=== PATIENT | female | born 1970 | race Caucasian/White ===

== ENCOUNTER 2016-06-16 09:04 | Emergency (ER) | payer MEDICARE, MEDICAID ==
[~2016-06-16] VITALS: Ht 154.9 cm; Wt 138.8 kg
[~2016-06-16 09:04] MED LIST: /SODI15SS PO; BACT800T5 PO; CIPR500T89 PO; DRIS1CAP PO; ERYTHROPOIETIN; FLAG500T PO; FOSR1000 PO; LEVA12INH INH; LOPE2CA PO; MIDO5TAB PO; MIDODRINE PO; MULTIVITAMIN/IRON PO; NEPHCAP PO; OMEP20CA3 PO; OMEP20TA7 OR; PAXI10TA2 PO; PHOSLO667 MG OR; PRED10TA2 PO; RENATAB5 PO; RENV2TAB PO; SENISPAR PO; SENS60TA PO; SEVE80TAB PO; SIMV20TA2 PO; TRAM50TA2 OR; TUMS500C PO; TYLE325T5 PO; ULTR50TA PO; VELP5CHW PO; VITAMIN D50000 UNT OR; VYTO10TA5 OR; ZOCO10TA PO; [UNRECOGNIZED DRUG - CODE] INJ; [UNRECOGNIZED DRUG - OTHER]; robitussin PO; zyvox PO
[2016-06-16] MEDS ORDERED: METOCLOPRAMIDE INJ 10MG/2ML VIAL (J2765) IV ONE (10:45)
--- NOTE | 2016-06-16 11:40 | REP ---
CT HEAD WITHOUT CONTRAST: HISTORY: Headache. COMPARISON: 08/04/2011 An area of decreased attenuation is present in the left basal ganglia. This represents an old lacunar infarction. Areas of decreased attenuation are present in the periventricular white matter. This represents small vessel ischemic disease. There is no intraparenchymal hemorrhage, mass or midline shift. The ventricular system is normal in appearance. There is no extracerebral collection. Mucosal thickening is present in the mastoid air cells and right middle ear cavity. The visualized sinuses are clear. IMPRESSION: 1. Old left basal ganglia lacunar infarction. 2. Small vessel ischemic disease. Signed by Rigo Lawrence MD 06/16/2016 11:47 A
[2016-06-16 12:05] LABS: BASO % 0.2 % (0.0-1.0); EOS # 0.1 K/mm3 (0.0-0.50); EOS % 1.2 % (0.0-3.0); LARGE UNSTAINED CELL # 0.1 K/mm3 (0.0-0.4); LYMPH # 0.7 K/mm3 (1.5-4.5); LYMPH % 14.8 % (24.0-44.0); MEAN CORPUSCULAR HEMOGLOBIN 31.7 pg (27.0-33.0); MEAN CORPUSCULAR HGB CONC 32.5 g/dl (32.0-36.5); MEAN CORPUSCULAR VOLUME 97.5 fl (80.0-96.0); MONO # 0.2 K/mm3 (0.0-0.8); MONO % 4.5 % (0.0-5.0); NEUTROPHILS # 3.7 K/mm3 (1.8-7.7); NEUTROPHILS % 78.3 % (36.0-66.0); PLATELET COUNT, AUTOMATED 138 k/mm3 (150-450); RED CELL DISTRIBUTION WIDTH 14.1 % (11.5-14.5); WHITE BLOOD COUNT 4.8 K/mm3 (4.0-10.0)
[2016-06-16 12:28] LABS: ALBUMIN 3.6 GM/DL (3.2-5.2); ALBUMIN/GLOBULIN RATIO 1.09 (1.00-1.93); ALKALINE PHOSPHATASE 107 U/L (45-117); ALT/SGPT 19 U/L (12-78); ANION GAP 8 MEQ/L (8-16); AST/SGOT 15 U/L (15-37); BILIRUBIN,DIRECT 0.1 MG/DL (0.0-0.2); BILIRUBIN,TOTAL 0.5 MG/DL (0.2-1.0); BLOOD UREA NITROGEN 48 MG/DL (7-18); CARBON DIOXIDE LEVEL 33 MEQ/L (21-32); CHLORIDE LEVEL 98 MEQ/L (98-107); CREATININE FOR GFR 9.44 MG/DL (0.55-1.02); GLOMERULAR FILTRATION RATE 4.7 (>58); GLUCOSE, FASTING 91 MG/DL (70-105); SODIUM LEVEL 139 MEQ/L (136-145); TOTAL PROTEIN 6.9 GM/DL (6.4-8.2)
[2016-06-16 12:32] LABS: POTASSIUM SERUM 5.3 MEQ/L (3.5-5.1)
[2016-06-16 13:19] VITALS: BP 126/62
--- NOTE | 2016-06-17 10:08 | ECGEPIP ---
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
== END 2016-06-16 13:41 | disposition home or self-care (01) ==
LOC: M ED 11:26
DX: G43.909 Migraine, unspecified, not intractable, without status migrainosus (principal); K21.9 Gastro-esophageal reflux disease without esophagitis; E66.9 Obesity, unspecified; Z79.899 Other long term (current) drug therapy; Z88.0 Allergy status to penicillin; Z88.6 Allergy status to analgesic agent; Z88.1 Allergy status to other antibiotic agents
CPT/HCPCS: 70450; 80048; 80076; 82550; 82553; 83690; 84484; 85025; 93005; 93041; 96374; 99284; J2765

== ENCOUNTER 2016-08-06 13:37 | Emergency (ER) | payer MEDICARE, MEDICAID ==
[~2016-08-06] VITALS: Ht 154.9 cm; Wt 138.8 kg
[2016-08-06 16:10] LABS: BASO % 1.2 % (0.0-1.0); EOS # 0.1 K/mm3 (0.0-0.50); EOS % 1.9 % (0.0-3.0); LARGE UNSTAINED CELL # 0.1 K/mm3 (0.0-0.4); LARGE UNSTAINED CELL % 2.1 % (0.0-4.0); LYMPH # 0.8 K/mm3 (1.5-4.5); LYMPH % 18.8 % (24.0-44.0); MEAN CORPUSCULAR HEMOGLOBIN 31.2 pg (27.0-33.0); MEAN CORPUSCULAR HGB CONC 31.6 g/dl (32.0-36.5); MEAN CORPUSCULAR VOLUME 98.7 fl (80.0-96.0); MONO # 0.3 K/mm3 (0.0-0.8); MONO % 6.8 % (0.0-5.0); NEUTROPHILS # 2.5 K/mm3 (1.8-7.7); NEUTROPHILS % 69.2 % (36.0-66.0); PLATELET COUNT, AUTOMATED 175 k/mm3 (150-450); RED CELL DISTRIBUTION WIDTH 15.1 % (11.5-14.5); WHITE BLOOD COUNT 3.7 K/mm3 (4.0-10.0)
[2016-08-06 16:16] LABS: CALCIUM LEVEL 9.4 MG/DL (8.5-10.1); CREATININE FOR GFR 5.63 MG/DL (0.55-1.02); GLOMERULAR FILTRATION RATE 8.6 (>58); POTASSIUM SERUM 4.2 MEQ/L (3.5-5.1)
--- NOTE | 2016-08-06 16:39 | REP ---
Clinical: Dyspnea and cough . Comparison: 01/02/2016 . Findings: The mediastinum and cardiac silhouette are stable and within normal limits for portable technique. The lung fong are clear without acute consolidation, effusion, or pneumothorax. Skeletal structures are intact. Impression: Normal portable chest x-ray Signed by Pedro Henderson MD 08/06/2016 04:30 P
[2016-08-06] MEDS ORDERED: IPRATROPIUM 0.5MG/ALBUTEROL 2.5MG INH SOL UD 3ML (DUONEB)(J7620) NEB ONE (16:45)
[2016-08-06] MEDS ORDERED: methylPREDNISolone INJ 125 MG/2 ML VIAL (J2930) IV ONE (16:45)
[2016-08-06 18:36] VITALS: BP 183/89
--- NOTE | 2016-08-07 08:01 | ECGEPIP ---
Stationary ECG Study [facility] - ED Test Date: 2016-08-06 Pat Name: NORTH SCHAEFFER Department: Room: - Gender: F [employer]er: MELINDA : 1970 Requested By: DALY Aly Order Number: [id number] Reading MD: Shanice Nathan Measurements Intervals [place] Rate: 72 P: 23 [place]: 140 QRS: -21 QRSD: 145 T: 1 QT: 414 QTc: 454 Interpretive Statements SINUS RHYTHM BORDERLINE LEFT AXIS DEVIATION RIGHT BUNDLE BRANCH BLOCK SIMILAR 06/16/16 Electronically Signed On 08-07-2016 8:01:23 EDT by Shanice Nathan
== END 2016-08-06 18:59 | disposition home or self-care (01) ==
LOC: M ED 15:29
DX: R06.02 Shortness of breath (principal); F41.9 Anxiety disorder, unspecified; N18.6 End stage renal disease; K57.92 Diverticulitis of intestine, part unspecified, without perforation or abscess without bleeding; Z99.2 Dependence on renal dialysis; Z90.49 Acquired absence of other specified parts of digestive tract; Z79.899 Other long term (current) drug therapy; Z88.0 Allergy status to penicillin; Z88.1 Allergy status to other antibiotic agents; Z88.6 Allergy status to analgesic agent; Z88.8 Allergy status to other drugs, medicaments and biological substances
CPT/HCPCS: 71010; 80048; 83605; 85025; 87880; 93005; 93041; 94640; 94760; 96374; 99285; J2930

== ENCOUNTER 2017-02-08 12:01 | Emergency (ER) | payer MEDICARE, MEDICAID ==
[~2017-02-08] VITALS: Ht 154.9 cm; Wt 139.1 kg
[~2017-02-08 12:01] MED LIST changes: +CIPR-249 PO; -CIPR500T89 PO
[2017-02-08] MEDS ORDERED: SIMV80TA PO (12:10)
[2017-02-08] MEDS ORDERED: LEVO500T3 PO (12:10)
[2017-02-08] MEDS ORDERED: IPRATROPIUM 0.5MG/ALBUTEROL 2.5MG INH SOL UD 3ML (DUONEB)(J7620) NEB ONE (13:00)
[2017-02-08 13:20] LABS: BASO % 0.2 % (0.0-1.0); EOS % 0.4 % (0.0-3.0); IMMATURE GRANULOCYTE % 0.7 % (0-0); LYMPH # 0.7 10^3/uL (1.5-4.5); MEAN CORPUSCULAR HEMOGLOBIN 32.4 pg (27.0-33.0); MEAN CORPUSCULAR HGB CONC 32.1 g/dl (32.0-36.5); MEAN CORPUSCULAR VOLUME 101.1 fl (80.0-96.0); MONO # 0.3 10^3/uL (0.0-0.8); MONO % 5.1 % (0.0-5.0); NEUTROPHILS # 4.6 10^3/uL (1.8-7.7); NEUTROPHILS % 80.6 % (36.0-66.0); PLATELET COUNT, AUTOMATED 211 10^3/uL (150-450); RED CELL DISTRIBUTION WIDTH 13.7 % (11.5-14.5); WHITE BLOOD COUNT 5.7 10^3/uL (4.0-10.0)
[2017-02-08 13:40] LABS: CALCIUM LEVEL 8.8 MG/DL (8.5-10.1); CREATININE FOR GFR 4.45 MG/DL (0.55-1.02); GLOMERULAR FILTRATION RATE 11.2 (>58); MAGNESIUM LEVEL 1.9 MG/DL (1.8-2.4); PHOSPHORUS LEVEL 2.6 MG/DL (2.5-4.9); POTASSIUM SERUM 4.9 MEQ/L (3.5-5.1)
[2017-02-08 13:56] VITALS: BP 132/67
[2017-02-08] MEDS ORDERED: ZITHTAB PO (13:57)
--- NOTE | 2017-02-08 13:58 | REP ---
CHEST, TWO VIEWS: Two views of the chest are performed and compared to a prior study of 01/02/2016 and single view chest on 08/06/2016. There is no evidence of acute infiltrate. The heart is not significantly enlarged and the mediastinal silhouette is unchanged. There is curvature of the thoracic spine convex to the right. There are mild degenerative changes of the spine. IMPRESSION: No evidence of acute infiltrate. Signed by Shashank Mack MD 02/08/2017 05:38 P
[2017-02-08] MEDS ORDERED: VENTAER IN (13:59)
[2017-02-08] MEDS ORDERED: AZITHROMYCIN 250 MG TAB PO ONE (14:00)
== END 2017-02-08 14:31 | disposition home or self-care (01) ==
LOC: M ED 12:01
DX: J20.9 Acute bronchitis, unspecified (principal)

== ENCOUNTER → 2017-05-18 | Outpatient (CLI) | payer MEDICARE, MEDICAID | LOC: M RAD 15:04 | DX: M14.671 Charcot's joint, right ankle and foot (principal) | CPT/HCPCS: 73718 ==

== ENCOUNTER 2017-09-11 12:01 | Emergency (ER) | payer MEDICARE, MEDICAID ==
[2017-09-11 12:27] LABS: ABG HCO3 28.3 MEQ/L (22.0-26.0); ABG O2 SATURATION 99.2 % (95.0-99.0); ABG PARTIAL PRESSURE CO2 37.4 mmHg (35.0-45.0); ABG PARTIAL PRESSURE O2 189.5 mmHg (75.0-100.0); ABG TOTAL CO2 29.5 MEQ/L (22.0-29.0); ABG pH (ARTERIAL) 7.497 UNITS (7.350-7.450)
[2017-09-11] MEDS ORDERED: ISOVUE-370 76% 100ML VIAL (Q9967) As Ordered (13:08)
[2017-09-11 14:46] LABS: BASO % 0.1 % (0.0-1.0); HEMATOCRIT 38.9 % (36.0-47.0); HEMOGLOBIN 12.8 g/dl (12.0-15.5); IMMATURE GRANULOCYTE % 0.3 % (0-3.0); LYMPH % 1.2 % (24.0-44.0); MEAN CORPUSCULAR HEMOGLOBIN 31.5 pg (27.0-33.0); MEAN CORPUSCULAR HGB CONC 32.9 g/dl (32.0-36.5); MEAN CORPUSCULAR VOLUME 95.8 fl (80.0-96.0); MONO # 0.3 10^3/uL (0.0-0.8); MONO % 3.6 % (0.0-5.0); NEUTROPHILS # 6.5 10^3/uL (1.8-7.7); NEUTROPHILS % 94.8 % (36.0-66.0); PLATELET COUNT, AUTOMATED 121 10^3/uL (150-450); RED BLOOD COUNT 4.06 10^6/uL (4.00-5.40); RED CELL DISTRIBUTION WIDTH 14.1 % (11.5-14.5); WHITE BLOOD COUNT 6.9 10^3/uL (4.0-10.0)
[2017-09-11 14:56] LABS: INR 1.03; PROTHROMBIN TIME 13.6 SECONDS (12.4-14.5)
[2017-09-11 15:09] LABS: ALBUMIN 3.5 GM/DL (3.2-5.2); ALKALINE PHOSPHATASE 162 U/L (45-117); ALT/SGPT 40 U/L (12-78); ANION GAP 9 MEQ/L (8-16); AST/SGOT 35 U/L (7-37); BILIRUBIN,DIRECT 0.6 MG/DL (0.0-0.2); BILIRUBIN,TOTAL 1.2 MG/DL (0.2-1.0); BLOOD UREA NITROGEN 18 MG/DL (7-18); CALCIUM LEVEL 9.1 MG/DL (8.5-10.1); CARBON DIOXIDE LEVEL 32 MEQ/L (21-32); CHLORIDE LEVEL 96 MEQ/L (98-107); CPK CREATINE PHOSPHOKINASE 380 U/L (26-192); CREATININE FOR GFR 5.51 MG/DL (0.55-1.30); GLOMERULAR FILTRATION RATE 8.8 (>58); GLUCOSE, FASTING 123 MG/DL (70-100); POTASSIUM SERUM 3.8 MEQ/L (3.5-5.1); SODIUM LEVEL 137 MEQ/L (136-145); TROPONIN I < 0.02 NG/ML (< 0.10)
[2017-09-11 15:13] LABS: LACTIC ACID SEPSIS PROTOCOL 2.9 MMOL/L (0.4-2.0)
[2017-09-11 15:14] LABS: CK-MB VALUE MASS 2.7 NG/ML (<3.6); MB/CK RELATIVE INDEX 0.71 (< OR =4); NT-PRO BNP 5624 PG/ML (<125)
[2017-09-11 15:31] LABS: LYMPH # 0.1 10^3/uL (1.5-4.5); POS COUNT POS FLAG; POSITIVE DIFF POS FLAG
[2017-09-11 19:31] LABS: CK-MB VALUE MASS 4.7 NG/ML (<3.6); CPK CREATINE PHOSPHOKINASE 989 U/L (26-192); MB/CK RELATIVE INDEX 0.47 (< OR =4); TROPONIN I 0.03 NG/ML (< 0.10)
== END 2017-09-11 21:30 | disposition home or self-care (01) ==
LOC: M ED 12:01
DX: N18.6 End stage renal disease (principal); Z99.2 Dependence on renal dialysis; R06.09 Other forms of dyspnea; I95.9 Hypotension, unspecified; I45.10 Unspecified right bundle-branch block; R00.0 Tachycardia, unspecified; I44.4 Left anterior fascicular block; D64.9 Anemia, unspecified; E21.3 Hyperparathyroidism, unspecified; F12.10 Cannabis abuse, uncomplicated; Z79.899 Other long term (current) drug therapy; Z88.8 Allergy status to other drugs, medicaments and biological substances; Z88.6 Allergy status to analgesic agent; Z88.0 Allergy status to penicillin
CPT/HCPCS: Q9967

== ENCOUNTER → 2018-04-14 | Outpatient (CLI) | payer MEDICARE, MEDICAID ==
[~2018-04-14] MED LIST changes: +CALC1CAP PO; +LANT1000 PO; +LEVO500T3 PO; +SIMV80TA13 PO; +VENTAER IN; +VENTAER INH; +ZITHTAB PO
[2018-04-16 11:29] LABS: HEPATITIS B SURFACE ANTIBODY POSITIVE (POSITIVE); HEPATITIS B SURFACE ANTIGEN NEGATIVE (NEGATIVE); HEPATITIS C VIRUS ABY INDEX 0.1 INDEX (<0.8); HIV 1&2 SCREEN CENTAUR NEGATIVE (NEGATIVE)
== END ==
LOC: M LAB 15:16
PROVIDERS: ATTEND Family Medicine Addiction Medicine
DX: Z20.2 Contact with and (suspected) exposure to infections with a predominantly sexual mode of transmission (principal)

== ENCOUNTER 2018-05-26 11:49 | Emergency (ER) | payer MEDICARE, MEDICAID ==
[~2018-05-26] VITALS: Ht 154.9 cm; Wt 132.3 kg
[2018-05-26] MEDS ORDERED: TESS100C PO ×2 (12:06→15:11)
[2018-05-26] MEDS ORDERED: VITA50005 (12:06)
[2018-05-26] MEDS ORDERED: PROAAER10 INH ×2 (12:06→15:11)
[2018-05-26] MEDS ORDERED: MIDO10TA PO (12:06)
[2018-05-26] MEDS ORDERED: AURY1TAB (12:06)
[2018-05-26] MEDS ORDERED: IPRATROPIUM 0.5MG/ALBUTEROL 2.5MG INH SOL UD 3ML (DUONEB)(J7620) NEB ONE (13:00)
--- NOTE | 2018-05-26 13:00 | REP ---
Chest x-ray: Three views. History: Shortness of breath. Comparison chest x-ray: February 08, 2017. Findings: There is a moderate dextroconvex scoliotic curve. There is benign pleural thickening bilaterally. The lungs are otherwise clear. Pleural angles are sharp. Heart size is normal. There are degenerative changes in the thoracic spine as well. Pulmonary vasculature is not increased. Impression: No active disease. Electronically Signed by Bean No MD 05/26/2018 12:52 P
[2018-05-26 13:20] LABS: BASO % 0.3 % (0.0-1.0); EOS % 0.9 % (0.0-3.0); HEMATOCRIT 37.9 % (36.0-47.0); HEMOGLOBIN 11.8 g/dl (12.0-15.5); LYMPH # 1.4 10^3/uL (1.5-4.5); LYMPH % 38.9 % (24.0-44.0); MEAN CORPUSCULAR HEMOGLOBIN 31.3 pg (27.0-33.0); MEAN CORPUSCULAR HGB CONC 31.1 g/dl (32.0-36.5); MEAN CORPUSCULAR VOLUME 100.5 fl (80.0-96.0); MONO # 0.3 10^3/uL (0.0-0.8); MONO % 7.4 % (0.0-5.0); NEUTROPHILS # 1.8 10^3/uL (1.8-7.7); NEUTROPHILS % 52.2 % (36.0-66.0); PLATELET COUNT, AUTOMATED 122 10^3/uL (150-450); RED BLOOD COUNT 3.77 10^6/uL (4.00-5.40); WHITE BLOOD COUNT 3.5 10^3/uL (4.0-10.0)
[2018-05-26 13:59] LABS: ALBUMIN 3.6 GM/DL (3.2-5.2); ALT/SGPT 24 U/L (12-78); BILIRUBIN,DIRECT 0.2 MG/DL (0.0-0.2); BILIRUBIN,TOTAL 0.5 MG/DL (0.2-1.0); BLOOD UREA NITROGEN 18 MG/DL (7-18); CALCIUM LEVEL 8.1 MG/DL (8.5-10.1); CARBON DIOXIDE LEVEL 32 MEQ/L (21-32); CHLORIDE LEVEL 98 MEQ/L (98-107); CPK CREATINE PHOSPHOKINASE 74 U/L (26-192); CREATININE FOR GFR 4.38 MG/DL (0.55-1.30); GLOMERULAR FILTRATION RATE 11.4 (>58); GLUCOSE, FASTING 79 MG/DL (70-100); MB/CK RELATIVE INDEX 2.43 (< OR =4); NT-PRO BNP 6602 PG/ML (<125); POTASSIUM SERUM 3.6 MEQ/L (3.5-5.1); SODIUM LEVEL 140 MEQ/L (136-145); TOTAL PROTEIN 7.4 GM/DL (6.4-8.2); TROPONIN I < 0.02 NG/ML (< 0.10)
[2018-05-26 15:25] VITALS: BP 112/65
--- NOTE | 2018-05-26 20:36 | ECGEPIP ---
Stationary ECG Study [facility] - ED Test Date: 2018-05-26 Pat Name: NORTH SCHAEFFER Department: Room: - Gender: F Hedis Review Nurse: TC : 1970 Requested By: Shanice Nathan Order Number: [id number] Reading MD: Grant Garcia Measurements Intervals [place] Rate: 61 P: 33 [place]: 158 QRS: -20 QRSD: 149 T: -1 QT: 456 QTc: 462 Interpretive Statements SINUS RHYTHM Right bundle branch block as previously noted on tracing done 09-11-17 Electronically Signed On 05-26-2018 20:36:14 EST by Grant Garcia
== END 2018-05-26 15:43 | disposition home or self-care (01) ==
LOC: EDBD 11:49 → M ED 11:49
DX: J20.9 Acute bronchitis, unspecified (principal)

== ENCOUNTER → 2018-06-21 | Outpatient (CLI) | payer MEDICARE, MEDICAID ==
[~2018-06-21] MED LIST changes: -/SODI15SS PO; +AURY1TAB; +MIDO10TA PO; +PROAAER10 INH; -SEVE80TAB PO; +SPS15SUS2 PO; +TESS100C PO; +VITA50005
--- NOTE | 2018-06-28 17:42 | SLEEPCENT ---
DATE OF PROCEDURE: 06/21/2018 ORDERED BY: Tea Argueta Nocturnal polysomnography was performed for evaluation of sleep physiology in this patient with a history of excessive somnolence and nonrestorative sleep. 7 hours and 44 minutes of data were reviewed. There were 327 minutes of sleep identified. Sleep latency was prolonged at 49 minutes. Rapid eye movement (REM) latency was prolonged at 241 minutes. Sleep architecture was fair with some fragmentation. Two short REM cycles were noted. Overall sleep efficiency 71.6%. The electrocardiogram showed a sinus rhythm with an average heart rate of 62 beats per minute. EEG showed normal waveforms for awake and sleep. There were 158 respiratory events identified of 10 seconds in duration or greater for an apnea-hypopnea index of 29. The events were obstructive, not exclusive to sleep stage nor body posture. Arousals from respiratory events occurred 3.7 times per hour and oxygen desaturations were seen into the low 80s. Remaining measures of sleep physiology were normal. IMPRESSION: Obstructive sleep apnea syndrome (G47.33). Apnea-hypopnea index 29. RECOMMENDATIONS: The patient should be encouraged to return to the sleep disorder center for pressure therapy. In the interim, alcohol and sedative avoidance should be practiced and caution exercised during the operation of motor vehicles.
== END ==
LOC: M SLEEP 19:10
PROVIDERS: ATTEND Nurse Practitioner Family
DX: G47.33 Obstructive sleep apnea (adult) (pediatric) (principal)

== ENCOUNTER → 2018-07-19 | Outpatient (CLI) | payer MEDICARE, MEDICAID ==
--- NOTE | 2018-07-21 14:40 | SLEEPCENT ---
DATE OF PROCEDURE: 07/19/2018 ORDERING PROVIDER: Tea Argueta NP Nocturnal polysomnography was performed for the titration of pressure therapy in this patient with obstructive sleep apnea syndrome. Apnea-hypopnea index of 29. For testing a ResMed Quattro full face mask of extra small size was used, 4 cm of water pressure were applied circuit, and the lights were extinguished. 7 hours and 1 minute of data were reviewed. There were 299 minutes of sleep identified. Sleep latency was prolonged at 32 minutes. Rapid eye movement (REM) latency was prolonged at 110 minutes. Sleep architecture improved with optimal pressure therapy. Overall sleep efficiency was 72%. The electrocardiogram showed a sinus rhythm with an average heart rate of 60 beats per minute. Electroencephalogram (EEG) showed some background coarsening, no focal events were identified. There were normal waveforms for awake and sleep. Respiratory events were reasonably palliated with C-PAP to a pressure +6. There was significant limb activity. Limb movement arousal index of 6.6. IMPRESSION: Obstructive sleep apnea syndrome (G47.33). RECOMMENDATIONS: Nightly use of pressure therapy 6 cm of water.
== END ==
LOC: M SLEEP 19:25
PROVIDERS: ATTEND Nurse Practitioner Family
DX: G47.33 Obstructive sleep apnea (adult) (pediatric) (principal)

== ENCOUNTER → 2018-08-17 | Outpatient (REF) | payer MEDICARE, MEDICAID | LOC: M LAB REF 16:37 | PROVIDERS: ATTEND Family Medicine Addiction Medicine | DX: Z20.2 Contact with and (suspected) exposure to infections with a predominantly sexual mode of transmission (principal) ==

== ENCOUNTER → 2018-10-28 | Outpatient (CLI) | payer MEDICARE, MEDICAID ==
[~2018-10-28] MED LIST changes: +ATOR1TAB21 PO; +ATOR40TA75 PO; -AURY1TAB; +AURY1TAB PO; +AZIT-12 PO; +CEFD300CAP PO; +CHOL100029 PO; +LIDO5TD TD; +MEGE40TA; +MEGE40TA PO; +OMEP1CAP73 PO; +OSEL75CA PO; +ROBICAP2 PO; +SIMV20TA22 PO; +ZOCO80TA PO
[2018-10-28 19:34] LABS: HCG, SERUM QUALITATIVE NEGATIVE (NEGATIVE)
[2018-10-28 19:48] LABS: FREE T4 1.32 NG/DL (0.76-1.46)
[2018-10-28 19:51] LABS: FOLLICLE STIMULATING HORMONE 5.3 mIU/mL; LUTEINIZING HORMONE 9.1 mIU/mL
[2018-10-28 22:27] LABS: CHLAMYDIA DNA AMPLIFICATION NEGATIVE (NEGATIVE); GC DNA AMPLIFICATION NEGATIVE (NEGATIVE)
[2018-11-02 15:07] LABS: HPV LOW VOL RFLX Negative (Negative)
== END ==
LOC: M SMT 14:42
PROVIDERS: ATTEND Advanced Practice Midwife
DX: Z12.4 Encounter for screening for malignant neoplasm of cervix (principal); N95.0 Postmenopausal bleeding; N87.0 Mild cervical dysplasia; Z11.3 Encounter for screening for infections with a predominantly sexual mode of transmission
CPT/HCPCS: 36415; 83001; 83002; 84439; 84443; 84703; 87491; 87591; 87624; G0123

== ENCOUNTER → 2018-11-04 | Outpatient (CLI) | payer MEDICARE, MEDICAID ==
[~2018-11-04] MED LIST changes: -ATOR1TAB21 PO; -ATOR40TA75 PO; +AURY1TAB; -AURY1TAB PO; -AZIT-12 PO; -CEFD300CAP PO; -CHOL100029 PO; -LIDO5TD TD; -MEGE40TA; -MEGE40TA PO; -OMEP1CAP73 PO; +OMEP20CA4 PO; -OSEL75CA PO; -ROBICAP2 PO; -SIMV20TA22 PO; -ZOCO80TA PO
--- NOTE | 2018-11-04 16:01 | REP ---
Pelvic sonography: History: Postmenopausal bleeding. Findings: Transabdominal and transvaginal scanning are performed. Exam quality is quite limited due to patient body habitus and uterine enlargement. Uterine dimensions are 12.5 x 7.5 x 5.8 cm. Endometrial echo is 2.7 cm thick. There is hypoechoic area in the lower uterine segment measuring 1.7 x 1.7 x 1.2 cm. This is compatible with a small fibroid. The left ovary could not be visualized either transabdominally or transvaginally. Limited views of the right ovary show no abnormality. Its dimensions are 2.3 x 2.0 x 1.6 cm. Impression: Enlarged uterus. Scan quality inhibited by patient body habitus and large uterus. Left ovary could not be directly visualized. 1.7 cm lower uterine segment fibroid suspected. Otherwise negative. Electronically Signed by Bean No MD 11/04/2018 05:40 P
--- NOTE | 2018-11-04 16:26 | REPMRS ---
Patient History The patient states she had a clinical breast exam in October 2018. No known family history of cancer. Took hormonal contraceptives for 2 years. Patient has been on dialysis since 1997. Patient has lost 20 pounds in the last year due to diet. Digital Mammo Screening Bilat: November 04, 2018 - Exam #: [id number] Bilateral CC and MLO view(s) were taken. Technologist: Marquita Wen, Technologist Prior study comparison: November 29, 2013, bilateral bilat screen digital mammo, performed at [facility] ([facility]). October 05, 2012, bilateral bilat screen digital mammo, performed at [facility] ([facility]). July 03, 2011, bilateral bilat screen digital mammo, performed at [facility] ([facility]). FINDINGS: There are scattered fibroglandular densities. Dominant veins are again noted in the right breast unchanged. There has been no change in the appearance of the mammogram from the prior studies. There is a mild amount of scattered fibroglandular density which is fairly symmetric. There is no interval development of dominant mass, architectural distortion, or grouped microcalcification suggestive of malignancy. 3-D tomosynthesis shows no additional findings. Assessment: BI-RADS/ACR category 2 mammogram. Benign Findings. Recommendation Routine screening mammogram of both breasts in 1 year (for women over age 40). This patient's Lifetime Breast Cancer Risk is estimated at 8.9 %. This mammogram was interpreted with the aid of an FDA-approved computer-aided dectection system. Electronically Signed By: Elmer No MD 11/04/18 [id number]
== END ==
LOC: M RAD 12:20
PROVIDERS: ATTEND Advanced Practice Midwife
DX: Z12.31 Encounter for screening mammogram for malignant neoplasm of breast (principal); N95.0 Postmenopausal bleeding; N85.2 Hypertrophy of uterus

== ENCOUNTER 2018-11-22 11:11 | Inpatient (IN) | payer MEDICARE, MEDICAID ==
[2018-11-22] VITALS (10 sets, daily range): BP systolic 73–119; BP diastolic 35–60
[~2018-11-22] VITALS: Ht 154.9 cm; Wt 127.7 kg
[~2018-11-22 11:11] MED LIST changes: -AURY1TAB; +AURY1TAB PO
[2018-11-22] MEDS ORDERED: ALBUTEROL SULFATE 2.5 MG/0.5 ML INH NEB SOLN INH ONE (11:45)
[2018-11-22] MEDS ORDERED: IPRATROPIUM 0.5MG/ALBUTEROL 2.5MG INH SOL UD 3ML (DUONEB)(J7620) NEB ONE (11:45)
[2018-11-22 12:09] LABS: BASO % 0.1 % (0.0-1.0); HEMATOCRIT 35.7 % (36.0-47.0); HEMOGLOBIN 11.6 g/dl (12.0-15.5); LYMPH # 0.7 10^3/uL (1.5-5.0); LYMPH % 8.8 % (24.0-44.0); MEAN CORPUSCULAR HEMOGLOBIN 30.8 pg (27.0-33.0); MEAN CORPUSCULAR HGB CONC 32.5 g/dl (32.0-36.5); MEAN CORPUSCULAR VOLUME 94.7 fl (80.0-96.0); MONO # 0.8 10^3/uL (0.0-0.8); MONO % 9.7 % (0.0-5.0); NEUTROPHILS # 6.6 10^3/uL (1.5-8.5); PLATELET COUNT, AUTOMATED 140 10^3/uL (150-450); RED BLOOD COUNT 3.77 10^6/uL (4.00-5.40); WHITE BLOOD COUNT 8.1 10^3/uL (4.0-10.0)
[2018-11-22 12:18] LABS: INR 1.04; PROTHROMBIN TIME 13.3 SECONDS (11.8-14.0)
[2018-11-22 12:19] LABS: PARTIAL THROMBOPLASTIN TIME 35.4 SECONDS (25.0-38.4)
--- NOTE | 2018-11-22 12:37 | REP ---
Clinical: Chest pain . Comparison: 05/26/2018 . Findings: The mediastinum and cardiac silhouette are stable and within normal limits for portable technique. The lung fong are clear without acute consolidation, effusion, or pneumothorax. Skeletal structures are intact. Impression: No acute cardiopulmonary process appreciated. Electronically Signed by Pedro Henderson MD 11/22/2018 12:29 P
[2018-11-22 12:45] LABS: ALBUMIN 3.5 GM/DL (3.2-5.2); BILIRUBIN,DIRECT 0.4 MG/DL (0.0-0.2); BILIRUBIN,TOTAL 1.1 MG/DL (0.2-1.0); CK-MB VALUE MASS 1.2 NG/ML (<3.6); FREE T4 1.52 NG/DL (0.76-1.46); MB/CK RELATIVE INDEX 1.94 (< OR =4); THYROID STIMULATING HORMONE 1.29 uIU/ML (0.358-3.740); TOTAL PROTEIN 7.2 GM/DL (6.4-8.2); TROPONIN I 0.2 NG/ML (< 0.10)
[2018-11-22] MEDS ORDERED: MORPHINE 2 MG/ML 1ML SYRINGE (J2270) IV ONE ×2 (12:45)
[2018-11-22] MEDS ORDERED: ONDANSETRON 4MG/2ML VIAL (J2405) IV ONE ×2 (12:45)
[2018-11-22] MEDS ORDERED: ISOVUE-370 76% 100ML VIAL (Q9967) As Ordered ONE (13:02)
[2018-11-22] MEDS ORDERED: MEROPENEM INJ 1 GM in IV 1 EA IV ONE (13:15)
[2018-11-22] MEDS ORDERED: ACETAMINOPHEN 325 MG TAB PO ONE (13:15)
[2018-11-22] MEDS ORDERED: CHOL100029 PO (13:35)
[2018-11-22] MEDS ORDERED: ZOCO80TA PO (13:35)
--- NOTE | 2018-11-22 14:13 | REP ---
Clinical: Acute chest pain. Comparison: 09/11/2017 Technique: Axial contrast enhanced images from the thoracic inlet to the upper abdomen using 100 ml Isovue 370 intravenous contrast material with coronal and sagittal re-formations. Findings: Evaluation is limited by technical factors/body habitus and pulmonary embolus cannot definitively be excluded. No obvious filling defect in the main pulmonary arteries identified. Thoracic aorta is normal caliber without aneurysm or dissection. Heart is normal in size. No pericardial effusion. Lung fong demonstrate small scattered noncalcified nodules with subtle surrounding ground-glass opacity which measure up to approximately 7 mm. Differential diagnosis would include metastatic disease as well as septic emboli and clinical correlation is recommended. No consolidation. No effusion. No pneumothorax. Impression: 1. Limited for evaluation of pulmonary embolus. No obvious pulmonary embolus. 2. Multiple scattered small ill-defined nodules up to 7 mm. Differential diagnosis includes septic emboli and metastatic disease. Correlation and follow up is recommended. Electronically Signed by Pedro Henderson MD 11/22/2018 02:05 P
[2018-11-22] MEDS ORDERED: NS 500 ML IV ONE (14:15)
[2018-11-22] MEDS ORDERED: LINEZOLID 600 MG in IV 1 EA IV ONE (14:15)
[2018-11-22 14:16] LABS: CK-MB VALUE MASS 1.1 NG/ML (<3.6); MB/CK RELATIVE INDEX 1.9 (< OR =4); TROPONIN I 0.25 NG/ML (< 0.10)
--- NOTE | 2018-11-22 14:18 | REP ---
Clinical: Abdominal pain and fever. Technique: Axial contrast enhanced images from the lung bases to the pubic symphysis with coronal and sagittal re-formations using 100 ml Isovue 370 intravenous contrast material. Comparison: 09/11/2017. Findings: Liver, spleen, pancreas, and bilateral adrenal glands are normal. Atrophic appearance of the bilateral kidneys noted with calcifications and cysts, but no hydronephrosis or perinephric stranding. Evidence of prior cholecystectomy. The enteric system is without obstruction or acute inflammatory process. Pelvis demonstrates collapsed bladder. Uterus and adnexa are grossly unremarkable. 3 cm fat containing periumbilical hernia noted. No ascites. No free air. No adenopathy. Supraumbilical ventral hernia repair with mesh identified. Osseous structures demonstrate diffuse heterogeneous sclerosis and mottled changes which may be secondary to renal osteodystrophy however metastatic disease cannot be excluded. Impression: 1. No obvious acute abdominopelvic pathology appreciated. 2. No ascites, focal inflammatory stranding, or adenopathy. 3. Chronic-appearing changes as noted above. Electronically Signed by Pedro Henderson MD 11/22/2018 02:10 P
[2018-11-22 14:50] LABS: CHLAMYDIA DNA AMPLIFICATION NEGATIVE (NEGATIVE); GC DNA AMPLIFICATION NEGATIVE (NEGATIVE)
[2018-11-22] MEDS ORDERED: MEROPENEM INJ 1 GM in IV 1 EA IV SCH (15:15)
[2018-11-22] MEDS ORDERED: SODIUM CHLORIDE 0.9% 1000ML IV ONE (15:45)
--- NOTE | 2018-11-22 16:01 | ROOPDOC ---
[facility] Report Of Operation Report of Operation DATE OF PROCEDURE: 11/22/18 PREPROCEDURE DIAGNOSES: Sepsis, need for critical venous access. POSTPROCEDURE DIAGNOSES: Same. PROCEDURE: Insertion of left internal jugular triple-lumen central venous catheter under ultrasound guidance. SURGEON: Memo Alberto MD ANESTHESIA: Local anesthesia with 1% lidocaine. ESTIMATED BLOOD LOSS: Approximately 5 mL. COMPLICATIONS: None, portable chest x-ray pending. REMARKS: 48-year-old female morbidly obese, short neck brought in to the emergency room for fever noted to be hypotensive suspected to be septic and she is in need of a central venous catheter as she does not have any accessible peripheral veins. DESCRIPTION OF PROCEDURE: I first surveyed her right neck with an ultrasound to look at the right internal jugular vein. She reports she had a previous dialysis catheter on that area and he developed clot with the catheter. The vein looks very tiny on her right neck. I then switched to the left neck and this seems to be more accessible with markedly change in size with the patient taking a deep breath consistent with dry state. This seems to be more accessible Lauren chose the left side. Her left neck, chest was prepped and draped in the usual sterile fashion. We used a prepackaged Central Line Bundle. Under ultrasound guidance, the location of the internal jugular vein was visualized given her body habitus still is barely any landmarks perceptible on her neck and chest.. Once this was localized the skin was infiltrated with 1% lidocaine. An anterior approach was used. The finder needle was visualized coming into the lumen of the internal jugular vein. The guidewire was threaded through the needle. Using modified Seldinger technique, a fascial dilator was used to enlarge the subcutaneous tract and a triple-lumen catheter was threaded through the guidewire to about 18 cm from the skin line. The guidewire was removed. All the ports were checked and noted to be aspirating and flushing well. The triple-lumen catheter was then secured to the skin with 3-0 nylon sutures. An antibiotic containing sterile clear dressing was placed at the wound exit site. MEMO ALBERTO MD Nov 22, 2018 16:01
--- NOTE | 2018-11-22 16:41 | REP ---
Clinical: Line placement . Comparison: 11/22/2018 . Findings: Left IJ line with tip in the SVC. The mediastinum and cardiac silhouette are stable and within normal limits for portable technique. No focal consolidation. No effusion. No pneumothorax. Skeletal structures are intact. Impression: Cannot exclude mild interstitial edema or subtle atelectasis. Electronically Signed by Pedro Henderson MD 11/22/2018 04:32 P
[2018-11-22] MEDS ORDERED: traMADol 50 MG TAB PO PRN (18:45)
[2018-11-22 19:06] LABS: BASO % 0.4 % (0.0-1.0); EOS # 0.1 10^3/uL (0.0-0.5); EOS % 0.5 % (0.0-3.0); HEMATOCRIT 33.3 % (36.0-47.0); HEMOGLOBIN 10.7 g/dl (12.0-15.5); LYMPH # 0.4 10^3/uL (1.5-5.0); LYMPH % 4.4 % (24.0-44.0); MEAN CORPUSCULAR HEMOGLOBIN 29.9 pg (27.0-33.0); MEAN CORPUSCULAR HGB CONC 32.1 g/dl (32.0-36.5); MONO # 0.8 10^3/uL (0.0-0.8); NEUTROPHILS # 8.2 10^3/uL (1.5-8.5); NEUTROPHILS % 83.7 % (36.0-66.0); PLATELET COUNT, AUTOMATED 123 10^3/uL (150-450); RED BLOOD COUNT 3.58 10^6/uL (4.00-5.40); WHITE BLOOD COUNT 9.8 10^3/uL (4.0-10.0)
[2018-11-22] MEDS: NYSTATIN 500,000 U/5 ML SUSP UDC SS SCH (20:02)
[2018-11-22] MEDS: OMEPRAZOLE 20 MG CAP PO SCH (20:02)
[2018-11-22] MEDS: SIMVASTATIN 40 MG TAB PO SCH (20:03)
[2018-11-22] MEDS: PERCOCET 5MG/325MG TAB PO PRN (20:03)
[2018-11-22] MEDS: ACETAMINOPHEN TAB 650MG DOSE (2X325MG) PO PRN (20:03)
--- NOTE | 2018-11-22 20:50 | HPEPDOC ---
General Date of Admission Nov 22, 2018 at 14:56 Date of Service: Nov 22, 2018 Chief Complaint The patient is a 48-year-old female admitted with a reason for visit of End Stage Renal Disease On Hemodialysis Fever. Source: Patient, Old records Exam Limitations: No limitations Timing/Duration: Week(s) Severity: Moderate Associated Symptoms: Fever, Chills, Nausea, Vomiting History of Present Illness This is a 48-year-old male who presents with multiple complaints. Primary complaint is development of fever and chills over the past week progressing to nausea and vomiting this weekend. She's also been complaining of low back pain, but this is chronic for her. Upon evaluation in the emergency room she was noted to be febrile and hypotensive with systolic pressures down to 74. She was fe brile up to 100.8. Lactic acid was normal at 1.7, and she was not noted to be tachycardic. However, she was poorly responsive to IV fluid resuscitation. Central line was placed for more aggressive fluid resuscitation. Upon additional radiologic evaluation in the emergency room, there were findings concerning for septic emboli and consequently overall concern for possible endocarditis. This is not the first time this concern has been raised. Patient had prior concern for endocarditis back in 2000. Echocardiogram at that time was not diagnostic. Additional complaint from the patient is that she's been having intermittent vaginal bleeding. She believes herself to be menopausal. She's been seen by her supervisor money room and there are pending plans for her to undergo endometrial biopsy. Of additional concern is that the patient's sex partner is HIV positive. They apparently do use condoms and she is tested regularly. Otherwise, we do not identify other risk behavior that would be contributory to endocarditis. Home Medications Scheduled Calcium Acetate (Calcium Acetate) 667 Mg Cap, 1,334 MG PO WM, (Reported) Ferric Citrate (Auryxia) 210 Mg Tab, 420 MG PO WM, (Reported) Folic Acid/Vit B Complex and C (Ynes-Betty Tablet) 1 Tab Tab, 1 TAB PO 3XW, (Reported) RECEIVES AT DIALYSIS MON, WED, FRI Omeprazole (Omeprazole) 20 Mg Cap, 20 MG PO QHS, (Reported) Simvastatin (Zocor) 80 Mg Tablet, 80 MG PO QHS, (Reported) Sucroferric Oxyhydroxide (Velphoro) 500 Mg Chw, 1,000 MG PO WM, (Reported) Vitamin D (Vitamin D3) 1,000 Unit Tablet, 6,000 UNITS PO 3XW, (Reported) RECEIVES AT DIALYSIS MON, WED, FRI Scheduled PRN Albuterol Sulfate (Ventolin Hfa) 108 Mcg/Act Aer, 2 PUFF INH Q6H PRN for SOB/WHEEZING, (Reported) Allergies Coded Allergies: Cephalosporins (Verified Allergy, Mild, rash, 11/22/18) ibuprofen (Verified Allergy, Mild, rash, 11/22/18) iron dextran complex (Verified Allergy, Mild, rash, 11/22/18) nafcillin (Verified Allergy, Mild, rash, 11/22/18) vancomycin (Verified Allergy, Mild, rash, 11/22/18) azelastine (Verified Allergy, Unknown, 11/22/18) povidone (Verified Allergy, Unknown, 11/22/18) Past Medical History Medical History Past medical history includes chronic back pain, end-stage renal disease for which she is hemodialysis requiring, diverticular disease with diverticulitis in the past, morbid obesity, obstructive sleep apnea for which she is supposed to sleep with a CPAP mask, chronic anemia, menopause, hyperparathyroidism, dyslipidemia, unspecified vaginal bleeding Surgical History Surgical history includes: in the past, tonsillectomy, arthroscopic surgeries to her right ankle and left knee, 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 The patient states she is waiting for gastric bypass surgery. Family History Significant Family History: Diabetes Additional family history includes paternal history of pulmonary embolus resulting in . 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 She is currently unemployed. A-FIB/CHADSVASC A-FIB History Current/History of A-Fib/PAF?: No Current PO Anticoag Therapy: No Review of Systems Other systems 10 system review is otherwise negative except as stated in the brief presentation. Physical Examination General Exam: Positive: Cooperative, Mild Distress Eye Exam: Positive: PERRLA ENT Exam: Positive: Atraumatic, Mucous membr. moist/pink, Tongue Midline, Nares Patent, Other ENT (the patient is edentulous) Neck Exam: Positive: Supple, Other (no palpable adenopathy or thyromegaly) Chest Exam: Positive: Clear to auscultation, Normal air movement Heart Exam: Positive: Rate Normal, Murmurs (at least grade 2 to 3/6 systolic murmur) Abdomen Exam: Positive: Normal bowel sounds, Soft, Other (morbidly obese) Extremity Exam: Positive: Normal pulses; Negative: Clubbing, Cyanosis, Tenderness, Swelling, Other Skin Exam: Positive: Nl turgor and temperature Neuro Exam: Positive: Normal Speech, Cranial Nerves 3-12 NL Psych Exam: Positive: Anxiety Other physical findings Patient is having active menses. Vital Signs Vital Signs Date Time Temp Pulse Resp B/P (MAP) Pulse Ox O2 Delivery O2 Flow Rate FiO2 11/22/18 20:03 85 16 119/57 95 1.0 11/22/18 20:00 101.2 11/22/18 11:12 Room Air Laboratory Data Labs 24H Laboratory Tests 2 11/22/18 11:51: Immature Granulocyte % (Auto) 0.4, White Blood Count 8.1, Red Blood Count 3.77L, Hemoglobin 11.6L, Hematocrit 35.7L, Mean Corpuscular Volume 94.7, Mean Corpuscular Hemoglobin 30.8, Mean Corpuscular Hemoglobin Concent 32.5, Red Cell Distribution Width 14.1, Platelet Count 140L, Neutrophils (%) (Auto) 81.0H, Lymphocytes (%) (Auto) 8.8L, Monocytes (%) (Auto) 9.7H, Eosinophils (%) (Auto) 0.0, Basophils (%) (Auto) 0.1, Neutrophils # (Auto) 6.6, Lymphocytes # (Auto) 0.7L, Monocytes # (Auto) 0.8, Eosinophils # (Auto) 0.0, Basophils # (Auto) 0.0, Nucleated Red Blood Cells % (auto) 0.0, Prothrombin Time 13.3, Prothromb Time International Ratio 1.04, Activated Partial Thromboplast Time 35.4, Lactic Acid Level 1.7, Aspartate Amino Transf (AST/SGOT) 14, Alanine Aminotransferase (ALT/SGPT) 15, Alkaline Phosphatase 104, Total Bilirubin 1.1H, Direct Bilirubin 0.4H, Total Creatine Kinase 62, Creatine Kinase MB 1.2, Creatine Kinase MB Relative Index 1.94, Troponin I 0.20H, Total Protein 7.2, Albumin 3.5, Albumin/Globulin Ratio 0.95L, Lipase 57L, Thyroid Stimulating Hormone (TSH) 1.290, Free Thyroxine 1.52H 11/22/18 12:04: POC Glucose (Misc Panel) 106H, POC Sodium (Misc Panel) 137, POC Potassium (Misc Panel) 3.6, POC Chloride (Misc Panel) 96L, POC Total CO2 (Misc Panel) 35.0H, POC Blood Urea Nitrogen (Misc Panel 17, POC Ionized Calcium (Misc Panel) 4.1L, POC Creatinine (Misc Panel) 5.1H, POC Hematocrit (Misc Panel) 36.0L 11/22/18 13:05: Chlamydia trachomatis DNA (TYLER) NEGATIVE, Neisseria gonorrhoeae DNA (TYLER) NEGATIVE 11/22/18 13:30: Total Creatine Kinase 58, Creatine Kinase MB 1.1, Creatine Kinase MB Relative Index 1.90, Troponin I 0.25#H 11/22/18 17:42: Bedside Glucose (Misc Panel) 92 11/22/18 18:55: Immature Granulocyte % (Auto) 3.0, White Blood Count 9.8, Red Blood Count 3.58L, Hemoglobin 10.7L, Hematocrit 33.3L, Mean Corpuscular Volume 93.0, Mean Corpuscular Hemoglobin 29.9, Mean Corpuscular Hemoglobin Concent 32.1, Red Cell Distribution Width 14.2, Platelet Count 123L, Neutrophils (%) (Auto) 83.7H, Lymphocytes (%) (Auto) 4.4L, Monocytes (%) (Auto) 8.0H, Eosinophils (%) (Auto) 0.5, Basophils (%) (Auto) 0.4, Neutrophils # (Auto) 8.2, Lymphocytes # (Auto) 0.4L, Monocytes # (Auto) 0.8, Eosinophils # (Auto) 0.1, Basophils # (Auto) 0.0, Nucleated Red Blood Cells % (auto) 1.2H 11/22/18 20:09: Bedside Glucose (Misc Panel) 131H CBC/BMP Laboratory Tests 11/22/18 11:51 Red Blood Count 3.77 L, Mean Corpuscular Volume 94.7, Mean Corpuscular Hemoglobin 30.8, Mean Corpuscular Hemoglobin Concent 32.5, Red Cell Distribution Width 14.1, Neutrophils (%) (Auto) 81.0 H, Lymphocytes (%) (Auto) 8.8 L, Monocytes (%) (Auto) 9.7 H, Eosinophils (%) (Auto) 0.0, Basophils (%) (Auto) 0.1, Neutrophils # (Auto) 6.6, Lymphocytes # (Auto) 0.7 L, Monocytes # (Auto) 0.8, Eosinophils # (Auto) 0.0, Basophils # (Auto) 0.0 11/22/18 18:55 Red Blood Count 3.58 L, Mean Corpuscular Volume 93.0, Mean Corpuscular Hemoglobin 29.9, Mean Corpuscular Hemoglobin Concent 32.1, Red Cell Distribution Width 14.2, Neutrophils (%) (Auto) 83.7 H, Lymphocytes (%) (Auto) 4.4 L, Monocytes (%) (Auto) 8.0 H, Eosinophils (%) (Auto) 0.5, Basophils (%) (Auto) 0.4, Neutrophils # (Auto) 8.2, Lymphocytes # (Auto) 0.4 L, Monocytes # (Auto) 0.8, Eosinophils # (Auto) 0.1, Basophils # (Auto) 0.0 Microbiology Microbiology 11/22/18 Blood Culture, Received Pending 11/22/18 Blood Culture, Received Pending 11/22/18 Blood Culture, Received Pending 11/22/18 Wet Prep - Final, Complete 11/22/18 Group A Streptococcus Screen (LOUIE), Received Pending Assessment/Plan 1. Sepsis. We will continue to follow Lactic acid levels. She continues with aggressive IV fluid resuscitation. She is on empiric antibiotics in the form of Zyvox and meropenem due to her allergies to Zosyn and vancomycin. Multiple blood cultures have been obtained. 2. Possible endocarditis. Again, this is a second time this concern has been raised in this patient. She has had other complications from infections in the past resulting in her reported amputations. We will proceed with evaluating her by echocardiogram, transthoracic. We will obtain a transesophageal echo if needed. We will continue with current antibiotics. 3. End-stage renal disease. We have consulted with her nephrology team in order to maintain her hemodialysis schedule while she is in the hospital. She usually dialyzes on Thursday, Thursday and Thursday. 4. Obstructive sleep apnea. We'll try to have the patient be compliant with her CPAP while she is in the hospital. 5. Uterine bleeding. Patient states she's been "menopausal" for the past year. Her bleeding may not be unusual. Again, she is being followed by [facility] services and arrangements are in progress for her to undergo outpatient endometrial biopsy. The patient is inpatient status as we do anticipate her length of stay to be greater than 2 midnights while we completed a thorough evaluation and rule out of endocarditis. Plan / VTE VTE Prophylaxis Ordered?: Yes (heparin) Plan IVF: Initiate, Continue Diet: Continue Current Activity: Advance Medications: Start Antibiotics Diagnostics: Check Labs, Repeat Labs in AM, Obtain Cultures, TTE Anticipated Discharge: Home VENITA CABRAL MD Nov 22, 2018 20:50
[2018-11-22] MEDS ORDERED: NS 1,000 ML IV ONE (23:00)
[2018-11-22] MEDS: HEPARIN SOD (PORCINE) 5000 UNITS/ML VIAL SC SCH (23:00)
[2018-11-23] VITALS (19 sets, daily range): BP systolic 74–122; BP diastolic 36–65
--- NOTE | 2018-11-23 00:39 | ECGEPIP ---
[facility] - ED Test Date: 2018-11-22 Pat Name: NORTH SCHAEFFER Department: Room: - Gender: Female Scientific Informatics Analyst: mj : 1970 Requested By: Magaly Padgett Order Number: [id number] Reading MD: Grant Garcia Measurements Intervals [place] Rate: 88 P: 61 ME: 116 QRS: -40 QRSD: 145 T: 18 QT: 379 QTc: 459 Interpretive Statements SINUS RHYTHM WITH SHORT ME INTERVAL Left anterior fascicular block RIGHT BUNDLE BRANCH BLOCK Electronically Signed on 11-23-2018 0:39:51 EDT by Grant Garcia
--- NOTE | 2018-11-23 00:44 | ECGEPIP ---
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
[2018-11-23] MEDS: PERCOCET 5MG/325MG TAB PO PRN (01:29)
[2018-11-23] MEDS: LINEZOLID 600 MG in IV 1 EA IV SCH ×2 (04:37→16:47)
[2018-11-23] MEDS: ACETAMINOPHEN TAB 650MG DOSE (2X325MG) PO PRN (04:37)
[2018-11-23 04:57] LABS: HEMATOCRIT 29.6 % (36.0-47.0); HEMOGLOBIN 9.3 g/dl (12.0-15.5); MEAN CORPUSCULAR HEMOGLOBIN 30.3 pg (27.0-33.0); MEAN CORPUSCULAR HGB CONC 31.4 g/dl (32.0-36.5); MEAN CORPUSCULAR VOLUME 96.4 fl (80.0-96.0); PLATELET COUNT, AUTOMATED 121 10^3/uL (150-450); RED BLOOD COUNT 3.07 10^6/uL (4.00-5.40); WHITE BLOOD COUNT 8.6 10^3/uL (4.0-10.0)
[2018-11-23 05:16] LABS: ALBUMIN 2.7 GM/DL (3.2-5.2); CALCIUM LEVEL 7.2 MG/DL (8.5-10.1); CREATININE FOR GFR 6.75 MG/DL (0.55-1.30); GLOMERULAR FILTRATION RATE 6.9 (>51); MAGNESIUM LEVEL 1.6 MG/DL (1.8-2.4); POTASSIUM SERUM 4.2 MEQ/L (3.5-5.1); TOTAL PROTEIN 5.6 GM/DL (6.4-8.2)
[2018-11-23 05:17] LABS: TROPONIN I 0.3 NG/ML (< 0.10)
[2018-11-23] MEDS: HEPARIN SOD (PORCINE) 5000 UNITS/ML VIAL SC SCH ×3 (06:34→21:35)
[2018-11-23] MEDS: CALCIUM ACETATE 667 MG GELCAP PO SCH ×4 (08:00→17:57)
[2018-11-23] MEDS ORDERED: MAG SULF 1GM/100ML (MAG RUN) 1 GM in IV 1 EA IV ONE (08:45)
[2018-11-23] MEDS: NYSTATIN 500,000 U/5 ML SUSP UDC SS SCH ×3 (09:00→21:34)
[2018-11-23] MEDS ORDERED: PERCOCET 5MG/325MG TAB PO PRN (10:30)
[2018-11-23] MEDS ORDERED: NIX CREME RINSE 1% 60 ML KIT TOP ONE (14:00)
[2018-11-23] MEDS ORDERED: NALOXONE INJ 0.4 MG/1 ML VIAL (J2310) As Ordered ONE (16:13)
[2018-11-23] MEDS ORDERED: NALOXONE INJ 0.4 MG/1 ML VIAL (J2310) IV STA ×2 (16:17→16:22)
[2018-11-23 16:39] LABS: VENOUS BASE EXCESS 3.2 (-2.0-2.0); VENOUS HCO3 28.5 MEQ/L (23.0-27.0); VENOUS O2 SATURATION 90.8 % (60.0-80.0); VENOUS PARTIAL PRESSURE CO2 46.7 mmHg (38.0-50.0); VENOUS PARTIAL PRESSURE O2 61.8 mmHg (30.0-50.0); VENOUS PH 7.403 UNITS (7.330-7.430); VENOUS STANDARD HCO3 27.2 MEQ/L; VENOUS TOTAL CO2 29.9 MEQ/L (24.0-28.0)
[2018-11-23] MEDS: MEROPENEM INJ 500 MG in IV 1 EA IV SCH (17:57)
--- NOTE | 2018-11-23 19:31 | IPNPDOC ---
Text Note Date of Service The patient was seen on 11/23/18. NOTE This is a 48-year-old female admitted with fever and hypotension. Concern was raised for sepsis. Potential source may be endocarditis as the patient has imaging concerning for pulmonary septic emboli. She has continued with intermittent fever, relative hypotension and waxing and waning level of consciousness. Objective: Please see vital signs below HENT: In general, the patient's neck is supple with no adenopathy or thyromegaly. Oral mucosa is tacky. There is finding of nits to the right posterior region of her scalp and hair. Cardiovascular: Regular rate and rhythm with a fairly normal S1 and S2 and about grade 2 systolic murmur. Respiratory: Clear to auscultation, no rhonchi, rales or wheezes. Abdomen: Soft, nontender, nondistended, morbid obesity with a body mass index of 53.7. Extremities: No peripheral edema, pedal pulses are palpable, has amputation deformity to her right hand/fingers. Neuro: Currently no focal neuromotor or sensory deficit, patient does have def icit to overall cognitive function that appears to be chronic. Assessment/Plan: 1. Sepsis. The patient has continued with intermittent fever, relative hypotension and encephalopathy. She has been placed on empiric antibiotics. She is continues to receive IV fluids. Blood cultures are positive for gram-positive cocci in clusters. 2. Possible endocarditis. Inquiry is prompted by finding of appearance of septic emboli on CT scan. Patient has undergone evaluation by an initial transthoracic echocardiogram. Results are pending. 3. Encephalopathy. This was essentially felt to be metabolic encephalopathy due to sepsis. However, patient had some acute worsening this morning. It appeared to start after she received Percocet. It continued to worsen throughout the day. Patient was given Narcan with remarkable response. Consequently, the patient is felt to have both metabolic encephalopathy due to sepsis and toxic encephalopathy due to Percocet. The Percocet has been discontinued. 4. Vaginal bleeding. The patient is reported to be postmenopausal. She has been having episodes of vaginal bleeding. She has been seen in the ER and by her physician. Plans are for her to undergo evaluation by endometrial biopsy with SUBCONTRACT ADMINISTRATOR. This will be done on an outpatient basis. 5. End-stage renal disease. The patient will dialyze under the supervision of the nephrology service. VS,Fishbone, I+O VS, Fishbone, I+O Laboratory Tests 11/23/18 04:21 Red Blood Count 3.07 L, Mean Corpuscular Volume 96.4 H, Mean Corpuscular Hemoglobin 30.3, Mean Corpuscular Hemoglobin Concent 31.4 L, Red Cell Distribution Width 14.6 H, Calcium Level 7.2 L, Aspartate Amino Transf (AST/SGOT) 12, Alanine Aminotransferase (ALT/SGPT) 13, Alkaline Phosphatase 89, Total Bilirubin 1.0, Total Protein 5.6 #L, Albumin 2.7 #L Vital Signs Date Time Temp Pulse Resp B/P (MAP) Pulse Ox O2 Delivery O2 Flow Rate FiO2 11/23/18 18:00 89 22 80/51 (61) 92 11/23/18 16:00 98.8 11/23/18 10:00 2.0 11/22/18 11:12 Room Air I&O- Last 24 Hours up to 6 AM 11/23/18 06:00 Intake Total 3000 ml Balance 3000 ml VENITA CABRAL MD Nov 23, 2018 19:31
--- NOTE | 2018-11-23 20:37 | ECHO ---
DATE OF PROCEDURE: 11/23/2018 REFERRING PHYSICIAN: Dr. Carline Mejia INDICATION: Septic emboli. Height 155 cm, weight 127 kg. DIMENSIONS: IVS: 1.2 LV: 4.8 LVPW: 1.2 LA: 4.3 IVC: 2.0 Mitral E wave velocity: 126 A wave: 153 E prime septal: 9.3 E prime lateral: 11.2 FINDINGS: The study is of very limited technical quality; it was performed in sitting position. The patient is in sinus rhythm with wide QRS complex and ventricular rate around 110 beats per minute. Left ventricle was poorly seen. It appears normal size and normal contractility, I estimate ejection fraction (EF) around 65-70%. Right ventricle appears severely dilated and globally hypokinetic. Both atria are enlarged, right a lot more than left. Aortic valve is sclerotic, but it seems to have preserved mobility based on limited views. Mitral valve was poorly seen. Based on available views, there appears to be very prominent degenerative abnormalities of both mitral leaflets. At the base of posterior mitral leaflet, there is an irregularly shaped echodensity which has some mobility to it. This in appropriate clinical setting is certainly suggestive of vegetations but by no means conclusive. Tricuspid valve was poorly seen but grossly appears normal. Pulmonic valve was not visualized. No pericardial effusion is noted. Doppler interrogation reveals competent aortic and mitral valves. There is approximately [id number] tricuspid insufficiency. Calculated pulmonary artery pressure at a minimum was in high 50s to 60s corresponding to moderately severe pulmonary hypertension. Evaluation of diastolic function is suggestive of grade 2 diastolic dysfunction. CONCLUSIONS: 1. Study is of markedly limited technical quality. 2. Grossly preserved left ventricular (LV) size and systolic function, grade 1 diastolic dysfunction. 3. Severely dilated hypokinetic right ventricle. 4. Aortic sclerosis but no stenosis or insufficiency. 5. Poorly visualized mitral valve but based on available views, prominent degenerative abnormalities of both leaflets and poorly visualized echodensity attached to posterior mitral leaflets that could represent vegetation. No stenosis or insufficiency, though. 6. Likely high central venous pressure and moderately severe pulmonary hypertension. COMMENT: Transesophageal echocardiogram will certainly provide much better resolution and potentially additional useful information, but in this setting may be complicated. [facility]
[2018-11-23] MEDS: OMEPRAZOLE 20 MG CAP PO SCH (21:35)
[2018-11-23] MEDS: SIMVASTATIN 40 MG TAB PO SCH (21:35)
--- NOTE | 2018-11-23 22:03 | CR ---
DATE OF CONSULTATION: 11/23/2018 REQUESTING PHYSICIAN: Dr. Mejia CONSULTING PHYSICIAN: Dr. Malave REASON FOR CONSULTATION: Management of end-stage renal disease, hemodialysis and volume status in this patient with end-stage renal disease. CHIEF COMPLAINT: The patient was sent to emergency room yesterday after dialysis because of fevers during dialysis along with cough. HISTORY OF PRESENT ILLNESS: Anusha Gil is a 48-year-old female with a past medical history of end-stage renal disease on hemodialysis every Thursday, Thursday, Thursday, morbidly obese with obstructive sleep apnea, multiple other comorbidities as mentioned below, well known to nephrology service from outpatient hemodialysis and from previous hospitalizations. She came for her regular dialysis yesterday at outpatient dialysis center. She was having chills, and she had a fever spike of more than 101 degrees Fahrenheit. The patient was dialyzed as per her regular schedule. Blood cultures were drawn, about 4 liters of fluid was removed but after dialysis, the patient was sent to the emergency room for further evaluation. When patient arrived in the emergency room, she was poorly responsive. Her systolic blood pressures were in the 60s. Of note, the patient generally has peripheral vascular disease and chronically low blood pressure and she is asymptomatic with those pressures and she usually gets dialysis done with systolic blood pressures in 70s to 80s. The patient got the IV fluid hydration, about 500 mL of fluid was given in the emergency room. The patient got further workup for sepsis. CT angio of the chest and abdomen was done with IV contrast. She was found to have septic emboli in the lungs. She was admitted in the intensive care unit (ICU) last night. She was started on empiric IV antibiotic coverage. I was called by the patient's RN in the ICU last night as well. Case was discussed with the care team. Decision was made to give the patient another dose of normal saline bolus 1 liter. Repeat lactic acid was sent, which was within the acceptable range. Central venous pressure (CVP) was checked, which was around 14 last night. We decided to treat the patient with a systolic blood pressure cuff, blood pressure of less than 70. I saw and evaluated with evaluated the patient today morning at the bedside. She was actually sitting on the sofa. She reports that she feels slightly better today as compared with yesterday. So far since overnight 2/2 blood cultures are coming back positive for gram-positive cocci in clusters. PAST MEDICAL HISTORY: History of end-stage renal disease - on hemodialysis every Thursday, Thursday, Thursday. History of morbid obesity. Obstructive sleep apnea. Chronic back pain. History of diverticulosis. Secondary hyperparathyroidism. Postmenopausal vaginal bleeding. PAST SURGICAL HISTORY: History of section () in the past. Status post tonsillectomy. History of arthroscopic surgeries. Right hand ring finger amputation. Status post amputation of left foot fifth toe. Tubal ligation. Hernia repair. Status post arteriovenous (AV) fistula placement. Status post cholecystectomy. ALLERGIES: The patient is allergic to CEPHALOSPORINS, AZELASTINE, IBUPROFEN, IRON DEXTRAN, NAFCILLIN, POVIDONE and VANCOMYCIN. FAMILY HISTORY: No significant family history of end-stage renal disease requiring hemodialysis. SOCIAL HISTORY: The patient denies any smoking. She is an occasional alcohol drinker. She uses marijuana every day. She is sexually active. Her partner is HIV positive, and they use condoms for protection REVIEW OF SYSTEMS: Constitutional: Patient reports feeling weak and tired. Eyes: She denies any blurry vision or double vision. ENT: She denies any dysphagia, odynophagia, ear discharge. Cardiovascular: She denies any chest pain or palpitations. Respiratory: She does report shortness of breath and cough. Gastrointestinal (GI): She denies any nausea or vomiting. Genitourinary: She denies any dysuria, hematuria. She does report postmenopausal bleeding. Musculoskeletal: She denies any muscle aches and pains. She does report lower back pain. Skin: She denies any rashes or ulcers. Hematology/Oncology: She denies any easy bleeding or bruising. Endocrine: She denies any hyperthyroidism or hypothyroidism. All other review of systems is negative. PHYSICAL EXAMINATION: General: The patient is awake, alert, oriented times two, laying on sofa, no apparent distress. Vital signs: Temperature is 100.6 degrees Fahrenheit, blood pressure 85/47, pulse is 101, respiratory rate of 20, saturating 96% on room air. Head and neck exam: Patient is morbidly obese. Mucous membranes are moist. Neck is supple. There is no jugular venous distention (JVD). Cardiovascular: S1, S2, regular rate. Trace edema of the bilateral lower extremities. Respiratory: Chest is clear to auscultation bilaterally. Bilateral equal air entry. No rales or rhonchi. Abdomen: Soft, obese, positive bowel sounds. Nontender. No organomegaly. Musculoskeletal: No clubbing or cyanosis. Pulses are 2+. Central nervous system (GSE MECHANIC): No focal deficit. The patient follows commands and moves all extremities. Skin: No rashes or ulcers. Lymph nodes: No significant cervical, axillary or inguinal lymphadenopathy. LAB REVIEW: CBC showed a WBC of 8.6, hemoglobin 9.3, platelets are 121. VBG done today morning showed a pH of 7.40. BMP showed sodium 136, potassium 4.2, chloride 97, bicarbonate 32, BUN 28, creatinine 6.7, calcium 7.2, magnesium 1.6, troponin 0.30, albumin 2.7. Microbiology: Two out of two blood cultures sent yesterday are positive for gram-positive cocci in clusters. IMAGING: CT angiogram of the chest was done yesterday, which showed it was limited evaluation for pulmonary embolism. However, no pulmonary embolism was seen. Multiple scattered small ill-defined nodules up to 7 mm were found in the lungs. Differential diagnosis included septic emboli or metastatic disease. CURRENT INPATIENT MEDICATIONS: The patient's medications include Zyvox 600 mg IV every 12 hours, meropenem 500 mg IV every 24 hours, normal saline 1 liter bolus was given last night, PhosLo 1.3 grams by mouth with meals, omeprazole 20 mg nightly, Zofran as needed, simvastatin 80 mg nightly. ASSESSMENT: A 48-year-old female with end-stage renal disease, on hemodialysis every Thursday, Thursday, Thursday. Admitted at this time with gram-positive cocci bacteremia and sepsis. PLAN: 1. End-stage renal disease, on hemodialysis. The patient regular dialysis days are Thursday, Thursday, Thursday. She was dialyzed yesterday. Next hemodialysis will be tomorrow morning. 2. Sepsis secondary to gram-positive cocci bacteremia. The patient has two out of two blood cultures positive for gram-positive cocci in clusters. She is currently on Zyvox and meropenem. Continue the current antibiotics. 2D echocardiogram is pending to rule out vegetation and rule out infective endocarditis. Patient's baseline systolic blood pressures are in 70s to 80s. No need of aggressive IV fluid hydration. Lactic acid is within the acceptable range. CVP was checked yesterday, it was 14 and today it was more than 17. 3. Abnormal uterine bleeding. The patient is postmenopausal. She was supposed to have endometrial biopsy as outpatient. Consider getting gynecology on board to make sure the patient does not have a malignancy in the uterine endometrium. 4. Anemia in end-stage renal disease. Hemoglobin is 9.3. The patient will be started on Aranesp with dialysis tomorrow morning. 5. Chronic kidney disease mineral bone disease. Continue current dose of PhosLo 1334 mg by mouth with meals. 6. Hypomagnesemia. The patient was already given a dose of magnesium sulfate 1 gram IV today morning. Thank you for involving me in the care of this patient. I shall be happy to follow the patient along with you tomorrow morning. Total critical care time spent in the management of this patient today morning in the ICU is 45 minutes.
[2018-11-24 04:00] VITALS: BP 76/42
[2018-11-24] MEDS: LINEZOLID 600 MG in IV 1 EA IV SCH ×2 (05:36→16:38)
[2018-11-24] MEDS: HEPARIN SOD (PORCINE) 5000 UNITS/ML VIAL SC SCH ×3 (05:40→21:27)
[2018-11-24 06:09] LABS: EOS % 0.2 % (0.0-3.0); HEMATOCRIT 26.9 % (36.0-47.0); HEMOGLOBIN 8.6 g/dl (12.0-15.5); LYMPH # 0.4 10^3/uL (1.5-5.0); LYMPH % 7.4 % (24.0-44.0); MEAN CORPUSCULAR HEMOGLOBIN 30.7 pg (27.0-33.0); MEAN CORPUSCULAR VOLUME 96.1 fl (80.0-96.0); MONO # 0.6 10^3/uL (0.0-0.8); MONO % 10.4 % (0.0-5.0); NEUTROPHILS # 4.8 10^3/uL (1.5-8.5); NEUTROPHILS % 81.5 % (36.0-66.0); PLATELET COUNT, AUTOMATED 108 10^3/uL (150-450); WHITE BLOOD COUNT 5.9 10^3/uL (4.0-10.0)
[2018-11-24 06:38] LABS: ALBUMIN 2.5 GM/DL (3.2-5.2); BILIRUBIN,TOTAL 0.7 MG/DL (0.2-1.0); CALCIUM LEVEL 7.9 MG/DL (8.5-10.1); CREATININE FOR GFR 9.26 MG/DL (0.55-1.30); GLOMERULAR FILTRATION RATE 4.8 (>51); POTASSIUM SERUM 4.3 MEQ/L (3.5-5.1); TOTAL PROTEIN 5.9 GM/DL (6.4-8.2)
[2018-11-24] MEDS: ACETAMINOPHEN TAB 650MG DOSE (2X325MG) PO PRN ×3 (07:19→21:26)
[2018-11-24] MEDS: CALCIUM ACETATE 667 MG GELCAP PO SCH ×3 (07:19→18:37)
[2018-11-24 08:00] VITALS: BP 90/51
[2018-11-24] MEDS ORDERED: SLF 3 ML SYR IV PRN (09:00)
[2018-11-24] MEDS ORDERED: SODIUM CHLORIDE 0.9% INJ 10 ML SYR IV PRN (09:00)
[2018-11-24] MEDS ORDERED: DARBEPOETIN 100 MCG/0.5 ML *DIALYSIS* SYRINGE (J0882) IV SCH (09:45)
[2018-11-24] MEDS ORDERED: HEPARIN 1,000 UNITS/ML 10ML VIAL (FOR RADIOLOGY& DIALYSIS ONLY) IV ONE (10:15)
[2018-11-24 10:54] LABS: PERCENT SATURATION 31.1 % (13.2-45.0)
[2018-11-24 12:48] VITALS: BP 114/56
[2018-11-24] MEDS: NYSTATIN 500,000 U/5 ML SUSP UDC SS SCH ×2 (13:23→21:26)
--- NOTE | 2018-11-24 13:45 | IPN ---
DATE OF SERVICE: 11/24/2018 SUBJECTIVE: The patient was seen and examined at the bedside today morning during hemodialysis procedure. She is currently being treated for infective endocarditis and Staphylococcus aureus bacteremia. The patient is tolerating the hemodialysis procedure well. She was found to have a vegetation on the mitral valve. OBJECTIVE: Vital signs: Temperature is 98.2 degrees Fahrenheit, blood pressure 90/51, pulse is 70, respiratory rate of 80, saturating 99% on room air. Intake and output: There is no urine output recorded. Weight in the bed scale is 129.6 kg. PHYSICAL EXAMINATION: General: The patient is awake, alert, oriented times three, morbidly obese, laying in the bed getting hemodialysis done. Head and neck exam: Extraocular muscles intact. Pupils equally round and reactive to light. Mucous membranes are moist. Neck is supple. There is no jugular venous distention (JVD). Cardiovascular: S1, S2, regular rate. 1+ edema of the bilateral lower extremities. Respiratory: Chest is clear to auscultation bilaterally. Bilateral equal air entry. No rales or rhonchi. Abdomen: Soft, obese, positive bowel sounds. Nontender. Musculoskeletal: No clubbing or cyanosis. Pulses are 2+. Central nervous system (INGOT SUPERVISOR): No focal deficit. Power is 5/5 in all extremities. LAB REVIEW: CBC showed WBC 5.9, hemoglobin 8.6, platelets of 108. BMP showed sodium 134, potassium 4.3, chloride 96, bicarbonate 30, BUN 43, creatinine is 9.2, glucose is 101, calcium is 7.9. Iron is 32, TIBC 103, transferrin saturation is 31%, ferritin is 2655. MICROBIOLOGY: Three blood cultures so far are growing staphylococcus aureus. Final sensitivity report is pending. 2-D ECHOCARDIOGRAM: Echocardiogram showed severe pulmonary hypertension and vegetation on the mitral valve. CURRENT INPATIENT MEDICATIONS: The patient's medications were all reviewed by me. She continues to be on IV Zyvox and meropenem. ASSESSMENT AND PLAN: 1. End-stage renal disease on hemodialysis. Today is the patient's regular day of dialysis according to Thursday, Thursday, Thursday schedule. Ultrafiltration goal will be around 2 liters as tolerated by blood pressure. 2. Sepsis secondary to staphylococcus aureus bacteremia. The patient is currently on Zyvox and meropenem. After the final culture sensitivity, IV meropenem will be stopped. 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 The patient has a vegetation on the mitral valve. It needs to be discussed with cardiothoracic surgery in [place]. 4. Anemia in end-stage renal disease. Iron levels are adequate. Hemoglobin is 8.6, which is suboptimal. The patient has been started on Aranesp with dialysis.
[2018-11-24] MEDS ORDERED: SLF 3 ML SYR IV SCH (14:00)
[2018-11-24] MEDS: LIDOCAINE 5% (LIDODERM) PATCH TD SCH (14:25)
--- NOTE | 2018-11-24 15:45 | IPNPDOC ---
Text Note Date of Service The patient was seen on 11/24/18. NOTE SUBJECTIVE: Ms. Gil is seen today before and after hemodialysis. She has not had recurrence of encephalopathy. Continues to complain of low back pain. The patient is admitted with concerns for endocarditis after findings resembling septic emboli to her chest CT. She has not had distinct complaints of chest pain, shortness of breath or cough. OBJECTIVE: General: The patient does respond to questions. She is cooperative with exam. Mobility is difficult for her due to pain and her weight. HENT: She is edentulous. Oral mucosa is otherwise moist, no scleral injection or icterus. I do not appreciate adenopathy or thyromegaly. Cardiovascular: Regular rate and rhythm with perhaps a grade 2/6 systolic murmur. Pulmonary: She is clear to auscultation and has not had any wheezing or coughing. Abdomen: Soft, nontender, with morbid central obesity Extremities: No peripheral edema, pedal pulses are palpable, patient has had 1-2 finger amputations Neuro: Patient does not demonstrate focal neuromotor or sensory deficit, patient appears to have cognition deficits ASSESSMENT/PLAN: 1. Sepsis. The patient appears to be defervescing. She is at her baseline systolic blood pressure in the high 70s, low 80s per her power originator. She does not have leukocytosis. Lactic acid is within normal limits. Her tachycardia is resolved. Her metabolic and toxic encephalopathy appeared to have resolved. Patient had been placed on empiric antibiotics inclusive of meropenem and Zyvox. Blood cultures are positive for gram-positive cocci in clusters identified as staph aureus. Sensitivities are still pending. Acute sepsis is resolved. 2. Possible endocarditis. There was question of appearance of pulmonary septic emboli on her CT scan. Initial transthoracic echocardiogram shows a mitral echodensity concerning for vegetation. Patient also has significant right ventricular dilatation and right atrial enlargement. Ventricular function appears to be preserved with a ejection fraction of 65-70% with grade 2 diastolic dysfunction. Note is also made of pulmonary hypertension with pulmonary arterial pressure of 50-60 mm Hg. cases been discussed with the cardiology service. It is going to come and see the patient as she likely needs transesophageal echocardiogram for further evaluation. Patient remains on empiric antibiotics in the interim. She does have a central line; when her cultures clear we can place a PICC line for long-term antibiotics. 3. Encephalopathy. This is generally felt to have been metabolic encephalopathy due to sepsis. It appears to be resolved. Additionally, the patient had some toxic encephalopathy associated with receiving Percocet. This resolved with the patient being given Narcan. The patient has no recollection of yesterday's events. 4. Chronic back pain. The patient is reporting persistent low back pain. There are requests for narcotics. Patient has required Narcan for single dose of Percocet. The patient is not supposed to take narcotics. She also cannot have tramadol due to adverse drug interaction with her medication. She states she has been getting narcotics from "friends" at home. She admits that when she does this she is not aware of the day. She states she has been instructed to use Tylenol for pain. We will try other modalities such as a lidocaine patch for pain control. 5. Vaginal bleeding. The patient persistently reports that she is postmenopausal. However, she has been having episodes of vaginal bleeding prompting visits to the ER. The patient did have evaluation by pelvic and transvaginal ultrasound; note is made of endometrial echo of 2.5 cm thick. Note is also made of a small fibroid. Case has been discussed with [facility] service. Plans are for her to undergo D&C tomorrow. We appreciate the assistance of the [facility] service. 6. End-stage renal disease. The patient does have chronic kidney disease stage V. That is hemodialysis requiring. She did undergo dialysis today. She will continue with her schedule per the supervision of the nephrology service. Disposition: The patient is to undergo D&C tomorrow by the [facility] service. The patient is medically cleared for this procedure; although endocarditis is stro ngly suspected she does not otherwise have any acute cardiopulmonary contraindications. She will be nothing by mouth after midnight. Anticipate patient will be undergoing evaluation by transesophageal echo as well sometime tomorrow. 1. VS,Fishbone, I+O VS, Fishbone, I+O Laboratory Tests 11/24/18 05:34 Red Blood Count 2.80 L, Mean Corpuscular Volume 96.1 H, Mean Corpuscular Hemoglobin 30.7, Mean Corpuscular Hemoglobin Concent 32.0, Red Cell Distribution Width 14.8 H, Neutrophils (%) (Auto) 81.5 H, Lymphocytes (%) (Auto) 7.4 L, Monocytes (%) (Auto) 10.4 H, Eosinophils (%) (Auto) 0.2, Basophils (%) (Auto) 0.0, Neutrophils # (Auto) 4.8, Lymphocytes # (Auto) 0.4 L, Monocytes # (Auto) 0.6, Eosinophils # (Auto) 0.0, Basophils # (Auto) 0.0, Calcium Level 7.9 L, Aspartate Amino Transf (AST/SGOT) 32, Alanine Aminotransferase (ALT/SGPT) 16, A lkaline Phosphatase 87, Total Bilirubin 0.7, Total Protein 5.9 L, Albumin 2.5 L Vital Signs Date Time Temp Pulse Resp B/P (MAP) Pulse Ox O2 Delivery O2 Flow Rate FiO2 11/24/18 08:00 98.2 70 18 90/51 (64) 99 11/23/18 10:00 2.0 11/22/18 11:12 Room Air I&O- Last 24 Hours up to 6 AM 11/24/18 05:59 Intake Total 700 ml Output Total 0 ml Balance 700 ml VENITA CABRAL MD Nov 24, 2018 15:45
[2018-11-24 16:00] VITALS: BP 114/62
[2018-11-24 17:37] LABS: HCG, SERUM QUALITATIVE NEGATIVE (NEGATIVE)
[2018-11-24] MEDS: MEROPENEM INJ 500 MG in IV 1 EA IV SCH (19:09)
[2018-11-24] MEDS: ONDANSETRON 4MG/2ML VIAL (J2405) IV PRN (19:49)
[2018-11-24 20:00] VITALS: BP 100/53
[2018-11-24] MEDS: OMEPRAZOLE 20 MG CAP PO SCH (21:26)
[2018-11-24] MEDS: **NOTE PATIENT COMMENT** MISC XX SCH (21:27)
--- NOTE | 2018-11-24 22:20 | CR ---
DATE OF CONSULTATION: 11/24/2018 REFERRING PHYSICIAN: Carline Mejia MD REASON FOR CONSULTATION: Possible endocarditis, may need transesophageal echocardiogram. HISTORY OF PRESENT ILLNESS: This 48-year-old woman was admitted on 11/22/2018 with fever, chills as well as nausea and vomiting and was hypotensive with a systolic blood pressure in the low 70s. Her lactic acid also was elevated and she was tachycardiac. She was started on IV fluids for resuscitation and also on IV antibiotics and blood culture grew staphylococcus aureus, multiple bottles. Sensitivities are pending. She had an echocardiogram done yesterday, a transesophageal echocardiogram and it reported a grossly normal left ventricular systolic function with a markedly dilated and hypokinetic right ventricle and echogenic structure was noted on the mitral valve annulus that could represent vegetations. In view of her presentation and her history, cardiology consult was called. She also had a chest CT on admission that revealed probably septic emboli. There was no pulmonary embolism. The patient had altered mental status on admission and when I saw her earlier today in the evening, she was sitting in a chair, transferred to the bed, her nurse was at bedside. Her mental status has improved significantly. She denies any chest pain. She continued to complain of back pain and muscle pain. There is no report of nausea or vomiting. She does have some vaginal bleeding and the plan is to proceed with a D and C and hysteroscopy possible on 11/25/2018. There is no focal manifestation. PAST MEDICAL HISTORY: It seems that she has a past medical history positive for hyperlipidemia and she has end-stage renal disease for which she has been on hemodialysis with Dr. Larose. According to the chart the patient could not elaborate on that, they are concerned that she had features of endocarditis in 2000 but not seen in her echocardiogram. There is no history of hypertension, coronary artery disease, diabetes mellitus, thyroid disorders. She is markedly obese. There is no history of sudden cardiac . PAST SURGICAL HISTORY Positive for , tonsillectomy, arthroscopic surgery in the right ankle and left knee, hernia repair, fistula placement for hemodialysis, cholecystectomy and she stated that she was waiting for gastric bypass. She also has had amputation of the right finger of the ring finger on the right side and amputation of the fifth toe on the left side that was thought to be related to an infectious process. FAMILY HISTORY Her father had pulmonary embolism and is strongly positive for diabetes mellitus. SOCIAL HISTORY The patient lives with her significant other and there is no report of smoking or EtOH abuse. According to her chart, she uses marijuana almost nightly. ALLERGIES: CEPHALOSPORINS, IBUPROFEN, IRON DEXTRAN, NAFCILLIN, POVIDONE, VANCOMYCIN and AZELASTINE. ADVANCED DIRECTIVES: The patient is a FULL CODE. CURRENT MEDICATIONS Heparin for flush, Aranesp 200 mcg on hemodialysis day IV, lidocaine patch as directed, meropenem 500 mg IV daily, ondansetron 4 mg IV every 6 hours as needed for nausea and vomiting, PhosLo 1334 mg with meals by mouth, Linezolid 600 mg IV every 12 hours, heparin subcu 5000 units every 6 hours, omeprazole 20 mg by mouth at bedtime, simvastatin 80 mg by mouth at bedtime, Nystatin apply as directed, and Tylenol 660 mg every 4 hours as needed for pain or fever. PHYSICAL EXAMINATION The patient is alert and oriented, in no acute distress. Vitals: Her most recent vital signs reveal a blood pressure of 100/53 with a pulse of 84, respiration 18 and a maximum temperature was 98.7 degrees Fahrenheit with an oxygen saturation of 96% on room air. Head: Atraumatic. Neck: Neck is supple and no jugular venous distention (JVD) appreciated. Lungs: Did not reveal any wheezing or crackles. Heart: Revealed irregular heart sounds without gallops. The point of maximal impulse (PMI) is displaced inferiorly and laterally. There is no rub. Abdomen is obese and nontender. Extremities: Reveal +1 bilateral lower leg edema. Neurological examination: Grossly is negative for focal deficit. LABORATORY DATA CBC done today revealed a WBC of 5.9, hemoglobin 8.6, hematocrit 26.9 and platelet 108,000. BMP revealed a sodium of 134, potassium 4.3, chloride 96, CO2 30, BUN 43, creatinine 9.26, GFR 4.8, fasting glucose 101, calcium 7.9. Serum iron is 32 with a TIBC of 103. Liver enzymes revealed a total bilirubin of 0.7, AST 32, ALT 16, alkaline phosphatase 87 and total protein 5.9, albumin 2.5. PT on admission was 13.3 with an INR of 1.04 and a PTT of 35.4. The patient was tested for C. Trachomatis and gonorrhea, negative. MRSA not detected. Blood culture reveals staph aureus. Chest x-ray on admission revealed no acute disease process. Chest CT revealed multiple scattered small ill-defined nodules up to 7 mm and could represent septic emboli versus metastatic disease. No pulmonary embolism. Abdominal and pelvic CT revealed no obvious abnormalities. No ascites. EKG on admission 11/22/2018 at 11:58:21 revealed sinus rhythm at 88 beats per minute, left axis deviation and left anterior hemiblock, right bundle branch block. Repeat EKG on the same day did not reveal any significant changes. IMPRESSION A 48-year-old woman with possible prior history of endocarditis was admitted with sepsis and was found to have abnormal blood pressure, staph aureus. Echocardiogram revealed findings suspicious for endocarditis on the posterior mitral valve leaflet. I think is reasonable to proceed with a transesophageal echocardiogram for further evaluation. So again delineate how long we will treat her. This would be arranged for her, but I do not see any need to do it tomorrow. This will be done Thursday or sometime next week. In the meantime, will continue current meds. Her simvastatin was discontinued and she was started on generic Lipitor. I will continue to monitor her along with you while in the hospital. Please do not hesitate to call if any questions. Case will be discussed with hospitalist. ADRIÁN
[2018-11-24 23:59] VITALS: BP 92/56
[2018-11-25] VITALS (10 sets, daily range): BP systolic 88–117; BP diastolic 40–61
[2018-11-25] MEDS: LINEZOLID 600 MG in IV 1 EA IV SCH ×2 (05:53→17:42)
[2018-11-25] MEDS: HEPARIN SOD (PORCINE) 5000 UNITS/ML VIAL SC SCH ×3 (05:54→21:58)
[2018-11-25 06:10] LABS: EOS # 0.1 10^3/uL (0.0-0.5); EOS % 1.3 % (0.0-3.0); HEMOGLOBIN 9.7 g/dl (12.0-15.5); LYMPH # 0.5 10^3/uL (1.5-5.0); LYMPH % 11.4 % (24.0-44.0); MEAN CORPUSCULAR HEMOGLOBIN 30.3 pg (27.0-33.0); MEAN CORPUSCULAR HGB CONC 31.3 g/dl (32.0-36.5); MEAN CORPUSCULAR VOLUME 96.9 fl (80.0-96.0); MONO # 0.5 10^3/uL (0.0-0.8); MONO % 10.7 % (0.0-5.0); NEUTROPHILS # 3.5 10^3/uL (1.5-8.5); NEUTROPHILS % 76.4 % (36.0-66.0); PLATELET COUNT, AUTOMATED 138 10^3/uL (150-450); WHITE BLOOD COUNT 4.6 10^3/uL (4.0-10.0)
[2018-11-25 06:26] LABS: BLOOD UREA NITROGEN 24 MG/DL (7-18); CALCIUM LEVEL 8.8 MG/DL (8.5-10.1); CARBON DIOXIDE LEVEL 30 MEQ/L (21-32); CHLORIDE LEVEL 99 MEQ/L (98-107); CREATININE FOR GFR 5.89 MG/DL (0.55-1.30); GLOMERULAR FILTRATION RATE 8.1 (>51); GLUCOSE, FASTING 88 MG/DL (70-100); MAGNESIUM LEVEL 1.9 MG/DL (1.8-2.4); POTASSIUM SERUM 4.4 MEQ/L (3.5-5.1); SODIUM LEVEL 135 MEQ/L (136-145)
[2018-11-25 06:46] LABS: ERYTHROCYTE SEDIMENTATION RATE 79 mm/hr (0-30)
[2018-11-25] MEDS: CALCIUM ACETATE 667 MG GELCAP PO SCH ×3 (08:00→20:00)
[2018-11-25 08:23] LABS: HEMOGLOBIN A1c 4.6 %
[2018-11-25] MEDS: NYSTATIN 500,000 U/5 ML SUSP UDC SS SCH ×2 (08:58→20:00)
[2018-11-25] MEDS: LIDOCAINE 5% (LIDODERM) PATCH TD SCH (08:58)
[2018-11-25] MEDS: ATORVASTATIN 20 MG TAB PO SCH (08:58)
[2018-11-25] MEDS ORDERED: DEXTROSE 50% 50 ML SYRINGE IV STA (13:08)
[2018-11-25] MEDS ORDERED: MIDAZOLAM INJ 2 MG/2 ML VIAL (J2250) As Ordered ONE (15:33)
[2018-11-25] MEDS ORDERED: PROPOFOL 200 MG/20 ML VIAL As Ordered ONE (15:33)
[2018-11-25] MEDS ORDERED: fentaNYL 100 MCG/2 ML INJECTION (J3010) As Ordered ONE (15:33)
[2018-11-25] MEDS ORDERED: ONDANSETRON 4MG/2ML VIAL (J2405) As Ordered ONE (15:33)
[2018-11-25] MEDS ORDERED: LIDOCAINE 2% INJ 100 MG/5 ML SDV (FOR ANES.) As Ordered ONE (15:33)
--- NOTE | 2018-11-25 17:36 | IPNPDOC ---
Text Note Date of Service The patient was seen on 11/25/18. NOTE SUBJECTIVE: Ms. Gil is feeling okay today. She was seen prior to undergoing D&C for evaluation of vaginal bleeding. The patient has presented with multiple problems inclusive of concerns for endocarditis. Additionally, the patient does have end- stage renal disease that is hemodialysis requiring. Lastly, the patient did have head lice and has been treated for such. OBJECTIVE: Please see vital signs below Physical exam: General: The patient does respond to questions. She is cooperative with exam. Mobility is difficult for her due to back pain and her weight. Her hair is clean and there are no nits. HENT: She is edentulous. Oral mucosa is otherwise moist, no scleral injection or icterus. I do not appreciate adenopathy or thyromegaly. Cardiovascular: Regular rate and rhythm with perhaps a grade 2/6 systolic murmur. Pulmonary: She is clear to auscultation and has not had any wheezing or coughing. Abdomen: Soft, nontender, with morbid central obesity Extremities: No peripheral edema, pedal pulses are palpable, patient has had 1-2 finger amputations Neuro: Patient does not demonstrate focal neuromotor or sensory deficit, patient appears to have cognition deficits. ASSESSMENT/PLAN: 1. Sepsis. The patient appears to be defervescing. She is at her baseline systolic blood pressure in the high 70s, low 80s per her packaging clerk. She does not have leukocytosis. Lactic acid is within normal limits. Her tachycardia is resolved. Her metabolic and toxic encephalopathy appeared to have resolved. Patient had been placed on empiric antibiotics inclusive of meropenem and Zyvox. Blood cultures are positive for gram-positive cocci in clusters identified as staph aureus. Sensitivities are still pending. Acute sepsis is resolved. 2. Possible endocarditis. There was question of appearance of pulmonary septic emboli on her CT scan. Initial transthoracic echocardiogram shows a mitral echodensity concerning for vegetation. Patient also has significant right ventricular dilatation and right atrial enlargement. Ventricular function appears to be preserved with a ejection fraction of 65-70% with grade 2 diastolic dysfunction. Note is also made of pulmonary hypertension with pulmonary arterial pressure of 50-60 mm Hg. Case has been discussed with the cardiology service. Anticipate evaluation by transesophageal echocardiogram tomorrow or next week. Patient remains on empiric antibiotics in the interim. She does have a central line; when her cultures drew ar we can place a PICC line for long-term antibiotics. We have also consulted with infectious disease services. Other data of interest includes a sedimentation rate of 79 and C-reactive protein of 16.1. 3. Encephalopathy. This is generally felt to have been metabolic encephalopathy due to sepsis. It appears to be resolved. Additionally, the patient had some toxic encephalopathy associated with receiving Percocet. This resolved with the patient being given Narcan. 4. Chronic back pain. The patient is reporting persistent low back pain. There are requests for narcotics. Patient has required Narcan for single dose of Percocet. The patient is not supposed to take narcotics. She also cannot have tramadol due to adverse drug interaction with her medication. She states she has been getting narcotics from "friends" at home. She admits that when she does this she is not aware of the day. She states she has been instructed to use Tylenol for pain. We have given her a lidocaine patch and this has been helpful. 5. Vaginal bleeding. The patient persistently reports that she is postmenopausal. However, she has been having episodes of vaginal bleeding prompting visits to the ER. The patient did have evaluation by pelvic and transvaginal ultrasound; note is made of endometrial echo of 2.5 cm thick. Note is also made of a small fibroid. The patient has undergone D & C by CONCRETE BUSTER OPERATOR today. 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 We are awaiting pathology results. 6. End-stage renal disease. The patient does have chronic kidney disease stage V that is hemodialysis requiring. She will continue with her schedule per the supervision of the neph rology service. VS,Shell, I+O VS, Shell, I+O Laboratory Tests 11/25/18 05:57 Red Blood Count 3.20 L, Mean Corpuscular Volume 96.9 H, Mean Corpuscular Hemoglobin 30.3, Mean Corpuscular Hemoglobin Concent 31.3 L, Red Cell Distribution Width 14.6 H, Neutrophils (%) (Auto) 76.4 H, Lymphocytes (%) (Auto) 11.4 L, Monocytes (%) (Auto) 10.7 H, Eosinophils (%) (Auto) 1.3, Basophils (%) (Auto) 0.0, Neutrophils # (Auto) 3.5, Lymphocytes # (Auto) 0.5 L, Monocytes # (Auto) 0.5, Eosinophils # (Auto) 0.1, Basophils # (Auto) 0.0, Calcium Level 8.8 Vital Signs Date Time Temp Pulse Resp B/P (MAP) Pulse Ox O2 Delivery O2 Flow Rate FiO2 11/25/18 17:00 96.7 67 18 117/58 (77) 100 11/25/18 16:37 2 11/22/18 11:12 Room Air I&O- Last 24 Hours up to 6 AM 11/25/18 06:00 Intake Total 420 ml Output Total 2000 ml Balance -1580 ml VENITA CABRAL MD Nov 25, 2018 17:36
--- NOTE | 2018-11-25 17:43 | RO ---
DATE OF PROCEDURE: 11/25/2018 PREOPERATIVE DIAGNOSES: Postmenopausal bleeding with a 2.7 cm endometrial stripe and some other medical problems as already documented clearly in her chart. POSTOPERATIVE DIAGNOSES: Postmenopausal bleeding with a 2.7 cm endometrial stripe and some other medical problems as already documented clearly in her chart, with abnormal cervix, possible previous surgery as well as suspected endometrial carcinoma visualized on the hysteroscopy. OPERATIVE PROCEDURE: Dilation and curettage (D and C) hysteroscopy, MyoSure resection. SURGEON: Myesha Mckoy MD [employer] FORMER: None. ANESTHESIA: Laryngeal mask airway (LMA). BRIEF DESCRIPTION OF PROCEDURE AND FINDINGS: Anusha was brought to the operating room where sufficient LMA anesthesia was induced. She was prepped, draped and positioned in the usual sterile fashion. Anusha has a pendulous panniculus which makes pelvic exam somewhat difficult. She is also anuric with her renal failure so we did not catheterize the bladder. I could not initially visualize the cervix with a normal length retractor due to the patient's size. I was able to palpate the cervix and bring it down, but it has an abnormal appearance. I strongly suspect that she has had a loop electrosurgical excision procedure (LEEP) or some other type of conization at some point in the past because the anterior vaginal tissues are sort of adherent to what appears to be posterior sort of linear horizontal area of palpable cervix and there is just by palpation and evaluation we were able to just dilate sort of in the mid anterior to that horizontal band and carefully enter the cervix, but it does not have a normal appearance by any matter of means. After dilating we placed the hysteroscope and we were able to visualize the endometrial cavity. There was multiple areas of overgrowth, hypervascularity, frondlike lesions and some what may be cholesterol deposits or other. This appearance is very concerning for the possibility of endometrial carcinoma. We resected a great deal of tissue with the MyoSure resector under direct visualization. We were able to gather a great deal of this tissue, but I was not able to dissect down to a normal endometrial cavity, so there is still similar appearing tissue remaining behind. We did try some final passes with the curette, but I really again started having trouble finding the channel. We did have an spring former hand with a second customer service technician so they could try to lift on the pannus and simply press the retractor in and of course the patient does not tolerate Trendelenburg with her medical problems so we did not really try that, but the biggest difficulty is a reasonably high cervix with abnormal appearance in the first place, where there is just not really any visible anterior cervical tissue for show, just is covered and there is no anterior fornix visible at all because of what looks like vaginal tissues having sort of healed on which certainly does sometimes happen after conization. That said, we had a very good sample with the curettings and with the MyoSure resection and that was all sent for pathologic evaluation. The procedure was ended. There was no significant bleeding from the cervix itself. I would say hysteroscopically I think some of that tissue is coming into at least the caudad area of the cervical canal, so it is not clear to me at all that it is entirely within the endometrial cavity itself, but of course that is for future evaluation. The procedure was ended. ESTIMATED BLOOD LOSS: About 5 mL FLUID REPLACEMENT: Crystalloid. COMPLICATIONS: None. CONDITION AND DISPOSITION: Anusha tolerated the procedure reasonably well considering her list of medical problems and was recovering in the recovery room in good condition.
[2018-11-25] MEDS: ONDANSETRON 4MG/2ML VIAL (J2405) IV PRN (19:30)
[2018-11-25] MEDS: OMEPRAZOLE 20 MG CAP PO SCH (20:00)
[2018-11-25] MEDS: **NOTE PATIENT COMMENT** MISC XX SCH (20:01)
--- NOTE | 2018-11-25 21:09 | IPN ---
DATE: 11/25/2018 SUBJECTIVE: The patient was seen and examined at the bedside today morning. She is nothing by mouth for dilation and curettage (D and C) today. She was dialyzed yesterday. She tolerated the hemodialysis procedure well. She denies any more fevers and chills. She continues to be on IV antibiotics for Staphylococcus (staph) aureus bacteremia. OBJECTIVE: Vital signs: Temperature is 98.1 degrees Fahrenheit, blood pressure 117/53, pulse is 75, respiratory rate of 19, saturating 96% on room air. Intake and output: There is no urine output recorded. Ultrafiltration with hemodialysis was 1.5 liters. Weight on the bed scale is 129.7 kg. PHYSICAL EXAMINATION: General: The patient is awake, alert, oriented times three, morbidly obese, sitting up on the sofa, no apparent distress. Head and neck exam: Extraocular muscles intact. Pupils equally round and reactive to light. Mucous membranes are moist. Neck is supple. There is no jugular venous distention (JVD). Cardiovascular: S1, S2, regular rate. Trace edema of the bilateral lower extremities. Respiratory: Chest is clear to auscultation bilaterally. Bilateral equal air entry. No rales or rhonchi. Abdomen: Soft, obese, positive bowel sounds. Nontender. Musculoskeletal: No clubbing or cyanosis. Pulses are 2+. Central nervous system (CASH[employer] T[employer]BE ROOM): No focal deficit. Power is 5/5 in all extremities. LAB REVIEW: CBC showed a WBC of 4.6, hemoglobin 9.7, platelets are 138. BMP showed sodium 135, potassium 4.4, chloride 99, bicarbonate 30, BUN 24, creatinine is 5.8, calcium 8.8, magnesium 1.9. Microbiology: Three blood cultures are positive for Staphylococcus aureus, which is sensitive to oxacillin, Zyvox and vancomycin. CURRENT INPATIENT MEDICATIONS: The patient's medications were all reviewed by me. She continues to be on IV Zyvox. Meropenem has been stopped now. No other change in the medications today as compared with yesterday. ASSESSMENT/PLAN: 1. End-stage renal disease, on hemodialysis. The patient's regular dialysis days are Thursday, Thursday, Thursday. She was dialyzed yesterday. Next hemodialysis will be tomorrow morning. 2. Staphylococcus aureus bacteremia. Staphylococcus aureus is methicillin-sensitive. She is allergic to nafcillin and vancomycin and cephalosporins. She is currently on Zyvox and tolerating the medication well. 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 The patient has a vegetation on the transthoracic echocardiogram. She is pending transesophageal echocardiogram. She was already seen by cardiology. 4. Anemia in end-stage renal disease. Continue Aranesp with dialysis, hemoglobin level is improving. 5. Dysfunctional uterine bleeding. The patient is nothing by mouth today for dilation and curettage by gynecology.
[2018-11-26] MEDS: ACETAMINOPHEN TAB 650MG DOSE (2X325MG) PO PRN ×3 (00:14→17:14)
[2018-11-26 04:00] VITALS: BP 87/52
[2018-11-26] MEDS: LINEZOLID 600 MG in IV 1 EA IV SCH (05:32)
[2018-11-26] MEDS: HEPARIN SOD (PORCINE) 5000 UNITS/ML VIAL SC SCH ×3 (05:32→21:51)
[2018-11-26 06:12] LABS: CALCIUM LEVEL 8.2 MG/DL (8.5-10.1); CREATININE FOR GFR 7.5 MG/DL (0.55-1.30); GLOMERULAR FILTRATION RATE 6.1 (>51)
[2018-11-26 07:57] LABS: BASO % 0.3 % (0.0-1.0); EOS # 0.1 10^3/uL (0.0-0.5); EOS % 2.8 % (0.0-3.0); HEMATOCRIT 27.7 % (36.0-47.0); HEMOGLOBIN 8.6 g/dl (12.0-15.5); LYMPH # 0.8 10^3/uL (1.5-5.0); LYMPH % 25.3 % (24.0-44.0); MEAN CORPUSCULAR HEMOGLOBIN 30.4 pg (27.0-33.0); MEAN CORPUSCULAR VOLUME 97.9 fl (80.0-96.0); MONO # 0.4 10^3/uL (0.0-0.8); MONO % 11.7 % (0.0-5.0); NEUTROPHILS # 1.9 10^3/uL (1.5-8.5); NEUTROPHILS % 59.6 % (36.0-66.0); PLATELET COUNT, AUTOMATED 124 10^3/uL (150-450); RED BLOOD COUNT 2.83 10^6/uL (4.00-5.40); WHITE BLOOD COUNT 3.2 10^3/uL (4.0-10.0)
[2018-11-26 08:00] VITALS: BP 93/56
[2018-11-26] MEDS: NYSTATIN 500,000 U/5 ML SUSP UDC SS SCH ×2 (09:18→21:50)
[2018-11-26] MEDS: CALCIUM ACETATE 667 MG GELCAP PO SCH ×3 (09:18→17:51)
[2018-11-26] MEDS: ATORVASTATIN 20 MG TAB PO SCH (09:18)
[2018-11-26] MEDS: LIDOCAINE 5% (LIDODERM) PATCH TD SCH (09:19)
[2018-11-26 11:46] VITALS: BP 111/74
[2018-11-26] MEDS ORDERED: HEPARIN 1,000 UNITS/ML 10ML VIAL (FOR RADIOLOGY& DIALYSIS ONLY) IV ONE (12:45)
[2018-11-26 12:53] LABS: HIV 1&2 SCREEN CENTAUR NEGATIVE (NEGATIVE)
--- NOTE | 2018-11-26 15:14 | IPNPDOC ---
Text Note Date of Service The patient was seen on 11/26/18. NOTE SUBJECTIVE: The patient is awake, alert and conversant. She is not in remarkable distress with regard to pain. However, she has no recollection of events of yesterday; patient went to the OR for a D&C to address concerns of post menopausal vaginal bleeding. This has happened intermittently throughout this hospital stay. Patient was admitted with sepsis related to endocarditis. She also has underlying chronic kidney disease that is hemodialysis requiring. OBJECTIVE: Please see vital signs below Physical exam: General: The patient does respond to questions. She is cooperative with exam. Mobility is difficult for her due to her weight. Family member is at bedside. HENT: She is edentulous. Oral mucosa is otherwise moist, no scleral injection or icterus. I do not appreciate adenopathy or thyromegaly. Cardiovascular: Regular rate and rhythm with perhaps a grade 2/6 systolic murmur. Pulmonary: She is clear to auscultation and has not had any wheezing or coughing. 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 Sepsis. The patient is afebrile and she does not have leukocytosis. She had had tachycardia which is resolved. Metabolic encephalopathy is resolved. Cultures are positive for gram-positive cocci in clusters identified as MSSA. Patient had been treated with meropenem and Zyvox; meropenem has been stopped. Source is endocarditis. Acute sepsis is resolved. 2. Possible endocarditis. There was question of appearance of pulmonary septic emboli on her CT scan. Initial transthoracic echocardiogram shows a mitral echodensity concerning for vegetation. Patient also has significant right ventricular dilatation and right atrial enlargement. Ventricular function appears to be preserved with a ejection fraction of 65-70% with grade 2 diastolic dysfunction. Note is also made of pulmonary hypertension with pulmonary arterial pressure of 50-60 mm Hg. Case has been discussed with the cardiology service. Anticipate evaluation by transesophageal echocardiogram next week. Patient remains on empiric antibiotics in the interim. She does have a central line; when her cultures clear we can place a PICC line for long-term antibiotics-anticipated 6 weeks. We have also consulted with infectious disease services. Other data of interest includes a sedimentation rate of 79 and C-reactive protein of 16.1. 3. Encephalopathy. This is generally felt to have been metabolic encephalopathy due to sepsis. It appears to be resolved. Additionally, the patient had some toxic encephalopathy associated with receiving Percocet. This resolved with the patient being given Narcan. 4. Chronic back pain. The patient is reporting persistent low back pain. There are requests for narcotics. Patient has required Narcan for single dose of Percocet. The patient is not supposed to take narcotics. She also cannot have tramadol due to adverse drug interaction with her medication. She states she has been getting narcotics from "friends" at home. She admits that when she does this she is not aware of the day. She states she has been instructed to use Tylenol for pain. We have given her a lidocaine patch and this has been helpful. 5. Vaginal bleeding. The patient persistently reported that she is postmenopausal. However, she had been having episodes of vaginal bleeding prompting visits to the ER. The patient did have evaluation by pelvic and transvaginal ultrasound; note was made of endometrial echo of 2.5 cm thick. Note was also made of a small fibroid. The patient has undergone D & C by SUPER[employer]OR [employer]. 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 We are awaiting pathology results. 6. End-stage renal disease. The patient does have chronic kidney disease stage V that is hemodialysis requiring. She will continue with her schedule per the supervision of the nephrology service. 7. Head lice The patient had had pediculosis primarily to the right side of her head/scalp. She has undergone treatment with permethrin. 8. Memory deficits. There are times the patient does not recall events of the day prior. For example, she does not recall having or being treated for head lice. She does not recall going to the OR yesterday. Radiologic read of her chest CT gave a differential diagnosis of septic emboli versus metastatic lesions. Patient could have septic emboli versus metastatic lesions to the brain given her recent findings. We can get a CT scan of the head as part of disease survey; again please note, she does not have any focal neuromotor deficits. VS,Fishbone, I+O VS, Fishbone, I+O Laboratory Tests 11/26/18 05:12 Red Blood Count 2.83 L, Mean Corpuscular Volume 97.9 H, Mean Corpuscular Hemoglobin 30.4, Mean Corpuscular Hemoglobin Concent 31.0 L, Red Cell Distribution Width 14.7 H, Neutrophils (%) (Auto) 59.6, Lymphocytes (%) (Auto) 25.3, Monocytes (%) (Auto) 11.7 H, Eosinophils (%) (Auto) 2.8, Basophils (%) (Auto) 0.3, Neutrophils # (Auto) 1.9, Lymphocytes # (Auto) 0.8 L, Monocytes # (Auto) 0.4, Eosinophils # (Auto) 0.1, Basophils # (Auto) 0.0, Calcium Level 8.2 L Vital Signs Date Time Temp Pulse Resp B/P (MAP) Pulse Ox O2 Delivery O2 Flow Rate FiO2 11/26/18 11:46 97.2 69 18 111/74 (86) 96 11/25/18 16:37 2 11/22/18 11:12 Room Air I&O- Last 24 Hours up to 6 AM 11/26/18 06:00 Intake Total 650 ml Output Total 5 ml Balance 645 ml VENITA CABRAL MD Nov 26, 2018 15:14
--- NOTE | 2018-11-26 16:41 | IPN ---
DATE: 11/26/2018 SUBJECTIVE: The patient was seen and examined at the bedside today morning. She got dilation and curettage (D and C) done yesterday. She tolerated the procedure well. She denies any fevers or chills and today is her regular day of dialysis. OBJECTIVE: Vital signs: Temperature is 97.2 degrees Fahrenheit, blood pressure 111/74, pulse is 69, respiratory rate of 18, saturating 96% on room air. Intake and output: There is no urine output recorded. Weight on the bed scale is 130 kg. PHYSICAL EXAMINATION: General: The patient is awake, alert, oriented times three, morbidly obese, sitting up on the sofa. Head and neck exam: Extraocular muscles intact. Pupils equally round and reactive to light. Mucous membranes are moist. Neck is supple. There is no jugular venous distention (JVD). Cardiovascular: S1, S2, regular rate. Trace edema of the bilateral lower extremities. Respiratory: Chest is clear to auscultation bilaterally. Bilateral equal air entry. No rales or rhonchi. Abdomen: Soft, obese, positive bowel sounds. Nontender. Musculoskeletal: No clubbing or cyanosis. Pulses are 2+. Central nervous system (GEAR CUTTING MACHINE SET UP OPERATOR): No focal deficit. Power is 5/5 in all extremities. LAB REVIEW: CBC showed a WBC of 3.2, hemoglobin 8.6, platelets are 124. BMP showed sodium 135, potassium 4, chloride 98, bicarbonate 30, BUN 35, creatinine 7.5, calcium is 8.2. CURRENT INPATIENT MEDICATIONS: The patient's medications were all reviewed by me; IV meropenem has been stopped. She continues to be on Zyvox ASSESSMENT/PLAN: 1. End-stage renal disease, on hemodialysis. The patient will be dialyzed today in the afternoon according to her Thursday, Thursday, Thursday schedule. Ultrafiltration goal will be around 2.5 liters as tolerated by blood pressure. 2. Staphylococcus aureus bacteremia. The patient continues to be on IV Zyvox. infectious disease is on board as well. She is afebrile. 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 She had a vegetation on the transthoracic echocardiogram. The patient is pending transesophageal echocardiogram. 4. Anemia in end-stage renal disease. Continue current dose of Aranesp. 5. Dysfunctional uterine bleeding. The patient had dilation and curettage done yesterday. Pathology result is pending.
[2018-11-26 17:09] VITALS: BP 100/56
[2018-11-26] MEDS: ceFAZolin SOD 2 GM in IV 1 EA IV SCH (17:50)
[2018-11-26] MEDS: diphenhydrAMINE 50 MG CAP PO SCH (17:51)
[2018-11-26] MEDS: ONDANSETRON 4MG/2ML VIAL (J2405) IV PRN (18:30)
[2018-11-26 20:00] VITALS: BP 96/54
[2018-11-26] MEDS: OMEPRAZOLE 20 MG CAP PO SCH (21:50)
[2018-11-26] MEDS: **NOTE PATIENT COMMENT** MISC XX SCH (21:51)
[2018-11-26 23:59] VITALS: BP 102/52
[2018-11-27] VITALS (7 sets, daily range): BP systolic 79–120; BP diastolic 51–87
[2018-11-27] MEDS: HEPARIN SOD (PORCINE) 5000 UNITS/ML VIAL SC SCH ×3 (05:39→21:26)
[2018-11-27 06:18] LABS: MEAN CORPUSCULAR HEMOGLOBIN 29.4 pg (27.0-33.0); MEAN CORPUSCULAR VOLUME 94.8 fl (80.0-96.0); PLATELET COUNT, AUTOMATED 145 10^3/uL (150-450); RED BLOOD COUNT 3.06 10^6/uL (4.00-5.40); WHITE BLOOD COUNT 3.7 10^3/uL (4.0-10.0)
[2018-11-27] MEDS: ONDANSETRON 4MG/2ML VIAL (J2405) IV PRN ×2 (08:09→17:45)
--- NOTE | 2018-11-27 08:25 | REPVR ---
EXAM: CT Head Without Contrast EXAM DATE/TIME: 11/27/2018 7:50 AM CLINICAL HISTORY: 48 years old, female; Other: Possible emboli vs mets TECHNIQUE: Imaging protocol: Computed tomography of the head without contrast. Radiation optimization: All CT scans at this facility use at least one of these dose optimization techniques: automated exposure control; mA and/or kV adjustment per patient size (includes targeted exams where dose is matched to clinical indication); or iterative reconstruction. COMPARISON: CT Head without contrast 06/16/2016 11:06 AM FINDINGS: Brain: There is mild age-related cerebral atrophy. There is faint hypoattenuation in the posterior limb of the right internal capsule, not clearly seen on the prior exam-axial image 10. Ventricles: Normal. No ventriculomegaly. Bones/joints: There is slight mottled appearance of the bony skull with small lucencies, unchanged in appearance since 06/16/2016. Sinuses: Visualized sinuses are unremarkable. No fluid levels. Mastoid air cells: Visualized mastoid air cells are well aerated. Soft tissues: Unremarkable. IMPRESSION: 1. No CT evidence of intracranial hemorrhage, mass effect or midline shift. 2. Nonspecific faint hypoattenuation in the posterior limb of the right internal capsule possibly of no clinical sequence however if there is clinical suspicion of brain metastases further evaluation with MRI of the brain with contrast is suggested. Electronically signed by: Bolivar Duncan On 11/27/2018 08:25:30 AM
[2018-11-27] MEDS: ATORVASTATIN 20 MG TAB PO SCH (09:55)
[2018-11-27] MEDS: LIDOCAINE 5% (LIDODERM) PATCH TD SCH (09:55)
[2018-11-27] MEDS: ACETAMINOPHEN TAB 650MG DOSE (2X325MG) PO PRN ×2 (09:55→21:27)
[2018-11-27] MEDS: CALCIUM ACETATE 667 MG GELCAP PO SCH ×3 (09:56→17:44)
[2018-11-27] MEDS: NYSTATIN 500,000 U/5 ML SUSP UDC SS SCH ×2 (09:56→21:25)
--- NOTE | 2018-11-27 13:51 | IPNPDOC ---
Text Note Date of Service The patient was seen on 11/27/18. NOTE SUBJECTIVE: The patient's lack of recollection yesterday appears somewhat better today. 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 Memory lapse of yesterday may have been due to the fact that she did receive sedatives for her D&C the day prior. She has demonstrated poor tolerance of any psychotropic medications. The patient was admitted with sepsis associated with endocarditis. Sepsis component is essentially resolved. OBJECTIVE: Please see vital signs below Physical exam: General: The patient does respond to questions. She is cooperative with exam. Mobility is difficult for her due to her weight. Family member is at bedside. HENT: She is edentulous. Oral mucosa is otherwise moist, no scleral injection or icterus. I do not appreciate adenopathy or thyromegaly. Cardiovascular: Regular rate and rhythm with perhaps a grade 2/6 systolic murmur. Pulmonary: She is clear to auscultation and has not had any wheezing or coughing. 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 ASSESSMENT/PLAN: 1. Sepsis. The patient is afebrile and she does not have leukocytosis. She had had tachycardia which is resolved. Metabolic encephalopathy is resolved. Cultures are positive for gram-positive cocci in clusters identified as MSSA. Patient had been treated with meropenem and Zyvox; meropenem has been stopped. Source is endocarditis. Acute sepsis is resolved. 2. Possible endocarditis. There was question of appearance of pulmonary septic emboli on her CT scan. Initial transthoracic echocardiogram shows a mitral echodensity concerning for vegetation. Patient also has significant right ventricular dilatation and right atrial enlargement. Ventricular function appears to be preserved with a ejection fraction of 65-70% with grade 2 diastolic dysfunction. Note is also made of pul monary hypertension with pulmonary arterial pressure of 50-60 mm Hg. Case has been discussed with the cardiology service. Anticipate evaluation by transesophageal echocardiogram next week. Patient remains on empiric antibiotics in the interim. Blood cultures have been positive for MSSA. Repeat cultures are negative to date. She does have a central line; when her cultures clear we can place a PICC line for long-term antibiotics-anticipated 6 weeks. We have also consulted with infectious disease services. Other data of interest includes a sedimentation rate of 79 and C-reactive protein of 16.1. 3. Encephalopathy. This is generally felt to have been metabolic encephalopathy due to sepsis. It a ppears to be resolved. Additionally, the patient had some toxic encephalopathy associated with receiving Percocet. This resolved with the patient being given Narcan. 4. Chronic back pain. The patient is reporting persistent low back pain. There are requests for narcotics. Patient has required Narcan for single dose of Percocet. The patient is not supposed to take narcotics. She also cannot have tramadol due to adverse drug interaction with her medication. She states she has been getting narcotics from "friends" at home. She admits that when she does this she is not aware of the day. She states she has been instructed to use Tylenol for pain. We have given her a lidocaine patch and this has been helpful. Patient has had MRI study of her lumbar spine; report is pending. 5. Vaginal bleeding. The patient persistently reported that she is postmenopausal. However, she had been having episodes of vaginal bleeding prompting visits to the ER. The patient did have evaluation by pelvic and transvaginal ultrasound; note was made of endometrial echo of 2.5 cm thick. Note was also made of a small fibroid. The patient has undergone D & C by PUPPET ENGINEER. 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 We are awaiting pathology results. 6. End-stage renal disease. The patient does have chronic kidney disease stage V that is hemodialysis requiring. She will continue with her schedule per the supervision of the nephrology service. 7. Head lice The patient had had pediculosis primarily to the right side of her head/scalp. She has undergone treatment with permethrin. 8. Memory deficits. There are times the patient does not recall events of the day prior. For example, she does not recall having or being treated for head lice. She does not recall going to the OR. Radiologic read of her chest CT gave a differential diagnosis of septic emboli versus metastatic lesions. Patient could have septic emboli versus metastatic lesions to the brain given her recent findings. We can get a CT scan of the head as part of disease survey; again please note, she does not have any focal neuromotor deficits. VS,Fishbone, I+O VS, Fishbone, I+O Laboratory Tests 11/27/18 06:01 Red Blood Count 3.06 L, Mean Corpuscular Volume 94.8, Mean Corpuscular Hemoglobin 29.4, Mean Corpuscular Hemoglobin Concent 31.0 L, Red Cell D istribution Width 14.6 H Vital Signs Date Time Temp Pulse Resp B/P (MAP) Pulse Ox O2 Delivery O2 Flow Rate FiO2 11/27/18 08:33 99/51 (67) 11/27/18 08:00 96.5 76 20 98 11/25/18 16:37 2 11/22/18 11:12 Room Air I&O- Last 24 Hours up to 6 AM 11/27/18 06:00 Intake Total 1020 ml Output Total 2500 ml Balance -1480 ml VENITA CABRAL MD Nov 27, 2018 13:51
--- NOTE | 2018-11-27 15:40 | IPN ---
DATE: 11/27/2018 Ms. Gil is seen this morning on her bedside. She is sitting in the chair at the time of my visit. She is feeling about the same. She denies any fever or chills at present. She underwent hemodialysis yesterday which she tolerated reasonably well. She has chronic hypotension and blood pressure is about the baseline. PHYSICAL EXAMINATION: Temperature 97.5 degrees Fahrenheit, heart rate 76 per minute and respiratory rate 20 per minute. Blood pressure 99/51 mmHg and oxygen saturation 98% on room air. Head is atraumatic. Neck is supple and without jugular venous distention (JVD) or thyroid enlargement. Heart sounds are regular with systolic murmur grade 2/6. Lungs are clear to auscultation. Abdomen is obese, soft and nontender. Bowel sounds are normal. Extremities without any cyanosis or clubbing. Arteriovenous (AV) fistula in her arm is patent. LABORATORY DATA: Today's laboratories show WBC count 3.7, hemoglobin 9.0, hematocrit 29.0. Platelets 145. Sodium 135 yesterday and potassium was 4.0. BUN 35 and creatinine 7.50. She did not have any new chemistry done today. Most recent blood cultures from 11/25/2018 and 11/26/2018 are still negative. 11/22/2018 blood culture was positive for Staphylococcus aureus. PROBLEMS: 1. Staphylococcus aureus bacteremia with endocarditis. The patient is currently afebrile and remains on intravenous cephazolin. She seems to be tolerating it well and there is no allergic reaction noticed. 2. Hypotension. This is chronic and about the baseline. She is not on any antihypertensive medications. 3. End-stage renal disease. The patient is dialyzed on Thursday, Thursday and Thursday schedule and she was dialyzed yesterday. Next dialysis will be scheduled for Thursday. 4. Anemia. At present, her anemia is stable and we will continue to manage with Aranesp once a week during dialysis. 5. Iron deficiency. She did have iron deficiency. However, her ferritin level was quite elevated at 2655. She also has bacteremia so we will hold off on intravenous iron use.
[2018-11-27] MEDS: ceFAZolin SOD 2 GM in IV 1 EA IV SCH (17:44)
[2018-11-27] MEDS: diphenhydrAMINE 50 MG CAP PO SCH (17:44)
[2018-11-27] MEDS: OMEPRAZOLE 20 MG CAP PO SCH (21:25)
[2018-11-27] MEDS: **NOTE PATIENT COMMENT** MISC XX SCH (21:26)
[2018-11-28 04:00] VITALS: BP 111/55
[2018-11-28 06:05] LABS: CALCIUM LEVEL 8.4 MG/DL (8.5-10.1); CREATININE FOR GFR 7.23 MG/DL (0.55-1.30); GLOMERULAR FILTRATION RATE 6.4 (>51); POTASSIUM SERUM 4.3 MEQ/L (3.5-5.1)
[2018-11-28] MEDS: ACETAMINOPHEN TAB 650MG DOSE (2X325MG) PO PRN ×2 (06:17→21:43)
[2018-11-28] MEDS: HEPARIN SOD (PORCINE) 5000 UNITS/ML VIAL SC SCH ×3 (06:18→21:43)
[2018-11-28 08:00] VITALS: BP 96/52
[2018-11-28] MEDS: LIDOCAINE 5% (LIDODERM) PATCH TD SCH (08:43)
[2018-11-28] MEDS: CALCIUM ACETATE 667 MG GELCAP PO SCH ×3 (08:44→17:36)
[2018-11-28] MEDS: ATORVASTATIN 20 MG TAB PO SCH (08:44)
[2018-11-28 12:00] VITALS: BP 138/69
[2018-11-28] MEDS: NYSTATIN 500,000 U/5 ML SUSP UDC SS SCH ×2 (13:00→21:42)
[2018-11-28] MEDS: ONDANSETRON 4MG/2ML VIAL (J2405) IV PRN (13:11)
--- NOTE | 2018-11-28 14:54 | IPN ---
DATA VISIT: 11/28/2018 Ms. Gil is seen this morning on her bedside. She is sitting in the chair at the time of my visit. She is feeling about the same and denies any fever, chills, nausea, vomiting, dyspnea or chest pain. She is being treated with intravenous antibiotics for Staphylococcus aureus bacteremia and endocarditis. PHYSICAL EXAMINATION: She is awake and alert and without any acute distress. Temperature is 99 degrees Fahrenheit, heart rate is 66 per minute and respiratory rate 18 per minute. Blood pressure 138/69 mmHg and oxygen saturation 100%. Head is atraumatic. Neck is supple and jugular venous distention (JVD) is not abnormally elevated. Heart sounds are regular with systolic murmur grade 2/6. Lungs sound clear to auscultation. Abdomen: Obese, soft and nontender and bowel sounds are normal. Extremities have no cyanosis or clubbing. Neurologically she is awake, alert and oriented times three. Today's chemistry showed sodium 139, potassium 4.3, CO2 28, BUN 29 and creatinine 7.23. Glucose 93 and calcium 8.4. PROBLEMS: 1. End-stage renal disease. The patient is regularly dialyzed on Thursday, Thursday and Thursday schedule. She was last dialyzed on Thursday and will be scheduled for next dialysis tomorrow. There is no emergent indication for dialysis today. 2. Hypotension. This is chronic and stable at about baseline. She has significant peripheral vascular disease which probably contributes to her low blood pressure. She is asymptomatic and we will continue to monitor without any intervention. She is not on any antihypertensive meds. 3. Anemia. Her anemia has been stable with last hemoglobin 9.0 yesterday. She will receive Aranesp once a week during dialysis. 4. Staphylococcus aureus bacteremia and endocarditis. The patient remains on cephazolin 2 grams every 12 hours. She is not on Zyvox anymore.
--- NOTE | 2018-11-28 15:03 | IPNPDOC ---
Text Note Date of Service The patient was seen on 11/28/18. NOTE Patient can be ambulatory with minimal assistance. She is socially appropriate and conversant. She continues with labile memory. The patient is admitted with new diagnosis of endocarditis. Patient has underlying chronic kidney disease that is hemodialysis requiring. Please see vital signs below Physical exam: General: The patient does respond to questions. She is cooperative with exam. Mobility is difficult for her due to her weight. Family member is at bedside. HENT: She is edentulous. Oral mucosa is otherwise moist, no scleral injection or icterus. I do not appreciate adenopathy or thyromegaly. Cardiovascular: Regular rate and rhythm with perhaps a grade 2/6 systolic murmur. Pulmonary: She is clear to auscultation and has not had any wheezing or coughing. 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 ASSESSMENT/PLAN: 1. Sepsis. The patient is afebrile and she does not have leukocytosis. She had had tachycardia which is resolved. Metabolic encephalopathy is resolved. Cultures are positive for gram-positive cocci in clusters identified as MSSA. Patient had been treated with meropenem and Zyvox; meropenem has been stopped. Source is endocarditis. Acute sepsis is resolved. 2. Possible endocarditis. There was question of appearance of pulmonary septic emboli on her CT scan. Initial transthoracic echocardiogram shows a mitral echodensity concerning for v egetation. Patient also has significant right ventricular dilatation and right atrial enlargement. Ventricular function appears to be preserved with a ejection fraction of 65-70% with grade 2 diastolic dysfunction. Note is also made of pulmonary hypertension with pulmonary arterial pressure of 50-60 mm Hg. Case has been discussed with the cardiology service. Anticipate evaluation by transesophageal echocardiogram next week. Patient remains on empiric antibiotics in the interim. Blood cultures have been positive for MSSA. Repeat cultures are negative to date. She does have a central line; when her cultures clear we can place a PICC line for long-term antibiotics-anticipated 6 weeks. We have also consulted with infectious disease services. Other data of interest includes a sedimentation rate of 79 and C-reactive protein of 16.1. 3. Encephalopathy. This is generally felt to have been metabolic encephalopathy due to sepsis. It appears to be resolved. Additionally, the patient had some toxic encephalopathy associated with receiving Percocet. This resolved with the patient being given Narcan. 4. Chronic back pain. The patient is reporting persistent low back pain. There are requests for narcotics. Patient has required Narcan for single dose of Percocet. The patient is not supposed to take narcotics. She also cannot have tramadol due to adverse drug interaction with her medication. She states she has been getting narcotics from "friends" at home. She admits that when she does this she is not aware of the day. She states she has been instructed to use Tylenol for pain. We have g iven her a lidocaine patch and this has been helpful. Patient was apparently unable to fully tolerate complete MRI scan of her lumbar spine and so there is not a complete report. Concern is raised for an additional infection focus related to her endocarditis. 5. Vaginal bleeding. The patient persistently reported that she is postmenopausal. However, she had been having episodes of vaginal bleeding prompting visits to the ER. The patient did have evaluation by pelvic and transvaginal ultrasound; note was made of endometrial echo of 2.5 cm thick. Note was also made of a small fibroid. The patient has undergone D & C by NUT SORTER OPERATOR. 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 We are awaiting pathology results. 6. End-stage renal disease. The patient does have chronic kidney disease stage V that is hemodialysis requiring. She will continue with her schedule per the supervision of the nephrology service. 7. Head lice The patient had had pediculosis primarily to the right side of her head/scalp. She has undergone treatment with permethrin. 8. Memory deficits. There are times the patient does not recall events of the day prior. For example, she does not recall having or being treated for head lice. She does not recall going to the OR. Radiologic read of her chest CT gave a differential diagnosis of septic emboli versus metastatic lesions. Patient could have septic emboli versus metastatic lesions to the brain given her recent findings. The patient has had CT scan of the head as part of disease survey; there is a faint finding of a possible abnormality at the posterior limb of the right internal capsule. We can view this by MRI if the patient will tolerate it. The patient does not exhibit neuro deficits that would be associated with this area. VS,Fishbone, I+O VS, Fishbone, I+O Laboratory Tests 11/28/18 05:17 Calcium Level 8.4 L Vital Signs Date Time Temp Pulse Resp B/P (MAP) Pulse Ox O2 Delivery O2 Flow Rate FiO2 11/28/18 12:00 99.0 65 18 138/69 (92) 100 11/25/18 16:37 2 11/22/18 11:12 Room Air I&O- Last 24 Hours up to 6 AM 11/28/18 05:59 Intake Total 1020 ml Output Total 0 ml Balance 1020 ml VENITA CABRAL MD Nov 28, 2018 15:03
[2018-11-28 16:00] VITALS: BP 138/82
[2018-11-28] MEDS: ceFAZolin SOD 2 GM in IV 1 EA IV SCH (17:37)
[2018-11-28] MEDS: diphenhydrAMINE 50 MG CAP PO SCH (17:37)
[2018-11-28 20:00] VITALS: BP 119/64
[2018-11-28] MEDS: OMEPRAZOLE 20 MG CAP PO SCH (21:42)
[2018-11-28] MEDS: **NOTE PATIENT COMMENT** MISC XX SCH (21:43)
[2018-11-28 23:59] VITALS: BP 112/55
[2018-11-29 04:00] VITALS: BP 109/61
[2018-11-29] MEDS: HEPARIN SOD (PORCINE) 5000 UNITS/ML VIAL SC SCH ×3 (06:46→21:00)
[2018-11-29 08:00] VITALS: BP 131/61
[2018-11-29] MEDS: ATORVASTATIN 20 MG TAB PO SCH (08:31)
[2018-11-29] MEDS: NYSTATIN 500,000 U/5 ML SUSP UDC SS SCH ×2 (08:31→20:52)
[2018-11-29] MEDS: CALCIUM ACETATE 667 MG GELCAP PO SCH ×3 (08:32→17:10)
[2018-11-29] MEDS: LIDOCAINE 5% (LIDODERM) PATCH TD SCH (08:32)
[2018-11-29] MEDS ORDERED: HEPARIN 1,000 UNITS/ML 10ML VIAL (FOR RADIOLOGY& DIALYSIS ONLY) IV ONE (11:00)
--- NOTE | 2018-11-29 11:34 | IPN ---
DATE OF VISIT: 11/29/2018 Ms. Gil is seen this morning during dialysis. She is resting comfortably in the bed. She is being treated for Staphylococcus aureus bacteremia and endocarditis. On physical exam, temperature 96.4 degrees Fahrenheit, heart rate 64 per minute and respiratory rate 18 per minute. Blood pressure 131/60 mmHg and oxygen saturation 100% on room air. Head atraumatic. Neck supple and without jugular venous distention (JVD) or thyroid enlargement. Heart sounds regular with systolic murmur grade 2/6. Lungs clear to auscultation. Abdomen obese, soft and nontender. Extremities without any cyanosis or clubbing. Patient did not have any new labs done today. PROBLEMS: 1. End-stage renal disease. Patient is being dialyzed this morning and she is tolerating her dialysis treatment very well. We are removing 3 liters of fluid as tolerated. 2. Anemia. Her anemia has been stable and she receives Aranesp once a week during dialysis, which will be continued. 3. Staphylococcus aureus bacteremia and endocarditis. Patient is currently on cephazolin 2 grams daily and she is tolerating it well. There is no allergy to it. She is being followed by infectious disease. Most recent blood cultures have been negative so far. 4. Hypotension. Her blood pressure has been chronically low and she has been asymptomatic. Her blood pressure is currently at about baseline and no other intervention is indicated. She tolerates fluid removal well during dialysis.
--- NOTE | 2018-11-29 12:28 | REP ---
MRI of the lumbar spine without contrast Indication: Staph aureus bacteremia, worsening back pain. Comparison: CT abdomen pelvis of 11/22/2018 and MRI lumbar spine 08/18/2014. Technique: Limited MRI of the lumbar spine was performed utilizing sagittal STIR, T1 and T2 weighted imaging. No axial imaging was performed as the patient declined further imaging secondary to pain. No intravenous contrast was administered. Findings: Evaluation of the lumbar spine is suboptimal secondary to lack of axial imaging. Within this limitation, there is no gross paraspinal fluid collection. There is bilateral spondylolysis at L4 and focal ligamentous edema between the spinous processes and right-sided facet at the L4-L5 level. No significant spondylolisthesis. There is redemonstration of S shaped scoliosis of the thoracolumbar spine with levo curvature of the lumbar spine. There are bridging anterior osteophytes within the lower thoracic spine. Vertebral body heights and intervertebral disc heights are maintained. There is similar diffuse, marked T1 and T2 hypointense marrow signal consistent with sclerosis on CT, likely reflective of renal osteodystrophy. There are unchanged rounded T1 and T2 hyperintensities within the lower lumbar vertebral bodies, likely focal fatty or hemangiomas. There are similar fatty marrow endplate degenerative changes. Impression: 1. Evaluation of the lumbar spine is limited secondary to lack of axial imaging. Within this limitation, there is no gross paraspinal fluid collection. If clinically indicated, completion imaging of the lumbar spine can be performed. 2. Bilateral spondylolysis without significant spondylolisthesis at L4-L5. Focal ligamentous edema between the spinous processes and right-sided facet at the L4-L5 level, presumably degenerative in etiology. 3. Redemonstration of S-shaped scoliosis of the thoracolumbar spine with levo curvature of the lumbar spine and diffuse marrow changes consistent with previously described sclerosis, presumably secondary to renal osteodystrophy. Electronically Signed by Izzy Aviles MD 11/29/2018 12:02 P
[2018-11-29 13:15] VITALS: BP 128/69
[2018-11-29] MEDS: ACETAMINOPHEN TAB 650MG DOSE (2X325MG) PO PRN (13:21)
[2018-11-29] MEDS: ONDANSETRON 4MG/2ML VIAL (J2405) IV PRN (13:22)
[2018-11-29 16:20] VITALS: BP 135/77
--- NOTE | 2018-11-29 16:47 | REP ---
MRI of the brain without contrast Indication: Query right internal capsule lesion. History of end-stage renal disease on dialysis. Additional history of endocarditis and endometrial carcinoma per the ordering physician. Comparison: CT head of 11/27/2018. Technique: MRI of the brain was performed without contrast utilizing sagittal T1 FLAIR, and axial DWI, T1, T2, GRE, and FLAIR imaging. 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 There is a linear focus of restricted effusion within the left cerebellar hemisphere consistent with acute lacunar infarct, again likely secondary to embolic phenomenon. There is susceptibility artifact within the right side of the toan consistent with a micro hemorrhage. The ventricles and sulci are symmetric. There is no extra-axial fluid collection. There is no mass effect. There is no midline shift or basal cistern effacement. The visualized flow voids are preserved. The visualized paranasal sinuses are clear. There is fluid within mastoid air cells bilaterally. Impression: Innumerable foci restricted effusion scattered throughout both cerebral hemispheres most likely represents embolic acute infarction as there is an acute lacunar infarct within the left cerebellar hemisphere. Evidence of microhemorrhage within the right side toan which is nonspecific but could be secondary to microvascular ischemic disease. Fluid within the mastoid air cells bilaterally. Findings reported to Dr. Mejia by Dr. Aviles at 04:25 p.m. on 11/29/2018. Electronically Signed by Izzy Aviles MD 11/29/2018 04:39 P
--- NOTE | 2018-11-29 16:48 | CR ---
DATE OF CONSULTATION: 11/25/2018 Asked to consult by hospitalist for evaluation of Staphylococcus aureus bacteremia with possible endocarditis. HISTORY OF PRESENT ILLNESS: Mrs. 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 The patient presented to dialysis, was noted to be hypotensive, febrile, and, therefore, was admitted to the hospital. She had a week of progressive nausea and vomiting associated with low back pain, which is chronic for her but was slightly worse. On admission, she was poorly responsive, confused, which responded to IV fluids. She had blood cultures that were positive for Staphylococcus aureus, methicillin-sensitive Staphylococcus aureus (MSSA). A chest CT had multiple pulmonary ill-defined nodules concerning for septic emboli or metastatic disease. Patient was started on broad-spectrum antibiotics with IV meropenem and linezolid because of an allergy to nafcillin and cephalosporin. She has improved, has defervesced after 48 hours. Patient also has had postmenopausal bleeding for months and was taken to the operating room by Dr. Mckoy for a dilation and curettage to rule out possibility of endometrial cancer. She was seen after she came back from the operating room (OR) and was giggly and confused but in no acute distress other than her back pain. Her healthcare proxy is her sister, Brunilda, who is also at the bedside. 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 PAST SURGICAL HISTORY: section, tonsillectomy, arthroscopy of right ankle and left knee, amputation of right hand ring finger, amputation of left 5th toe, tubal ligation, hernia repair, multiple fistula placements in her arms (currently the one that is being used is the left arm), cholecystectomy. Patient is being evaluated for gastric bypass surgery. FAMILY HISTORY: Diabetes and pulmonary embolism. SOCIAL HISTORY: She denies smoking, alcohol use. She uses marijuana every night. She never was . She has two children. Her sister is her healthcare proxy. 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 REVIEW OF SYSTEMS: Patient complains of low back pain. Fever and chills have resolved. She has a chronic cough even though she states she is not a smoker. Mild shortness of breath. Back pain but no upper or lower extremity weakness. Vaginal bleeding. PHYSICAL EXAMINATION: Vital signs: Temperature is 98.2, pulse 70, respirations 18, blood pressure 92/40, oxygen saturation 95% on room air. General appearance: Morbidly obese female in no acute distress when asked questions. Heart: Normal S1, S2 with a systolic ejection murmur 2/6 at the left upper sternal border. Lungs: Are clear anteriorly. No wheezes, rales, or rhonchi. Abdomen: Morbidly obese. Soft, nontender. Extremities: Trace edema at the ankles. Left 5th toe amputation. No open ulcerations. 3rd toe on the right side had purplish discoloration with a small ulcer at the tip. No active infection. +2 dorsalis pedis pulses. Right ring finger amputation, well healed at the stump. Upper arms, fistula on the left side, nontender; fistula on the right side does not have a thrill. No evidence of infection in either fistula. Neurologic exam: Moves all extremities. Alert and oriented but slightly confused postoperatively. LABS: White count 4.6, hemoglobin 9.7, hematocrit 31, platelets 138, 76% neutrophils, 11% lymphocytes, 10% monocytes, ESR 79. Sodium 135, potassium 4.4, chloride 99, bicarbonate 30, BUN 24, creatinine 5.9, glucose 88, calcium 8.8, magnesium 1.90, CRP 16.1 test negative. Blood cultures 11/22/2018: Three sets are positive for MSSA. Group B streptococcus still was negative. IMAGING: CT angiogram showed multiple pulmonary nodule less than [address] abdomen and pelvis: No obvious abdominal pathology. No ascites. Uterus and adnexa grossly normal. 3 cm fat periumbilical local hernia noted. No ascites. No free air. Chest x-ray: Mild interstitial edema. Transthoracic echocardiogram showed grossly preserved left ventricle size and systolic function, diastolic dysfunction grade 1 severely dilated hypokinetic right ventricle, aortic sclerosis but no stenosis, poorly visualized mitral valve. There is an echodensity on the posterior mitral leaflet that could present a vegetation. No stenosis or insufficiency. Severe pulmonary hypertension. Transesophageal echocardiogram was recommended. 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 She has an abnormal echocardiogram concerning for a vegetation on the mitral leaflet. She has clinically improved on IV Zyvox and meropenem. The patient has blood cultures positive for MSSA in three different sets concerning for endocarditis. Her penicillin and cephalosporin allergy is vague. Her sister does not know what her allergy was other than a nonspecific rash. No anaphylaxis or angioedema. Ideally, the drug of choice would be a beta-lactam and, therefore, I would like to try a beta-lactam since she has tolerated meropenem. PLAN: Transesophageal echocardiogram is scheduled for early next week to rule out endocarditis. Patient has no prosthetic valve, prosthetic joints, or a pacemaker. Length of therapy for IV antibiotic will depend on findings of transesophageal echocardiogram (WU) 2 weeks versus 6 weeks. Try to de-escalate therapy to cefazolin, which would be ideal for her. She could receive cefazolin 2 grams, 2 grams, and 3 grams on weekend days during hemodialysis. Will challenge her with a cephalosporin in the morning after we try to get a better history of her regarding her penicillin allergy. Call Dr. Larose to see if he has any documented anaphylaxis or type of reaction to penicillins and cephalosporins. Repeat two sets of blood cultures until document clearance of bacteremia in 2 sets MTDD
--- NOTE | 2018-11-29 16:49 | IPN ---
DATE: 11/26/2018 Anusha was seen after hemodialysis today and was very uncomfortable. The nurse at dialysis stated she had a rough time with back pain. She had no fever or chills. No nausea, vomiting or diarrhea. No abdominal pain. The patient does not recall any of the events of yesterday after she had the dilation and curettage and does not recall meeting me. PHYSICAL EXAMINATION: Temperature is 97.2, pulse 69, respiratory rate 18, blood pressure 111/84, oxygen saturation 96% on room air. She has been afebrile for the past 48 hours. HEART: Normal S1, S2. No murmurs, rubs or gallops. LUNGS: Clear. No wheezes, rales or rhonchi. ABDOMEN: Morbidly obese, soft, nontender. EXTREMITIES: Fifth toe amputation. BACK: Lumbosacral tenderness especially at L2, L3, L4. LABORATORY DATA: White count is 3.2, hemoglobin 8.6, hematocrit 27.7, platelets 124. ESR 79. Sodium 135, potassium 4, chloride 98, bicarbonate 30, BUN 35, creatinine 7.5, glucose 101, calcium 8.2, CRP 16.1. Blood cultures were positive for MSSA on 11/22/2018, three sets and blood cultures from 11/25/2018 and 11/26/2018 are still pending. IMAGING STUDIES: CT abdomen and pelvis showed no acute pathology with IV contrast. Chest CT showed small nonspecific, ill-defined pulmonary nodules. IMPRESSION: 1. 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 The patient is scheduled to have transesophageal echocardiogram next week. 2. Allergy to penicillin and cephalosporin which is very vague. The patient does not recall what her real allergy is and rash. We reviewed her records since before 1999. In the past 18 years, the patient did not receive a cephalosporin or penicillin but she has tolerated meropenem. The patient will be challenged with cefazolin today with preoperative medication Benadryl as it would be the drug of choice for MSSA. 3. Leukopenia, most likely related to linezolid. White count has dropped from 8 to 3.2. 4. End-stage renal disease, on hemodialysis through arteriovenous (AV) fistula, left arm, with no evidence of infection. 5. Worsening low back pain. CT of the abdomen and pelvis does not describe any mentioning of discitis of the lumbar spine. I did discuss the case with Dr. No who recommended MRI. PLAN: Schedule MRI of the lumbar spine tomorrow to rule out discitis. Discontinue IV linezolid. It is a bacteriostatic drug and can cause leukopenia and would not be a drug of choice in a patient with endocarditis and end-stage renal disease for six weeks. A trial of cephalosporin, cefazolin 2 grams IV every 24 hours and ideally this could be used with hemodialysis at a regimen of 2 grams/ 2 gms and 3 grams over the weekend. Case has been discussed with Dr. Malave who was going to review the record for any history of penicillin allergy that is more specific. Case has been discussed with Dr. No who recommended MRI of the lumbar spine without contrast. [facility]
[2018-11-29] MEDS: diphenhydrAMINE 50 MG CAP PO SCH (17:10)
[2018-11-29] MEDS: ceFAZolin SOD 2 GM in IV 1 EA IV SCH (17:11)
--- NOTE | 2018-11-29 18:19 | IPN ---
DATE: 11/29/2018 SUBJECTIVE: Ms. Gil is a 48-year-old female who was seen and examined this afternoon sitting in her chair comfortably, no acute distress. She just came back full range of motion MRI where she noticed that she is having some fogginess and some memory loss for the last 4 weeks. She denies having any fevers, chills, night sweats, abdominal pain, nausea, vomiting, diarrhea. The patient has not gotten her transesophageal echocardiogram (WU) for it has been ordered. She has no other complaints at this time and would like to know when she can go home. She does inform us that she does have a boyfriend for the last 1 year who is HIV positive, but she does practice safe sex and always uses condoms. She is currently not on any prep. PHYSICAL EXAM: Vital signs: Temperature 97.1, pulse 66, respirations 18, blood pressure 135/75 (96), pulse oximetry 96% on room air. She has been afebrile since 11/23/2018. Heart: Normal S1, S2 sounds with a 2/6 systolic murmur, loudest at the second intercostal space on the left side with no radiation to the carotids. No decreased upstroke. No audible rubs or gallops, though. Lungs: Clear to auscultate bilaterally. No audible wheezing, rhonchi, or rales. Abdomen: Morbidly obese, soft, nontender. Lower extremities: Left 5th toe amputation and right 4th finger amputation. LABORATORY: No new hematology labs were obtained since 11/27/2018. Chemistries: Electrolytes are within normal limits. BUN slightly elevated at 29, creatinine at 7.23, fasting glucose 93, calcium 8.4. Blood cultures positive for Staphylococcus aureus times three. Repeat blood cultures on 11/25/2018 and 11/26/2018 negative for no growth for greater than 72 hours. IMAGING: Lumbar spine MRI negative for any paraspinal fluid collection, but bilateral spondylolysis without significant spondylolisthesis of L4-L5, focal ligamentous edema between the spinous process and the right side facet joints at the L4-L5 level, presumably degenerative in etiology. Possible renal osteodystrophy. CT of the head shows nonspecific faint hypoattenuation in the posterior limb of the right internal capsule, possible no clinical sequence; however, there is clinical suspicion of brain metastases. Brain MRI: Innumerable foci restricted effusions scattered throughout both cerebral hemispheres, most likely represent embolic acute infarctions as there is an acute lacunar infarct within the left cerebral hemisphere. Evidence of the microhemorrhage within the right-sided toan, which is nonspecific, but could be secondary to microvascular ischemic disease. Fluid within the mastoid air cells bilaterally. IMPRESSION: 1. Methicillin-sensitive Staphylococcus aureus (MSSA) bacteremia, currently on cefazolin 2 grams every 24 hours. Will continue with the cefazolin 2 grams every 24 hours while she is admitted and clinically stable. 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 She will continue with cefazolin for 6 weeks of IV antibiotics. Upon discharge, because the patient does get dialysis, can discuss with nephrology if patient can get post-dialysis 2/2/3 grams of cefazolin on Thursday, Thursday and Thursday. But while she is admitted, we will continue with the 2 grams every 24 hours. 2. Currently sexually active with an HIV partner. Patient states that she uses condoms with all sexual interactions She denies being on HIV prophylaxis Jeannie Advised that if she chooses to be started on these, she can followup with infectious disease outpatient.HIV negative this admission PLAN: Continue IV antibiotics cefazolin 2 gm daily, which she is tolerating with no allergic reaction. Recommend removing the cephalosporin allergy on her chart. WU is not needed and will need to discuss with nephrology about setting up outpatient antibiotics once clinically stable. ADRIÁN
--- NOTE | 2018-11-29 18:31 | IPNPDOC ---
Text Note Date of Service The patient was seen on 11/29/18. NOTE The patient has had a busy day with hemodialysis and brain MRI. She is seen at the beginning and at the end of the day. The patient is admitted with new diagnosis of endocarditis. Patient has underlying chronic kidney disease that is hemodialysis requiring. Please see vital signs below Physical exam: General: The patient does respond to questions. She is cooperative with exam. Mobility is difficult for her due to her weight. Family member is at bedside. HENT: She is edentulous. Oral mucosa is otherwise moist, no scleral injection or icterus. I do not appreciate adenopathy or thyromegaly. Cardiovascular: Regular rate and rhythm with perhaps a grade 2/6 systolic murmur. Pulmonary: She is clear to auscultation and has not had any wheezing or coughing. 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 ASSESSMENT/PLAN: 1. Sepsis. The patient is afebrile and she does not have leukocytosis. She had had tachycardia which is resolved. Metabolic encephalopathy is resolved. Cultures are positive for gram-positive cocci in clusters identified as MSSA. Patient had been treated with meropenem and Zyvox; meropenem has been stopped. Source is endocarditis. Acute sepsis is resolved. 2. Endocarditis There was question of appearance of pulmonary septic emboli on her CT scan. Initial transthoracic echocardiogram shows a mitral echodensity concerning for vegetation. Patient also has significant right ventricular dilatation and right atrial enlargement. Ventricular function appears to be preserved with a ejection fraction of 65-70% with grade 2 diastolic dysfunction. Note is also made of pulmonary hypertension with pulmonary arterial pressure of 50-60 mm Hg. Case has been discussed with the cardiology service. Anticipate evaluation by transesophageal echocardiogram next week. Patient remains on empiric antibiotics in the interim. Blood cultures have been positive for MSSA. Repeat cultures are negative to date. She does have a central line; when her cultures clear we can place a PICC line for long-term antibiotics-anticipated 6 weeks. We have also consulted with infectious disease services. Other data of interest includes a sedimentation rate of 79 and C-reactive protein of 16.1. 3. Encephalopathy. This is generally felt to have been metabolic encephalopathy due to sepsis. It appears to be resolved. Additionally, the patient had some toxic encephalopathy associated with receiving Percocet. This resolved with the patient being given Narcan. 4. Chronic back pain. The patient is reporting persistent low back pain. Patient has required Narcan for single dose of Percocet. The patient is not supposed to take narcotics. She also cannot have tramadol due to adverse drug interaction with her medication. She states she has been getting narcotics from "friends" at home. She admits that when she does this she is not aware of the day. She states she has been instructed to use Tylenol for pain. We have given her a lidocaine patch and this has been helpful. Patient was apparently unable to fully tolerate complete MRI scan of her lumbar spine and so there is not a complete report. Concern is raised for an additional infection focus related to her endocarditis. 5. Vaginal bleeding. The patient persistently reported that she is postmenopausal. However, she had been having episodes of vaginal bleeding prompting visits to the ER. The patient did have evaluation by pelvic and transvaginal ultrasound; note was made of endometrial echo of 2.5 cm thick. Note was also made of a small fibroid. The patient has undergone D & C by [facility]. 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 This is confirmed as grade 1 by pathology report. The patient will need follow up in [place] with [facility] oncology. 6. End-stage renal disease. The patient does have chronic kidney disease stage V that is hemodialysis requiring. She will continue with her schedule per the supervision of the nephrology service. 7. Head lice The patient had had pediculosis primarily to the right side of her head/scalp. She has undergone treatment with permethrin. 8. Memory deficits. There are times the patient does not recall events of the day prior. For example, she does not recall having or being treated for head lice. She does not recall going to the OR. Radiologic read of her chest CT gave a differential diagnosis of septic emboli versus metastatic lesions. Patient could have septic emboli versus metastatic lesions to the brain given her recent findings. The patient has had CT scan of the head as part of disease survey; there is a faint finding of a possible abnormality at the posterior limb of the right internal capsule. The patient does not exhibit neuro deficits that would be associated with this area. However, patient was able to tolerate evaluation by MRI which unfortunately shows septic emboli to the brain. Also, in discussion with radiology metastatic lesion cannot be fully ruled out, although it would be unusual with her primary lesion. VS,Fishbone, I+O VS, Fishbone, I+O Vital Signs Date Time Temp Pulse Resp B/P (MAP) Pulse Ox O2 Delivery O2 Flow Rate FiO2 11/29/18 16:20 97.1 66 18 135/77 (96) 96 11/25/18 16:37 2 I&O- Last 24 Hours up to 6 AM 11/29/18 06:00 Intake Total 950 ml Output Total 0 ml Balance 950 ml VENITA CABRAL MD Nov 29, 2018 18:31
[2018-11-29 20:00] VITALS: BP 114/57
[2018-11-29] MEDS: OMEPRAZOLE 20 MG CAP PO SCH (20:51)
[2018-11-29] MEDS: **NOTE PATIENT COMMENT** MISC XX SCH (20:51)
[2018-11-30] VITALS: BP 105/53
[2018-11-30 04:00] VITALS: BP 103/57
[2018-11-30] MEDS: HEPARIN SOD (PORCINE) 5000 UNITS/ML VIAL SC SCH ×3 (05:41→21:43)
[2018-11-30] MEDS: ONDANSETRON 4MG/2ML VIAL (J2405) IV PRN (05:41)
[2018-11-30 06:10] LABS: CALCIUM LEVEL 9.2 MG/DL (8.5-10.1); CREATININE FOR GFR 6.03 MG/DL (0.55-1.30); GLOMERULAR FILTRATION RATE 7.9 (>51); POTASSIUM SERUM 4.2 MEQ/L (3.5-5.1)
[2018-11-30 08:00] VITALS: BP 140/74
[2018-11-30] MEDS: LIDOCAINE 5% (LIDODERM) PATCH TD SCH (08:57)
[2018-11-30] MEDS: CALCIUM ACETATE 667 MG GELCAP PO SCH ×3 (08:57→18:05)
[2018-11-30] MEDS: NYSTATIN 500,000 U/5 ML SUSP UDC SS SCH ×2 (08:57→21:43)
[2018-11-30] MEDS: ATORVASTATIN 20 MG TAB PO SCH (08:57)
[2018-11-30] MEDS: ACETAMINOPHEN TAB 650MG DOSE (2X325MG) PO PRN ×2 (08:58→21:58)
[2018-11-30 11:58] VITALS: BP 103/58
[2018-11-30 14:00] VITALS: BP 122/58
[2018-11-30 14:06] LABS: C REACTIVE PROTEIN QUANTITATIV 4.12 MG/DL (0.00-0.30)
--- NOTE | 2018-11-30 14:59 | IPNPDOC ---
Text Note Date of Service The patient was seen on 11/30/18. NOTE SUBJECTIVE: Ms. Vázquez remains medically stable. 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 Most recent finding also shows septic emboli to the brain. She had had waxing and waning memory and cognition deficits but appears improved today. OBJECTIVE: Please see vital signs below Physical exam: General: The patient does respond to questions. She is cooperative with exam. Mobility is difficult for her due to her weight. HENT: She is edentulous. Oral mucosa is otherwise moist, no scleral injection or icterus. I do not appreciate adenopathy or thyromegaly. Cardiovascular: Regular rate and rhythm with perhaps a grade 2/6 systolic murmur. Pulmonary: She is clear to auscultation and has not had any wheezing or coughing. Abdomen: Soft, nontender, with morbid central obesity Back: I do not elicit focal point tenderness to palpation of the vertebral spine Extremities: No peripheral edema, pedal pulses are palpable, patient has had 1-2 finger amputations Neuro: Patient does not demonstrate focal neuromotor or sensory deficit, patient appears to have cognition deficits that are possibly congenital, has exhibited intermittent memory deficits that may be improving. She is asking some appropriate questions about her conditions. ASSESSMENT/PLAN: 1. Sepsis. The patient is afebrile and she does not have leukocytosis. She had had tachycardia which is resolved. Metabolic encephalopathy is resolved. Cultures are positive for gram-positive cocci in clusters identified as MSSA. Patient had been treated with meropenem and Zyvox. She is currently receiving cefazolin. Source is endocarditis. Acute sepsis is resolved. 2. Endocarditis There was question of appearance of pulmonary septic emboli on her CT scan. Initial transthoracic echocardiogram shows a mitral echodensity concerning for vegetation. Patient also has significant right ventricular dilatation and right atrial enlargement. Ventricular function appears to be preserved with a ejection fraction of 65-70% with grade 2 diastolic dysfunction. Note is also made of pulmonary hypertension with pulmonary arterial pressure of 50-60 mm Hg. Case has been discussed with the cardiology service. Patient remains on empiric antibiotics in the interim. Blood cultures have been positive for MSSA. Repeat cultures are negative to date. Long-term antibiotics anticipated 6 weeks coordinated with her hemodialysis schedule. We have also consulted with infectious disease services. Other data of interest is a brain MRI which shows septic emboli showering. 3. Encephalopathy. This is generally felt to have been metabolic encephalopathy due to sepsis. It appears to be resolved. Additionally, the patient had some toxic encephalopathy associated with receiving Percocet. This resolved with the patient being given Narcan. 4. Chronic back pain. The patient is reporting persistent low back pain. Patient has required Narcan for single dose of Percocet. The patient is not supposed to take narcotics. She also cannot have tramadol due to adverse drug interaction with her medication. She states she has been getting narcotics from "friends" at home. She admits that when she does this she is not aware of the day. She states she has been instructed to use Tylenol for pain. We have given her a lidocaine patch and this has been helpful. Patient was apparently unable to fully tolerate complete MRI scan of her lumbar spine and so there is not a complete report. Concern is raised for an additional infection focus related to her endocarditis. Review of available report does not reveal any abscess or inflammatory process. 5. Vaginal bleeding. The patient persistently reported that she is postmenopausal. However, she had been having episodes of vaginal bleeding prompting visits to the ER. The patient did have evaluation by pelvic and transvaginal ultrasound; note was made of endometrial echo of 2.5 cm thick. Note was also made of a small fibroid. The patient has undergone D & C by [facility]. 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 This is confirmed as grade 1 by pathology report. The patient will need follow up in [place] with [facility] oncology. 6. End-stage renal disease. The patient does have chronic kidney disease stage V that is hemodialysis requiring. She will continue with her schedule per the supervision of the nephrology service. 7. Head lice The patient had had pediculosis primarily to the right side of her head/scalp. She has undergone treatment with permethrin. 8. Memory deficits. There are times the patient does not recall events of the day prior. For example, she does not recall having or being treated for head lice. She does not recall going to the OR. Radiologic read of her chest CT gave a differential diagnosis of septic emboli versus metastatic lesions. Patient could have septic emboli versus metastatic lesions to the brain given her recent findings. The patient has had CT scan of the head as part of disease survey; there is a faint finding of a possible abnormality at the posterior limb of the right internal capsule. The patient does not exhibit neuro deficits that would be associated with this area. However, patient was able to tolerate evaluation by MRI which unfortunately shows septic emboli to the brain. Also, in discussion with radiology metastatic lesion cannot be fully ruled out, although it would be unusual with her primary lesion. Disposition: We are attempting to determine the best plan for this patient; home versus retirement. She is also going to need referral to [facility] in [place]. The patient is appropriately asking whether she is going to need a hysterectomy. She mentions that hysterectomy for her has been discussed in the past and that she was not considered a good surgical candidate because of her renal disease. We will need to discuss this further. VS,Jersonbone, I+O VS, Jersonbone, I+O Laboratory Tests 11/30/18 05:25 Calcium Level 9.2 Vital Signs Date Time Temp Pulse Resp B/P (MAP) Pulse Ox O2 Delivery O2 Flow Rate FiO2 11/30/18 11:58 98.2 66 18 103/58 (73) 96 11/25/18 16:37 2 I&O- Last 24 Hours up to 6 AM 11/30/18 06:00 Intake Total 1110 ml Output Total 3000 ml Balance -1890 ml VENITA CABRAL MD Nov 30, 2018 14:59
--- NOTE | 2018-11-30 17:41 | IPN ---
DATE: 11/30/2018 Ms. Gil was seen and examined sitting in her chair but does not appear in acute distress. She states that she does not remember me from the day before, and she noticed that she still continues to have really bad memory. Her short-term memory has recently been a little bit more worse. She denies any fevers, chills, night sweats, abdominal pain, nausea, vomiting, diarrhea. She, at the current time, needs to establish a discharge plan of who will take care of her when she is stable. She has multiple family members and close family friends who live close by and are able to take care of her, she states. PHYSICAL EXAM: Temperature 98.3, pulse 71, respiration rate 16, blood pressure 122/58 (79), pulse oximetry 99% on room air. HEART: Normal S1, S2 sounds with a 2/6 systolic murmur loudest at the second intercostal space on the left side with no radiation to the carotids or the apex. No audible rubs or gallops. LUNGS: Clear to auscultation bilaterally. No audible wheezing, rhonchi or rales. ABDOMEN: Morbidly obese, soft, nontender. 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 Lower extremity edema, 1+ bilaterally. LABORATORY: ESR 68, sodium 138, potassium 4.2, chloride 103, carbon dioxide 28, anion gap 7, BUN 21, creatinine 6.03, fasting glucose 119, calcium 9.2, CRP 4.12, reduced from 16.10. Blood cultures: Positive Staphylococcus aureus times three. Repeat blood cultures 11/25/2018 negative for growth. ANTIBIOTICS: Cefazolin 2 grams daily. IMPRESSION: 1. Methicillin-sensitive Staphylococcus aureus (MSSA) bacteremia, currently on cefazolin 2 grams every 24 hours. Will continue as such while she is admitted. 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 A WU will not be needed and will treat her for endocarditis. We will continue with cefazolin for 6 weeks. Will need to discuss with nephrology if we can set up postdialysis 2/2/3 gram cefazolin on Thursday, Thursday, Thursday. 2. Currently sexually active with an HIV partner. Admits to using condoms with all sexual interactions and last intercourse was prior to admission. She denies being on HIV prophylaxis. Advised if she wants to start on these, she can followup with infectious disease outpatient. PLAN: Continue IV antibiotics, and will need to discuss with nephrology about setting up outpatient antibiotics postdialysis once stable for discharge.
[2018-11-30] MEDS: diphenhydrAMINE 50 MG CAP PO SCH (17:44)
[2018-11-30] MEDS: ceFAZolin SOD 2 GM in IV 1 EA IV SCH (18:05)
[2018-11-30 20:00] VITALS: BP 135/62
--- NOTE | 2018-11-30 20:34 | IPN ---
DATE: 11/30/2018 Ms. Gil is seen this morning on her bedside. She is sitting in the chair talking on her cell phone. She has been feeling well and denies any nausea, vomiting, dyspnea or chest pain. She was dialyzed yesterday. PHYSICAL EXAMINATION: Temperature 98.2 degrees Fahrenheit, heart rate 66 per minute and respiratory rate 18 per minute. Blood pressure 103/58 mmHg and oxygen saturation 96%. Head is atraumatic. Neck is supple and without jugular venous distention (JVD) or thyroid enlargement. Heart: Sounds are regular with systolic murmur which is unchanged. Lungs: Clear to auscultation. Abdomen: Soft and nontender. Bowel sounds present. Extremities: Without any cyanosis or clubbing. PROBLEMS: 1. End-stage renal disease. The patient was dialyzed yesterday and next dialysis will be scheduled for Thursday morning. Volume status is well compensated, and her electrolytes have been stable. 2. Staphylococcus (staph) aureus bacteremia and endocarditis. The patient remains on antibiotics and currently afebrile. C-reactive protein has come down to 4.12 today. 3. Anemia. Anemia has been stable and CBC will need to be repeated. She receives Aranesp once a week during dialysis, which will be continued. 4. Hypotension. Her blood pressure seems to be doing well and is currently asymptomatic. Dictation
[2018-11-30] MEDS: OMEPRAZOLE 20 MG CAP PO SCH (21:43)
[2018-11-30] MEDS: **NOTE PATIENT COMMENT** MISC XX SCH (22:10)
[2018-12-01] VITALS: BP 106/55
[2018-12-01] MEDS: ONDANSETRON 4MG/2ML VIAL (J2405) IV PRN (01:26)
[2018-12-01 04:00] VITALS: BP 115/55
[2018-12-01] MEDS: HEPARIN SOD (PORCINE) 5000 UNITS/ML VIAL SC SCH ×3 (06:26→22:56)
[2018-12-01] MEDS: ATORVASTATIN 20 MG TAB PO SCH (06:27)
[2018-12-01] MEDS: ACETAMINOPHEN TAB 650MG DOSE (2X325MG) PO PRN ×2 (06:27→13:26)
[2018-12-01 08:00] VITALS: BP 124/59
[2018-12-01 08:03] LABS: HEMATOCRIT 31.7 % (36.0-47.0); HEMOGLOBIN 9.7 g/dl (12.0-15.5); MEAN CORPUSCULAR HEMOGLOBIN 28.9 pg (27.0-33.0); MEAN CORPUSCULAR HGB CONC 30.6 g/dl (32.0-36.5); MEAN CORPUSCULAR VOLUME 94.3 fl (80.0-96.0); PLATELET COUNT, AUTOMATED 224 10^3/uL (150-450); RED BLOOD COUNT 3.36 10^6/uL (4.00-5.40); WHITE BLOOD COUNT 4.5 10^3/uL (4.0-10.0)
[2018-12-01] MEDS: LIDOCAINE 5% (LIDODERM) PATCH TD SCH (08:10)
[2018-12-01] MEDS: CALCIUM ACETATE 667 MG GELCAP PO SCH ×3 (08:11→18:16)
[2018-12-01] MEDS: traMADol 50 MG TAB PO PRN ×2 (08:11→22:56)
[2018-12-01] MEDS: NYSTATIN 500,000 U/5 ML SUSP UDC SS SCH ×2 (08:12→19:56)
[2018-12-01 08:32] LABS: CALCIUM LEVEL 9.7 MG/DL (8.5-10.1); CREATININE FOR GFR 7.98 MG/DL (0.55-1.30); GLOMERULAR FILTRATION RATE 5.7 (>51); POTASSIUM SERUM 4.6 MEQ/L (3.5-5.1)
[2018-12-01] MEDS ORDERED: PERCOCET 5MG/325MG TAB PO ONE (10:00)
[2018-12-01 12:48] LABS: PHOSPHORUS LEVEL 2.2 MG/DL (2.5-4.9)
[2018-12-01 13:25] VITALS: BP 114/60
--- NOTE | 2018-12-01 16:52 | IPNPDOC ---
Text Note Date of Service The patient was seen on 12/01/18. NOTE SUBJECTIVE: Ms. Gil is becoming more and more alert daily. Discussion and update has been given to trusted family members at bedside today. Patient has endocarditis and new diagnosis of endometrial cancer. She has additional complication of septic emboli to the brain resulting in infarction; this has been contributory to memory loss. Her memory and cognition improve daily, however. OBJECTIVE: Please see vital signs below Physical exam: General: The patient does respond to questions. She is cooperative with exam. Mobility is difficult for her due to her weight. HENT: She is edentulous. Oral mucosa is otherwise moist, no scleral injection or icterus. I do not appreciate adenopathy or thyromegaly. Cardiovascular: Regular rate and rhythm with perhaps a grade 2/6 systolic murmur. Pulmonary: She is clear to auscultation and has not had any wheezing or coughing. Abdomen: Soft, nontender, with morbid central obesity Back: I do not elicit focal point tenderness to palpation of the vertebral spine Extremities: No peripheral edema, pedal pulses are palpable, patient has had 1-2 finger amputations Neuro: Patient does not demonstrate focal neuromotor or sensory deficit, patient appears to have cognition deficits that are possibly congenital, has exhibited intermittent memory deficits that are improving. She is asking some appropriate questions about her conditions. She interacts appropriately and well with trusted family members at bedside. ASSESSMENT/PLAN: 1. Sepsis. The patient is afebrile and she does not have leukocytosis. She had had tachycardia which is resolved. Metabolic encephalopathy is resolved. Cultures are positive for gram-positive cocci in clusters identified as MSSA. Patient had been treated with meropenem and Zyvox. She is currently receiving cefazolin; she will continue to receive this with hemodialysis for several weeks. Source is endocarditis. Acute sepsis is resolved. 2. Endocarditis There was question of appearance of pulmonary septic emboli on her CT scan. Initial transthoracic echocardiogram shows a mitral echodensity concerning for vegetation. Patient also has significant right ventricular dilatation and right atrial enlargement. Ventricular function appears to be preserved with a ejection fraction of 65-70% with grade 2 diastolic dysfunction. Note is also made of pulmonary hypertension with pulmonary arterial pressure of 50-60 mm Hg. Case has been discussed with the cardiology service. Patient remains on empiric antibiotics in the interim. Blood cultures have been positive for MSSA. Repeat cultures are negative to date. Long-term antibiotics anticipated 6 weeks coordinated with her hemodialysis schedule. We have also consulted with infectious disease services. Other data of interest is a brain MRI which shows septic emboli showering. 3. Encephalopathy. This is generally felt to have been metabolic encephalopathy due to sepsis. It appears to be resolved. Additionally, the patient had some toxic encephalopathy associated with receiving Percocet. This resolved with the patient being given Narcan. 4. Chronic back pain. The patient is reporting persistent low back pain. Patient has required Narcan for single dose of Percocet. The patient is not supposed to take narcotics. She also cannot have tramadol due to adverse drug interaction with her medication. She states she has been getting narcotics from "friends" at home. She admits that when she does this she is not aware of the day. She states she has been instructed to use Tylenol for pain. We have given her a lidocaine patch and this has been helpful. Patient was apparently unable to fully tolerate complete MRI scan of her lumbar spine and so there is not a complete report. Concern is raised for an additional infection focus related to her endocarditis. Review of available report does not reveal any abscess or inflammatory process. 5. Vaginal bleeding. The patient persistently reported that she is postmenopausal. However, she had been having episodes of vaginal bleeding prompting visits to the ER. The patient did have evaluation by pelvic and transvaginal ultrasound; note was made of endometrial echo of 2.5 cm thick. Note was also made of a small fibroid. The patient has undergone D & C by [facility]. 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 This is confirmed as grade 1 by pathology report. The patient will need follow up in [place] with [facility]ology. 6. End-stage renal disease. The patient does have chronic kidney disease stage V that is hemodialysis requiring. She will continue with her schedule per the supervision of the nephrology service. 7. Head lice The patient had had pediculosis primarily to the right side of her head/scalp. She has undergone treatment with permethrin. 8. Memory deficits. There are times the patient does not recall events of the day prior. For example, she does not recall having or being treated for head lice. She does not recall going to the OR. Radiologic read of her chest CT gave a differential diagnosis of septic emboli versus metastatic lesions. The patient has had CT scan of the head as part of disease survey; there is a faint finding of a possible abnormality at the posterior limb of the right internal capsule. The patient does not exhibit neuro deficits that would be associated with this area. However, patient was able to tolerate evaluation by MRI which unfortunately shows septic emboli to the brain, resulting in infarct lesions. Also, in discussion with radiology metastatic lesion cannot be fully ruled out, although it would be unusual with her primary lesion. Of interest, family members report that patient started to have deficits prior to admission. Disposition: We are attempting to determine the best plan for this patient; tentatively plans are for discharge to home with support. We will arrange for home health services and home. Case management. She will also have some family support. She is also going to need referral and transport to [facility] in [place]. The patient is appropriately asking whether she is going to need a hysterectomy. She mentions that hysterectomy for her has been discussed in the past and that she was not considered a good surgical candidate because of her renal disease. We will need to discuss this further. VS,Fishbone, I+O VS, Fishbone, I+O Laboratory Tests 12/01/18 07:51 Red Blood Count 3.36 L, Mean Corpuscular Volume 94.3, Mean Corpuscular Hemoglobin 28.9, Mean Corpuscular Hemoglobin Concent 30.6 L, Red Cell Distribution Width 15.0 H, Calcium Level 9.7 Vital Signs Date Time Temp Pulse Resp B/P (MAP) Pulse Ox O2 Delivery O2 Flow Rate FiO2 12/01/18 13:25 97.3 72 20 114/60 (78) 98 11/25/18 16:37 2 I&O- Last 24 Hours up to 6 AM 12/01/18 06:00 Intake Total 620 ml Output Total 0 ml Balance 620 ml VENITA CABRAL MD Dec 01, 2018 16:52
[2018-12-01] MEDS: diphenhydrAMINE 50 MG CAP PO SCH (17:22)
[2018-12-01] MEDS: ceFAZolin SOD 2 GM in IV 1 EA IV SCH (18:14)
--- NOTE | 2018-12-01 19:09 | IPN ---
DATE: 12/01/2018 Mrs. Gil is seen this morning on her bedside during dialysis. She is quite restless and uncomfortable in the bed. She reports back pain but generalized body aches and pains. Nursing staff reports that she was just given a dose of tramadol 50 mg. However, the patient feels that it is not helping. She has no fever or chills at present. PHYSICAL EXAMINATION: Temperature 97 degrees Fahrenheit, heart rate 68 per minute and respiratory rate 18 per minute. Blood pressure 124/59 mmHg and oxygen saturation 100%. Head is atraumatic. Neck veins difficult to be assessed. Heart sounds distant and regular. Lungs with diminished breath sounds. Abdomen is obese, soft and nontender and bowel sounds normal. Extremities without any cyanosis or clubbing. Left arm arteriovenous (AV) fistula is functioning and being used for dialysis. LABORATORY DATA: Today's laboratories show WBC count 4.5, hemoglobin 9.7 and hematocrit 31.7. Sodium 136, potassium 4.6, BUN 33 and creatinine 7.98. Calcium level is 9.7. PROBLEMS: 1. End-stage renal disease. The patient is being dialyzed today and I have encouraged her to stay and complete her treatment. She wants to come off the machine due to back pain. I ordered a dose of Percocet. However, he floor nurse reported that the patient had problems with Percocet before so the primary physician has advised not to give Percocet anymore. I cancelled the order. 2. Anemia. Her anemia is stable at present and she will continue to receive weekly dose of Aranesp during dialysis. 3. Staphylococcus aureus bacteremia and endocarditis. The patient remains on long-term antibiotic therapy per infectious disease recommendation. She is currently afebrile.
[2018-12-01] MEDS: OMEPRAZOLE 20 MG CAP PO SCH (19:56)
[2018-12-01] MEDS: **NOTE PATIENT COMMENT** MISC XX SCH (19:57)
[2018-12-01 20:00] VITALS: BP 130/67
[2018-12-01] MEDS ORDERED: ONDANSETRON 4 MG TAB (S0181) PO PRN (23:15)
[2018-12-02] VITALS: BP 111/59
[2018-12-02 04:00] VITALS: BP 107/71
[2018-12-02] MEDS: HEPARIN SOD (PORCINE) 5000 UNITS/ML VIAL SC SCH ×2 (06:29→14:42)
[2018-12-02 08:00] VITALS: BP 117/60
[2018-12-02] MEDS: NYSTATIN 500,000 U/5 ML SUSP UDC SS SCH (08:05)
[2018-12-02] MEDS: LIDOCAINE 5% (LIDODERM) PATCH TD SCH (08:05)
[2018-12-02] MEDS: CALCIUM ACETATE 667 MG GELCAP PO SCH ×3 (08:05→17:24)
[2018-12-02] MEDS: ATORVASTATIN 20 MG TAB PO SCH (08:05)
[2018-12-02 12:00] VITALS: BP 133/73
[2018-12-02] MEDS ORDERED: ATOR1TAB21 PO (14:44)
[2018-12-02] MEDS ORDERED: LIDO5TD TD (14:44)
[2018-12-02 16:00] VITALS: BP 134/74
[2018-12-02] MEDS: ceFAZolin SOD 2 GM in IV 1 EA IV SCH (17:00)
[2018-12-02] MEDS: diphenhydrAMINE 50 MG CAP PO SCH (17:00)
--- NOTE | 2018-12-02 18:07 | IPN ---
DATE: 12/02/2018 Ms. Gil is seen this morning on her bedside. She is sitting in the chair at the time of my visit. She reports chronic back pain which gets worse when she lays on her back. She denies any dyspnea, chest pain, fever or chills. She is tolerating her diet very well and has no nausea, vomiting or diarrhea. She is currently being treated for endocarditis with an Ancef. Most recent blood cultures have been negative. PHYSICAL EXAMINATION: Temperature 97 degrees Fahrenheit, heart rate 70 per minute and respiratory rate 18 per minute. Blood pressure 117/60 mmHg and oxygen saturation 100%. Head is atraumatic. Neck is supple and jugular venous distention (JVD) not abnormally elevated. Central line from left upper chest has been already removed. She is edentulous and without any oral thrush or ulcers. Heart: Sounds regular with systolic murmur grade 2/6. Lungs: Clear to auscultation. Abdomen: Obese, soft and nontender and bowel sounds normal. Extremities: Without any cyanosis or clubbing. Neurologically she is awake, alert and at her baseline mentation. The patient did not have any new labs done today. PROBLEMS: 1. End-stage renal disease. The patient was dialyzed yesterday, and her next dialysis will be scheduled for tomorrow as an outpatient. 2. Staphylococcus (staph) aureus bacteremia and endocarditis. The patient is currently on cefazolin 2 grams after each dialysis. She will continue to receive this as an outpatient in the dialysis clinic. 3. Anemia. Her anemia is stable, and she will continue to be treated with long-acting erythropoietin-stimulating agent (LISA) in the outpatient dialysis clinic. No urgent intervention is indicated at present. 4. Disposition: From a renal standpoint, the patient can be discharged to home and followup in our office in a couple of weeks. She will also be followed in dialysis clinic where she will return for next dialysis tomorrow.
--- NOTE | 2018-12-02 19:47 | IPN ---
DATE: 12/02/2018 Ms. Gil was seen and examined this afternoon sitting in her chair. She did not appear in any acute distress. She is happy that she is going home. She states that she has family members and a man friend who will take care of her and she would like to go. She denies any fevers, chills, night sweats, any trouble breathing, abdominal pain, nausea, vomiting, or diarrhea. She has no complaints today. PHYSICAL EXAMINATION: VITAL SIGNS: Temperature 97.3, pulse 79, respiratory rate 18, blood pressure 134/74 (94), pulse oximetry 97% on room air. GENERAL: This is a pleasant 48-year-old female who does not appear in acute distress, appropriately answering questions. HEART: Normal S1, S2 sounds with a 2/6 systolic murmur loudest at the second intercostal space at the left side with no radiation to the carotids or apex with no audible rubs and gallops. LUNGS: Clear to auscultation bilaterally. No audible wheezing, rhonchi, or rales. ABDOMEN: Morbidly obese but soft, nontender. EXTREMITIES: Left fifth toe amputation and right fourth finger amputation. Lower extremity edema 1+ bilaterally as well. LABORATORY DATA: No new hematology laboratories were obtained. No new chemistry laboratories were obtained. No new imaging was obtained as well. IMPRESSION: 1. Methicillin-sensitive Staphylococcus aureus (MSSA) bacteremia, currently on cefazolin 2 grams every 24 hours. The patient will be discharged later this afternoon. Discussed with nephrology who will continue antibiotics for five more weeks for a total of six weeks of antibiotics. End date is 01/06/2019. She will be placed on post dialysis antibiotics 2-3 grams of cefazolin. 2. Currently sexually active with an HIV partner. Denies using HIV prophylaxis. Advised if she wants to start on these, she can followup with infectious disease outpatient.
[2018-12-17 07:38] LABS: CHROMKB1 SEE SEPARATE REPORT
--- NOTE | 2018-12-21 14:03 | DS.PDOC ---
Discharge Summary General Date of Admission Nov 22, 2018 at 14:56 Date of Discharge December 02, 2018 Specialist/Consultants Involve: Marlene Buitrago MD Specialist/Consultants Involve Dr. Myesha Mckoy BANQUET STEWARD; Dr. Pickard Chicho cardiology; Drs. Malave and Lachelel nephrology Discharge Summary PROCEDURES PERFORMED DURING STAY: [Central line placement, hemodialysis, echocardiogram, endometrial biopsy]. ADMITTING DIAGNOSES: 1. [Sepsis, endocarditis]. DISCHARGE DIAGNOSES: 1. [Sepsis resolved, endocarditis, MSSA bacteremia, septic pulmonary emboli, septic brain emboli, CKD IV, morbid obesity, chronic back pain]. COMPLICATIONS/CHIEF COMPLAINT: End Stage Renal Disease On Hemodialysis Fever. HISTORY OF PRESENT ILLNESS/HOSPITAL COURSE: [This is a 48-year-old male who presented with multiple complaints. Primary complaint was development of fever and chills over the past week progressing to nausea and vomiting this weekend. She had been complaining of low back pain, but this is chronic for her. Upon evaluation in the emergency room she was noted to be febrile and hypotensive with systolic pressures down to 74. She was febrile up to 100.8. Lactic acid was normal at 1.7, and she was not noted to be tachycardic. However, she was poorly responsive to IV fluid resuscitation. Central line was placed for more aggressive fluid resuscitation. Upon additional radiologic evaluation in the emergency room, there were findings concerning for septic emboli and consequently overall concern for possible endocarditis. Patient was initially placed in the ICU. Cultures were obtained and she was placed on empiric antibiotics. She was continued on her hemodialysis schedule. 3 sets of blood cultures were positive for MSSA. Echocardiogram was positive for vegetation to mitral valve. Per infectious disease patient was placed on extended course of IV cefazolin to be coordinated with her dialysis schedule. The patient had episodes of memory loss; she was found to also have septic emboli to the brain. The patient had had multiple visits to the ER for vaginal bleeding prior to admission. She had been evaluated by vaginal ultrasound and found to have a thickened endometrial stripe. 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 Patient was evaluated by PT and OT and was deemed stable for discharge to home. DISCHARGE MEDICATIONS: Please see below. ALLERGIES: Please see below. PHYSICAL EXAMINATION ON DISCHARGE: HENT: She is edentulous. Oral mucosa is otherwise moist, no scleral injection or icterus. I do not appreciate adenopathy or thyromegaly. Cardiovascular: Regular rate and rhythm with perhaps a grade 2/6 systolic murmur. Pulmonary: She is clear to auscultation and has not had any wheezing or coughing. Abdomen: Soft, nontender, with morbid central obesity Back: I do not elicit focal point tenderness to palpation of the vertebral spine Extremities: No peripheral edema, pedal pulses are palpable, patient has had 1-2 finger amputations Neuro: Patient does not demonstrate focal neuromotor or sensory deficit, patient appears to have cognition deficits that are possibly congenital, has exhibited intermittent memory deficits that are improving. She is asking some appropriate questions about her conditions. She interacts appropriately and well with trusted family members at bedside. LABORATORY DATA: Please see below. IMAGING: Echocardiogram [Evaluation of diastolic function is suggestive of grade 2 diastolic dysfunction. CONCLUSIONS: 1. Study is of markedly limited technical quality. 2. Grossly preserved left ventricular (LV) size and systolic function, grade 1 diastolic dysfunction. 3. Severely dilated hypokinetic right ventricle. 4. Aortic sclerosis but no stenosis or insufficiency. 5. Poorly visualized mitral valve but based on available views, prominent degenerative abnormalities of both leaflets and poorly visualized echodensity] attached to posterior mitral leaflets that could represent vegetation. No stenosis or insufficiency, though. 6. Likely high central venous pressure and moderately severe pulmonary hypertension. COMMENT: Transesophageal echocardiogram will certainly provide much better resolution and potentially additional useful information, but in this setting may be complicated. DD: Kaye Blancas MD 11/23/182004 Brain MRI Impression: Innumerable foci restricted effusion scattered throughout both cerebral hemispheres most likely represents embolic acute infarction as there is an acute lacunar infarct within the left cerebellar hemisphere. Evidence of microhemorrhage within the right side toan which is nonspecific but could be secondary to microvascular ischemic disease. Fluid within the mastoid air cells bilaterally. Findings reported to Dr. Mejia by Dr. Aviles at 04:25 p.m. on 11/29/2018. Electronically Signed by Izzy Aviles MD 11/29/2018 04:39 P PROGNOSIS: [Fair] ACTIVITY: [As tolerated]. DIET: [Renal] DISCHARGE PLAN: [Patient was stable for discharge to home. She has good family/social support and arrangements have been made of home health and meal service. She will continue with IV antibiotics per her hemodialysis schedule and will follow up with Dr. Buitrago. She has been referred to [facility] at [facility] in [place] for followup/management of her endometrial cancer.] DISPOSITION: 06 Home Health Service. DISCHARGE CONDITION: [Stable]. TIME SPENT ON DISCHARGE: Greater than [45] minutes. Discharge Medications Scheduled Atorvastatin Calcium (Atorvastatin Calcium) 20 Mg Tablet, 40 MG PO DAILY Calcium Acetate (Calcium Acetate) 667 Mg Cap, 1,334 MG PO WM, (Reported) Ferric Citrate (Auryxia) 210 Mg Tab, 420 MG PO WM, (Reported) Folic Acid/Vit B Complex and C (Ynes-Betty Tablet) 1 Tab Tab, 1 TAB PO 3XW, (Reported) RECEIVES AT DIALYSIS THU, THU, FRI Lidocaine (Lidocaine) 5% Adh..patch, 1 PATCH TD DAILY Omeprazole (Omeprazole) 20 Mg Cap, 20 MG PO QHS, (Reported) Simvastatin (Zocor) 80 Mg Tablet, 80 MG PO QHS, (Reported) Sucroferric Oxyhydroxide (Velphoro) 500 Mg Chw, 1,000 MG PO WM, (Reported) Vitamin D (Vitamin D3) 1,000 Unit Tablet, 6,000 UNITS PO 3XW, (Reported) RECEIVES AT DIALYSIS THU, THU, THU Scheduled PRN Albuterol Sulfate (Ventolin Hfa) 108 Mcg/Act Aer, 2 PUFF INH Q6H PRN for SOB/WHEEZING, (Reported) Allergies Coded Allergies: Cephalosporins (Verified Allergy, Mild, rash, 12/08/18) pt able to take cefazolin-pt getting 3g fridays and 2g m/w at dialysis ibuprofen (Verified Allergy, Mild, rash, 12/04/18) iron dextran complex (Verified Allergy, Mild, rash, 12/04/18) nafcillin (Verified Allergy, Mild, rash, 12/04/18) vancomycin (Verified Allergy, Mild, rash, 12/04/18) azelastine (Verified Allergy, Unknown, 12/04/18) povidone (Verified Allergy, Unknown, 12/04/18) VENITA MEJIA MD Dec 21, 2018 14:03
== END 2018-12-02 18:23 | disposition home health service (06) | DRG 853 ==
LOC: M ED 11:11 → EEVIPCON 14:56 → M ED INP 14:56 → M ICU 17:10 → M PCU 11-23 19:45
PROVIDERS: ADMIT Internal Medicine; ATTEND Internal Medicine
PROC: 02HV33Z Insertion of Infusion Device into Superior Vena Cava, Percutaneous Approach (ICD-10-PCS; 2018-11-22)
PROC: 5A1D70Z Performance of Urinary Filtration, Intermittent, Less than 6 Hours Per Day (ICD-10-PCS; 2018-11-24)
PROC: 0UDB8ZX Extraction of Endometrium, Via Natural or Artificial Opening Endoscopic, Diagnostic (ICD-10-PCS; principal; 2018-11-25 14:56)
DX: A41.01 Sepsis due to Methicillin susceptible Staphylococcus aureus (principal); N18.6 End stage renal disease; I33.0 Acute and subacute infective endocarditis; G93.41 Metabolic encephalopathy; I63.9 Cerebral infarction, unspecified; I26.90 Septic pulmonary embolism without acute cor pulmonale; N18.4 Chronic kidney disease, stage 4 (severe); N25.81 Secondary hyperparathyroidism of renal origin; C54.1 Malignant neoplasm of endometrium; E66.01 Morbid (severe) obesity due to excess calories; Z79.899 Other long term (current) drug therapy; Z88.8 Allergy status to other drugs, medicaments and biological substances; Z88.6 Allergy status to analgesic agent; G47.33 Obstructive sleep apnea (adult) (pediatric); K57.30 Diverticulosis of large intestine without perforation or abscess without bleeding; E78.5 Hyperlipidemia, unspecified; F12.90 Cannabis use, unspecified, uncomplicated; D63.1 Anemia in chronic kidney disease; E83.42 Hypomagnesemia; M54.5 Low back pain; B85.0 Pediculosis due to Pediculus humanus capitis

== ENCOUNTER 2018-12-04 14:34 | Emergency (ER) | payer MEDICARE, MEDICAID ==
[~2018-12-04] VITALS: Ht 154.9 cm; Wt 127.7 kg
[~2018-12-04 14:34] MED LIST changes: +ATOR1TAB21 PO; +CHOL100029 PO; +LIDO5TD TD; +ZOCO80TA PO
[2018-12-04] MEDS ORDERED: LIDOCAINE 5% (LIDODERM) PATCH TD ONE (15:00)
[2018-12-04 17:45] VITALS: BP 103/57
[2018-12-04] MEDS ORDERED: **NOTE PATIENT COMMENT** MISC XX SCH (21:00)
== END 2018-12-04 18:15 | disposition home or self-care (01) ==
LOC: M ED 14:34
DX: M54.89 Other dorsalgia (principal); I12.9 Hypertensive chronic kidney disease with stage 1 through stage 4 chronic kidney disease, or unspecified chronic kidney disease; N18.9 Chronic kidney disease, unspecified; K57.30 Diverticulosis of large intestine without perforation or abscess without bleeding; G47.30 Sleep apnea, unspecified; Z91.048 Other nonmedicinal substance allergy status; Z88.8 Allergy status to other drugs, medicaments and biological substances; Z88.3 Allergy status to other anti-infective agents; Z88.0 Allergy status to penicillin; Z88.1 Allergy status to other antibiotic agents; Z79.899 Other long term (current) drug therapy

== ENCOUNTER 2018-12-08 12:37 | Emergency (ER) | payer MEDICARE, MEDICAID ==
[~2018-12-08] VITALS: Ht 154.9 cm; Wt 127.3 kg
[2018-12-08 15:43] LABS: BASO % 0.3 % (0.0-1.0); EOS % 0.3 % (0.0-3.0); HEMATOCRIT 33.6 % (36.0-47.0); HEMOGLOBIN 10.2 g/dl (12.0-15.5); LYMPH # 0.6 10^3/uL (1.5-5.0); LYMPH % 16.5 % (24.0-44.0); MEAN CORPUSCULAR HEMOGLOBIN 29.4 pg (27.0-33.0); MEAN CORPUSCULAR HGB CONC 30.4 g/dl (32.0-36.5); MEAN CORPUSCULAR VOLUME 96.8 fl (80.0-96.0); MONO # 0.2 10^3/uL (0.0-0.8); MONO % 5.8 % (0.0-5.0); NEUTROPHILS # 2.9 10^3/uL (1.5-8.5); NEUTROPHILS % 76.6 % (36.0-66.0); PLATELET COUNT, AUTOMATED 179 10^3/uL (150-450); RED BLOOD COUNT 3.47 10^6/uL (4.00-5.40); WHITE BLOOD COUNT 3.8 10^3/uL (4.0-10.0)
[2018-12-08 16:10] LABS: ALBUMIN 3.2 GM/DL (3.2-5.2); ALT/SGPT < 6 U/L (12-78); BILIRUBIN,DIRECT 0.2 MG/DL (0.0-0.2); BILIRUBIN,TOTAL 0.4 MG/DL (0.2-1.0); BLOOD UREA NITROGEN 7 MG/DL (7-18); CALCIUM LEVEL 8.5 MG/DL (8.5-10.1); CARBON DIOXIDE LEVEL 34 MEQ/L (21-32); CHLORIDE LEVEL 99 MEQ/L (98-107); CREATININE FOR GFR 3.54 MG/DL (0.55-1.30); GLOMERULAR FILTRATION RATE 14.5 (>51); GLUCOSE, FASTING 87 MG/DL (70-100); LIPASE 86 U/L (73-393); POTASSIUM SERUM 3.5 MEQ/L (3.5-5.1); SODIUM LEVEL 141 MEQ/L (136-145)
[2018-12-08 17:45] VITALS: BP 128/80
--- NOTE | 2018-12-09 21:26 | ECGEPIP ---
[facility] - ED Test Date: 2018-12-08 Pat Name: NORTH SCHAEFFER Department: Room: - Gender: Female [employer] Supervisor: jboaz : [id number] Requested By: Mick Duran Order Number: [id number] Reading MD: Shanice Nathan Measurements Intervals [place] Rate: 58 P: 21 [place]: 152 QRS: -25 QRSD: 162 T: -6 QT: 499 QTc: 494 Interpretive Statements SINUS BRADYCARDIA BORDERLINE LEFT AXIS DEVIATION RIGHT BUNDLE BRANCH BLOCK LAFB DECREASED RATE 11/22/18 Electronically Signed on 12-09-2018 21:25:59 EDT by Shanice Nathan
== END 2018-12-08 18:00 | disposition home or self-care (01) ==
LOC: M ED 12:37 → EDBD 12:37 → M ED 18:00
DX: G89.4 Chronic pain syndrome (principal); M54.89 Other dorsalgia; F41.9 Anxiety disorder, unspecified; I12.9 Hypertensive chronic kidney disease with stage 1 through stage 4 chronic kidney disease, or unspecified chronic kidney disease; N18.9 Chronic kidney disease, unspecified; M51.36 Other intervertebral disc degeneration, lumbar region; Z99.2 Dependence on renal dialysis; Z88.1 Allergy status to other antibiotic agents; Z88.8 Allergy status to other drugs, medicaments and biological substances; Z88.3 Allergy status to other anti-infective agents; Z79.899 Other long term (current) drug therapy

== ENCOUNTER 2019-02-21 20:31 | Inpatient (IN) | payer MEDICARE, MEDICAID ==
[~2019-02-21] VITALS: Ht 154.9 cm; Wt 129.3 kg
[~2019-02-21 20:31] MED LIST changes: +SIMV20TA22 PO
[2019-02-21] MEDS ORDERED: MEGE40TA (20:50)
[2019-02-21 22:46] LABS: BASO % 0.2 % (0.0-1.0); EOS # 0.1 10^3/uL (0.0-0.5); EOS % 1.3 % (0.0-3.0); HEMATOCRIT 27.9 % (36.0-47.0); HEMOGLOBIN 8.6 g/dl (12.0-15.5); LYMPH # 0.9 10^3/uL (1.5-5.0); MEAN CORPUSCULAR HEMOGLOBIN 29.1 pg (27.0-33.0); MEAN CORPUSCULAR HGB CONC 30.8 g/dl (32.0-36.5); MEAN CORPUSCULAR VOLUME 94.3 fl (80.0-96.0); MONO # 0.4 10^3/uL (0.0-0.8); MONO % 9.4 % (0.0-5.0); NEUTROPHILS # 3.2 10^3/uL (1.5-8.5); NEUTROPHILS % 68.9 % (36.0-66.0); PLATELET COUNT, AUTOMATED 144 10^3/uL (150-450); RED BLOOD COUNT 2.96 10^6/uL (4.00-5.40); WHITE BLOOD COUNT 4.7 10^3/uL (4.0-10.0)
[2019-02-21 23:08] LABS: BLOOD UREA NITROGEN 24 MG/DL (7-18); CALCIUM LEVEL 9.8 MG/DL (8.5-10.1); CARBON DIOXIDE LEVEL 33 MEQ/L (21-32); CHLORIDE LEVEL 99 MEQ/L (98-107); CK-MB VALUE MASS < 1.0 NG/ML (<3.6); CPK CREATINE PHOSPHOKINASE 60 U/L (26-192); CREATININE FOR GFR 5.71 MG/DL (0.55-1.30); GLOMERULAR FILTRATION RATE 8.4 (>51); GLUCOSE, FASTING 90 MG/DL (70-100); MB/CK RELATIVE INDEX 1.67 (< OR =4); POTASSIUM SERUM 3.6 MEQ/L (3.5-5.1); SODIUM LEVEL 141 MEQ/L (136-145); TROPONIN I < 0.02 NG/ML (< 0.10)
--- NOTE | 2019-02-22 00:36 | REPVR ---
PROCEDURE INFORMATION: Exam: CT Chest Without Contrast Exam date and time: 02/21/2019 11:54 PM Age: 48 years old Clinical history: Chest pain; Additional info: Dyspnea, chf vs pn TECHNIQUE: Imaging protocol: Computed tomography of the chest without contrast. 3D rendering: MIP reconstructed images were created and reviewed. Radiation optimization: All CT scans at this facility use at least one of these dose optimization techniques: automated exposure control; mA and/or kV adjustment per patient size (includes targeted exams where dose is matched to clinical indication); or iterative reconstruction. COMPARISON: CT ANGIO CHEST 2018-11-22 13:20 FINDINGS: Limitations: Limited by patient's body habitus. Lungs: Lobular patchy opacities in the right greater than left lung, evidence of infection. Pleural space: Unremarkable. No pneumothorax. No pleural effusion. Heart: Mitral annulus calcification. Aorta: Unremarkable. No aortic aneurysm. Lymph nodes: Unremarkable. No enlarged lymph nodes. Gallbladder and bile ducts: Cholecystectomy. Spleen: Splenomegaly. Kidneys and ureters: Severe renal atrophy. Bones/joints: Moderate dextroconvex thoracic scoliosis. Renal osteodystrophy with sclerotic bones. Soft tissues: Unremarkable. IMPRESSION: Lobular patchy opacities in the right greater than left lung, evidence of infection. Electronically signed by: Grant Pham On 02/22/2019 00:36:10 AM
[2019-02-22] MEDS ORDERED: AZITHROMYCIN INJ 500 MG, VIAL MATE ADAPTER 1 EACH in D5W 250 ML IV ONE (01:00)
[2019-02-22] MEDS ORDERED: cefTRIAXone SOD 2 GM in D5W MINI-BAG PLUS 50 ML IV ONE (01:00)
[2019-02-22] MEDS ORDERED: ATOR40TA75 PO (01:17)
[2019-02-22] MEDS ORDERED: MEGE40TA PO (01:17)
[2019-02-22] MEDS ORDERED: IPRATROPIUM 0.5MG/ALBUTEROL 2.5MG INH SOL UD 3ML (DUONEB)(J7620) INH PRN (01:45)
[2019-02-22 02:10] LABS: ALBUMIN 3.4 GM/DL (3.2-5.2); ALT/SGPT 11 U/L (12-78); BILIRUBIN,DIRECT 0.2 MG/DL (0.0-0.2); BILIRUBIN,TOTAL 0.8 MG/DL (0.2-1.0); TOTAL PROTEIN 6.9 GM/DL (6.4-8.2)
[2019-02-22] MEDS ORDERED: ACETAMINOPHEN 650MG ER TAB (TYLENOL ARTHRITIS) PO PRN (02:15)
[2019-02-22] MEDS ORDERED: ENTER DRUG NAME HERE (PATIENT'S OWN MED) PO SCH (02:15)
[2019-02-22] MEDS ORDERED: ONDANSETRON 4 MG TAB (S0181) PO PRN (02:15)
[2019-02-22] MEDS: guaiFENesin ER 600 MG TAB PO SCH ×2 (02:24→08:12)
--- NOTE | 2019-02-22 03:01 | HPEPDOC ---
[facility] Medical History & Physical Date of Admission Feb 22, 2019 Date of Service: Feb 22, 2019 Other Provider Demarco Vidal MD Attending Physician: CARI SIMS MD History and Physical CHIEF COMPLAINT: Not feeling well HISTORY OF PRESENT ILLNESS: This is a 48-year-old female with a pertinent past medical history of end-stage renal disease on hemodialysis, anemia of chronic disease, history of MSSA bacteremia and endocarditis (November 2018) presenting today for respiratory like symptoms and shortness of breath for the last 3 days. She states that her symptoms initially started around Thursday when she started to experience cold, runny nose, cough productive of yellow sputum & increased weakness. The symptoms continue to persist over the weekend, even while she was at dialysis on Thursday. She admits to having subjective fevers but she was informed at dialysis but she was afebrile. She denies having any direct sick contact, but admits that some people in her apartment are sick so she might have gotten sick from them. Lastly she admits to one episode of vomiting prior to presentation to the ER, which consisted of her dinner only and no blood. She denies having any chest pain but does admit to some shortness of breath and some wheezing. She denies any diarrhea, abdominal pain, weight loss or any skin changes. In the ER chest CT was positive for a lobular patchy infiltrates in the right which was worse than the left. She was given 1 dose of ceftriaxone and azithromycin. REVIEW OF SYSTEMS: 10 systems reviewed and negative other than HPI PAST MEDICAL HISTORY: 1. History of sepsis, endocarditis, septic pulmonary emboli & brain emboli w/o residual deficits (11/2018) 2. 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 MSSA bacteremia (11/2018) 4. Morbid obesity 5. Chronic back pain 6. Anemia of chronic disease 7. Recently diagnosed endometrial carcinoma (November 2018) 8. CHERYL 9. Grade 1 Diastolic Dysfunction 2/2 Chronic HTN 10. History of Depression PAST SURGICAL HISTORY: 1. section 2. Tonsillectomy 3. Arthroscopy of right ankle and left knee 4. Amputation of right ring finger 5. Amputation of left fifth toe 6. Tubal ligation 7. Hernia repair 8. Multiple failed AV grafts in both upper extremities and left thigh with reccurent clotting 9. Cholecystectomy 10. Dilation and curettage hysteroscopy with MyoSure resection HOME MEDICATIONS: Please see below. ALLERGIES: Please see below SOCIAL HISTORY: Denies smoking, alcohol use admits to daily marijuana use at night. She has 2 children and her sisters healthcare proxy. Status post code FAMILY HISTORY: Reviewed. Positive for diabetes and pulmonary embolism PHYSICAL EXAMINATION: VITAL SIGNS: Temperature 98.7, pulse 89, respiratory rate 20 , blood pressure 162/79, pulse oximetry 98% on room air. GENERAL: Pleasant 48-year-old female sitting up in the chair alert and oriented, does not appear in acute distress or using any accessory muscles. Speaking in complete sentences HEENT: Moist mucous membranes no elevation in CVP CARDIOVASCULAR: S1 S2 regular 2/6 ejection murmur appreciated left upper sternal border. No radiation to the carotids a pleural-based. RESPIRATORY: Audible bilateral wheezing appreciated right worse than left. Diminished breath sounds appreciated in the right lower bases. ABDOMINAL: Bowel sounds present obese abdomen soft and nontender EXTREMITIES: No clubbing cyanosis. Trace edema in the lower extremities bilaterally. Right ring finger amputation well healed at the stump. Upper arm fistula on the left side nontender with a palpable thrill. Fistulas on the right side did not have a palpable thrill. NEUROLOGICAL: Spontaneously moves all 4 extremities cranial 2 through 12 grossly intact no gross focal deficits appreciated PSYCHOLOGICAL: Alert and oriented to person place and time, able to understand and follow all commands LABORATORY DATA: See below. MICROBIOLOGY: Please see below. IMAGIN02/21/2019 Chest x-ray - report still pending Chest CT - Lobular patchy opacities in the right greater than left lung, evidence of infection. ASSESSMENT & PLAN: This is a 48-year-old female with end-stage renal disease who will be admitted for management of community acquired pneumonia. PROBLEMS: 1. Community acquired pneumonia. PSI Score is pending collection of VBG. Based on her Shorr score she is low risk for MRSA PNA. Recommendation is observation admission. She is status post ceftriaxone x1 and azithromycin 500 mg x1 from the ER. Well place her on cefdinir 300 mg every 48 hours (hemodialysis dose) and azithromycin 250 daily for community-acquired pneumonia. Treated for 3-5 days. Respiratory panel was negative. Sputum cultures pending. Will also place her on DuoNebs PRN for wheezing, Mucinex PRN for cough, and incentive spirometry to help with mucus clearance. She can follow up with her PCP for influeza and Pr evnar Vaccines. She reports having the "Pneumonia vaccine" more than 3 yrs ago. 2. End-stage renal disease -Thursday schedule. Last dialysis was Thursday where 4 L were removed. If patient is not discharged prior to her next dialysis session. Recommend Day team consider consulting nephrology to continue dialysis will admitted. Will continue home Velphoro 3. History of hyperlipidemia. Continue with home Lipitor 4. Secondary hyperparathyroidism secondary to ESRD. Continue with home PhosLo and vitamin D. 5. Acid reflux: continue with home Prilosec 6. Hypertension/Grade 1 Diastolic CHF: In the ER blood pressure down trended with no intervention. Well continue to monitor. I believe is secondary to her problem 1 and 2. She is not on any blood pressure medications at home. Since her BP was 194/91 on arrival we will add 2 antihypertensives and titrate up. Most current recommendations include atentolol and amlodpine for hypertensive management in dialysis patients . She will also have a low salt diet with restriction of fluid to 2L. 7. Endometrial cancer -Continue with home Megace 8. CHERYL- Home CPAP DVT PROPHYLAXIS: Lovenox 30mg (Renal Dose) DISPOSITION: Admitted to [facility] will require more than 2 midnight's stay Vital Signs Vital Signs Date Time Temp Pulse Resp B/P (MAP) Pulse Ox O2 Delivery O2 Flow Rate FiO2 02/22/19 00:41 89 20 162/79 (106) 98 Room Air 02/21/19 21:34 98.7 Laboratory Data Labs 24H Laboratory Tests 2 02/21/19 22:23: Immature Granulocyte % (Auto) 0.2, Neutrophils (%) (Auto) 68.9H, Lymphocytes (%) (Auto) 20.0L, Monocytes (%) (Auto) 9.4H, Eosinophils (%) (Auto) 1.3, Basophils (%) (Auto) 0.2, Neutrophils # (Auto) 3.2, Lymphocytes # (Auto) 0.9L, Monocytes # (Auto) 0.4, Eosinophils # (Auto) 0.1, Basophils # (Auto) 0.0, Nucleated Red Blood Cells % (auto) 0.0, Anion Gap 9, Glomerular Filtration Rate 8.4L, Calcium Level 9.8, Total Bilirubin 0.8, Direct Bilirubin 0.2, Aspartate Amino Transf (AST/SGOT) 8, Alanine Aminotransferase (ALT/SGPT) 11L, Alkaline Phosphatase 66, Total Creatine Kinase 60, Creatine Kinase MB < 1.0, Creatine Kinase MB Relative Index 1.67, Troponin I < 0.02, Total Protein 6.9, Albumin 3.4, Albumin/Globulin Ratio 0.97L 02/21/19 22:24: Lactic Acid Level 1.4 CBC/BMP Laboratory Tests 02/21/19 22:23 Microbiology Microbiology 02/21/19 Blood Culture, Received Pending 02/21/19 Respiratory Virus Panel (PCR) (LOUIE) - Final, Complete 02/21/19 Blood Culture, Received Pending Home Medications Scheduled Atorvastatin Calcium (Atorvastatin Calcium) 40 Mg Tablet, 40 MG PO QHS Azithromycin (Azithromycin) 250 Mg Tablet, 250 MG PO DAILY Calcium Acetate (Calcium Acetate) 667 Mg Cap, 1,334 MG PO WM Cefdinir (Cefdinir) 300 Mg Capsule, 300 MG PO Q48H Ferric Citrate (Auryxia) 210 Mg Tab, 420 MG PO WM Folic Acid/Vit B Complex and C (Ynes-Betty Tablet) 1 Tab Tab, 1 TAB PO 3XW RECEIVES AT DIALYSIS THU, THU, FRI Megestrol Acetate (Megestrol Acetate) 40 Mg Tablet, 80 MG PO BID Omeprazole (Omeprazole) 20 Mg Cap, 20 MG PO QHS Sucroferric Oxyhydroxide (Velphoro) 500 Mg Chw, 1,000 MG PO WM Vitamin D (Vitamin D3) 1,000 Unit Tablet, 6,000 UNITS PO 3XW RECEIVES AT DIALYSIS THU, THU, FRI Scheduled PRN Albuterol Sulfate (Proair Hfa) 8.5 Gm Hfa.aer.ad, 2 PUFF INH Q4-6HP PRN for whe ezing Allergies Coded Allergies: Cephalosporins (Verified Allergy, Mild, rash, 12/08/18) pt able to take cefazolin-pt getting 3g fridays and 2g m/w at dialysis ibuprofen (Verified Allergy, Mild, rash, 12/04/18) iron dextran complex (Verified Allergy, Mild, rash, 12/04/18) nafcillin (Verified Allergy, Mild, rash, 12/04/18) vancomycin (Verified Allergy, Mild, rash, 12/04/18) azelastine (Verified Allergy, Unknown, 12/04/18) povidone (Verified Allergy, Unknown, 12/04/18) GME ATTESTATION GME ATTESTATION My faculty preceptor for this patient encounter was physically present during the encounter and was fully available. All aspects of the patient interview, examination, medical decision making process, and medical care plan development were reviewed and approved by the faculty preceptor. The faculty preceptor is aware and concurs with the plan as stated in the body of this note and will attest to such by his/her cosignature. ATTENDING NOTE I examined edited the note and agree with the findings as documented. ALCIDES LARA DO Feb 22, 2019 03:01 CARI SIMS MD Feb 22, 2019 03:40
[2019-02-22 04:00] VITALS: BP 132/75
[2019-02-22] MEDS ORDERED: PILL CUTTER 1 EACH XX PRN (04:00)
[2019-02-22 05:03] LABS: VENOUS BASE EXCESS 8.4 (-2.0-2.0); VENOUS HCO3 33.3 MEQ/L (23.0-27.0); VENOUS O2 SATURATION 95.8 % (60.0-80.0); VENOUS PARTIAL PRESSURE CO2 48.5 mmHg (38.0-50.0); VENOUS PARTIAL PRESSURE O2 84.9 mmHg (30.0-50.0); VENOUS PH 7.455 UNITS (7.330-7.430); VENOUS STANDARD HCO3 32.1 MEQ/L; VENOUS TOTAL CO2 34.8 MEQ/L (24.0-28.0)
[2019-02-22 05:30] VITALS: BP 132/74
[2019-02-22 05:50] VITALS: BP 132/75
[2019-02-22] MEDS: IPRATROPIUM 0.5MG/ALBUTEROL 2.5MG INH SOL UD 3ML (DUONEB)(J7620) INH SCH ×3 (05:51→11:20)
--- NOTE | 2019-02-22 07:41 | REP ---
Clinical: Shortness of breath. Technique: PA and lateral. Findings: Mediastinum and cardiac silhouette are normal. Subtle right-sided Interstitial and alveolar infiltrates are appreciated along with right lower lobe forming consolidation. No effusion. No pneumothorax. Skeletal structures intact. Impression: Alveolar/interstitial infiltrates (right greater than left) with forming right lower lobe consolidation. Differential diagnosis includes pneumonia and less likely early edema. Electronically Signed by Pedro Henderson MD 02/22/2019 07:34 A
[2019-02-22] MEDS: SUCROFERRIC OXYHYDROXIDE 500MG CHEW TAB (VELPHORO) PO SCH ×2 (08:12→11:50)
[2019-02-22] MEDS: CALCIUM ACETATE 667 MG GELCAP PO SCH ×2 (08:12→11:50)
[2019-02-22] MEDS ORDERED: MEGESTROL 40 MG TAB PO SCH (09:00)
[2019-02-22] MEDS ORDERED: ENOXAPARIN 30 MG/0.3 ML SYR (J1650) SC SCH (09:00)
[2019-02-22] MEDS ORDERED: FUROSEMIDE 10MG PER 1/2 TABLET PO SCH (09:00)
[2019-02-22] MEDS ORDERED: HYDROCHLOROthiazide 6.25MG PER 1/4TAB PO SCH (09:00)
--- NOTE | 2019-02-22 12:52 | DS.PDOC ---
Discharge Summary General Date of Admission Feb 22, 2019 at 01:00 Date of Discharge 02/22/2019 Attending Physician: NERI HANCOCK MD Discharge Summary PROCEDURES PERFORMED DURING STAY: None ADMITTING DIAGNOSES: 1. Community acquired pneumonia DISCHARGE DIAGNOSES: 1. Community acquired pneumonia 2. End-stage renal disease 2/2 reflux nephropathy (MWF) complicated 3. Hyperparathyroidism 2/2 ESRD 4. Morbid obesity 5. Chronic back pain 6. Anemia of chronic inflammation 7. Endometrial carcinoma 8. CHERYL 9. Grade 1 Diastolic heart failure 2/2 hypertension 10. History of Depression COMPLICATIONS/CHIEF COMPLAINT: Dyspnea And Respiratory Abnormalities. 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 She reported that her symptoms initially started as cold symptoms including a runny nose, cough productive of yellow sputum & increased weakness. The symptoms continue to persist over the next 2 days with subjective fevers but she was informed at dialysis but she was afebrile without any known direct sick contacts. She otherwise denied having any chest pain but had shortness of breath and some wheezing. She denied diarrhea, abdominal pain, weight loss or any skin changes. HOSPITAL COURSE: In the ER chest CT was positive for a lobular patchy infiltrates in the right which was worse than the left. She was given 1 dose of ceftriaxone and azithromycin and admitted for community acquired pneumonia. She was hemodynamically stable and afebrile and remained, while her shortness of breath and wheezing improved with breathing treatments, antibiotics (was switched from ceftriaxone/azithro IV to PO ceftin/azithro). She is now being discharged home where she will complete a 7d course of ceftin after she walked with nursing around the unit without labored breathing and keeping saturations >88% throughout the activity. DISCHARGE MEDICATIONS: Please see below. ALLERGIES: Please see below. PHYSICAL EXAMINATION ON DISCHARGE: VITAL SIGNS: Please see below. Hemodynamically stable and afebrile. GENERAL: Middle aged morbidly obese woman sitting up in the chair alert and oriented, in no acute distress HEENT: Moist mucous membranes Neck: supple, no JVD CARDIOVASCULAR: RRR, 2/6 systolic ejection murmur appreciated left upper sternal border RESPIRATORY: Diminished at the bases but otherwise clear, without wheezing this morning. Speaking in full sentences with no use of accessory muscles. ABDOMINAL: Normoactive bowel sounds, obese, NTND EXTREMITIES: Trace LE edema. Right ring finger amputation with healed stump. LUE fistula with palpable thrill. NEUROLOGICAL: Normal gait, grossly nonfocal examination PSYCHOLOGICAL: Alert and oriented to person place and time, able to understand and follow all commands LABORATORY DATA: Please see below. IMAGIN/2: CT chest: Lobular patchy opacities in the right greater than left lung, evidence of infection. 02/21: CXR: Alveolar/interstitial infiltrates (right greater than left) with forming right lower lobe consolidation. Differential diagnosis includes pneumonia and less likely early edema. PROGNOSIS: Good ACTIVITY: As tolerated DIET: Regular DISCHARGE PLAN: Home to complete a ceftin/azithromycin course. DISPOSITION: Home DISCHARGE INSTRUCTIONS: 1. Please complete the antibiotic course and follow up with PCP within 1 week of discharge ITEMS TO FOLLOWUP ON OUTPATIENT: 1. Community acquired pneumonia DISCHARGE CONDITION: Stable TIME SPENT ON DISCHARGE: 40 minutes. Vital Signs/I&Os Vital Signs Date Time Temp Pulse Resp B/P (MAP) Pulse Ox O2 Delivery O2 Flow Rate FiO2 02/22/19 07:54 2.0 02/22/19 05:50 85 132/75 02/22/19 05:30 98.3 18 98 Room Air I&O- Last 24 Hours up to 6 AM 02/22/19 06:00 Intake Total 300 ml Balance 300 ml Laboratory Data Labs 24H Laboratory Tests 2 02/21/19 22:23: Immature Granulocyte % (Auto) 0.2, Neutrophils (%) (Auto) 68.9H, Lymphocytes (%) (Auto) 20.0L, Monocytes (%) (Auto) 9.4H, Eosinophils (%) (Auto) 1.3, Basophils (%) (Auto) 0.2, Neutrophils # (Auto) 3.2, Lymphocytes # (Auto) 0.9L, Monocytes # (Auto) 0.4, Eosinophils # (Auto) 0.1, Basophils # (Auto) 0.0, Nucleated Red Blood Cells % (auto) 0.0, Anion Gap 9, Glomerular Filtration Rate 8.4L, Calcium Level 9.8, Total Bilirubin 0.8, Direct Bilirubin 0.2, Aspartate Amino Transf (AST/SGOT) 8, Alanine Aminotransferase (ALT/SGPT) 11L, Alkaline Phosphatase 66, Total Creatine Kinase 60, Creatine Kinase MB < 1.0, Creatine Kinase MB Relative Index 1.67, Troponin I < 0.02, Total Protein 6.9, Albumin 3.4, Albumin/Globulin Ratio 0.97L 02/21/19 22:24: Lactic Acid Level 1.4 02/22/19 04:43: Blood Gas Bicarbonate Standard 32.1, Venous Blood pH 7.455H, Venous Blood Partial Pressure CO2 48.5, Venous Blood Partial Pressure O2 84.9H, Venous Blood Total Carbon Dioxide 34.8H, Venous Blood HCO3 33.3H, Venous Blood Oxygen Saturation 95.8H, Venous Blood Base Excess 8.4H 02/22/19 12:01: Bedside Glucose (Misc Panel) 85 CBC/BMP Laboratory Tests 02/21/19 22:23 FSBS Laboratory Tests Test 02/22/19 12:01 Range/Units Bedside Glucose (Misc Panel) 85 70-105 MG/DL Microbiology Microbiology 02/21/19 Blood Culture, Received Pending 02/21/19 Respiratory Virus Panel (PCR) (LOUIE) - Final, Complete 02/21/19 Blood Culture, Received Pending Discharge Medications Scheduled Atorvastatin Calcium (Atorvastatin Calcium) 40 Mg Tablet, 40 MG PO QHS, (Reported) Calcium Acetate (Calcium Acetate) 667 Mg Cap, 1,334 MG PO WM, (Reported) Ferric Citrate (Auryxia) 210 Mg Tab, 420 MG PO WM, (Reported) Folic Acid/Vit B Complex and C (Ynes-Betty Tablet) 1 Tab Tab, 1 TAB PO 3XW, (Reported) RECEIVES AT DIALYSIS THU, THU, THU Megestrol Acetate (Megestrol Acetate) 40 Mg Tablet, 80 MG PO BID, (Reported) Omeprazole (Omeprazole) 20 Mg Cap, 20 MG PO QHS, (Reported) Sucroferric Oxyhydroxide (Velphoro) 500 Mg Chw, 1,000 MG PO WM, (Reported) Vitamin D (Vitamin D3) 1,000 Unit Tablet, 6,000 UNITS PO 3XW, (Reported) RECEIVES AT DIALYSIS THU, THU, THU Allergies Coded Allergies: Cephalosporins (Verified Allergy, Mild, rash, 12/08/18) pt able to take cefazolin-pt getting 3g fridays and 2g m/w at dialysis ibuprofen (Verified Allergy, Mild, rash, 12/04/18) iron dextran complex (Verified Allergy, Mild, rash, 12/04/18) nafcillin (Verified Allergy, Mild, rash, 12/04/18) vancomycin (Verified Allergy, Mild, rash, 12/04/18) azelastine (Verified Allergy, Unknown, 12/04/18) povidone (Verified Allergy, Unknown, 12/04/18) NERI HANCOCK MD Feb 22, 2019 12:52
[2019-02-22] MEDS ORDERED: PROAAER10 INH (12:56)
[2019-02-22] MEDS ORDERED: AZIT-12 PO (12:56)
[2019-02-22] MEDS ORDERED: CEFD300CAP PO (12:56)
--- NOTE | 2019-02-22 16:46 | ECGEPIP ---
[facility] - ED Test Date: 2019-02-21 Pat Name: NORTH SCHAEFFER Department: Room: [place] [address] Gender: Female Orientation & Mobility Specialist: kelsey : 1970 Requested By: Mick Duran Order Number: [id number] Reading MD: Shanice Nathan Measurements Intervals [place] Rate: 79 P: 51 DC: 138 QRS: -29 QRSD: 146 T: 14 QT: 403 QTc: 464 Interpretive Statements SINUS RHYTHM BORDERLINE LEFT AXIS DEVIATION RIGHT BUNDLE BRANCH BLOCK INCREASED RATE 12/08/18 Electronically Signed on 02-22-2019 16:46:01 EST by Shanice Nathan
[2019-02-22] MEDS ORDERED: ATENOLOL 12.5MG PER 1/2 TABLET PO SCH (21:00)
[2019-02-22] MEDS ORDERED: ATORVASTATIN 20 MG TAB PO SCH (21:00)
[2019-02-22] MEDS ORDERED: OMEPRAZOLE 20 MG CAP PO SCH (21:00)
[2019-02-23] MEDS ORDERED: CEFDINIR 300 MG CAP (OMNICEF) PO SCH (06:00)
[2019-02-23] MEDS ORDERED: NEPHRO-VIT TAB (NEPHROCAPS) PO SCH (09:00)
[2019-02-23] MEDS ORDERED: AZITHROMYCIN 250 MG TAB PO SCH (09:00)
[2019-02-23] MEDS ORDERED: VITAMIN D 1,000 INTERNATIONAL UNITS TABLET PO SCH (09:00)
[2019-02-23] MEDS ORDERED: FLUBLOK(EGG FREE)(QUAD)INFLUENZA VACC 0.5ML SYRINGE (90682)18YRS&OLDER IM ONE (09:00)
== END 2019-02-22 14:45 | disposition home or self-care (01) | DRG 193 ==
LOC: M ED 20:31 → M ED INP 02-22 01:00 → M MS5PR 02-22 04:00
PROVIDERS: ADMIT Internal Medicine; ATTEND Internal Medicine
DX: J18.9 Pneumonia, unspecified organism (principal); N18.6 End stage renal disease; Z68.43 Body mass index [BMI] 50.0-59.9, adult; I50.32 Chronic diastolic (congestive) heart failure; N25.81 Secondary hyperparathyroidism of renal origin; I13.2 Hypertensive heart and chronic kidney disease with heart failure and with stage 5 chronic kidney disease, or end stage renal disease; E66.01 Morbid (severe) obesity due to excess calories; D63.1 Anemia in chronic kidney disease; Z79.899 Other long term (current) drug therapy; Z88.8 Allergy status to other drugs, medicaments and biological substances; E78.5 Hyperlipidemia, unspecified; C54.1 Malignant neoplasm of endometrium

== ENCOUNTER → 2019-03-20 | Outpatient (CLI) | payer MEDICARE, MEDICAID ==
[~2019-03-20] MED LIST changes: +ATOR40TA75 PO; +AZIT-12 PO; +CEFD300CAP PO; +MEGE40TA; +MEGE40TA PO; +OMEP-172 PO; -OMEP20CA4 PO
== END ==
LOC: M LAB 12:01
PROVIDERS: ATTEND Internal Medicine Nephrology
DX: D64.9 Anemia, unspecified (principal)

== ENCOUNTER 2019-03-21 10:45 | Outpatient (CLI) | payer MEDICARE, MEDICAID ==
[~2019-03-21] VITALS: Ht 154.9 cm; Wt 129.3 kg
[2019-03-21] MEDS ORDERED: ACETAMINOPHEN 500 MG TAB PO ONE (12:00)
[2019-03-21 12:10] VITALS: BP 176/75
[2019-03-21 12:25] VITALS: BP 106/53
[2019-03-21 14:15] VITALS: BP 140/64
[2019-03-21 14:30] VITALS: BP 134/62
[2019-03-21 15:28] VITALS: BP 127/62
[2019-03-21 16:30] VITALS: BP 156/79
== END 2019-03-21 16:30 | disposition home or self-care (01) ==
LOC: M INFU 10:45
PROVIDERS: ATTEND Internal Medicine Nephrology
DX: N18.6 End stage renal disease (principal); D64.9 Anemia, unspecified; Z88.1 Allergy status to other antibiotic agents; Z88.8 Allergy status to other drugs, medicaments and biological substances
CPT/HCPCS: 36430; P9016

== ENCOUNTER 2019-04-01 20:11 | Emergency (ER) | payer MEDICARE, MEDICAID ==
[~2019-04-01 20:11] MED LIST changes: -OMEP-172 PO; +OMEP1CAP73 PO
[2019-04-01] MEDS ORDERED: IPRATROPIUM 0.5MG/ALBUTEROL 2.5MG INH SOL UD 3ML (DUONEB)(J7620) NEB ONE (20:45)
[2019-04-01] MEDS ORDERED: methylPREDNISolone INJ 125 MG/2 ML VIAL (J2930) IV ONE (21:15)
[2019-04-01 22:00] LABS: BASO % 0.2 % (0.0-1.0); EOS # 0.1 10^3/uL (0.0-0.5); EOS % 1.9 % (0.0-3.0); HEMATOCRIT 32.4 % (36.0-47.0); HEMOGLOBIN 10.1 g/dl (12.0-15.5); LYMPH # 1.5 10^3/uL (1.5-5.0); LYMPH % 35.8 % (24.0-44.0); MEAN CORPUSCULAR HEMOGLOBIN 28.6 pg (27.0-33.0); MEAN CORPUSCULAR HGB CONC 31.2 g/dl (32.0-36.5); MEAN CORPUSCULAR VOLUME 91.8 fl (80.0-96.0); MONO # 0.3 10^3/uL (0.0-0.8); NEUTROPHILS # 2.3 10^3/uL (1.5-8.5); NEUTROPHILS % 54.9 % (36.0-66.0); PLATELET COUNT, AUTOMATED 139 10^3/uL (150-450); RED BLOOD COUNT 3.53 10^6/uL (4.00-5.40); WHITE BLOOD COUNT 4.3 10^3/uL (4.0-10.0)
[2019-04-01 22:27] LABS: CALCIUM LEVEL 9.2 MG/DL (8.5-10.1); CREATININE FOR GFR 5.46 MG/DL (0.55-1.30); GLOMERULAR FILTRATION RATE 8.8 (>51); POTASSIUM SERUM 4.2 MEQ/L (3.5-5.1)
--- NOTE | 2019-04-01 23:33 | REPVR ---
PROCEDURE INFORMATION: Exam: CT Chest Without Contrast Exam date and time: 04/01/2019 10:48 PM Age: 48 years old Clinical indication: Shortness of breath; Additional info: SOB TECHNIQUE: Imaging protocol: Computed tomography of the chest without contrast. 3D rendering: MIP and/or 3D reconstructed images were created by the technologist. Radiation optimization: All CT scans at this facility use at least one of these dose optimization techniques: automated exposure control; mA and/or kV adjustment per patient size (includes targeted exams where dose is matched to clinical indication); or iterative reconstruction. COMPARISON: CT Chest without contrast 02/21/2019 11:52 PM FINDINGS: Limited study without IV contrast. Also limited by artifact related to patient body habitus. Thoracic aorta shows atherosclerotic change. No focal dilatation. No pericardial effusion, pleural effusion, pneumothorax or evidence of active pulmonary edema despite cardiac enlargement and mitral valve calcifications. Since the prior CT, multifocal bilateral right lung infiltrates have resolved. No underlying mass or significant residual abnormality. No central endobronchial lesion. There may be minimal scarring at the lateral right lung base.Limited visualization of upper abdomen shows no concerning finding. Scoliosis and degenerative changes are present within the skeletal structures and there are multifocal sclerotic foci which may rib reflect renal osteodystrophy or less likely sclerotic metastatic disease. Stable appearance IMPRESSION: Resolution of multifocal lung infiltrates since the prior CT suggesting resolution of pneumonia. No underlying mass. Stable skeletal changes, most suggestive of renal osteodystrophy. Electronically signed by: Dioni Young On 04/01/2019 23:33:14 PM
[2019-04-02] MEDS ORDERED: BENZONATATE 100 MG CAP PO ONE (00:15)
[2019-04-02] MEDS ORDERED: TESS100C PO (00:53)
[2019-04-02] MEDS ORDERED: ROBICAP2 PO (00:53)
[2019-04-02] MEDS ORDERED: VENTAER INH (00:53)
[2019-04-02] MEDS ORDERED: OSEL75CA PO (00:53)
[2019-04-02 01:48] VITALS: BP 154/68
--- NOTE | 2019-04-02 01:51 | CR.PDOC ---
General Date of Consultation: Apr 02, 2019 Consultation Patient is a 48-year-old female with past medical history of end-stage renal disease, complicated by secondary hyperparathyroidism on hemodialysis Thursday, Thursday, Thursday, last dialysis was this morning, anemia of chronic disease, history of MSSA bacteremia and endocarditis in November 2018, was recently hospitalized on 02/22/2019 for CAP, morbid obesity, CHERYL,HFpEF, HTN, presenting with shortness of breath. Patient reports coughing for the last few days, she lives in a community where multiple people were coughing with poor cough hygiene. As by herself. She reports subjective fevers and chills, which she attributes to the heat rising in her apartments, which has been ongoing for months. She denies any nausea, vomiting, abdominal pain, issues with voiding or stooling. In the emergency department, she is afebrile, satting well on room air, labs include hemoglobin of 10.1 (baseline), chemistry of carbon dioxide of 33, creatinine 5.46, [place] [address]. No diuretics were administered. Chest x-ray and CT chest reveals no acute processes. Patient is positive for human Rhino /enterovirus. In the ED, she was given steroids, and DuoNeb 1. Review of echo performed on 11/23/2018 reveals reserve systolic function, grade 1 vs grade 2 diastolic dysfunction, severely dilated hypokinetic right ventricle. REVIEW OF SYSTEMS: 10 systems reviewed and negative other than HPI PMH: See above, recently diagnosed endometrial carcinoma (November 2018), History of Depression PSH: section, Tonsillectomy, Arthroscopy of right ankle and left knee, Amputation of right ring finger, Amputation of left fifth toe, Tubal ligation, Hernia repair, Multiple failed AV grafts in both upper extremities and left thigh with reccurent clotting, Cholecystectomy, Dilation and curettage hysteroscopy FAMILY HISTORY: Reviewed. Positive for diabetes and pulmonary embolism SOCIAL HISTORY: Denies smoking, alcohol use admits to daily marijuana use at night. She has 2 children and her sisters healthcare proxy. HOME MEDICATIONS: Please see below. ALLERGIES: Cephalosporins, nafcillin, vancomycin, azelastine PHYSICAL EXAMINATION: VITAL SIGNS: Please see below. GENERAL: Morbidly obese female who was not tripoding, able to speak in full sentences without difficulty, laying down and coughing, not on oxygen HEENT: Normocephalic, atraumatic, dry mucous membranes NECK: Supple CARDIOVASCULAR EXAMINATION: S1, S2 RESPIRATORY EXAMINATION: Positive cough with similar sounds and chest ABDOMINAL EXAMINATION: Soft, nontender, nondistended, positive bowel sounds EXTREMITIES: Trace edema SKIN: No rash NEUROLOGICAL EXAMINATION: Alert PSYCHIATRIC EXAMINATION: cooperative Patient is a 48-year-old female with past medical history of end-stage renal dis ease, complicated by secondary hyperparathyroidism on hemodialysis Thursday, Thursday, Thursday, last dialysis was this morning, anemia of chronic disease, history of MSSA bacteremia and endocarditis in November 2018, was recently hospitalized on 02/22/2019 for CAP, morbid obesity, CHERYL,HFpEF, HTN, presenting with URI. # human Rhino/enterovirus: Discussed with ED team and patient to symptomatically treat as an outpatient. Well discharge patient on Tamiflu course that potentially can help shorten patients viral course due to her comorbidities, hold off on steroid treatments at this time, continue home breathing treatments as needed, cough medication: Jae Bradford. Educated patient for marijuana cessation. Follow-up with PCP next week. Educated patient on signs and symptoms of worsening presentation, to return to the ED. All questions were answered. #Elevated proBNP: Hold off on diuretics at this time, continue home medications #ESRD with HD: Follow-up outpatient hemodialysis, status post HD 01/31/20 32 minutes were spent on care management, greater than 50% were spent on patient education. Vital Signs/I&O Vital Signs Date Time Temp Pulse Resp B/P (MAP) Pulse Ox O2 Delivery O2 Flow Rate FiO2 04/01/19 23:16 98.4 78 24 133/60 (84) 97 Room Air Laboratory Data Labs 24H Laboratory Tests 2 04/01/19 21:20: Immature Granulocyte % (Auto) 0.2, Neutrophils (%) (Auto) 54.9, Lymphocytes (%) (Auto) 35.8, Monocytes (%) (Auto) 7.0H, Eosinophils (%) (Auto) 1.9, Basophils (%) (Auto) 0.2, Neutrophils # (Auto) 2.3, Lymphocytes # (Auto) 1.5, Monocytes # (Auto) 0.3, Eosinophils # (Auto) 0.1, Basophils # (Auto) 0.0, Nucleated Red Blood Cells % (auto) 0.0, Anion Gap 9, Glomerular Filtration Rate 8.8L, Calcium Level 9.2, LA-Roy-C-Type Natriuretic Peptide 57884A CBC/BMP Laboratory Tests 04/01/19 21:20 Microbiology Microbiology 04/01/19 Respiratory Virus Panel (PCR) (LOUIE) - Final, Complete Human Rhinovirus/Enterovirus Allergies Coded Allergies: Cephalosporins (Verified Allergy, Mild, rash, 12/08/18) pt able to take cefazolin-pt getting 3g fridays and 2g m/w at dialysis ibuprofen (Verified Allergy, Mild, rash, 12/04/18) iron dextran complex (Verified Allergy, Mild, rash, 12/04/18) nafcillin (Verified Allergy, Mild, rash, 12/04/18) vancomycin (Verified Allergy, Mild, rash, 12/04/18) azelastine (Verified Allergy, Unknown, 12/04/18) povidone (Verified Allergy, Unknown, 12/04/18) Home Medications Scheduled Atorvastatin Calcium (Atorvastatin Calcium) 40 Mg Tablet, 40 MG PO QHS, (Reported) Benzonatate (Tessalon Perle) 100 Mg Capsule, 100 MG PO TID for cough for 10 Days, #30 Calcium Acetate (Calcium Acetate) 667 Mg Cap, 1,334 MG PO WM, (Reported) Dextromethorphan HBr (Robitussin) 15 Mg Capsule, 1 CAP PO BID for 30 Days, #60 Ferric Citrate (Auryxia) 210 Mg Tab, 420 MG PO WM, (Reported) Folic Acid/Vit B Complex and C (Ynes-Betty Tablet) 1 Tab Tab, 1 TAB PO 3XW, (Reported) RECEIVES AT DIALYSIS MON, WED, FRI Megestrol Acetate (Megestrol Acetate) 40 Mg Tablet, 80 MG PO BID, (Reported) Omeprazole (Omeprazole) 20 Mg Cap, 20 MG PO QHS, (Reported) Oseltamivir Phosphate (Tamiflu) 75 Mg Capsule, 1 CAP PO BID for 5 Days, #10 Sucroferric Oxyhydroxide (Velphoro) 500 Mg Chw, 1,000 MG PO WM, (Reported) Vitamin D (Vitamin D3) 1,000 Unit Tablet, 6,000 UNITS PO 3XW, (Reported) RECEIVES AT DIALYSIS MON, WED, FRI Scheduled PRN Albuterol Sulfate (Proair Hfa) 8.5 Gm Hfa.aer.ad, 2 PUFF INH Q4-6HP PRN for wheezing for 21 Days, #1 Albuterol Sulfate (Ventolin Hfa) 18 Gm Hfa.aer.ad, 2 PUFF INH Q4-6HP PRN for wheezing for 30 Days, #1 SUSAN LOCKWOOD MD Apr 02, 2019 01:50
--- NOTE | 2019-04-02 10:52 | REP ---
CHEST, TWO VIEWS: Two views of the chest are performed and compared to prior study of 02/21/2019. There is mild cardiomegaly. There is no acute infiltrate. Mediastinal silhouette is unchanged. There is curvature of the thoracic spine convex to the right. There are mild degenerative changes. IMPRESSION: Mild cardiomegaly. No acute infiltrate. Electronically Signed by Shashank Mack MD 04/02/2019 03:54 P
--- NOTE | 2019-04-02 22:23 | ECGEPIP ---
[facility] - ED Test Date: 2019-04-01 Pat Name: NORTH SCHAEFFER Department: Room: - Gender: Female Production Cell Leader: larissa : 1970 Requested By: JAMIL MCCULLOUGH PA-C. Order Number: [id number] Reading MD: Shanice Nathan Measurements Intervals [place] Rate: 80 P: 49 MA: 138 QRS: -33 QRSD: 146 T: 18 QT: 412 QTc: 477 Interpretive Statements SINUS RHYTHM WITH SINUS ARRHYTHMIA MARKED LEFT AXIS DEVIATION RIGHT BUNDLE BRANCH BLOCK SIMILAR 02/21/19 Electronically Signed on 04-02-2019 22:23:14 EST by Shanice Nathan
== END 2019-04-02 01:49 | disposition home or self-care (01) ==
LOC: M ED 20:11
DX: J98.01 Acute bronchospasm (principal); B34.8 Other viral infections of unspecified site; R79.89 Other specified abnormal findings of blood chemistry; R06.00 Dyspnea, unspecified; I51.7 Cardiomegaly; R94.31 Abnormal electrocardiogram [ECG] [EKG]; N18.6 End stage renal disease; K21.9 Gastro-esophageal reflux disease without esophagitis; G47.30 Sleep apnea, unspecified; Z88.1 Allergy status to other antibiotic agents; Z88.6 Allergy status to analgesic agent; Z88.8 Allergy status to other drugs, medicaments and biological substances; Z79.51 Long term (current) use of inhaled steroids; Z79.899 Other long term (current) drug therapy
CPT/HCPCS: 71046; 71250; 80048; 83880; 85025; 87486; 87581; 87633; 87798; 93005; 94760; 99284; J2930

== ENCOUNTER 2019-05-23 16:19 | Observation (INO) | payer MEDICARE, MEDICAID ==
[~2019-05-23] VITALS: Ht 154.9 cm; Wt 130.2 kg
[~2019-05-23 16:19] MED LIST changes: +OSEL75CA PO; +ROBICAP2 PO
[2019-05-23 17:51] LABS: BASO % 0.3 % (0.0-1.0); EOS % 0.8 % (0.0-3.0); HEMATOCRIT 34.7 % (36.0-47.0); HEMOGLOBIN 10.8 g/dl (12.0-15.5); LYMPH # 0.6 10^3/uL (1.5-5.0); LYMPH % 17.8 % (24.0-44.0); MEAN CORPUSCULAR HEMOGLOBIN 28.4 pg (27.0-33.0); MEAN CORPUSCULAR HGB CONC 31.1 g/dl (32.0-36.5); MEAN CORPUSCULAR VOLUME 91.3 fl (80.0-96.0); MONO # 0.3 10^3/uL (0.0-0.8); MONO % 9.1 % (0.0-5.0); NEUTROPHILS # 2.5 10^3/uL (1.5-8.5); NEUTROPHILS % 71.7 % (36.0-66.0); PLATELET COUNT, AUTOMATED 161 10^3/uL (150-450); WHITE BLOOD COUNT 3.5 10^3/uL (4.0-10.0)
--- NOTE | 2019-05-23 18:18 | REPVR ---
PROCEDURE INFORMATION: Exam: CT Head Without Contrast Exam date and time: 05/23/2019 5:39 PM Age: 48 years old Clinical indication: Pain; Headache; Additional info: Headache/elevated blood pressure TECHNIQUE: Imaging protocol: Computed tomography of the head without contrast. Radiation optimization: All CT scans at this facility use at least one of these dose optimization techniques: automated exposure control; mA and/or kV adjustment per patient size (includes targeted exams where dose is matched to clinical indication); or iterative reconstruction. COMPARISON: CT Head without contrast 11/27/2018 7:49 AM FINDINGS: Brain: Mild parenchymal volume loss. Ventricles: Normal. No ventriculomegaly. Bones/joints: Unremarkable. No acute fracture. Sinuses: Visualized sinuses are unremarkable. No fluid levels. Mastoid air cells: Visualized mastoid air cells are well aerated. Soft tissues: Unremarkable. IMPRESSION: No acute findings. Electronically signed by: Carrillo Brito On 05/23/2019 18:18:25 PM
--- NOTE | 2019-05-23 18:30 | REPVR ---
PROCEDURE INFORMATION: Exam: CT Chest Without Contrast Exam date and time: 05/23/2019 5:53 PM Age: 48 years old Clinical indication: Cough TECHNIQUE: Imaging protocol: Computed tomography of the chest without contrast. 3D rendering: MIP and/or 3D reconstructed images were created by the technologist. Radiation optimization: All CT scans at this facility use at least one of these dose optimization techniques: automated exposure control; mA and/or kV adjustment per patient size (includes targeted exams where dose is matched to clinical indication); or iterative reconstruction. COMPARISON: CT Chest without contrast 04/01/2019 10:46 PM FINDINGS: Lungs: Calcified granulomas right lower lobe. Multiple noncalcified peripheral pulmonary parenchymal nodules in both lower lobes ranging in size between 3 and 5 mm (series 201 see images 49 through 71). These have not changed in comparison to the prior study and are likely postinflammatory. Ground-glass opacities both lung bases likely represent atelectasis. Lungs otherwise unremarkable. Pleural space: Unremarkable. No pneumothorax. No pleural effusion. Heart: Dense calcification in the mitral valve annulus. Cardiomegaly. There is moderate atherosclerotic calcification of the coronary arteries. Pulmonary arteries: There is enlargement of the central pulmonary arteries, findings which can be associated with pulmonary arterial hypertension which should be correlated clinically. Aorta: Unremarkable. No aortic aneurysm. Lymph nodes: Unremarkable. No enlarged lymph nodes. Bones/joints: Marked dextroscoliosis. Increased density in sclerosis of the osseous structures consistent with renal osteodystrophy. Soft tissues: Cholecystectomy. Unremarkable. IMPRESSION: 1. Multiple noncalcified peripheral pulmonary parenchymal nodules in both lower lobes ranging in size between 3 and 5 mm. These have not changed in comparison to the prior study and are likely postinflammatory. For patients at low risk (minimal or absent history of smoking and of other known risk factors), no routine follow-up is indicated. For patients at high risk (history of smoking or of other known risk factors), consider optional CT at 12 months. (Lily et al., Fleischner Society, 2017) 2. Cardiomegaly. 3. There is enlargement of the central pulmonary arteries, findings which can be associated with pulmonary arterial hypertension which should be correlated clinically. Electronically signed by: Carrillo Brito On 05/23/2019 18:30:18 PM
[2019-05-23] MEDS ORDERED: MORPHINE 2 MG/ML 1ML VIAL (J2270) IV PRN (19:00)
[2019-05-23 19:17] LABS: INFLUENZA A AMPLIFICATION NEGATIVE (NEGATIVE); INFLUENZA B AMPLIFICATION NEGATIVE (NEGATIVE)
[2019-05-23 20:03] LABS: ALBUMIN 3.5 GM/DL (3.2-5.2); BILIRUBIN,DIRECT 0.2 MG/DL (0.0-0.2); BILIRUBIN,TOTAL 0.6 MG/DL (0.2-1.0); TOTAL PROTEIN 6.4 GM/DL (6.4-8.2)
--- NOTE | 2019-05-23 21:17 | ECGEPIP ---
[facility] - ED Test Date: 2019-05-23 Pat Name: NORTH SCHAEFFER Department: Room: - Gender: Female Professional Application Designer: : 1970 Requested By: GRANT Dailey Order Number: [id number] Reading MD: Grant Garcia Measurements Intervals [place] Rate: 78 P: 54 AR: 149 QRS: -34 QRSD: 149 T: 15 QT: 420 QTc: 479 Interpretive Statements SINUS RHYTHM Left anterior fascicular block RIGHT BUNDLE BRANCH BLOCK Similar to tracing done 04-01-19 Electronically Signed on 05-23-2019 21:17:43 EST by Grant Garcia
[2019-05-23] MEDS ORDERED: MORPHINE 4 MG/ML 1ML VIAL/SYRINGE (J2270) IM ONE (23:30)
[2019-05-24] MEDS ORDERED: ACETAMINOPHEN *IV* 1,000 MG in IV 1 EA IV ONE (00:15)
[2019-05-24] MEDS ORDERED: ACETAMINOPHEN TAB 650MG DOSE (2X325MG) PO PRN (00:45)
[2019-05-24] MEDS ORDERED: LIDO2.5C15 TOP (00:45)
[2019-05-24] MEDS ORDERED: VITAD1000T PO (00:45)
[2019-05-24] MEDS ORDERED: PROAAER10 INH (00:45)
--- NOTE | 2019-05-24 01:44 | HPEPDOC ---
[facility] Medical History & Physical Date of Admission May 24, 2019 Date of Service: May 24, 2019 Primary Care Physician: EMEKA NEWMAN MD @ Attending Physician: CARI SIMS MD History and Physical CHIEF COMPLAINT: Headache HISTORY OF PRESENT ILLNESS: Patient is a 48-year-old female who presents to the hospital with a complaint of a 3 day long headache. Patient says she gets chronic headaches and had been taking extra strength Tylenol with no relief. Patient says that her headaches are quite bothersome. She says is worse in her right sikhism at this time. Patient denies any dizziness, lightheadedness, changes in vision, or other neurological symptoms at this time. Patient is dialysis dependent and received dialysis earlier today. Patient says she was having elevated blood pressures at the time of dialysis. Patient that she does not take blood pressure medication on a daily basis. Patient does not have any other complaints at this time REVIEW OF SYSTEMS: General: Patient denies fevers, chills, night sweats, unintentional weight loss HEENT: Patient endorses headache but denies, changes in vision, sore throat. Cardiovascular: Patient denies chest pain, chest pressure, or palpitations Respiratory: Patient denies shortness of breath, cough GI: Patient denies abdominal pain, nausea, vomiting, diarrhea : Patient denies urination secondary to end-stage renal disease Neurological: Patient denies numbness or tingling in extremities Extremities: Patient denies swelling or pain in extremities Skin: Patient denies any rashes or lesions. Hematologic: Patient denies any easy bruising. Lymphatic: Patient denies any lumps in his neck, axilla, or groin. PAST MEDICAL HISTORY: 1. History of sepsis, endocarditis, septic pulmonary emboli and brain MRI without residual deficits (11/2018.) 2. 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 3. MSSA bacteremia 4. Morbid obesity 5. Chronic back pain 6. Anemia of chronic disease 7. Recently diagnosed endometrial carcinoma 8. Obstructive sleep apnea 9. Crit once diastolic dysfunction secondary to chronic hypertension 10. History of depression. PAST SURGICAL HISTORY: 1. . 2. Tonsillectomy. 3. Arthroscopy of right ankle and left knee 4. Amputation of right ring finger 5. Amputation of left fifth toe 6. Tubal ligation 7. Hernia repair 8. Multiple failed AV grafts in both upper extremities and left thigh with recur rent clotting. 9. Cholecystectomy 10. Dilatation and curettage with hysteroscopy with mild sure resection. SOCIAL HISTORY: Denies smoking and alcohol use. She admits to occasional marijuana use. Patient lives at the [facility] by herself with her cat. FAMILY HISTORY: History of diabetes and pulmonary emboli ALLERGIES: Please see below. HOME MEDICATIONS: Please see below. PHYSICAL EXAMINATION: VITAL SIGNS: Temperature 98.2, pulse 75, respiratory rate 18, blood pressure 170/82, pulse oximetry 95% on room air. General: Alert and oriented obese female who was sitting on the edge of the stretcher leaning over the right side table when I walked in. Patient did not appear to be in any acute distress. HEENT: Normocephalic, atraumatic, moist mucous membranes, posterior pharynx was nonerythematous, tympanic membranes are pearly-camp without erythema. Cardiac: Regular rate and rhythm, no murmurs, normal S1, normal S2 Pulm: Clear to auscultation bilaterally. No wheezes, rhonchi, rales Abd: Nondistended, nontender to palpation, normal bowel sounds Ext: No edema bilateral lower extremities Neuro:Patellar and posterior calcaneal reflexes 2/4. Patient had equal strength in upper and lower extremities bilaterally. Patient reported sensation to light touch in upper and lower extremities bilaterally. Skin: Skin of the arms, lower legs, abdomen, back, head and neck were examined did not show any evidence of rash or lesions. Musculoskeletal: Patient had hypertonicity of the paraspinal muscles of the cervical spine right greater than left. Patient was quite tender to the touch of her posterior neck. LABORATORY DATA: See below. IMAGING: A CT of the head performed without contrast was reported to show no acute findings. A CT of the chest performed without contrast was reported to show multiple noncalcified peripheral pulmonary parenchymal nodules in both lower lobes ranging in size between 3 and 5 mm. These have not changed in comparison to the prior study in early likely postinflammatory. Per patient's at low risk (minimal or absent history of smoking and/or other known risk factors), no routine follow-up as indicated. Cardiomegaly, there is enlargement of the central pul monary arteries, finding which can be associated with pulmonary arterial hypertension should be correlated clinically MICROBIOLOGY: Please see below. ASSESSMENT: Patient is a 48-year-old female who presents to the emergency department with a multiple day long headache. Workup with CT has been negative. Patient most likely has a tension headache. . PLAN: 1. Headache. Patient seems to most likely have a tension headache. Patient's neurological exam was negative. CT was negative. Lab studies did not show any signs of infection and patient does not have any altered mental status. Based on physical exam, the patient's neck muscles seem very tight and this may be the reason why she is having her headache. We will continue to monitor the patient. Tylenol has been written. Patient did not have NSAID medication secondary to end-stage renal disease. 2. Hypertensive urgency. Patient will be started on low-dose amlodipine and atenolol in order to titrate her blood pressure down. Patient should follow up with nephrology outpatient for possible ambulatory blood pressure monitoring. It does not appear the patient has had elevated blood pressure. Patient actually usually runs low so we will have to keep a close eye on her blood pressure. 3. End-stage renal disease. Patient was dialyzed today prior to coming to the hospital. Recommend day team consider consulting nephrology if the patient will be here through Thursday SOB the next time she is due for dialysis. We will continue home medications. 4. Secondary hyperparathyroidism secondary to ESRD. Continue with home PhosLo and vitamin D. 5. Acid reflux. Continue with home Prilosec 6. Endometrial cancer continue with home Megace. 7. Obstructive sleep apnea. Continue with home CPAP. 8. Obesity with BMI 54.2, complicates care. Since the BMI >40 she is a candidate for bariatric surgery. The pt can f/u w his or her PCP for STOP BANG questionnaire, steel rule die maker consult & referral to Bariatric Surgeon. 9. DVT prophylaxis: Heparin 10. CODE STATUS: Full code. Disposition. Patient will be admitted to the medical surgical floor for observat ion. Patient may be able to be discharged tomorrow. Laboratory Data CBC/BMP Laboratory Tests 05/23/19 17:22 Microbiology Microbiology 05/23/19 Blood Culture, Received Pending 05/23/19 Blood Culture, Received Pending Home Medications Scheduled Amlodipine Besylate (Amlodipine Besylate) 2.5 Mg Tablet, 2.5 MG PO QHS Atenolol (Atenolol) 25 Mg Tablet, 12.5 MG PO DAILY Calcium Acetate (Calcium Acetate) 667 Mg Cap, 1,334 MG PO WM Cholecalciferol (Vitamin D3) (Vitamin D3) 1,000 Unit Tablet, 6,000 UNITS PO 3XW RECEIVES AT DIALYSIS ON THURSDAY, THURSDAY AND THURSDAY Folic Acid/Vit B Complex and C (Ynes-Betty Tablet) 1 Tab Tab, 1 TAB PO DAILY Lidocaine/Prilocaine (Lidocaine-Prilocaine Cream) 2.5%/2.5% Cream..g., 1 DOSE TOP 3XW APPLIES TO PORT SITE PRIOR TO DIALYSIS ON THURSDAY, THURSDAY AND THURSDAY Megestrol Acetate (Megestrol Acetate) 40 Mg Tablet, 80 MG PO BID Omeprazole (Omeprazole) 20 Mg Cap, 20 MG PO QHS Sucroferric Oxyhydroxide (Velphoro) 500 Mg Chw, 1,000 MG PO WM Scheduled PRN Albuterol Sulfate (Proair Hfa) 8.5 Gm Hfa.aer.ad, 2 PUFF INH Q4H PRN for S HORTNESS OF BREATH Allergies Coded Allergies: Cephalosporins (Verified Allergy, Mild, rash, 12/08/18) pt able to take cefazolin-pt getting 3g fridays and 2g m/w at dialysis ibuprofen (Verified Allergy, Mild, rash, 12/04/18) iron dextran complex (Verified Allergy, Mild, rash, 12/04/18) nafcillin (Verified Allergy, Mild, rash, 12/04/18) vancomycin (Verified Allergy, Mild, rash, 12/04/18) azelastine (Verified Allergy, Unknown, 12/04/18) povidone (Verified Allergy, Unknown, 12/04/18) A-FIB/CHADSVASC A-FIB History Current/History of A-Fib/PAF?: No GME ATTESTATION GME ATTESTATION My faculty preceptor for this patient encounter was physically present during the encounter and was fully available. All aspects of the patient interview, examination, medical decision making process, and medical care plan development were reviewed and approved by the faculty preceptor. The faculty preceptor is aware and concurs with the plan as stated in the body of this note and will attest to such by his/her cosignature. ATTENDING NOTE Time of service 1:10 AM I reviewed and edited the note and agree with the findings as documented by Dr. Sellers is a 48 yr old F w a PMH of ESRD, HTN, G1DD, GERD,& Endometrial CA who presented w c/o of headache and was found to have BP elevated above her baseline; she is admitted for HTN Urgency. We will start oral BP meds, ensure she has a low salt diet, check her Trop and EKG. She can f/u with her PCP or Adhesive Bonding Machine Operator for an ambulatory BP monitor. ELLIOT SELLERS DO May 24, 2019 01:44 CARI SIMS MD May 24, 2019 02:24
[2019-05-24 03:15] VITALS: BP 170/85
[2019-05-24] MEDS: HEPARIN SOD (PORCINE) 5000 UNITS/ML VIAL (J1644 PER 1000UNITS) SC SCH ×2 (05:39→17:15)
[2019-05-24 06:00] VITALS: BP 121/75
--- NOTE | 2019-05-24 08:57 | IPN ---
DATE OF SERVICE: 05/24/2019 PRIMARY CARE PROVIDER: [facility]. department chairperson: Dr. De Jesus. HISTORY: Anusha Gil is admitted with a headache, probably tension headache. Her blood pressure was elevated, so she was admitted to the hospitalist service. Her blood pressure is back to baseline. She still has some right temporal headache today, but I anticipate she probably will be able to go home later today. PHYSICAL EXAMINATION: 121/75, pulse 76, respiratory rate 19, 96% oxygen (O2) saturation. She is alert and conversant, in no distress. No facial droop or weakness. No palpable or tender temporal arteries. Lungs clear. Heart: Regular rate and rhythm without murmur. Abdomen: Soft, nontender, no masses. No peripheral edema. SHE HAS A SKIN LESION APPROXIMATELY 4 CM SUPERIOR TO THE GLUTEAL CLEFT ON HER LOW BACK, A PITTED PIGMENTED LESION, APPROXIMATELY 2 CM IN SIZE WITH VARIATION IN PIGMENT AND IRREGULAR BORDER SUSPICIOUS FOR EITHER MELANOMA OR AT BEST AN IRRITATED SEBORRHEIC KERATOSIS. LABORATORIES: No laboratories are ordered for today. IMPRESSION: 1. Headache, probably tension headache. It is improved with analgesic. I have encouraged her to get up, walk around today, and I am hoping she will be able to be discharged. 2. Elevated blood pressure. Her blood pressure is improved on amlodipine 2.5 mg nightly and atenolol 12.5 mg daily. She has not had hypertension before, and I suspect this was related to pain. 3. Suspicious skin lesion. I am concerned this might be a melanoma. I made the patient aware of this and the need for followup at her primary care provider's office to arrange dermatology referral. I called [facility] and eventually spoke to Dr. De Jesus, who is aware of the patient's skin lesion and will make a note in the chart to facilitate referral to a employee adviser as an outpatient.
[2019-05-24] MEDS: SUCROFERRIC OXYHYDROXIDE 500MG CHEW TAB (VELPHORO) PO SCH ×3 (09:44→17:15)
[2019-05-24] MEDS: CALCIUM ACETATE 667 MG GELCAP PO SCH ×3 (09:44→17:15)
[2019-05-24] MEDS: ATENOLOL 12.5MG PER 1/2 TABLET PO SCH (09:44)
[2019-05-24] MEDS: MEGESTROL 40 MG TAB PO SCH ×2 (09:44→20:27)
[2019-05-24 10:30] VITALS: BP 169/90
[2019-05-24 14:31] VITALS: BP 158/68
[2019-05-24] MEDS ORDERED: ONDANSETRON 4 MG ORAL DISINTEGRATING TAB (Q0162 PER 1MG) SL PRN (16:00)
--- NOTE | 2019-05-24 18:19 | CR ---
DATE OF CONSULTATION: 05/24/2019 CONSULTATION REPORT FOR: Dr. Ale George CONSULTING PHYSICIAN: Dr. Malave REASON FOR CONSULTATION: Management of end-stage renal disease and hemodialysis. CHIEF COMPLAINT: The patient presented to the emergency room yesterday because of headache and high blood pressures. HISTORY OF PRESENT ILLNESS: Anusha Gil is a 48-year-old female with past medical history of end-stage renal disease on hemodialysis every Thursday, Thursday, Thursday, morbid obesity, and multiple comorbidities as mentioned below. She was dialyzed as outpatient yesterday and even during dialysis, her blood pressure was high. Generally, she has low blood pressures. She does not take any antihypertensive medications at home. She got dialysis done yesterday and after that she presented to the emergency room with a three-day history of headaches. She was found to have elevated blood pressures. She was admitted under the hospitalist service yesterday with hypertensive urgency. She was started on oral antihypertensives. Nephrology service was called for further help in the management of this patient because of history of end-stage renal disease. I saw and evaluated the patient today morning at the bedside. She was actually sitting in the sofa. She reports that she is feeling much better today as compared with yesterday. Her blood pressures are better controlled now. PAST MEDICAL HISTORY: Past medical history of end-stage renal disease on hemodialysis every Thursday, Thursday, Thursday, cause of renal failure is secondary to reflux nephropathy, history of infective endocarditis and methicillin-sensitive Staphylococcus aureus (MSSA) bacteremia, morbid obesity, chronic back pain, anemia in end-stage renal disease, history of endometrial carcinoma, obstructive sleep apnea, hypertensive heart disease with diastolic dysfunction, and history of depression. PAST SURGICAL HISTORY: Status post (C) section in the past, history of tonsillectomy, arthroscopy of the right and left knee in the past, amputation of the right ring finger and the left fifth toe, tubal ligation, hernia repair in the past, multiple failed arteriovenous (AV) grafts in the upper extremities, status post cholecystectomy, dilation and curettage with hysteroscopy. ALLERGIES: The patient is allergic to CEPHALOSPORINS, AZELASTINE, IBUPROFEN, IRON DEXTRAN, NAFCILLIN, POVIDONE, and VANCOMYCIN. FAMILY HISTORY: No significant family history of end-stage renal disease. She does report diabetes and pulmonary emboli in the family. SOCIAL HISTORY: The patient lives at home. She smokes marijuana regularly. She denies any alcohol abuse or any other illicit drug abuse. REVIEW OF SYSTEMS: CONSTITUTIONAL: The patient denies any fevers or chills. EYES: She denies any blurry vision or double vision. EARS, NOSE AND THROAT (ENT): She does report headache on arrival. CARDIOVASCULAR: She denies any chest pain or palpitations. RESPIRATORY: She denies any shortness of breath or cough. GASTROINTESTINAL (GI): She denies any nausea or vomiting. GENITOURINARY: She denies any dysuria or hematuria. She does report a history of endometrial cancer. MUSCULOSKELETAL: She denies any muscle aches and pains. SKIN: She denies any rashes or ulcers. PSYCHIATRIC: She denies any depression or anxiety at this time. CENTRAL NERVOUS SYSTEM (SENIOR ELECTRICAL PROJECT MANAGER): She denies any numbness or weakness. HEMATOLOGICAL/ONCOLOGIC: She denies any easy bleeding or bruising. All other review of systems is negative. PHYSICAL EXAMINATION: GENERAL: The patient is awake, alert, oriented times three, sitting up in the bed, morbidly obese. VITAL SIGNS: Temperature is 99.1 degrees Fahrenheit, blood pressure 121/75, pulse is 76, respiratory rate of 19, saturating 96% on room air. HEAD AND NECK: Extraocular muscles intact. Pupils equally round and reactive to light. Mucous membranes are moist. Neck is supple. There is no jugular venous distention (JVD). CARDIOVASCULAR: S1, S2, regular rate, 1+ edema of the bilateral lower extremities. RESPIRATORY: Chest is clear to auscultation bilaterally. Bilateral equal air entry. No rales or rhonchi. ABDOMEN: Soft, obese, positive bowel sounds. No organomegaly was noted. MUSCULOSKELETAL: No clubbing or cyanosis. She has left upper arm arteriovenous (AV) fistula with thrill and bruit. CENTRAL NERVOUS SYSTEM (SENIOR ELECTRICAL PROJECT MANAGER): No focal deficit. Power is 5/5 in all extremities. LABORATORY REVIEW: CBC showed a WBC of 3.5, hemoglobin 10.8, platelets of 161. BMP showed total bilirubin 0.6, AST 11, ALT 13, albumin 3.5, BUN 34, creatinine was 6.8. Influenza is negative. MICROBIOLOGY: Blood cultures are negative. IMAGING: A CT of the chest was done yesterday which showed multiple noncalcified peripheral pulmonary nodules, cardiomegaly and enlargement of the central pulmonary arteries. A CT of the head was done yesterday which showed no acute intracranial pathology. CURRENT INPATIENT MEDICATIONS: The patient's medications were all reviewed by myself and that includes Tylenol as needed. She has been started on: - amlodipine 2.5 mg at bedtime - atenolol 12.5 mg by mouth daily - PhosLo 1.3 grams by mouth with meals - heparin subcutaneously - Megace 80 mg by mouth twice a day - morphine as needed - omeprazole 20 mg at bedtime - Velphoro 1 gram with meals - vitamin D ASSESSMENT AND PLAN: A 48-year-old female with history of end-stage renal disease on hemodialysis every Thursday, Thursday, Thursday, history of endometrial cancer, admitted this time with hypertensive urgency and headache. PLAN: 1. End-stage renal disease. The patient's dialysis days are Thursday, Thursday, Thursday. She was dialyzed according to the regular schedule yesterday. No urgent need of dialysis today. If the patient is not discharged today, she will be dialyzed tomorrow morning as per her regular schedule. 2. Hypertensive urgency. Her blood pressures are significantly better. Normally, she is hypotensive. She has responded well to the current dose of amlodipine and atenolol. Continue current antihypertensive regimen. Volume status will be optimized with dialysis. 3. Chronic kidney disease, mineral bone disease. Continue current dose of Velphoro and low-phosphorus diet. 4. History of cancer of the endometrium. The patient is currently on Megace. She follows up with gynecology in [place]. 5. Anemia in end-stage renal disease. Hemoglobin is 10.8 which is optimal. Anemia management is as per outpatient [facility] protocol. Thank you for involving me in the care of this patient. I shall be happy to follow the patient along with you tomorrow morning if the patient stays overnight.
[2019-05-24] MEDS ORDERED: OMEPRAZOLE 20 MG CAP PO SCH (21:00)
[2019-05-24 22:00] VITALS: BP 145/75
[2019-05-25 02:00] VITALS: BP 135/82
[2019-05-25] MEDS: MEGESTROL 40 MG TAB PO SCH (05:47)
[2019-05-25] MEDS: HEPARIN SOD (PORCINE) 5000 UNITS/ML VIAL (J1644 PER 1000UNITS) SC SCH (05:47)
[2019-05-25 05:53] VITALS: BP 145/74
[2019-05-25] MEDS: ATENOLOL 12.5MG PER 1/2 TABLET PO SCH (05:53)
[2019-05-25 06:00] VITALS: BP 130/71
[2019-05-25] MEDS ORDERED: EMLA CREAM 5GM (LIDOCAINE/PRILOCAINE) TOP SCH (06:00)
[2019-05-25] MEDS ORDERED: VITAMIN D 1,000 INTERNATIONAL UNITS TABLET PO SCH (06:00)
[2019-05-25] MEDS: SUCROFERRIC OXYHYDROXIDE 500MG CHEW TAB (VELPHORO) PO SCH (08:00)
[2019-05-25] MEDS: CALCIUM ACETATE 667 MG GELCAP PO SCH (08:00)
[2019-05-25] MEDS ORDERED: ATEN25TA PO (08:03)
[2019-05-25] MEDS ORDERED: AMLO25TA PO (08:03)
--- NOTE | 2019-05-25 08:28 | DSES ---
DATE OF ADMISSION: 05/24/2019 DATE OF DISCHARGE: PRINCIPAL DIAGNOSIS: Hypertensive urgency. SECONDARY DIAGNOSES: End stage renal disease. Tension headache. 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 Anemia from end stage renal disease. History of cancer of endometrium. HISTORY: The patient is a 48-year-old with end stage renal disease on dialysis admitted with hypertensive urgency and headache. Details per history and physical from and. HOSPITAL COURSE: Blood pressure came under good control with adjustment of medicines. Headache resolved. This was a dull tension type headache soon after admission. Neurologic exam remained nonfocal. Laboratory work was unremarkable on the day of discharge. Her blood pressure is 130/71, pulse 62. She is alert, oriented and conversant. Lungs are clear. Heart regular rhythm. Abdomen soft, nontender. Trace peripheral edema. Neurologic exam nonfocal. Nontender temporal arteries. DISPOSITION: Plan is to discharge home after dialysis. Activity as tolerated. Continue no added salt diet. She will followup with her primary care provider in a week. MEDICATIONS: Medicines will continue to be: - albuterol inhaler two puffs every 4 hours as needed - calcium with vitamin D - folic acid - Megace 80 mg twice a day - omeprazole 20 mg daily - Velphoro 1000 mg with meals NEW MEDICATIONS: - atenolol 25 mg one half of a tablet daily - amlodipine 2.5 mg daily These were sent to [facility] on [facility]. At the time of discharge, there were no pending labs.
--- NOTE | 2019-05-25 19:21 | IPN ---
DATE: 05/25/2019 SUBJECTIVE: The patient was seen and examined at the bedside today morning. She is afebrile, hemodynamically stable. Her headache is better. Blood pressure is better controlled. Today is the patient's regular day of dialysis and the patient is going to be discharged home today. OBJECTIVE: VITAL SIGNS: Temperature is 98.7 degrees Fahrenheit, blood pressure 130/71, pulse is 62, respiratory rate of 18, saturating 92% on room air. INTAKE AND OUTPUT: There is no urine output recorded. Weight in the bed scale was 130.2 kg yesterday. PHYSICAL EXAMINATION: GENERAL: The patient is awake, alert, oriented times three, morbid obesity, sitting up in the bed, in no apparent distress. HEAD AND NECK: Extraocular muscles intact. Pupils equally round and reactive to light. Mucous membranes are moist. Neck is supple. There is no jugular venous distention (JVD). CARDIOVASCULAR: S1, S2, regular rate. Trace edema of the bilateral lower extremities. RESPIRATORY: Chest is clear to auscultation bilaterally. Bilateral equal air entry. No rales or rhonchi. ABDOMEN: Soft, positive bowel sounds, obese. No organomegaly. MUSCULOSKELETAL: No clubbing or cyanosis. Pulses are 2+. Left upper arm arteriovenous (AV) fistula is noted. CENTRAL NERVOUS SYSTEM (ASSEMBLER CHASSIS): No focal deficit. Power is 5/5 in all extremities. LABORATORY REVIEW: There are no new laboratories done today as compared with yesterday. CURRENT INPATIENT MEDICATIONS: The patient's medications were all reviewed by me. She continues to be on amlodipine 2.5 mg at bedtime and atenolol 12.5 mg by mouth daily. No other change in the medications today as compared with yesterday. ASSESSMENT AND PLAN: 1. End-stage renal disease. Today is the patient's regular day of dialysis. However, the patient's outpatient dialysis has been scheduled at 03:00 o'clock today after discharge. 2. Hypertension. Blood pressure is better controlled. Continue current dose of amlodipine and atenolol. However, I suspect the patient is not going to take her medications at home because she is chronically noncompliant with her home medications. 3. Chronic kidney disease, mineral bone disease. Continue current dose Velphoro after discharge from the hospital. DISPOSITION: It is okay to discharge the patient from nephrology standpoint. She will be followed up as outpatient in dialysis center.
== END 2019-05-25 14:30 | disposition home or self-care (01) ==
LOC: M ED 16:19 → M ED INP 16:20 → UNDOADMOB 05-24 00:04 → INTOOBSV 05-24 00:04 → M ED INP 05-24 00:04 → ENRESERV 05-24 02:20 → M ED INP 05-24 03:03 → M MS5PR 05-24 03:03 → UNDODISOB 05-25 14:30
PROVIDERS: ADMIT Internal Medicine; ATTEND Internal Medicine
DX: I16.0 Hypertensive urgency (principal); N18.6 End stage renal disease; G44.209 Tension-type headache, unspecified, not intractable; N25.0 Renal osteodystrophy; D63.1 Anemia in chronic kidney disease; N25.81 Secondary hyperparathyroidism of renal origin; C54.1 Malignant neoplasm of endometrium; F32.9 Major depressive disorder, single episode, unspecified; K21.9 Gastro-esophageal reflux disease without esophagitis; Z79.899 Other long term (current) drug therapy; Z79.51 Long term (current) use of inhaled steroids; G47.33 Obstructive sleep apnea (adult) (pediatric); Z86.73 Personal history of transient ischemic attack (TIA), and cerebral infarction without residual deficits; Z88.1 Allergy status to other antibiotic agents; Z88.8 Allergy status to other drugs, medicaments and biological substances
CPT/HCPCS: 36415; 70450; 71250; 80047; 80076; 84484; 85025; 87040; 87502; 93005; 96372; 96374; 96375; 97161; 99285; G0378; J0131; J1644; J2270; Q0162

== ENCOUNTER 2019-09-05 17:10 | Emergency (ER) | payer MEDICARE, MEDICAID ==
[~2019-09-05] VITALS: Ht 154.9 cm; Wt 127.2 kg
[~2019-09-05 17:10] MED LIST changes: +AMLO25TA PO; +ATEN25TA PO; +D31000TA2 PO; +LIDO2.5C15 TOP
[2019-09-05] MEDS ORDERED: AURY1TAB (17:21)
[2019-09-05] MEDS ORDERED: atenoloL 25 MG TAB PO ONE (17:45)
[2019-09-05] MEDS ORDERED: amLODIPine 5 MG TAB PO ONE (17:45)
[2019-09-05] MEDS ORDERED: METOCLOPRAMIDE INJ 10MG/2ML VIAL (J2765 PER 1) IV ONE (17:45)
--- NOTE | 2019-09-05 18:15 | REPVR ---
PROCEDURE INFORMATION: Exam: CT Head Without Contrast Exam date and time: 09/05/2019 5:49 PM Age: 48 years old Clinical indication: Pain; Headache; Additional info: Headache/hx of mini stroke and lucunar TECHNIQUE: Imaging protocol: Computed tomography of the head without contrast. Radiation optimization: All CT scans at this facility use at least one of these dose optimization techniques: automated exposure control; mA and/or kV adjustment per patient size (includes targeted exams where dose is matched to clinical indication); or iterative reconstruction. COMPARISON: CT Head without contrast 05/23/2019 5:53 PM FINDINGS: Brain: Focal, chronic appearing lacunar infarct in the left caudate nucleus, as before. Focal hypodensities again demonstrated in the lentiform nuclei which may represent perivascular spaces or additional chronic lacunar infarcts. The degree of mild cerebral and cerebellar volume loss appears advanced for age. No visible evolving territorial infarct. No hemorrhage. Ventricles: The ventricles appear somewhat dysmorphic, mildly enlarged, stable since prior. Bones/joints: Unremarkable. No acute fracture. Sinuses: Visualized sinuses are unremarkable. No fluid levels. Mastoid air cells: The mastoids are chronically underpneumatized. Soft tissues: Unremarkable. IMPRESSION: No acute intracranial abnormality seen. Electronically signed by: Rita Stanton On 09/05/2019 18:15:29 PM
[2019-09-05 19:01] LABS: BASO % 0.4 % (0.0-1.0); EOS % 0.6 % (0.0-3.0); HEMATOCRIT 34.1 % (36.0-47.0); HEMOGLOBIN 10.6 g/dl (12.0-15.5); LYMPH # 0.9 10^3/uL (1.5-5.0); LYMPH % 19.1 % (24.0-44.0); MEAN CORPUSCULAR HEMOGLOBIN 27.7 pg (27.0-33.0); MEAN CORPUSCULAR HGB CONC 31.1 g/dl (32.0-36.5); MONO # 0.4 10^3/uL (0.0-0.8); MONO % 7.1 % (0.0-5.0); NEUTROPHILS # 3.6 10^3/uL (1.5-8.5); NEUTROPHILS % 72.6 % (36.0-66.0); PLATELET COUNT, AUTOMATED 150 10^3/uL (150-450); RED BLOOD COUNT 3.83 10^6/uL (4.00-5.40); WHITE BLOOD COUNT 4.9 10^3/uL (4.0-10.0)
[2019-09-05 19:03] LABS: CALCIUM LEVEL 9.1 MG/DL (8.5-10.1); CREATININE FOR GFR 5.59 MG/DL (0.55-1.30); GLOMERULAR FILTRATION RATE 8.6 (>51); POTASSIUM SERUM 5.3 MEQ/L (3.5-5.1)
[2019-09-05] MEDS ORDERED: LABETALOL 100MG/20ML VIAL IV STA (19:07)
[2019-09-05] MEDS ORDERED: MORPHINE 4 MG/ML 1ML VIAL/SYRINGE (J2270) IV ONE (19:15)
[2019-09-05 19:32] VITALS: BP 172/86
[2019-09-05 20:10] VITALS: BP 139/75
[2019-09-05] MEDS ORDERED: AMLO25TA PO (20:30)
[2019-09-05] MEDS ORDERED: ATEN25TA PO (20:30)
== END 2019-09-05 21:00 | disposition home or self-care (01) ==
LOC: M ED 17:10
DX: I16.0 Hypertensive urgency (principal); N18.6 End stage renal disease; D64.9 Anemia, unspecified; E66.9 Obesity, unspecified; M54.9 Dorsalgia, unspecified; G47.33 Obstructive sleep apnea (adult) (pediatric); Z79.51 Long term (current) use of inhaled steroids; Z79.899 Other long term (current) drug therapy; Z88.1 Allergy status to other antibiotic agents; Z88.8 Allergy status to other drugs, medicaments and biological substances; Z99.2 Dependence on renal dialysis
CPT/HCPCS: 70450; 80048; 85025; 93041; 94760; 96374; 96375; 99284; J2270; J2765

== ENCOUNTER → 2019-10-27 | Emergency (ER) | payer MEDICARE, MEDICAID ==
[~2019-10-27] MED LIST changes: +AURY1TAB
== END | disposition home or self-care (01) ==
LOC: M ED 17:40
DX: S70.01XA Contusion of right hip, initial encounter (principal); S30.0XXA Contusion of lower back and pelvis, initial encounter; W18.2XXA Fall in (into) shower or empty bathtub, initial encounter; Y92.002 Bathroom of unspecified non-institutional (private) residence as the place of occurrence of the external cause; I10 Essential (primary) hypertension; C57.9 Malignant neoplasm of female genital organ, unspecified; E78.5 Hyperlipidemia, unspecified; N18.6 End stage renal disease; Z86.718 Personal history of other venous thrombosis and embolism; Z88.8 Allergy status to other drugs, medicaments and biological substances; Z79.899 Other long term (current) drug therapy

== ENCOUNTER → 2019-10-27 | Emergency (ER) | payer MEDICARE, MEDICAID ==
[~2019-10-27] MED LIST changes: +MORPHINE 4 MG/ML 1ML VIAL/SYRINGE (J2270) As Ordered ONE; +MORPHINE 4 MG/ML 1ML VIAL/SYRINGE (J2270) ONE; +OXYCODONE/APAP 5MG/325MG(BULK FOR ED) 1 TABLET As Ordered ONE; +OXYCODONE/APAP 5MG/325MG(BULK FOR ED) 1 TABLET ONE; +PERCOCET 5MG/325MG TAB As Ordered ONE; +PERCOCET 5MG/325MG TAB ONE
== END | disposition home or self-care (01) ==
LOC: M ED 12:10
DX: S70.01XA Contusion of right hip, initial encounter (principal); S30.0XXA Contusion of lower back and pelvis, initial encounter; W18.2XXA Fall in (into) shower or empty bathtub, initial encounter; Y92.002 Bathroom of unspecified non-institutional (private) residence as the place of occurrence of the external cause; C57.9 Malignant neoplasm of female genital organ, unspecified; R93.5 Abnormal findings on diagnostic imaging of other abdominal regions, including retroperitoneum; R93.6 Abnormal findings on diagnostic imaging of limbs; I10 Essential (primary) hypertension; E78.5 Hyperlipidemia, unspecified; N18.6 End stage renal disease; Z86.718 Personal history of other venous thrombosis and embolism; Z88.8 Allergy status to other drugs, medicaments and biological substances; Z79.899 Other long term (current) drug therapy
CPT/HCPCS: 72170; 73552; 73700; 96372; 99282; 99283; J2270

== ENCOUNTER 2020-03-14 16:52 | Emergency (ER) | payer MEDICARE, MEDICAID ==
[~2020-03-14] VITALS: Ht 154.9 cm; Wt 131.8 kg
[~2020-03-14 16:52] MED LIST changes: -MORPHINE 4 MG/ML 1ML VIAL/SYRINGE (J2270) As Ordered ONE; -MORPHINE 4 MG/ML 1ML VIAL/SYRINGE (J2270) ONE; -OXYCODONE/APAP 5MG/325MG(BULK FOR ED) 1 TABLET As Ordered ONE; -OXYCODONE/APAP 5MG/325MG(BULK FOR ED) 1 TABLET ONE; -PERCOCET 5MG/325MG TAB As Ordered ONE; -PERCOCET 5MG/325MG TAB ONE
[2020-03-14] MEDS ORDERED: amLODIPine 10 MG TAB PO ONE (17:15)
[2020-03-14 17:32] VITALS: BP 203/93
[2020-03-14 18:15] VITALS: BP 175/77
== END 2020-03-14 18:47 | disposition home or self-care (01) ==
LOC: M ED 16:52
DX: I10 Essential (primary) hypertension (principal); T82.838A Hemorrhage due to vascular prosthetic devices, implants and grafts, initial encounter; E11.9 Type 2 diabetes mellitus without complications; Z79.899 Other long term (current) drug therapy; Z88.1 Allergy status to other antibiotic agents; Z88.8 Allergy status to other drugs, medicaments and biological substances; Z88.0 Allergy status to penicillin; Z86.73 Personal history of transient ischemic attack (TIA), and cerebral infarction without residual deficits

== ENCOUNTER 2020-03-26 22:21 | Emergency (ER) | payer MEDICARE, MEDICAID ==
[~2020-03-26] VITALS: Ht 154.9 cm; Wt 123.2 kg
[2020-03-27 00:17] LABS: RSV AMPLIFICATION NEGATIVE (NEGATIVE)
[2020-03-27 00:22] LABS: BASO % 0.5 % (0.0-1.0); EOS # 0.1 10^3/uL (0.0-0.5); EOS % 2.1 % (0.0-3.0); HEMATOCRIT 31.3 % (36.0-47.0); HEMOGLOBIN 9.4 g/dl (12.0-15.5); LYMPH % 24.9 % (24.0-44.0); MEAN CORPUSCULAR VOLUME 93.2 fl (80.0-96.0); MONO # 0.3 10^3/uL (0.0-0.8); MONO % 8.5 % (0.0-5.0); NEUTROPHILS # 2.5 10^3/uL (1.5-8.5); NEUTROPHILS % 63.7 % (36.0-66.0); PLATELET COUNT, AUTOMATED 172 10^3/uL (150-450); RED BLOOD COUNT 3.36 10^6/uL (4.00-5.40); WHITE BLOOD COUNT 3.9 10^3/uL (4.0-10.0)
[2020-03-27 00:52] LABS: ALBUMIN 3.7 GM/DL (3.2-5.2); ALT/SGPT 9 U/L (12-78); BILIRUBIN,DIRECT < 0.1 MG/DL (0.0-0.2); BILIRUBIN,TOTAL 0.6 MG/DL (0.2-1.0); BLOOD UREA NITROGEN 35 MG/DL (7-18); CALCIUM LEVEL 9.2 MG/DL (8.5-10.1); CARBON DIOXIDE LEVEL 37 MEQ/L (21-32); CHLORIDE LEVEL 98 MEQ/L (98-107); CK-MB VALUE MASS < 1.0 NG/ML (<3.6); CPK CREATINE PHOSPHOKINASE 84 U/L (26-192); CREATININE FOR GFR 6.63 MG/DL (0.55-1.30); GLUCOSE, FASTING 100 MG/DL (70-100); MB/CK RELATIVE INDEX 1.19 (< OR =4); POTASSIUM SERUM 4.8 MEQ/L (3.5-5.1); SODIUM LEVEL 139 MEQ/L (136-145); TOTAL PROTEIN 7.4 GM/DL (6.4-8.2); TROPONIN I < 0.02 NG/ML (< 0.10)
--- NOTE | 2020-03-27 01:25 | REPVR ---
PROCEDURE INFORMATION: Exam: XR Chest, 1 View Exam date and time: 03/27/2020 1:00 AM Age: 49 years old Clinical indication: Cough and dyspnea; Additional info: Dyspnea/cough TECHNIQUE: Imaging protocol: XR of the chest Views: 1 view. COMPARISON: CT Chest without contrast 05/23/2019 5:56 PM FINDINGS: Lungs: No focal infiltrates. Pleural space: Unremarkable. No pleural effusion. No pneumothorax. Heart/Mediastinum: The heart is within normal limits considering AP and lordotic projection. Bones/joints: Unremarkable. Soft tissues: There are generous overlying soft tissues. IMPRESSION: Essentially negative lordotic chest. Electronically signed by: Farhan Aviles On 03/27/2020 01:25:40 AM
[2020-03-27 02:34] VITALS: BP 180/84
--- NOTE | 2020-03-27 06:38 | ECGEPIP ---
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
== END 2020-03-27 02:36 | disposition home or self-care (01) ==
LOC: M ED 22:21
DX: M79.10 Myalgia, unspecified site (principal); J02.9 Acute pharyngitis, unspecified; I11.0 Hypertensive heart disease with heart failure; E11.9 Type 2 diabetes mellitus without complications; Z86.73 Personal history of transient ischemic attack (TIA), and cerebral infarction without residual deficits; N18.6 End stage renal disease; Z88.1 Allergy status to other antibiotic agents; Z88.8 Allergy status to other drugs, medicaments and biological substances; Z79.899 Other long term (current) drug therapy; Z79.51 Long term (current) use of inhaled steroids

== ENCOUNTER 2020-04-16 23:30 | Emergency (ER) | payer MEDICARE, MEDICAID ==
[~2020-04-16] VITALS: Ht 154.9 cm; Wt 122.4 kg
--- NOTE | 2020-04-17 00:56 | REPVR ---
PROCEDURE INFORMATION: Exam: XR Right Hip with Pelvis when Performed Exam date and time: 04/17/2020 12:25 AM Age: 49 years old Clinical indication: Hip pain; Right hip; Additional info: Trauma TECHNIQUE: Imaging protocol: XR Right hip with pelvis when performed. Views: 2 or 3 views. COMPARISON: 1. CT-Hip WITHOUT CONTRAST RIGHT 10/27/2019 2:[address] ABD/PEL W/IV CONTRAST ONLY 11/22/2018 1:20:12 PM FINDINGS: Bones/joints: There is no fracture or dislocation. The right hip joint space is preserved. There is nonspecific increased sclerosis in the right intertrochanteric region, which is unchanged compared to the prior CT right hip on 10/27/[address] abdomen and pelvis on 11/22/2018. There are degenerative changes in the lower lumbar spine. Soft tissues: Unremarkable. Vasculature: There are atherosclerotic calcifications. Incidental note is made of small round calcifications in the pelvis, which are compatible with phleboliths. IMPRESSION: No fracture or dislocation of the right hip or bony pelvis. Electronically signed by: Durga Huff On 04/17/2020 00:56:42 AM
--- NOTE | 2020-04-17 00:58 | REPVR ---
PROCEDURE INFORMATION: Exam: XR Right Shoulder Exam date and time: 04/17/2020 12:25 AM Age: 49 years old Clinical indication: Pain; Shoulder; Right; Additional info: Trauma TECHNIQUE: Imaging protocol: XR Right shoulder. Views: 2 or more views. COMPARISON: No relevant prior studies available. FINDINGS: Bones/joints: There is no acute fracture or dislocation of the right shoulder. There is an old healed fracture deformity of the right proximal humeral diaphysis, which has healed in satisfactory alignment. There are mild degenerative changes involving the right acromioclavicular joint. Soft tissues: Unremarkable. No calcific densities are seen in the rotator cuff or subacromial subdeltoid bursa to suggest calcific tendinitis or calcific subacromial subdeltoid bursitis. IMPRESSION: No acute fracture or dislocation of the right shoulder. Electronically signed by: Durga Huff On 04/17/2020 00:58:46 AM
[2020-04-17] MEDS ORDERED: ACETAMINOPHEN TAB 650MG DOSE (2X325MG) PO ONE (01:15)
[2020-04-17 02:04] VITALS: BP 173/77
== END 2020-04-17 01:57 | disposition home or self-care (01) ==
LOC: M ED 23:30
DX: S70.01XA Contusion of right hip, initial encounter (principal); S40.011A Contusion of right shoulder, initial encounter; W01.0XXA Fall on same level from slipping, tripping and stumbling without subsequent striking against object, initial encounter; Y92.019 Unspecified place in single-family (private) house as the place of occurrence of the external cause; Y93.9 Activity, unspecified; Y99.9 Unspecified external cause status; I11.0 Hypertensive heart disease with heart failure; N18.6 End stage renal disease; E11.9 Type 2 diabetes mellitus without complications; G47.33 Obstructive sleep apnea (adult) (pediatric); Z86.73 Personal history of transient ischemic attack (TIA), and cerebral infarction without residual deficits; E66.9 Obesity, unspecified; Z88.1 Allergy status to other antibiotic agents; Z88.8 Allergy status to other drugs, medicaments and biological substances; Z79.899 Other long term (current) drug therapy

== ENCOUNTER 2020-10-31 12:31 | Emergency (ER) | payer MEDICARE, MEDICAID ==
[~2020-10-31] VITALS: Ht 154.9 cm; Wt 127.0 kg
[~2020-10-31 12:31] MED LIST changes: +LIDO1CRE42 TOP; -LIDO2.5C15 TOP
[2020-10-31] MEDS ORDERED: ACETAMINOPHEN 325 MG TAB PO ONE (17:20)
[2020-10-31 17:25] LABS: BASO % 0.6 % (0.0-1.0); EOS # 0.1 10^3/uL (0.0-0.5); EOS % 1.9 % (0.0-3.0); HEMATOCRIT 38.2 % (36.0-47.0); HEMOGLOBIN 11.8 g/dl (12.0-15.5); LYMPH # 0.7 10^3/uL (1.5-5.0); LYMPH % 22.9 % (24.0-44.0); MEAN CORPUSCULAR HEMOGLOBIN 29.2 pg (27.0-33.0); MEAN CORPUSCULAR HGB CONC 30.9 g/dl (32.0-36.5); MEAN CORPUSCULAR VOLUME 94.6 fl (80.0-96.0); MONO # 0.4 10^3/uL (0.0-0.8); MONO % 11.1 % (2.0-8.0); NEUTROPHILS % 63.5 % (36.0-66.0); PLATELET COUNT, AUTOMATED 112 10^3/uL (150-450); RED BLOOD COUNT 4.04 10^6/uL (4.00-5.40); WHITE BLOOD COUNT 3.1 10^3/uL (4.0-10.0)
[2020-10-31] MEDS ORDERED: METOCLOPRAMIDE INJ 10MG/2ML VIAL (J2765 PER 1) IV ONE (17:25)
--- NOTE | 2020-10-31 17:29 | REP ---
INDICATION: wound 5th toe. COMPARISON: None. TECHNIQUE: Four views of the right foot are provided. FINDINGS: Four views of the right foot demonstrate advanced neuropathic arthropathy at the LEs cristy articulation in the midfoot with fragmentation, spur formation, and sclerosis. There is flattening of the tarsal arch. There is diffuse soft tissue swelling the forefoot and midfoot. No soft tissue gas is seen. No acute bony erosive changes appreciated. There is old posttraumatic deformity of the distal fibula. A plantar heel spur is noted. There is extensive vascular calcification in the soft tissues.. . No opaque foreign body noted. IMPRESSION: Advanced neuropathic arthropathy in the right midfoot. Diffuse soft tissue swelling and vascular calcification. No acute bony erosive change.. <Electronically signed by Elmer No > 10/31/20 [id number]
--- NOTE | 2020-10-31 17:31 | REP ---
INDICATION: previous fall continued pain. COMPARISON: Comparison radiographs of the right hip 27 October 2019.. TECHNIQUE: AP and frogleg views of the right hip are provided. FINDINGS: Exam quality is inhibited by patient body habitus to some degree as before. There is mild superior joint space narrowing. No fracture or subluxation is seen. The visualized right hemipelvis is intact. Periarticular soft tissues are otherwise unremarkable. There are phleboliths in the right pelvis. IMPRESSION: No fracture seen. Exam quality inhibited some degree by patient body habitus. <Electronically signed by Elmer No > 10/31/20 [id number]
[2020-10-31] MEDS ORDERED: BACTRIM 80MG/400MG TAB PO ONE (18:10)
[2020-10-31 18:19] LABS: ALBUMIN 3.7 GM/DL (3.2-5.2); BILIRUBIN,DIRECT 0.2 MG/DL (0.0-0.2); BILIRUBIN,TOTAL 0.8 MG/DL (0.2-1.0); C REACTIVE PROTEIN QUANTITATIV 1.91 MG/DL (0.00-0.30); CALCIUM LEVEL 8.3 MG/DL (8.5-10.1); CREATININE FOR GFR 4.66 MG/DL (0.55-1.30); GLOMERULAR FILTRATION RATE 10.5 (>51); POTASSIUM SERUM 4.3 MEQ/L (3.5-5.1); TOTAL PROTEIN 7.3 GM/DL (6.4-8.2)
[2020-10-31 19:09] LABS: RSV AMPLIFICATION NEGATIVE (NEGATIVE)
[2020-10-31] MEDS ORDERED: BACT400T PO (19:37)
--- NOTE | 2020-10-31 19:48 | REP ---
INDICATION: R/O DVT. COMPARISON: None. TECHNIQUE: Bilateral lower extremity duplex venous scanning is performed from the groin to the ankle level. FINDINGS: The deep veins are anechoic and fully compressible from the groin to the popliteal fossa in the left and right lower extremity. Color flow imaging is homogeneous. Spectral Doppler interrogation demonstrates intact respiratory variation in flow and normal manual augmentation of flow. There is no evidence of deep vein thrombosis in the femoropopliteal veins. There is no evidence of deep vein thrombosis in the visualized calf veins. There are bilateral Jay's cysts noted. A Jay's cyst measuring 6.5 cm in greatest diameter is seen on the left and a Jay's cyst measuring 5.0 cm in greatest diameter is seen on the right. IMPRESSION: No evidence of DVT in the femoropopliteal veins. No DVT in the visible portions of the calf veins. Bilateral Jay's cysts. <Electronically signed by Elmer No > 10/31/201943
[2020-10-31 20:20] VITALS: BP 163/74
[2020-11-03] MEDS ORDERED: DOXY-350 PO (08:14)
== END 2020-10-31 20:28 | disposition home or self-care (01) ==
LOC: M ED 12:31
DX: L03.031 Cellulitis of right toe (principal); D72.829 Elevated white blood cell count, unspecified; D69.6 Thrombocytopenia, unspecified; R79.9 Abnormal finding of blood chemistry, unspecified; M25.551 Pain in right hip; S81.802A Unspecified open wound, left lower leg, initial encounter; X58.XXXA Exposure to other specified factors, initial encounter; Y92.9 Unspecified place or not applicable; Y93.9 Activity, unspecified; Y99.9 Unspecified external cause status; M71.21 Synovial cyst of popliteal space [Baker], right knee; M71.22 Synovial cyst of popliteal space [Baker], left knee; G43.909 Migraine, unspecified, not intractable, without status migrainosus; I12.0 Hypertensive chronic kidney disease with stage 5 chronic kidney disease or end stage renal disease; N18.6 End stage renal disease; Z99.2 Dependence on renal dialysis; K21.9 Gastro-esophageal reflux disease without esophagitis; Z86.718 Personal history of other venous thrombosis and embolism; Z86.73 Personal history of transient ischemic attack (TIA), and cerebral infarction without residual deficits; J45.909 Unspecified asthma, uncomplicated; G89.29 Other chronic pain; M54.5 Low back pain; E11.9 Type 2 diabetes mellitus without complications; E78.5 Hyperlipidemia, unspecified; Z85.42 Personal history of malignant neoplasm of other parts of uterus; F17.200 Nicotine dependence, unspecified, uncomplicated; Z88.1 Allergy status to other antibiotic agents; Z88.6 Allergy status to analgesic agent; Z88.8 Allergy status to other drugs, medicaments and biological substances; Z79.899 Other long term (current) drug therapy
CPT/HCPCS: 73502; 73630; 80048; 80076; 83605; 85025; 86140; 87040; 87070; 87186; 87205; 87631; 93970; 96374; 99284; J2765

== ENCOUNTER 2020-11-16 21:15 | Emergency (ER) | payer MEDICARE, MEDICAID ==
[~2020-11-16] VITALS: Ht 154.9 cm; Wt 127.3 kg
[~2020-11-16 21:15] MED LIST changes: +BACT400T PO; +DOXY-350 PO
[2020-11-16] MEDS ORDERED: METOCLOPRAMIDE INJ 10MG/2ML VIAL (J2765 PER 1) IV ONE (22:55)
[2020-11-17 00:16] LABS: BASO % 0.6 % (0.0-1.0); EOS % 0.9 % (0.0-3.0); HEMATOCRIT 40.1 % (36.0-47.0); HEMOGLOBIN 12.7 g/dl (12.0-15.5); LYMPH # 0.9 10^3/uL (1.5-5.0); LYMPH % 25.3 % (24.0-44.0); MEAN CORPUSCULAR HEMOGLOBIN 30.1 pg (27.0-33.0); MEAN CORPUSCULAR HGB CONC 31.7 g/dl (32.0-36.5); MONO # 0.3 10^3/uL (0.0-0.8); NEUTROPHILS # 2.2 10^3/uL (1.5-8.5); NEUTROPHILS % 63.6 % (36.0-66.0); PLATELET COUNT, AUTOMATED 125 10^3/uL (150-450); RED BLOOD COUNT 4.22 10^6/uL (4.00-5.40); WHITE BLOOD COUNT 3.4 10^3/uL (4.0-10.0)
--- NOTE | 2020-11-17 00:21 | REPVR ---
PROCEDURE INFORMATION: Exam: XR Chest Exam date and time: 11/16/2020 11:20 PM Age: 50 years old Clinical indication: Chest wall pain; Additional info: Chest pain TECHNIQUE: Imaging protocol: XR of the chest. Views: 2 views. COMPARISON: CR PORTABLE CHEST X-RAY 03/27/2020 12:32 AM FINDINGS: Lungs: Clear. No consolidation. Pleural spaces: No pleural effusion. No pneumothorax. Heart/Mediastinum: Unremarkable. No cardiomegaly. Bones/joints: Skeletal degenerative changes are noted. IMPRESSION: No acute findings. Electronically signed by: Doug White On 11/17/2020 00:21:26 AM
--- NOTE | 2020-11-17 00:26 | REPVR ---
PROCEDURE INFORMATION: Exam: CT Head Without Contrast Exam date and time: 11/16/2020 11:26 PM Age: 50 years old Clinical indication: Other: ESPINOZA; Additional info: Headache TECHNIQUE: Imaging protocol: Computed tomography of the head without contrast. Radiation optimization: All CT scans at this facility use at least one of these dose optimization techniques: automated exposure control; mA and/or kV adjustment per patient size (includes targeted exams where dose is matched to clinical indication); or iterative reconstruction. COMPARISON: CT Head without contrast 09/05/2019 5:46 PM FINDINGS: Brain: There is mild cerebral volume loss. Changes of chronic white matter microvascular disease are present. No signs of a recent infarction or hemorrhage. No midline shift or mass effect. Cerebral ventricles: No ventriculomegaly. Paranasal sinuses: Visualized sinuses are clear. Mastoid air cells: Mastoid air cells are clear. Bones/joints: Unremarkable. No acute fracture. Soft tissues: Unremarkable. IMPRESSION: Mild cerebral volume loss and chronic white matter changes. No acute intracranial abnormality. Electronically signed by: Doug White On 11/17/2020 00:25:46 AM
[2020-11-17 00:27] LABS: ALBUMIN 3.5 GM/DL (3.2-5.2); ALT/SGPT 19 U/L (12-78); BILIRUBIN,DIRECT 0.2 MG/DL (0.0-0.2); BILIRUBIN,TOTAL 0.5 MG/DL (0.2-1.0); BLOOD UREA NITROGEN 29 MG/DL (7-18); CALCIUM LEVEL 7.5 MG/DL (8.5-10.1); CARBON DIOXIDE LEVEL 34 MEQ/L (21-32); CHLORIDE LEVEL 97 MEQ/L (98-107); CPK CREATINE PHOSPHOKINASE 47 U/L (26-192); CREATININE FOR GFR 4.93 MG/DL (0.55-1.30); FREE T4 1.14 NG/DL (0.76-1.46); GLOMERULAR FILTRATION RATE 9.8 (>51); GLUCOSE, FASTING 88 MG/DL (70-100); LIPASE 103 U/L (73-393); MB/CK RELATIVE INDEX 2.13 (< OR =4); POTASSIUM SERUM 4.2 MEQ/L (3.5-5.1); SODIUM LEVEL 138 MEQ/L (136-145); TROPONIN I < 0.02 NG/ML (< 0.10)
[2020-11-17 04:25] LABS: CK-MB VALUE MASS 1.6 NG/ML (<3.6); CPK CREATINE PHOSPHOKINASE 50 U/L (26-192); TROPONIN I < 0.02 NG/ML (< 0.10)
[2020-11-17 05:00] VITALS: BP 129/57
--- NOTE | 2020-11-17 20:09 | ECGEPIP ---
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
--- NOTE | 2020-11-17 20:21 | ECGEPIP ---
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
== END 2020-11-17 06:57 | disposition home or self-care (01) ==
LOC: M ED 21:15
DX: R51.9 Headache, unspecified (principal); R07.9 Chest pain, unspecified; I45.10 Unspecified right bundle-branch block; I12.0 Hypertensive chronic kidney disease with stage 5 chronic kidney disease or end stage renal disease; N18.6 End stage renal disease; I50.9 Heart failure, unspecified; Z99.2 Dependence on renal dialysis; D64.9 Anemia, unspecified; E66.9 Obesity, unspecified; G89.4 Chronic pain syndrome; M54.5 Low back pain; Z85.42 Personal history of malignant neoplasm of other parts of uterus; F32.9 Major depressive disorder, single episode, unspecified; Z88.1 Allergy status to other antibiotic agents; Z88.6 Allergy status to analgesic agent; Z88.8 Allergy status to other drugs, medicaments and biological substances; Z79.899 Other long term (current) drug therapy
CPT/HCPCS: 70450; 71046; 80048; 80076; 82550; 82553; 83690; 84439; 84443; 84484; 85025; 93005; 93041; 94760; 96374; 99285; J2765

== ENCOUNTER 2020-11-21 07:37 | Inpatient (IN) | payer MEDICARE, MEDICAID ==
[~2020-11-21] VITALS: Ht 154.9 cm; Wt 130.8 kg
[2020-11-21] MEDS ORDERED: methylPREDNISolone 125MG 2ML VIAL IV ONE (07:55)
[2020-11-21] MEDS ORDERED: ACETAMINOPHEN 325 MG TAB PO ONE (07:55)
--- NOTE | 2020-11-21 08:26 | REP ---
INDICATION: DYSPNEA/COUGH. COMPARISON: None. TECHNIQUE: Single portable AP view of the chest was performed. FINDINGS: There is no acute infiltrate or pulmonary edema. Lungs are clear. The heart is not significantly enlarged. The mediastinal silhouette is unremarkable. The visualized osseous structures are intact. IMPRESSION: No acute pulmonary disease. <Electronically signed by Shashank Mack > 11/21/20 [id number]
[2020-11-21 08:30] LABS: BASO % 0.2 % (0.0-1.0); HEMATOCRIT 41.5 % (36.0-47.0); HEMOGLOBIN 13.3 g/dl (12.0-15.5); LYMPH # 0.4 10^3/uL (1.5-5.0); LYMPH % 2.8 % (24.0-44.0); MEAN CORPUSCULAR HEMOGLOBIN 29.8 pg (27.0-33.0); MONO # 0.6 10^3/uL (0.0-0.8); MONO % 4.5 % (2.0-8.0); NEUTROPHILS % 91.5 % (36.0-66.0); PLATELET COUNT, AUTOMATED 111 10^3/uL (150-450); RED BLOOD COUNT 4.46 10^6/uL (4.00-5.40); WHITE BLOOD COUNT 13.1 10^3/uL (4.0-10.0)
[2020-11-21] MEDS ORDERED: ACET650T61 PO (08:30)
[2020-11-21] MEDS ORDERED: RENATAB5 PO (08:30)
[2020-11-21] MEDS ORDERED: ATEN25TA PO (08:30)
[2020-11-21] MEDS ORDERED: SODI15SS PO (08:30)
[2020-11-21] MEDS ORDERED: VELP5CHW PO (08:30)
[2020-11-21] MEDS ORDERED: LevoFLOXacin IV 750 MG in IV 1 EA IV ONE (08:45)
[2020-11-21] MEDS ORDERED: NS 500 ML IV ONE (09:00)
[2020-11-21] MEDS: COMBIVENT RESPIMAT 100-20MCG INHALER 4GM INH SCH ×3 (09:40→09:42)
[2020-11-21 09:52] LABS: ALBUMIN 3.2 GM/DL (3.2-5.2); BILIRUBIN,DIRECT 0.4 MG/DL (0.0-0.2); BILIRUBIN,TOTAL 1.2 MG/DL (0.2-1.0); CK-MB VALUE MASS 1.7 NG/ML (<3.6); MB/CK RELATIVE INDEX 0.4 (< OR =4); THYROID STIMULATING HORMONE 1.25 uIU/ML (0.358-3.740); THYROXINE (T4) 9.4 UG/DL (4.5-12.0); TOTAL PROTEIN 6.9 GM/DL (6.4-8.2); TROPONIN I 0.24 NG/ML (< 0.10)
[2020-11-21] MEDS ORDERED: AMLO25TA PO (10:13)
[2020-11-21] MEDS ORDERED: AURY1TAB PO (10:13)
[2020-11-21] MEDS ORDERED: CALC1CAP PO (10:13)
[2020-11-21] MEDS ORDERED: ERGO500029 PO (10:13)
[2020-11-21] MEDS ORDERED: HOME MED LIST COMPLETE! XX SCH (10:15)
[2020-11-21] MEDS ORDERED: METOCLOPRAMIDE INJ 10MG/2ML VIAL (J2765 PER 1) IV ONE (11:00)
[2020-11-21] MEDS ORDERED: FIORICET TAB PO ONE (11:00)
[2020-11-21] MEDS ORDERED: DOXYCYCLINE HYCLATE 100 MG in D5W MINI-BAG PLUS 100 ML IV SCH (11:00)
--- NOTE | 2020-11-21 11:12 | REP ---
INDICATION: FEVER COUGH. COMPARISON: Comparison is made with today's chest x-ray as well as prior CT study of the chest from May 23, 2019. TECHNIQUE: Helical scanning is acquired. 3 mm axial images are generated. Coronal and sagittal MPR and coronal MIP images are generated. FINDINGS: Preliminary digital contact center representative radiograph demonstrates a moderate dextroconvex scoliotic curve in the lower thoracic and lumbar spine. There is extensive mitral annular calcification. A moderate size sliding hiatal hernia is noted. Vascular calcification is seen including coronary artery calcification. There is no evidence of pleural or pericardial effusion. There are granulomatous calcifications in the right lower lobe posterior lung gutter and in the right mid lung field. No pulmonary mass, infiltrate, or significant pulmonary nodule is appreciated. Central pulmonary arteries remain prominent unchanged. A mild cardiomegaly also unchanged. Scans through the upper abdomen demonstrate post cholecystectomy clips and normal adrenal glands. There is a cyst and atrophic change in the upper portion of the right kidney unchanged from the comparison study. The spleen is prominent unchanged as well. IMPRESSION: No infiltrate seen. Cardiomegaly. Hiatal hernia and splenomegaly. Scoliosis. Old granulomatous calcifications. <Electronically signed by Elmer No > 11/21/20 [id number]
[2020-11-21 11:45] VITALS: BP 120/59
[2020-11-21] MEDS: ONDANSETRON 4MG/2ML VIAL IV SCH ×2 (12:00→17:20)
[2020-11-21] MEDS: GASTROGRAFIN SOLUTION 30ML PO SCH ×2 (12:06→12:43)
[2020-11-21] MEDS ORDERED: LIDOCAINE 1% SDV 5ML VIAL SC PRN (12:20)
[2020-11-21] MEDS ORDERED: ALBUTEROL 90 MCG/ACT 8GM HFA INHALER INH PRN (12:50)
--- NOTE | 2020-11-21 14:17 | REP ---
INDICATION: n/v/abd pain COMPARISON: 11/22/2018. TECHNIQUE: CT Scan of the abdomen and pelvis was performed without intravenous contrast. Oral contrast was administered. Sagittal and coronal reconstruction images performed. FINDINGS: Lung bases: Unremarkable. Liver: Grossly unremarkable. Gallbladder: Prior cholecystectomy. Spleen: The spleen is enlarged measuring 18 cm in length. Adrenals: Normal. Pancreas: Grossly unremarkable.. Kidneys: There is severe bilateral renal atrophy. Both kidneys contain multiple calcifications in small cystic structures, the largest cyst is on the right measuring 1.9 cm in diameter. Small and large bowel: There is mild sigmoid and left colonic diverticulosis without acute diverticulitis. No free air is seen and there is no evidence of bowel obstruction. Free fluid: None. Abdominal aorta: No aneurysm. Adenopathy: None. Appendix: Not inflamed. Osseous structures: Once again there is diffuse heterogeneous sclerosis of the visualized osseous structures most consistent with renal osteodystrophy. Pelvis: No mass. The urinary bladder is collapsed and contains a 6 mm calculus. Mesh material in the anterior abdominal wall midline is present from prior hernia repair. There is a small umbilical hernia containing fat. IMPRESSION: Chronic changes as discussed in detail above appear similar to the prior exam, including moderate splenomegaly and bilateral severe renal atrophy. The visualized osseous structures are diffusely sclerotic most consistent with renal osteodystrophy. No acute abnormalities are seen. There is no evidence of free air, free fluid or bowel obstruction. <Electronically signed by Shashank Mack > 11/21/20 [id number]
--- NOTE | 2020-11-21 14:51 | HPE ---
HISTORY AND PHYSICAL DATE OF ADMISSION: 11/21/2020 CHIEF COMPLAINT: Fever, "sick to my stomach." HISTORY OF PRESENT ILLNESS: This is a 50-year-old female who presents to the Emergency Room with complaints of a several day history of not feeling well, feeling sick to her stomach since Thursday with nausea and vomiting, and chills. She denied any dysuria, urgency or frequency. She has a chronic cough which is nonproductive. She complained of a headache and one episode of diarrhea today, watery, non-bloody, non-mucous and had not been on any antibiotics. She was found to be febrile at 102 during dialysis, was sent to the ER for further evaluation. Patient denies any neck stiffness, blurred vision or changes in vision, photophobia. Respiratory panel was negative for Coronavirus and influenza. Hospitalist was called to admit the patient due to sepsis of unknown etiology. She had a fever of 101.7, white count of 13,000. The patient describes the abdominal pain in the epigastric area radiating across the abdomen and not to the back, unchanged by position. No medications taken for nausea or abdominal pain at home. She had no sick contacts, no recent travel, does not drink well water. She denies any shortness of breath, chest pain pressure or tightness. Patient denies any dysuria, urgency or frequency, or bright-red blood per rectum, melena, black tarry stools or hematuria. 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 PAST SURGICAL HISTORY: D and C with hysteroscopy, cholecystectomy, multiple failed AV grafts of bilateral upper extremities and left thigh with recurrent clotting, hernia repair, tubal ligation, , tonsillectomy, right ankle, left knee arthroscopy, right ring finger amputation, left fifth toe amputation. SOCIAL HISTORY: Denies smoking or alcohol use. Admits to occasional marijuana. She lives at [facility] by herself and her cat. FAMILY HISTORY: Diabetes and pulmonary embolism. ALLERGIES: No known drug allergies. HOME MEDICATIONS: 1. Amlodipine 2.5 mg q.h.s. 2. Atenolol 25 daily. 3. Vitamin D 50,000 units weekly. 4. Lidocaine Prilocaine topically three times a week. 5. Ferrous Citrate 210 mg as needed. 6. Ynes-Betty 0.8 daily. 7. Acetaminophen 650 q. 8 as needed. 8. Albuterol two puffs q. 4 as needed. 9. Calcium acetate 667 mg capsule, 1001 mg p.o. with meals. 10.Megestrol acetate 80 mg b.i.d. 11.Prilosec 20 q.h.s. 12.Velphoro 500 mg tablet 1 gram with meals. REVIEW OF SYSTEMS: Per HPI, a 12 point system otherwise negative. PHYSICAL EXAMINATION: VITAL SIGNS: Temperature 101.7, pulse is 73, sinus rhythm, respiratory rate 18, blood pressure is 120/50, 95% on room air. GENERAL: Patient appears disheveled. HEENT: Moist mucous membranes. NECK: No cervical lymphadenopathy or thyromegaly. LUNGS: Diminished. No wheezes, rales or rhonchi. HEART: S1 and S2, sinus rhythm. ABDOMEN: Obese, soft, tender in the epigastric region. No rebound or guarding. Positive bowel sounds x4 quadrants. No CVA tenderness. EXTREMITIES: No cyanosis or clubbing. Chronic edema. LABORATORY DATA: White count 13, hemoglobin 13, hematocrit 41, platelet count 111,000. Sodium is 134, potassium 4.2, chloride is 92, bicarbonate 26, BUN 48, creatinine is 9.7, glucose is 105. Troponin 0.26. Coronavirus negative. MRSA pending. Total bilirubin 1.2, direct bilirubin 0.4, AST 24, ALT 21, alkaline phosphatase 231, total CK 428, MB fraction 1.7, relative index 0.4. Troponin 0.24, BNP 66,742, total protein 6.9, albumin 3.2. TSH 1.25, T4 9.4. IMAGING STUDY: Chest CT: No infiltrate. Cardiomegaly, hiatal hernia, splenomegaly, scoliosis, old granulomatous calcifications. ASSESSMENT AND PLAN: This is a 48-year-old female with endstage renal disease on maintenance dialysis on Thursday, Thursday and Thursday, history of MSSA bacteremia with endocarditis, septic pulmonary emboli and brain MRI without residual deficits, morbid obesity, anemia of chronic disease, recently diagnosed endometrial carcinoma with CHF diastolic dysfunction due to chronic hypertension and depression who presents to the Emergency Room with complaints of abdominal pain, nausea and vomiting since Thursday and had an episode of one diarrhea today, fever noted to be 102, 101.7 in the ER, admitted for systemic inflammatory response with infection origin unknown. IMPRESSION: 1. Fever, patient had a prior history of MSSA infection. Patient will be admitted as an inpatient for two midnights. Due to Nafcillin and Vancomycin causing rash, the patient has been placed on Meropenem for gram negative coverage as well as Zyvox. MRSA screen is pending. Infectious Disease specialist, Dr. Buitrago will be consulted tomorrow. The source of infection could be intraabdominal due to complaints of abdominal pain, fever, nausea and vomiting. CT of the abdomen with p.o. contrast has been ordered. CT of the chest shows no signs of infection. Due to recent complaints of headache, nausea, vomiting, cough and diarrhea I was concerned for Legionella pneumonia but CT of the chest shows no infiltrate, therefore doxycycline has been discontinued. Blood cultures have been obtained. We are also concerned about possible bacteremia, therefore two sets of blood cultures have been ordered. She does have a history of septic emboli due to endocarditis, possible line infection. Patient has multiple grafts. Defer to Dr. Buitrago for deescalation of antibiotics. Judicial use of IV fluids, beta naty has been held due to current infection. 2. Endstage renal disease on maintenance dialysis Thursday, Thursday and Thursday. She is continued on all of her home medications. Store Warehouse Associate, Dr. Malave, has been consulted for dialysis needs. 3. History of congestive heart failure, diastolic dysfunction, managed by Nephrology via hemodialysis Thursday, Thursday and Thursday. 4. Diarrhea. Check GI panel. She is not taking any bowel regimen. PCR for C. Diff. 5. Obstructive sleep apnea, supplemental oxygen q.h.s. and resume home CPAP settings. 6. Anemia of chronic disease, continue on iron replacement. Defer to Nephrology for Venofer if needed or Epogen. 7. Morbid obesity complicating her care. 8. Chronic back pain, avoid narcotics. 9. Depression, chronic. MTDD
[2020-11-21] MEDS: SUCROFERRIC OXYHYDROXIDE 500MG CHEW TAB (VELPHORO) PO SCH (17:20)
[2020-11-21] MEDS: CALCIUM ACETATE 667MG GELCAP PO SCH (17:21)
--- NOTE | 2020-11-21 17:25 | CR ---
NEPHROLOGY CONSULTATION DATE: 11/21/2020 REQUESTING PHYSICIAN: Dominga Lopez M.D. REASON FOR CONSULTATION: Management of end-stage renal disease on hemodialysis. CHIEF COMPLAINT: Patient presented to the hospital with fevers and chills. HISTORY OF PRESENT ILLNESS: Anusha Gil is a 50-year-old female with past medical history of end-stage renal disease on hemodialysis every Thursday, Thursday and Thursday, history of endocarditis in the past, multiple other comorbidities as mentioned below. She presented to the hospital with a few day history of having fevers with chills. She was not feeling well. She initially went for dialysis; however, because of the fevers and not feeling well, she was sent to the emergency room. She is being admitted under the hospitalist service today. Nephrology service was called for further help in the management of this patient. I saw and evaluated the patient today morning at the bedside in the emergency room. She had just come back after getting her CT scan done. Today is her regular day of dialysis, so I am going to schedule her dialysis today. Medical team is doing the workup for source of infection and she is being started on broad spectrum intravenous (IV) antibiotics. PAST MEDICAL HISTORY: 1. End-stage renal disease on hemodialysis every Thursday, Thursday and Thursday. 2. History of secondary hyperparathyroidism. 3. History of methicillin sensitive Streptococcus aureus (MSSA) bacteremia in 2019. 4. Endocarditis and septic pulmonary emboli in the past. 5. Morbid obesity. 6. Chronic back pain. 7. Anemia in end-stage renal disease. 8. Carcinoma of the endometrium. 9. Obstructive sleep apnea. 10. Congestive heart failure with diastolic dysfunction. 11. Hypertension. 12. History of depression. PAST SURGICAL HISTORY: 1. History of (C) section in the past. 2. Tonsillectomy in the past. 3. Arthroscopy of the right ankle and left knee. 4. Amputation of the right ring finger. 5. Amputation of the left fifth toe. 6. Tubal ligation. 7. Hernia repair. 8. Multiple failed arteriovenous (AV) grafts in upper extremities. 9. Status post cholecystectomy in the past. 10. Dilatation and curettage (D and C) in the past. ALLERGIES: She is allergic to CEPHALOSPORINS, NONSTEROIDAL ANTIINFLAMMATORIES (NSAIDS), AZELASTINE, CEFAZOLIN, IBUPROFEN, IRON DEXTRAN, NAFCILLIN, VANCOMYCIN. FAMILY HISTORY: No significant family history of end-stage renal disease requiring hemodialysis. SOCIAL HISTORY: She smokes marijuana every day. REVIEW OF SYSTEMS: CONSTITUTIONAL: She reports feeling weak and tired and she reports fevers and chills EYES: Denies blurry vision or double vision. EARS, NOSE AND THROAT (ENT): Denies any dysphagia or odynophagia. CARDIOVASCULAR: Denies any chest pain or palpitations. RESPIRATORY: Denies any shortness of breath. GASTROINTESTINAL: Denies any nausea or vomiting. GENITOURIARY: Reports decreased urine output. MUSCULOSKELETAL: Denies any muscle aches or pains. SKIN: Denies any rashes or ulcers. PSYCHIATRIC: Denies any depression or anxiety at this time. HEMATOLOGICAL/ONCOLOGICAL: She reports cancer of the endometrium. 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 All other review of systems is negative. PHYSICAL EXAMINATION: GENERAL: Patient is awake, alert, oriented times three, laying in bed. VITAL SIGNS: Temperature 99.8 degrees Fahrenheit, maximum temperature (T-max) 101.7 degrees Fahrenheit on arrival, blood pressure 120/59, pulse 73, respiratory rate 20, saturating 95% on room air. INTAKE AND OUTPUT: Urine output is not recorded. HEAD AND NECK EXAM: Extraocular muscles intact. Pupils equally round and reactive to light. Mucous membranes are moist. Neck is supple. There is no jugular venous distention (JVD). CARDIOVASCULAR: S1, S2. Regular rate. No edema of the bilateral lower extremities. RESPIRATORY: Chest is clear to auscultation bilaterally. Bilateral equal air entry. No rales or rhonchi. ABDOMEN: Soft, obese. Positive bowel sounds. Nontender. No organomegaly MUSCULOSKELETAL: No clubbing or cyanosis. Pulses are 2+. ARTERIOVENOUS (AV) ACCESS: She has a left arm AV fistula with positive thrill and bruit. CENTRAL NERVOUS SYSTEM (SSN/SSBN WE[employer]ONS EQUIPMENT OPERATOR): No focal deficit. Power is 5/5 in all extremities. LABORATORY REVIEW: CBC showed WBC 13.1, hemoglobin 13.3, platelets 111. BMP showed sodium 134, potassium 4.2, chloride 92, bicarbonate 26, BUN 48, creatinine 9.7. BNP 66,742. MICROBIOLOGY: Blood cultures are pending. Respiratory viral panel is negative. IMAGING: CAT scan of the chest was done today. It showed no infiltrates. There was cardiomegaly, hiatal hernia and splenomegaly. CAT scan of the abdomen and pelvis was done. Official report is pending. CURRENT INPATIENT MEDICATIONS: Patient's medications were all reviewed by myself. She was given Levaquin 750 mg IV times one dose and she was started on Zyvox 600 mg IV every 12 hours. She has also been started on meropenem 500 mg IV every 24 hours. Normal saline bolus was given. She is on: - Tylenol as needed - PhosLo 2.1 grams by mouth with meals - Megace 80 mg by mouth twice a day - Solu-Medrol 125 mg IV times one dose was given to her - omeprazole 20 mg at bedtime - Zofran as needed - Velphoro 1 gram by mouth with meals ASSESSMENT AND PLAN: 1. End-stage renal disease. Today is patient's regular day of dialysis. She is getting imaging as well, most likely with contrast. Patient is going to be dialyzed today after CAT scans. I will try to remove about 2 kg of fluid as tolerated by her blood pressure. 2. Sepsis. Patient came in with leukocytosis and fever with low blood pressures. She has history of infective endocarditis in the past. She has already been started on broad spectrum antibiotics. Source of infection is not known yet. 3. Chronic kidney disease/mineral bone disease. Continue current dose of Velphoro and calcium acetate at this time. Patient is noncompliant with medications at home. 4. Carcinoma of the endometrium. Patient continues to be on Megace. 5. Congestive heart failure. Patient's volume status is going to be optimized with dialysis and fluid removal. I would not aggressively remove the fluid because patient was hypotensive on arrival. [facility]
[2020-11-21] MEDS: MEROPENEM INJ 500 MG in IV 1 EA IV SCH (17:48)
[2020-11-21 18:07] LABS: CK-MB VALUE MASS 1.6 NG/ML (<3.6); MB/CK RELATIVE INDEX 0.29 (< OR =4); TROPONIN I 0.16 NG/ML (< 0.10)
[2020-11-21] MEDS: LINEZOLID 600 MG in IV 1 EA IV SCH (18:39)
--- NOTE | 2020-11-21 19:34 | ECGEPIP ---
[facility] - ED Test Date: 2020-11-21 Pat Name: NORTH SCHAEFFER Department: Room: - Gender: Female Knee Bolter: DHARA : 1970 Requested By: Magaly Padgett Order Number: [id number] Reading MD: Magaly Padgett Measurements Intervals [place] Rate: 80 P: 39 DE: 150 QRS: -47 QRSD: 156 T: 6 QT: 450 QTc: 519 Interpretive Statements Normal sinus rhythm Right bundle branch block LAD Left anterior fascicular block Bifascicular block Nonspecific ST T wave changes cw 11/17/[address] T wave changes Electronically Signed on 11-21-2020 19:34:10 EDT by Magaly Padgett
[2020-11-21] MEDS: MEGESTROL 40 MG TAB PO SCH (21:23)
[2020-11-21] MEDS: LIDOCAINE 5% (LIDODERM) PATCH TD PRN (21:23)
[2020-11-21] MEDS: OMEPRAZOLE 20 MG CAP PO SCH (21:27)
[2020-11-21 21:53] LABS: CLOSTRIDIUM DIFFICILE PCR NEGATIVE (NEGATIVE)
[2020-11-21 22:00] VITALS: BP 102/50
[2020-11-21 22:55] LABS: CK-MB VALUE MASS 2.3 NG/ML (<3.6); MB/CK RELATIVE INDEX 0.5 (< OR =4); TROPONIN I 0.09 NG/ML (< 0.10)
--- NOTE | 2020-11-21 23:02 | REPVR ---
PROCEDURE INFORMATION: Exam: XR Right Foot Exam date and time: 11/21/2020 10:38 PM Age: 50 years old Clinical indication: Pain; Foot; Right; Additional info: Right big toe trauma pain redness TECHNIQUE: Imaging protocol: XR Right foot. Views: 1 or 2 views. COMPARISON: CR Foot, complete RIGHT 10/31/2020 4:53 PM FINDINGS: Bones/joints: Chronic neuro arthropathy changes of the midfoot. No change in alignment. Chronic lateral subluxation of the 2nd metatarsal base relative to the intermediate cuneiform. No acute fracture or osseous malalignment involving the great toe. Second through 5th rays demonstrate no fracture deformities. Forefoot joint spaces are maintained. Soft tissues: Diffuse soft tissue swelling involving the foot similar to the prior exam although less severe. No soft tissue defect or identifiable foreign body. IMPRESSION: No acute fracture involving the great toe. Extensive neuro arthropathy changes similar to the prior radiograph, and diffuse soft tissue swelling of the foot Electronically signed by: Dioni Young On 11/21/2020 23:02:21 PM
[2020-11-22] MEDS: LINEZOLID 600 MG in IV 1 EA IV SCH ×2 (05:57→16:11)
[2020-11-22] MEDS: ONDANSETRON 4MG/2ML VIAL IV SCH ×4 (05:57→17:27)
[2020-11-22 06:00] VITALS: BP 104/56
[2020-11-22 06:46] LABS: BASO % 0.1 % (0.0-1.0); LYMPH # 0.4 10^3/uL (1.5-5.0); LYMPH % 4.1 % (24.0-44.0); MEAN CORPUSCULAR HGB CONC 32.4 g/dl (32.0-36.5); MEAN CORPUSCULAR VOLUME 92.6 fl (80.0-96.0); MONO # 0.4 10^3/uL (0.0-0.8); MONO % 4.6 % (2.0-8.0); NEUTROPHILS # 7.9 10^3/uL (1.5-8.5); NEUTROPHILS % 90.5 % (36.0-66.0); PLATELET COUNT, AUTOMATED 112 10^3/uL (150-450); RED BLOOD COUNT 3.67 10^6/uL (4.00-5.40); WHITE BLOOD COUNT 8.7 10^3/uL (4.0-10.0)
[2020-11-22 07:23] LABS: ALBUMIN 2.6 GM/DL (3.2-5.2); BILIRUBIN,TOTAL 0.5 MG/DL (0.2-1.0); C REACTIVE PROTEIN QUANTITATIV 16.5 MG/DL (0.00-0.30); CALCIUM LEVEL 8.4 MG/DL (8.5-10.1); CREATININE FOR GFR 7.19 MG/DL (0.55-1.30); GLOMERULAR FILTRATION RATE 6.4 (>51); POTASSIUM SERUM 4.5 MEQ/L (3.5-5.1); TOTAL PROTEIN 6.1 GM/DL (6.4-8.2)
[2020-11-22 08:13] LABS: ERYTHROCYTE SEDIMENTATION RATE 63 mm/hr (0-30)
[2020-11-22] MEDS: SUCROFERRIC OXYHYDROXIDE 500MG CHEW TAB (VELPHORO) PO SCH ×3 (08:26→17:27)
[2020-11-22] MEDS: MEGESTROL 40 MG TAB PO SCH ×2 (08:26→22:07)
[2020-11-22] MEDS: **NOTE PATIENT COMMENT** MISC XX SCH ×2 (08:27→21:00)
[2020-11-22] MEDS: CALCIUM ACETATE 667MG GELCAP PO SCH ×3 (08:27→17:27)
[2020-11-22] MEDS ORDERED: MIDODRINE 5 MG TAB PO ONE (11:00)
[2020-11-22] MEDS: ACETAMINOPHEN 650MG ER TAB (TYLENOL ARTHRITIS) PO PRN ×2 (11:12→22:08)
--- NOTE | 2020-11-22 12:44 | IPN ---
PROGRESS NOTE DATE: 11/22/2020 SUBJECTIVE: Patient was seen and examined at the bedside today morning. She was dialyzed yesterday. She tolerated the hemodialysis procedure well. One liter of fluid was removed. She reports that she is feeling slightly better today as compared with yesterday. At the end of the treatment, one of the needles from the arteriovenous (AV) fistula dislodged, and she had some infiltration in the arm, so dialysis had to be stopped earlier. OBJECTIVE: Vital signs: Temperature is 97.3 degrees Fahrenheit, blood pressure 104/56, pulse is 81, respiratory rate of 18, saturating 96% on room air. Intake and output: Urine output is not recorded. Ultrafiltration with hemodialysis was 1 liter yesterday. Weight in the bed scale was 129 kg yesterday. PHYSICAL EXAMINATION: GENERAL: Patient is awake, alert, oriented times three, obese body habitus, lying in bed. HEAD AND NECK: Extraocular muscles are intact. Pupils equally round and reactive to light. Mucous membranes are moist. Neck is supple. There is no jugular venous distention (JVD). CARDIOVASCULAR: S1, S2, regular rate. No edema of the bilateral lower extremities. RESPIRATORY: Chest is clear to auscultation bilaterally. Bilateral equal air entry. No rales or rhonchi. ABDOMEN: Soft, obese. Positive bowel sounds. Nontender. No organomegaly. MUSCULOSKELETAL: Patient has left upper arm AV fistula with thrill and bruit, and there is a small hematoma and ecchymosis close to the AV fistula site. CENTRAL NERVOUS SYSTEM: No focal deficit. Power is 5/5 in all extremities. LABORATORY REVIEW: CBC showed a WBC 8.7, hemoglobin 11, platelets are 112. BMP showed sodium 136, potassium 4.5, chloride 103, bicarbonate 27, BUN 48, creatinine 7.1. C-reactive protein is 16.5. Procalcitonin is 40.23. Microbiology: One out of two blood cultures from yesterday is growing streptococcus group B. CURRENT INPATIENT MEDICATIONS: Patient's medications were all reviewed by myself. She continues to be on meropenem and Zyvox. No other significant change in the medications today as compared with yesterday. ASSESSMENT AND PLAN: 1. End-stage renal disease. Patient was dialyzed yesterday. AV fistula needle dislocated, so dialysis had to be terminated earlier; however, there is no urgent need of dialysis again today. Next dialysis will be done tomorrow morning. 2. Sepsis secondary to bacteremia. Patient has group G streptococcus bacteremia. Sensitivity results are not back. She is on Levaquin and Zyvox, which should adequately cover for infection. Leukocytosis is getting better. 3. Chronic kidney disease, mineral bone disease. Continue current dose of phosphorus binders. She is noncompliant with the binders as outpatient. 4. Chronic diastolic congestive heart failure. Patient's volume status is optimized with dialysis. She is currently not on any diuretics. 5. History of cancer (CA) endometrium. Patient is on Megace.
[2020-11-22] MEDS: LACTOBACILLUS ACIDOPHILUS CAP (BACID) PO SCH ×3 (13:01→22:07)
--- NOTE | 2020-11-22 13:37 | IPN ---
PROGRESS NOTE DATE: 11/22/2020 SUBJECTIVE: Patient at admission had a T-max of 101.7, but has been afebrile since. She had 1 episode of diarrhea yesterday; sample was not obtained and still pending. She denies any cough or shortness of breath this morning, felt well after dialysis yesterday after 1 liter had been removed. She continues to have some shortness of breath and lower extremity edema. She denies any nausea this morning. CT chest, abdomen and pelvis were unremarkable yesterday. Patient said her right foot is still swollen, but she says it usually improves with dialysis. No new changes of erythema, worsening tenderness or any drainage from her right fifth toe and her left posterior leg scabs. No other issues per nursing overnight. This morning she was found to be hypotensive, pressure of 88, given 1 dose of midodrine. She complains of back pain of which she was given lidocaine. RN has note decrease in the thrill over the left AV fistula or the upper fistula. Dr. Malave has been made aware. No other new complaints. OBJECTIVE: Vital signs: Temperature 97.3, pulse 81, respiratory rate 18, blood pressure 104/56, 96% on room air. General: Awake, alert, oriented to person, place and time, answering questions appropriately. Neck: No JVD, no thyromegaly, no cervical lymphadenopathy. Extremities: Left arm has an AV fistula without any tenderness or signs of thrombophlebitis. 2+ pitting edema to the sacrum. She has a well healed scab on the left posterior leg and the right fifth toe digit has a well healed scab as well with significant erythema, but with chronic venous stasis changes to bilateral lower extremities. Lungs: Clear, no wheezing or rales. Heart: S1 and S2 sinus. Abdomen: Obese, soft, nontender, nondistended. No CVA tenderness. LABORATORY DATA: CBC, metabolic panel, cardiac markers, CRP, ESR, BMP, thyroid function tests have all been reviewed. IMAGING STUDIES: Reviewed. ASSESSMENT: This 50 -year-old female with history of MSSA endocarditis with septic emboli in 2019, end-stage renal disease on maintenance dialysis Thursday, Thursday, Thursday, diastolic heart failure secondary to hypertension, obstructive sleep apnea, obesity, endometrial CA, anemia of chronic disease and chronic back pain and neuropathy presented to the Emergency Room complaining of feeling sick to her stomach and fever of 102 during dialysis, sent to the ER, was found to have a fever of 101.7, white count of 13,000, admitted for sepsis and fever or unknown origin. Patient had negative Coronavirus and respiratory panel. CT chest, abdomen and pelvis showed no acute infectious process, without pneumonia, abscess. She was previously seen for a right fifth toe traumatic injury on October 31, but there are no signs of acute cellulitis or abscess. ACTIVE ISSUES/PLAN: 1. Fever of unknown origin: Patient has been empirically given Zyvox due to history of VANCOMYCIN adverse effect with a rash as well as allergy to CEPHALOSPORIN. She has been put on meropenem both of which are renally dosed by pharmacy. We currently do not have a source of infection. Her lower extremities bilaterally does not show any signs of acute cellulitic changes. Left upper arm AV fistula does not show any thrombophlebitis. Blood cultures have been sent. I will defer to Dr. Marlene Buitrago for deescalation of antibiotics. She has remained afebrile since antibiotics have been started with a normal white count this morning. CRP and sedimentation rate are being monitored. 2. Diarrhea: GI panel is pending. 3. End-stage renal disease: On maintenance dialysis. W[employer] Mender has been consulted for dialysis needs. 4. History of diastolic heart failure: Appears to be compensated. Usually managed with dialysis. 5. Obesity, BMI 53.7 with probable obstructive sleep apnea: CHERYL protocol. 6. Chronic back pain: Is on Lidoderm patch. 7. History of endometrial cancer: Patient does not remember what she takes for this and wanted us to contact her medical oncologist. 8. Obstructive sleep apnea: CPAP protocol.
[2020-11-22 14:00] VITALS: BP 92/60
[2020-11-22] MEDS: MEROPENEM INJ 500 MG in IV 1 EA IV SCH (15:38)
[2020-11-22] MEDS: MEGESTROL ES SUSP 625MG 5ML ORAL SYRINGE PO SCH (15:39)
--- NOTE | 2020-11-22 19:12 | CR ---
CONSULTATION DATE: 11/22/2020 REASON FOR CONSULTATION: I was asked to consult by Dr. Lopez for evaluation of group G Strep bacteremia in a patient with end-stage renal disease, admitted with a fever. 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 The patient denied any dysuria, hematuria, flank pain. She had a chronic cough which is not productive. She was complaining of a headache and had one episode of diarrhea which was nonbloody. The patient had dialysis, had a temperature of 102. She denied any neck stiffness, blurry vision. She had a white count of 13,000. The abdominal pain was mostly in the epigastric area. She denied any sick contacts. PAST MEDICAL HISTORY: 1. MSSA endocarditis with septic emboli, treated with cefazolin in November of 2018 even though she claimed that she was penicillin and cephalosporin allergic. 2. End-stage renal disease on hemodialysis. 3. Left arm AV fistula. 4. Morbid obesity with BMI of 53. 5. Chronic back pain. 6. Anemia of chronic disease. 7. Endometrial carcinoma. The patient states she needs to be back on hormones that she has not been taking. 8. Obstructive sleep apnea. 9. Congestive heart failure. 10. Diastolic dysfunction due to hypertensive heart disease and major depression. PAST SURGICAL HISTORY: 1. D&C with hysterectomy. 2. Cholecystectomy. 3. Multiple failed AV grafts of bilateral upper extremities. 4. Left thigh clotting. 5. Hernia repair. 6. Tubal ligation. 7. . 8. Tonsillectomy. 9. Right ankle surgery Open reduction and internal fixation. 10. Left knee arthroscopy. 11. Right ring finger amputation from nonhealing ulcer and left fifth toe amputation. SOCIAL HISTORY: She does not smoke or drink. She uses marijuana. She lives in [place] with her cats. FAMILY HISTORY: Diabetes and pulmonary embolism. ALLERGIES: CEPHALOSPORINS, NSAIDS, IBUPROFEN, IRON, PENICILLIN. LABORATORY DATA: White count on admission was 13.1, currently 8.7, hemoglobin 11, hematocrit 34, platelets 112, 90% neutrophils, 4% lymphocytes, 4% lymphocytes, ESR 63. Sodium 136, potassium 4.5, chloride 103, bicarbonate 27, BUN 48, creatinine 7.1, glucose 114, calcium 8.4. Bilirubin was 1.2, down to 0.5, alk phos 231, down to 177, CPK 428, AST 24, ALT 21, CRP 16.5. Total protein 6.1, albumin 2.6, TSH 1.25, T4 9.4. Blood culture one out of two sets done on admission, 11/21 was positive group G Strep. GI panel was negative. Repeat cultures from 11/22 are pending. Respiratory panel was negative. IMAGING: Foot x-ray, right foot on 11/21 shows extensive new arthropathy and diffuse soft tissue swelling of the foot. Chronic lateral subluxation of the second metatarsal base, no acute fracture, CT of the abdomen and pelvis, 11/21 shows chronic changes with moderate splenomegaly, bilateral severe renal atrophy, renal osteodystrophy and no acute abnormalities, no free air, no abscess. Chest CT: No infiltrate, sees cardiomegaly, hiatus hernia, splenomegaly and scoliosis. PHYSICAL EXAMINATION: General: She is a pleasant, morbidly obese female sitting at her chair in no acute distress. Heart: Normal S1, S2, with a systolic ejection murmur heard at the left upper sternal border. Lungs: Clear. No wheezes, rales or rhonchi. Abdomen: Morbidly obese, soft, nontender, no evidence of abdominal wall cellulitis. Extremities: Left arm has a functioning AV fistula with multiple ecchymosis around it. She has some skin abrasion on the left forearm with multiple scabs. Right arm has another AV fistula that is not functioning. Sacrum was +2 pitting edema. Lower extremities were +1 pitting edema. Right fifth toe has a healed scab with erythema. The anterior ankle has mild erythema and the right anterior tam. She has a healed scar at the ankle from previous fracture. Left leg: No erythema. MSK right ring finger amutaion with residual stump, Right 5 th toe ulcer 1 cm min erythema Neurologic: Alert and oriented x3 Motor strength is relative normal. IMPRESSION: This is a 50-year-old female admitted with fever, rigors and has group G Strep bacteremia. Patient has a history of end-stage renal disease, gets dialysis through an AV fistula in the left arm. Source of group G Strep bacteremia is most likely skin although GI is also another possibility. She has multiple areas of skin breakdown in her forearms and her legs. She could have mild cellulitis of right lower extremity where she has had an open reduction and internal fixation and she states is a little more painful lately. Another source of infection could be GI or . CT abdomen and pelvis and chest are pretty benign except for moderate splenomegaly which makes it concerning that she may have liver cirrhosis. MEDICATIONS: 1. IV meropenem 500 mg q.24 hours. 2. Linezolid 600 mg IV q.12 hours. 3. Albuterol and Atrovent nebs p.r.n. 4. Velphoro 1000 mg p.o. with meals. 5. Megace 80 mg p.o. b.i.d. 6. Omeprazole 20 mg p.o. q.h.s. 7. Tylenol p.r.n. PLAN: Discontinue IV Linezolid, continue with meropenem 500 mg q.24 hours. Call nephrology and check if the patient was able to finish her cefazolin on her previous hospitalization and follow-up of treatment of endocarditis that she received in 2019 without any side effect and if she tolerated it well, she should be switched back to cefazolin to finish her treatment instead of meropenem. Please schedule echocardiogram to make sure she does not have endocarditis. Use moisturizer cream on her upper extremities and lower extremities to avoid skin breakdown, itching and causing bacteremia. MTDD
[2020-11-22 21:00] VITALS: BP 120/70
[2020-11-22] MEDS: OMEPRAZOLE 20 MG CAP PO SCH (22:07)
[2020-11-23] MEDS: ONDANSETRON 4MG/2ML VIAL IV SCH ×5 (00:44→23:56)
[2020-11-23] MEDS: LIDOCAINE 5% (LIDODERM) PATCH TD PRN (05:57)
[2020-11-23] MEDS: SUCROFERRIC OXYHYDROXIDE 500MG CHEW TAB (VELPHORO) PO SCH ×3 (05:59→18:22)
[2020-11-23] MEDS: LACTOBACILLUS ACIDOPHILUS CAP (BACID) PO SCH ×4 (05:59→21:47)
[2020-11-23] MEDS: MEGESTROL ES SUSP 625MG 5ML ORAL SYRINGE PO SCH (06:00)
[2020-11-23] MEDS: MEGESTROL 40 MG TAB PO SCH ×2 (06:00→21:47)
[2020-11-23] MEDS ORDERED: LIDOCAINE 1% SDV 5ML VIAL SC PRN (06:00)
[2020-11-23] MEDS: CALCIUM ACETATE 667MG GELCAP PO SCH ×3 (06:01→18:22)
[2020-11-23 06:29] VITALS: BP 117/69
[2020-11-23 06:57] LABS: BASO % 0.2 % (0.0-1.0); EOS % 0.2 % (0.0-3.0); HEMATOCRIT 32.5 % (36.0-47.0); HEMOGLOBIN 10.3 g/dl (12.0-15.5); LYMPH # 0.8 10^3/uL (1.5-5.0); LYMPH % 14.3 % (24.0-44.0); MEAN CORPUSCULAR HEMOGLOBIN 29.6 pg (27.0-33.0); MEAN CORPUSCULAR HGB CONC 31.7 g/dl (32.0-36.5); MEAN CORPUSCULAR VOLUME 93.4 fl (80.0-96.0); MONO # 0.4 10^3/uL (0.0-0.8); NEUTROPHILS % 76.9 % (36.0-66.0); PLATELET COUNT, AUTOMATED 103 10^3/uL (150-450); RED BLOOD COUNT 3.48 10^6/uL (4.00-5.40); WHITE BLOOD COUNT 5.2 10^3/uL (4.0-10.0)
[2020-11-23 07:22] LABS: ALBUMIN 2.6 GM/DL (3.2-5.2); BILIRUBIN,TOTAL 0.4 MG/DL (0.2-1.0); CALCIUM LEVEL 7.8 MG/DL (8.5-10.1); CREATININE FOR GFR 8.7 MG/DL (0.55-1.30); GLOMERULAR FILTRATION RATE 5.1 (>51); POTASSIUM SERUM 4.5 MEQ/L (3.5-5.1); TOTAL PROTEIN 5.9 GM/DL (6.4-8.2)
[2020-11-23] MEDS: **NOTE PATIENT COMMENT** MISC XX SCH ×2 (08:52→21:48)
[2020-11-23] MEDS: ACETAMINOPHEN 650MG ER TAB (TYLENOL ARTHRITIS) PO PRN ×2 (09:56→18:22)
[2020-11-23] MEDS ORDERED: DARBEPOETIN 200MCG/0.4ML *DIALYSIS* SYRINGE (J0882 PER 1MCG) IV SCH (10:00)
--- NOTE | 2020-11-23 10:44 | IPNPDOC ---
Date Seen The patient was seen on 11/23/20. Progress Note SUBJECTIVE:c/o tinnitus w/o vertigo, h/a, chills, fever, n/v/d/abd pain. denies sob/cp. OBJECTIVE: vitals: see below General: Awake, alert, oriented to person, place and time, answering questions appropriately. no distsress no cyanosis Neck: No JVD, no thyromegaly, no cervical lymphadenopathy. Lungs: Clear, no wheezing or rales. AEBE Heart: S1 and S2 sinus.no carotid bruit abd: obese +bs x 4quadrants nt nd no cva tenderness Extremities: Left arm has an AV fistula without any tenderness or signs of thrombophlebitis. 2+ pitting edema to the sacrum. She has a well healed scab on the left posterior leg and the right fifth toe digit has a well healed scab as well with significant erythema, but with chronic venous stasis changes to bilateral lower extremities. Abdomen: Obese, soft, nontender, nondistended. No CVA tenderness. LABORATORY DATA: /MICRO : reviewed IMAGING STUDIES: Reviewed. ASSESSMENT: This 50 -year-old female with history of MSSA endocarditis with septic emboli in 2019, end-stage renal disease on maintenance dialysis Thursday, Thursday, Thursday, diastolic heart failure secondary to hypertension, obstructive sleep apnea, obesity, endometrial CA, anemia of chronic disease and chronic back pain and neuropathy presented to the Emergency Room complaining of feeling sick to her stomach and fever of 102 during dialysis, sent to the ER, was found to have a fever of 101.7, white count of 13,000, admitted for sepsis and fever or unknown origin. Patient had negative Coronavirus and respiratory panel. CT chest, abdomen and pelvis showed no acute infectious process, without pneumonia, abscess. She was previously seen for a right fifth toe traumatic injury on October 31, but there are no signs of acute cellulitis or abscess. ACTIVE ISSUES/PLAN: 1. Fever of unknown origin: blood cx: grp g strep. s/p zyvox. still on meropenem. per ID, no AE w cefazolin, and may use cefazolin x14 days during dialysis to be arranged by nephrology. afebrile since admission covid neg. resp neg. ct chest/abd neg. awaiting echo. 2. Diarrhea.on admission day 1, resolved. : GI panel neg 3. End-stage renal disease: On maintenance dialysis. Golf Teacher has been consulted for dialysis needs. 4. History of diastolic heart failure: Appears to be compensated. Usually managed with dialysis. 5. Obesity, BMI 53.7 with probable obstructive sleep apnea: CHERYL protocol. 6. Chronic back pain: Is on Lidoderm patch. 7. History of endometrial cancer: 8. Obstructive sleep apnea: CPAP protocol. dispo: dc home after echo report available. thursday. VS, I&O, 24H, Fishbone Vital Signs/I&O Vital Signs Date Time Temp Pulse Resp B/P (MAP) Pulse Ox O2 Delivery O2 Flow Rate FiO2 11/23/20 06:29 97.5 56 18 117/69 (85) 96 Room Air 11/21/20 09:15 2.0 I&O- Last 24 Hours up to 6 AM 11/23/20 05:59 Intake Total 1725 ml Output Total 0 ml Balance 1725 ml Laboratory Data 24H LABS Laboratory Tests 2 11/23/20 05:52: Immature Granulocyte % (Auto) 0.4, Neutrophils (%) (Auto) 76.9H, Lymphocytes (%) (Auto) 14.3L, Monocytes (%) (Auto) 8.0, Eosinophils (%) (Auto) 0.2, Basophils (%) (Auto) 0.2, Neutrophils # (Auto) 4.0, Lymphocytes # (Auto) 0.8L, Monocytes # (Auto) 0.4, Eosinophils # (Auto) 0.0, Basophils # (Auto) 0.0, Nucleated Red Blood Cells % (auto) 0.0, Anion Gap 9, Glomerular Filtration Rate 5.1L, Calcium Level 7.8L, Total Bilirubin 0.4, Aspartate Amino Transf (AST/SGOT) 22, Alanine Aminotransferase (ALT/SGPT) 24, Alkaline Phosphatase 156H, Total Protein 5.9L, Albumin 2.6L, Albumin/Globulin Ratio 0.8L CBC/BMP Laboratory Tests 11/23/20 05:52 Microbiology Microbiology 11/22/20 Blood Culture - Preliminary, Resulted No growth after 24 hours . All specim... 11/22/20 Blood Culture - Preliminary, Resulted No growth after 24 hours . All specim... 11/21/20 Gastrointestinal Tract Panel (PCR) - Final, Complete 11/21/20 Blood Culture - Preliminary, Resulted No Growth after 48 hours. All Specime... 11/21/20 Blood Culture - Final, Complete Streptococcus Group G 11/21/20 Respiratory Virus Panel (PCR) ([facility]OUIE) - Final, Complete RICHA NÚÑEZ MD Nov 23, 2020 10:44
--- NOTE | 2020-11-23 10:50 | IPN ---
PROGRESS NOTE DATE: 11/23/2020 SUBJECTIVE: The patient was seen and examined at the bedside today morning during hemodialysis. She is tolerating the hemodialysis procedure well. She is just complaining of back pain and muscle aches and pains. She denies any fever or chills. OBJECTIVE: VITAL SIGNS: Temperature 97.5 degrees Fahrenheit, blood pressure 117/69, pulse 56, respiratory rate 18, saturating 96% on room air. INTAKE/OUTPUT: No urine output recorded. Weight in the bed scale is not recorded. GENERAL: Patient is awake, alert, oriented x3, morbidly obese, lying in bed in no apparent distress. HEAD/NECK: Extraocular muscles intact. Pupils equally round and reactive to light. Mucous membranes are moist. Neck is supple. There is no JVD. CVS: S1, S2, regular rate. Trace edema of the bilateral lower extremities. RESPIRATORY: Chest is clear to auscultation bilaterally. Bilateral equal air entry. No rales or rhonchi. ABDOMEN: Soft, positive bowel sounds, nontender. No organomegaly. MUSCULOSKELETAL: She has a left upper arm AV fistula which is being used for dialysis. AREA CLEANER: No focal deficit. Power is 5/5 in all extremities. LABORATORY DATA: CBC showed WBC 5.2, hemoglobin 10.3, platelets 103,000. BMP showed sodium 134, potassium 4.5, chloride 101, bicarb 24, BUN 71, creatinine 8.7. Albumin 2.6. MICROBIOLOGY: One out of two blood cultures is growing Streptococcus Group G. CURRENT INPATIENT MEDICATIONS: Patient's medications were all reviewed by myself. I.V. Zyvox has been stopped. She continues to be on Meropenem I.V. No other significant change in the medications today as compared with yesterday. ASSESSMENT AND PLAN: 1. End-stage renal disease: The patient is being dialyzed according to her regular schedule. The ultrafiltration goal will be 3 liters as tolerated by her blood pressure. 2. Streptococcus Group G bacteremia: Patient is currently on I.V. Meropenem, she was seen by infectious disease. They recommended getting an echocardiogram and switching her to Cefazolin with dialysis. 3. Chronic diastolic congestive heart failure: Volume status is optimized with dialysis. 4. Anemia and end-stage renal disease: Hemoglobin has dropped to 10.3, she is being started on Aranesp with dialysis. 5. Chronic kidney disease/mineral bone disease: Continue current dose of PhosLo and Velphoro. 6. Carcinoma of the endometrium: The patient is currently on Megace.
[2020-11-23 14:00] VITALS: BP 114/69
--- NOTE | 2020-11-23 16:16 | IPN ---
PROGRESS NOTE DATE: 11/23/2020 Anusha has no complaints today. She has no nausea, vomiting, diarrhea, abdominal pain, fever, or chills. She does not have any complaints of significant pain except in suprapubic area around her groin. Appetite is good. LABORATORY DATA: White count is 5.2, hemoglobin 10.3. Hematocrit 32.5, platelets 103, 77% neutrophils, 14% lymphocytes, 8% monocytes. ESR 63. Sodium 134, potassium 4.5, chloride 101, bicarbonate 24, BUN 71, creatinine 8.7. AST 22, ALT 24, alkaline phosphatase 156, total protein 5.9, albumin 2.6. Blood cultures one out of two sets on November 21 was positive for group G streptococcus, and two out of two sets on November 22 are negative. PHYSICAL EXAMINATION: Temperature is 97.6, pulse 54, respirations 18, blood pressure 114/69, oxygen saturation 95% on room air. HEART: Normal S1, S2 with systolic ejection murmur 1/6 at the left upper sternal border. LUNGS: Clear. No wheezes, rales, or rhonchi. ABDOMEN: Morbidly obese, soft, nontender with a very large pannus. There is no evidence of panniculitis. EXTREMITIES: Trace ankle edema. Left upper arm arteriovenous (AV) fistula is used for dialysis. Does not have any evidence of infection. She has multiple scabs on her forearm on the left side. Lower extremities also have some scabs. Right ankle surgical scar well healed. Patient moves both ankles pretty well. Right 5th toe has a small ulceration measuring about 1 cm with minimal tenderness. No purulence. IMPRESSION: 1-Group G streptococcus bacteremia, on intravenous (IV) meropenem. The patient will be switched to cefazolin with dialysis to finish a 2-week treatment with a dose of 2 grams, 2 grams, and 3 grams over the weekend. She will have an echocardiogram. Most likely the source of bacteremia was of skin origin. Could have been from some open ulceration or from Rt leg. Endocarditis is very unlikely with quick resolution of her symptoms and only one positive blood culture. I would not recommend 6 weeks of therapy. 2. End-stage renal disease, being dialyzed Thursday, Thursday, Thursday, and Dr. Malave has agreed to finish her treatment as an outpatient. 3. Multiple skin excoriations, dry skin. Would recommend using moisturizer. PLAN: Discontinue IV meropenem. Switch to cefazolin, 2 grams, 2 grams, 3 grams with dialysis as an outpatient. MTDD
[2020-11-23] MEDS: MEROPENEM INJ 500 MG in IV 1 EA IV SCH (16:25)
[2020-11-23] MEDS: VANICREAM MOISTURIZING SKIN CREAM 113GM TUBE TOP SCH (18:22)
--- NOTE | 2020-11-23 20:35 | REPVR ---
PROCEDURE INFORMATION: Exam: US Duplex Lower Extremity Veins, Bilateral Exam date and time: 11/23/2020 8:19 PM Age: 50 years old Clinical indication: Edema, localized; Lower extremity, bilateral; Additional info: Edema R/O dvt TECHNIQUE: Imaging protocol: Real-time duplex ultrasound of the extremities with 2-D camp scale, color Doppler flow and spectral waveform analysis with image documentation. Complete exam focused on the bilateral lower extremity veins. COMPARISON: US Duplex, Ext LOWER veins, bilat 10/31/2020 7:09 PM FINDINGS: Right deep veins: Unremarkable. The common femoral, femoral and popliteal veins are patent without thrombus. Normal Doppler waveforms. Normal compressibility and/or augmentation response. Right superficial veins: Saphenofemoral junction is patent without thrombus. Left deep veins: Unremarkable. The common femoral, femoral and popliteal veins are patent without thrombus. Normal Doppler waveforms. Normal compressibility and/or augmentation response. Left superficial veins: Saphenofemoral junction is patent without thrombus. Soft tissues: 4.6 x 2.2 x 4.7 cm right popliteal cyst. 5.3 x 6.6 x 2.7 cm left popliteal cyst. IMPRESSION: 1. No sonographic evidence of deep vein thrombosis. 2. Bilateral popliteal cysts, as described above. Electronically signed by: Deandre Marroquin On 11/23/2020 20:34:42 PM
[2020-11-23] MEDS: OMEPRAZOLE 20 MG CAP PO SCH (21:47)
[2020-11-23] MEDS: ANALGESIC BALM CRM 3OZ TOP SCH (21:48)
[2020-11-23 22:00] VITALS: BP 108/52
[2020-11-24 06:00] VITALS: BP 133/64
[2020-11-24 06:05] LABS: BASO % 0.2 % (0.0-1.0); EOS % 0.2 % (0.0-3.0); HEMATOCRIT 34.9 % (36.0-47.0); HEMOGLOBIN 11.1 g/dl (12.0-15.5); LYMPH # 0.8 10^3/uL (1.5-5.0); LYMPH % 16.6 % (24.0-44.0); MEAN CORPUSCULAR HEMOGLOBIN 29.9 pg (27.0-33.0); MEAN CORPUSCULAR HGB CONC 31.8 g/dl (32.0-36.5); MEAN CORPUSCULAR VOLUME 94.1 fl (80.0-96.0); MONO # 0.4 10^3/uL (0.0-0.8); MONO % 9.3 % (2.0-8.0); NEUTROPHILS # 3.4 10^3/uL (1.5-8.5); NEUTROPHILS % 73.3 % (36.0-66.0); PLATELET COUNT, AUTOMATED 111 10^3/uL (150-450); RED BLOOD COUNT 3.71 10^6/uL (4.00-5.40); WHITE BLOOD COUNT 4.6 10^3/uL (4.0-10.0)
[2020-11-24] MEDS: ONDANSETRON 4MG/2ML VIAL IV SCH ×3 (06:12→18:13)
[2020-11-24 06:41] LABS: ALBUMIN 2.7 GM/DL (3.2-5.2); BILIRUBIN,TOTAL 0.5 MG/DL (0.2-1.0); CALCIUM LEVEL 8.3 MG/DL (8.5-10.1); CREATININE FOR GFR 5.84 MG/DL (0.55-1.30); GLOMERULAR FILTRATION RATE 8.1 (>51)
[2020-11-24] MEDS: MEGESTROL ES SUSP 625MG 5ML ORAL SYRINGE PO SCH (09:03)
[2020-11-24] MEDS: SUCROFERRIC OXYHYDROXIDE 500MG CHEW TAB (VELPHORO) PO SCH ×3 (09:03→18:09)
[2020-11-24] MEDS: LACTOBACILLUS ACIDOPHILUS CAP (BACID) PO SCH ×4 (09:03→21:14)
[2020-11-24] MEDS: ANALGESIC BALM CRM 3OZ TOP SCH ×4 (09:04→21:15)
[2020-11-24] MEDS: PERCOCET 5MG/325MG TAB PO SCH ×3 (09:04→21:14)
[2020-11-24] MEDS: VANICREAM MOISTURIZING SKIN CREAM 113GM TUBE TOP SCH (09:04)
[2020-11-24] MEDS: MEGESTROL 40 MG TAB PO SCH ×2 (09:04→21:14)
[2020-11-24] MEDS: **NOTE PATIENT COMMENT** MISC XX SCH ×2 (09:05→21:00)
[2020-11-24] MEDS: CALCIUM ACETATE 667MG GELCAP PO SCH ×3 (09:05→18:09)
--- NOTE | 2020-11-24 10:42 | IPNPDOC ---
Date Seen The patient was seen on 11/24/20. Progress Note SUBJECTIVE: c/o b/l posterior knee swelling and pain since admission. dopplers: b/l popliteal cysts. no fever or chills. ortho-dr coelho recommends no inpt consult, elevate LE, pain meds, and outpt fu. OBJECTIVE: vitals: see below General: no distress. answers appropriately no use of resp acc mm Neck: No JVD, no thyromegaly, no cervical lymphadenopathy. Lungs: Clear, no wheezing or rales. AEBE Heart: S1 and S2 sinus.no carotid bruit abd: obese +bs x 4quadrants nt nd no cva tenderness Extremities: Left arm has an AV fistula without any tenderness or signs of thrombophlebitis. 2+ pitting edema to the sacrum. She has a well healed scab on the left posterior leg and the right fifth toe digit has a well healed scab as well with significant erythema, but with chronic venous stasis changes to bilateral lower extremities. b/l LE edema w tender posterior knees b/l Abdomen: Obese, soft, nontender, nondistended. No CVA tenderness. LABORATORY DATA: /MICRO : reviewed IMAGING STUDIES: Reviewed. ASSESSMENT: This 50 -year-old female with history of MSSA endocarditis with septic emboli in 2019, end-stage renal disease on maintenance dialysis Thursday, Thursday, Thursday, diastolic heart failure secondary to hypertension, obstructive sleep apnea, obesity, endometrial CA, anemia of chronic disease and chronic back pain and neuropathy presented to the Emergency Room complaining of feeling sick to her stomach and fever of 102 during dialysis, sent to the ER, was found to have a fever of 101.7, white count of 13,000, admitted for sepsis and fever or unknown origin. Patient had negative Coronavirus and respiratory panel. CT chest, abdomen and pelvis showed no acute infectious process, without pneumonia, abscess. She was previously seen for a right fifth toe traumatic injury on October 31, but there are no signs of acute cellulitis or abscess. ACTIVE ISSUES/PLAN: 1. strep bacteremia. s/p zyvox. s/p meropenem. per ID, no AE w cefazolin, and may use cefazolin x14 days during dialysis 2g-2g-3g arranged by nephrology. afebrile since admission covid neg. resp neg. ct chest/abd neg. echo-no vegetations 2. Diarrhea.on admission day 1, resolved. : GI panel neg 3. End-stage renal disease: On maintenance dialysis. [employer] has been consulted for dialysis needs. 4. History of diastolic heart failure: Appears to be compensated. Usually managed with dialysis. 5. Obesity, BMI 53.7 with probable obstructive sleep apnea: CHERYL protocol. 6. Chronic back pain: Is on Lidoderm patch. 7. History of endometrial cancer: 8. Obstructive sleep apnea: CPAP protocol. 9. B/L popliteal cysts no dvt on us doppler:elevate pain meds outpt fu w ortho per Dr. Katlin burnett race relations adviser. disposition: once pain is controlled, dc home. outpt cefazolin on dialysis days. VS, I&O, 24H, Fishbone Vital Signs/I&O Vital Signs Date Time Temp Pulse Resp B/P (MAP) Pulse Ox O2 Delivery O2 Flow Rate FiO2 11/24/20 09:04 18 11/24/20 06:00 97.6 60 133/64 (87) 100 Room Air 11/21/20 09:15 2.0 I&O- Last 24 Hours up to 6 AM 11/24/20 06:00 Intake Total 1000 ml Output Total 3000 ml Balance -2000 ml Laboratory Data 24H LABS Laboratory Tests 2 11/24/20 05:40: Immature Granulocyte % (Auto) 0.4, Neutrophils (%) (Auto) 73.3H, Lymphocytes (%) (Auto) 16.6L, Monocytes (%) (Auto) 9.3H, Eosinophils (%) (Auto) 0.2, Basophils (%) (Auto) 0.2, Neutrophils # (Auto) 3.4, Lymphocytes # (Auto) 0.8L, Monocytes # (Auto) 0.4, Eosinophils # (Auto) 0.0, Basophils # (Auto) 0.0, Nucleated Red Blood Cells % (auto) 0.0, Anion Gap 7L, Glomerular Filtration Rate 8.1L, Calcium Level 8.3L, Total Bilirubin 0.5, Aspartate Amino Transf (AST/SGOT) 18, Alanine Aminotransferase (ALT/SGPT) 20, Alkaline Phosphatase 153H, Total Protein 6.0L, Albumin 2.7L, Albumin/Globulin Ratio 0.8L CBC/BMP Laboratory Tests 11/24/20 05:40 Microbiology Microbiology 11/22/20 Blood Culture - Preliminary, Resulted No Growth after 48 hours. All Specime... 11/22/20 Blood Culture - Preliminary, Resulted No Growth after 48 hours. All Specime... 11/21/20 Gastrointestinal Tract Panel (PCR) - Final, Complete 11/21/20 Blood Culture - Preliminary, Resulted No Growth after 72 hours. All specime... 11/21/20 Blood Culture - Final, Complete Streptococcus Group G 11/21/20 Respiratory Virus Panel (PCR) ([facility]) - Final, Complete RICHA NÚÑEZ MD Nov 24, 2020 10:39
[2020-11-24 14:00] VITALS: BP 98/53
[2020-11-24] MEDS: MEROPENEM INJ 500 MG in IV 1 EA IV SCH (18:08)
--- NOTE | 2020-11-24 19:27 | ECHO ---
ECHOCARDIOGRAM DATE OF PROCEDURE: 11/23/2020 Age: 50 Gender: Female Height: 155 cm Weight: 129 kg PATIENT LOCATION: Room 4205. REFERRING PROVIDER: Agnieszka Lopez M.D. REASON FOR THE TESTING: Fever. MEASUREMENTS: 2D Measurements: IVS 1.2 cm LV 5.3 cm LVPW 1.2 cm LA 4.5 cm Aorta 3.3 cm IVC 1.1 cm Doppler Measurements: Peak velocity across the aortic valve 2.1 m/sec Peak velocity across the LVOT 1.7 m/sec Peak gradient across the aortic valve 19 mmHg Mean gradient across the aortic valve 10 mmHg Mitral E 1.1 Mitral A 1.1 with a ratio of 1.0 Peak gradient across the mitral valve 7 mmHg Mean gradient across the mitral valve 13 mmHg Maximum tricuspid valve velocity 3.3 m/sec 2D COMMENTS: 1. Normal left ventricular size, wall thickness and normal global left ventricular systolic function. The estimated left ventricular systolic ejection fraction is 60-65%. 2. Mildly enlarged left atrium. The right atrium and the right ventricle appear to be normal in size in limited views. 3. Normal aortic root. 4. The atrial septum appeared to be normal without evidence of defect or shunt. 5. No pericardial effusion seen. 6. Mildly calcified aortic valve with mildly restricted leaflet motion. Moderately calcified mitral annulus with normal anterior mitral valve leaflet motion. Normal tricuspid valve. The pulmonic valve and proximal pulmonary artery branches were not well visualized. 7. The inferior vena cava was normal in size. Central venous pressure was most likely normal. DOPPLER: It detects mild mitral regurgitation and mild tricuspid regurgitation. The calculated pulmonary artery systolic pressure varies between 40-50 mmHg. Assessment of the left ventricular diastolic function was limited in view of the moderate mitral annulus calcification. IMPRESSION: 1. Normal global left ventricular systolic function. Assessment of the left ventricular diastolic function was unconclusive. 2. Aortic valve sclerosis with mild aortic stenosis but no aortic regurgitation. 3. Mild calcific mitral stenosis with mild mitral regurgitation and a mildly enlarged right atrium. 4. Mild tricuspid regurgitation with probably moderate pulmonary hypertension. 5. If endocarditis is a concern, I recommend to proceed with a transesophageal echocardiogram.
[2020-11-24] MEDS: OMEPRAZOLE 20 MG CAP PO SCH (21:14)
[2020-11-24 22:00] VITALS: BP 132/62
[2020-11-25] MEDS: ONDANSETRON 4MG/2ML VIAL IV SCH ×4 (00:18→18:47)
[2020-11-25 06:00] VITALS: BP 138/67
[2020-11-25 06:30] LABS: BASO % 0.2 % (0.0-1.0); EOS % 0.2 % (0.0-3.0); HEMATOCRIT 37.7 % (36.0-47.0); HEMOGLOBIN 11.9 g/dl (12.0-15.5); LYMPH # 1.1 10^3/uL (1.5-5.0); LYMPH % 19.9 % (24.0-44.0); MEAN CORPUSCULAR HGB CONC 31.6 g/dl (32.0-36.5); MONO # 0.5 10^3/uL (0.0-0.8); NEUTROPHILS # 3.8 10^3/uL (1.5-8.5); PLATELET COUNT, AUTOMATED 110 10^3/uL (150-450); RED BLOOD COUNT 3.97 10^6/uL (4.00-5.40); WHITE BLOOD COUNT 5.4 10^3/uL (4.0-10.0)
[2020-11-25 06:42] LABS: ALBUMIN 2.7 GM/DL (3.2-5.2); BILIRUBIN,TOTAL 0.4 MG/DL (0.2-1.0); CALCIUM LEVEL 9.1 MG/DL (8.5-10.1); CREATININE FOR GFR 7.54 MG/DL (0.55-1.30); POTASSIUM SERUM 4.8 MEQ/L (3.5-5.1); TOTAL PROTEIN 6.2 GM/DL (6.4-8.2)
[2020-11-25] MEDS ORDERED: PERCOCET 5MG/325MG TAB PO PRN (09:55)
[2020-11-25] MEDS ORDERED: PERCOCET 5MG/325MG TAB PO ONE (09:55)
[2020-11-25] MEDS: SUCROFERRIC OXYHYDROXIDE 500MG CHEW TAB (VELPHORO) PO SCH ×3 (10:29→18:47)
[2020-11-25] MEDS: CALCIUM ACETATE 667MG GELCAP PO SCH ×3 (10:30→18:47)
[2020-11-25] MEDS: VANICREAM MOISTURIZING SKIN CREAM 113GM TUBE TOP SCH (10:30)
[2020-11-25] MEDS: MEGESTROL ES SUSP 625MG 5ML ORAL SYRINGE PO SCH (10:30)
[2020-11-25] MEDS: MEGESTROL 40 MG TAB PO SCH ×2 (10:30→20:18)
[2020-11-25] MEDS: **NOTE PATIENT COMMENT** MISC XX SCH ×2 (10:31→20:20)
[2020-11-25] MEDS: LACTOBACILLUS ACIDOPHILUS CAP (BACID) PO SCH ×4 (10:31→20:18)
[2020-11-25] MEDS: ANALGESIC BALM CRM 3OZ TOP SCH ×4 (10:31→20:19)
[2020-11-25 14:00] VITALS: BP 103/57
--- NOTE | 2020-11-25 15:38 | REP ---
INDICATION: pain, bacteremia. COMPARISON: None. TECHNIQUE: Four views the right knee were obtained. FINDINGS: There is diffuse osteopenia of the bones about the right knee. There is a large calcification in the patellar tendon consistent with remote injury. There is no evidence of acute fracture or dislocation. There is no significant arthropathy. There is no knee joint effusion. The periarticular soft tissues are unremarkable. IMPRESSION: 1. No evidence of fracture, significant arthropathy or joint effusion. 2. Evidence of remote injury to the patellar tendon. 3. Osteopenia. <Electronically signed by Travis Garcia > 11/25/20 [id number]
--- NOTE | 2020-11-25 15:40 | IPN ---
NEPHROLOGY PROGRESS NOTE DATE: 11/25/2020 SUBJECTIVE: Ms. Gil is seen in the morning on her bedside. She is sitting in the chair at the time of my visit. She has a complaint of pain in her right lower leg. She denies any dyspnea or chest pain. She has no fever or chills. She did have positive blood culture for group B Streptococcus and is currently being treated with intravenous meropenem. She has reported allergy to vancomycin and nafcillin. She is waiting for a transesophageal endocardiogram to rule out any possibility of endocarditis. PHYSICAL EXAMINATION: VITAL SIGNS: Temperature 97.6 degrees Fahrenheit, heart rate 60 per minute, respiratory rate 18 per minute, blood pressure 113/64 mmHg, oxygen saturation 100% on room air. HEAD: Atraumatic. Patient is edentulous and without any thrush or ulcers. NECK: Supple and jugular venous distention (JVD) not abnormally elevated. HEART SOUNDS: Regular with a systolic murmur grade 2/6. LUNGS: Clear to auscultation. ABDOMEN: Soft and nontender. Bowel sounds are normal. EXTREMITIES: Without any cyanosis or clubbing. She has a left arm arteriovenous (AV) fistula, which is patent, but she does have some bruising and tenderness due to recent infiltrations. She has swelling on her right leg and also erythema and marked tenderness. NEUROLOGIC: She is at her baseline mentation. LABORATORY DATA: Today's labs show WBC 4.6, hemoglobin 11.1, hematocrit 34.9, platelets 111. Sodium 136, potassium 4.0, CO2 29, BUN 36, creatinine 5.84. PROBLEMS: 1. Streptococcus bacteremia. Probably related to cellulitis on her leg or also possibility of endocarditis. She is waiting for a transesophageal echocardiogram. In the meantime, she remains on intravenous meropenem and has been afebrile. 2. End-stage renal disease. Patient has been dialysis dependent and she is on a Thursday, Thursday, Thursday schedule. She was dialyzed on Thursday and will be scheduled for next hemodialysis on Thursday. There is no emergent need for dialysis. 3. Anemia. She has anemia of end-stage renal disease, which is stable at present and dose not need any urgent intervention. 4. Congestive heart failure. She does have chronic hypotension and difficulty with volume removal, which decompensates her congestive heart failure. She is being managed with dialysis and does not need any other intervention. 5. Right leg cellulitis. She had a Doppler ultrasound done of her lower extremities, which ruled out any deep venous thrombosis (DVT). She remains on meropenem at present.
--- NOTE | 2020-11-25 17:03 | IPN ---
PROGRESS NOTE DATE: 11/25/2020 SUBJECTIVE: Ms. Gil is seen this morning on her bedside. She is sitting at the edge of the bed in her room. She is in pain due to right leg cellulitis and swelling. She denies any dyspnea, chest pain, nausea or vomiting. She has no fever or chills. She remains on intravenous Meropenem for Strep bacteremia and cellulitis on her right leg. She is waiting for a transesophageal echocardiogram to rule out endocarditis. PHYSICAL EXAMINATION: GENERAL: She is awake and without any acute distress. VITALS: Temperature 97.8 degrees Fahrenheit, heart rate 60 per minute, respiratory rate 18 per minute, blood pressure 138/67 mmHg and oxygen saturation 100% on room air. HEENT: Head is atraumatic. Neck supple and without JVD or thyroid enlargement. She is edentulous and without any oral thrush or ulcers. HEART: Heart sounds are regular and systolic murmur grade 2/6 is audible. LUNGS: Clear to auscultation. ABDOMEN: Obese and nontender. Bowel sounds are normal. EXTREMITIES: Without any cyanosis or clubbing. Right leg swelling, tenderness and redness is present. Left arm AV fistula is patent. NEUROLOGIC: She is awake, alert and at her baseline mentation. LABORATORY DATA: Today's labs show WBC 5.4, hemoglobin 11.9, hematocrit 37.7. Sodium 136, potassium 4.8, CO2 30, BUN 49 and creatinine 7.54. Glucose 178, calcium 6.2 and albumin 2.7. PROBLEMS: 1. End-stage renal disease: Patient is regularly dialyzed on Thursday, Thursday and Thursday schedule. She was dialyzed on Thursday and will be scheduled for next treatment tomorrow. 2. Bacteremia and right leg cellulitis: Patient is afebrile and remains on intravenous Meropenem. She is waiting for a transesophageal echocardiogram. Her repeat blood cultures are negative so far. 3. Congestive heart failure: She does have volume overload due to end-stage renal disease. We will try to remove extra fluid with her next dialysis tomorrow. 4. Anemia: Her anemia is stable and we will continue to monitor.
[2020-11-25] MEDS: OMEPRAZOLE 20 MG CAP PO SCH (20:18)
[2020-11-25] MEDS: PERCOCET 5MG/325MG TAB PO PRN (21:15)
[2020-11-25 22:00] VITALS: BP 128/74
[2020-11-26] MEDS: ONDANSETRON 4MG/2ML VIAL IV SCH ×4 (00:38→17:09)
[2020-11-26 06:00] VITALS: BP 101/56
[2020-11-26 06:33] LABS: BASO % 0.2 % (0.0-1.0); EOS % 0.5 % (0.0-3.0); HEMATOCRIT 33.2 % (36.0-47.0); HEMOGLOBIN 10.5 g/dl (12.0-15.5); LYMPH % 18.6 % (24.0-44.0); MEAN CORPUSCULAR HEMOGLOBIN 29.7 pg (27.0-33.0); MEAN CORPUSCULAR HGB CONC 31.6 g/dl (32.0-36.5); MEAN CORPUSCULAR VOLUME 94.1 fl (80.0-96.0); MONO # 0.5 10^3/uL (0.0-0.8); MONO % 8.6 % (2.0-8.0); NEUTROPHILS # 3.9 10^3/uL (1.5-8.5); PLATELET COUNT, AUTOMATED 129 10^3/uL (150-450); RED BLOOD COUNT 3.53 10^6/uL (4.00-5.40); WHITE BLOOD COUNT 5.6 10^3/uL (4.0-10.0)
[2020-11-26] MEDS ORDERED: CEFA2INJ4 IV (06:52)
[2020-11-26 07:07] LABS: ALBUMIN 2.4 GM/DL (3.2-5.2); BILIRUBIN,TOTAL 0.4 MG/DL (0.2-1.0); CALCIUM LEVEL 8.7 MG/DL (8.5-10.1); CREATININE FOR GFR 9.24 MG/DL (0.55-1.30); GLOMERULAR FILTRATION RATE 4.8 (>51); POTASSIUM SERUM 5.2 MEQ/L (3.5-5.1); TOTAL PROTEIN 5.9 GM/DL (6.4-8.2)
[2020-11-26] MEDS: MEGESTROL ES SUSP 625MG 5ML ORAL SYRINGE PO SCH (08:01)
[2020-11-26] MEDS: MEGESTROL 40 MG TAB PO SCH ×2 (08:01→19:57)
[2020-11-26] MEDS: LACTOBACILLUS ACIDOPHILUS CAP (BACID) PO SCH ×4 (08:01→19:58)
[2020-11-26] MEDS: SUCROFERRIC OXYHYDROXIDE 500MG CHEW TAB (VELPHORO) PO SCH ×3 (08:02→17:08)
[2020-11-26] MEDS: VANICREAM MOISTURIZING SKIN CREAM 113GM TUBE TOP SCH (08:02)
[2020-11-26] MEDS: ANALGESIC BALM CRM 3OZ TOP SCH ×4 (08:02→19:58)
[2020-11-26] MEDS: **NOTE PATIENT COMMENT** MISC XX SCH ×2 (08:02→21:00)
[2020-11-26] MEDS: CALCIUM ACETATE 667MG GELCAP PO SCH ×3 (08:03→17:08)
[2020-11-26 11:12] LABS: C REACTIVE PROTEIN QUANTITATIV 9.62 MG/DL (0.00-0.30)
[2020-11-26] MEDS: LIDOCAINE 5% (LIDODERM) PATCH TD PRN (11:21)
[2020-11-26 11:35] LABS: ERYTHROCYTE SEDIMENTATION RATE 69 mm/hr (0-30)
--- NOTE | 2020-11-26 11:59 | DSES ---
DISCHARGE SUMMARY DATE OF ADMISSION: 11/21/2020 DATE OF DISCHARGE: 11/26/2020 PRIMARY DISCHARGE DIAGNOSIS: 1. Group G streptococcus bacteremia of skin origin, endocarditis unlikely. 2. Endstage renal disease on maintenance dialysis Thursday, Thursday and Thursday. 3. Multiple skin excoriations. 4. Dry skin. 5. Bilateral popliteal knee cysts/Jay's cysts. 6. Electrolyte abnormalities due to endstage renal disease with hyperkalemia. 7. Anemia of chronic disease secondary to renal failure. 8. Morbid obesity. BMI of 53.7. 9. History of diastolic congestive heart failure. 10.Chronic back pain. 11.History of endometrial cancer. 12.Obstructive sleep apnea. DISCHARGE MEDICATIONS: 1. Cefazolin 2 grams, 3 grams on dialysis days Thursday, Thursday and Thursday to complete a 14 day course. 2. Acetaminophen 650 q. 8 hour as needed. 3. Albuterol two puffs q. 4 as needed. 4. Norvasc 2.5 q.h.s. 5. Atenolol 25 daily. 6. Calcium acetate 2001 mg with meals. 7. Vitamin D 50,000 units weekly. 8. Ferric Citrate 210 as needed. 9. Ynes-Betty one tablet daily. 10.Lidocaine Procaine cream topically three times weekly. 11.Megestrol 80 mg b.i.d. 12.Omeprazole 20 q.h.s. 13.Velphoro 1 gram with meals. DISCHARGE INSTRUCTIONS: Patient is to complete 14 days of antibiotics for Group G streptococcus bacteremia with cefazolin 2 grams, 3 grams Thursday, Thursday and Thursday during dialysis sessions. This has been arranged by Dr. Malave, molder inflated ball, prior to hospital discharge. Primary care physician appointment, Dr. Buitrago appointment, Dr. Dalal for bilateral Jay's cyst appointment within one week, Nephrology as previously scheduled for dialysis sessions. HOSPITAL COURSE: This is a 50-year-old female who presented to the Emergency Room with fever of 102 and 101.7, white count of 13,000. Coronavirus was negative. She had one episode of diarrhea, complained of headache, cough and shortness of breath and has not been on antibiotics recently. CT of the chest/abdomen/pelvis were all negative. Blood culture grew out Group G streptococcus. Echocardiogram was negative for endocarditis or vegetations. Patient was initially on IV Meropenem and Vancomycin. MRSA screen was negative and Vancomycin was discontinued. Infectious Disease specialist, Dr. Buitrago was consulted and recommended Cefazolin during dialysis days for a total of 14 days. Patient developed bilateral lower extremity edema with painful edema, evaluated with venous Doppler's of bilateral lower extremities with negative DVT on bilateral lower extremities but bilateral Jay's popliteal cysts were seen. Dr. Dalal was consulted by telephone and recommended elevation, pain control and outpatient follow-up. Patient was instructed to elevate her lower extremities while in bed and elevated on a recliner at home. Patient was seen by Physical Therapy who felt that she may be discharged home in a time she received hemodialysis during the hospital stay, repeat blood cultures were negative, she remained afebrile since admission. She had episodes of high potassium which was managed by dialysis session. She remained euvolemic and no repeat episodes of diarrhea with GI panel being negative. LABORATORY DATA/MICROBIOLOGY AND IMAGING STUDIES: Please see the chart. TIME SPENT ON DISCHARGE: 30 minutes
--- NOTE | 2020-11-26 12:59 | IPN ---
PROGRESS NOTE DATE: 11/25/2020 SUBJECTIVE: Patient complains of severe pain, 10/10, right lower extremity with increasing redness and swelling on the posterior aspect of the right leg. No fever or chills overnight. Case was evaluated by orthopedic surgeon yesterday with bilateral popliteal cysts. No surgical intervention required. Recommendation to elevate and outpatient followup, pain medication. Per infectious disease, patient grew group G Streptococcus bacteremia and can be treated with intravenous (IV) cefazolin 2 grams/2 grams/3 grams as outpatient during dialysis days. No fever or chills overnight. OBJECTIVE: VITAL SIGNS: Temperature 97.8, pulse 60, respiratory rate 18, blood pressure 138/60, 100% on room air. GENERAL: Awake, alert and oriented to person, place and time, answers questions appropriately. LUNGS: Clear to auscultation. No wheezing or rales. HEART: S1, S2. Sinus rhythm. ABDOMEN: Soft, obese, nontender, nondistended. EXTREMITIES: 3+ edema bilateral lower extremities, right greater than left with significant erythema along the posterior aspect of the right leg, including the foot. LABORATORY DATA/IMAGING STUDIES/MICROBIOLOGY: Have been reviewed. 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 Patient was found to have bilateral popliteal cysts evaluated by orthopedic surgeon with recommendations for no inpatient consultation and outpatient followup. IMPRESSION: 1. Streptococcus G bacteremia. Most likely from source of skin. Currently on IV meropenem. Patient is to continue with IV cefazolin for 14 days during dialysis, 2 grams/2 grams/[address] Malave as outpatient. 2. Diarrhea. Resolved. 3. Bilateral popliteal cysts with worsening right lower extremity erythema and edema. Patient was already on antibiotics. Per , orthopedic surgeon, patient may follow up as outpatient so long as there is no deep venous thrombosis (DVT). Elevate the lower extremities, pain control. Patient is currently on one tablet Percocet. Will increase to two tablets and monitor for respiratory depression and hypercarbic respiratory failure during the hospital stay and prior to discharge. She has passed physical therapy and may be discharged home in the morning. 4. History of diastolic heart failure. Compensated. Managed with dialysis. 5. Obesity. Body mass index (BMI) of 53, with probable sleep apnea. Obstructive sleep apnea (CHERYL) protocol. 6. Chronic back pain. On Lidoderm patch. 7. History of endometrial cancer. 8. Obstructive sleep apnea (CHERYL). Continuous positive airway pressure (CPAP) . DISPOSITION: Discharge today has been postponed due to worsening pain. For pain control, she has been started on two tablets of Percocet every 4 hours, monitoring for respiratory acidosis and respiratory depression. She is to have evaluation outpatient followup with her orthopedics nurse with cefazolin to be arranged by her orthopedics nurse. ADRIÁN
[2020-11-26 14:00] VITALS: BP 113/61
--- NOTE | 2020-11-26 14:47 | IPN ---
PROGRESS NOTE DATE: 11/26/2020 SUBJECTIVE: Anusha is seen and examined this morning in the hemodialysis unit receiving her maintenance treatments. She denies any shortness of breath. Her dialysis has been uneventful. She reports on groin tenderness due to right leg cellulitis and swelling. She continues on IV cefazolin. She has been afebrile for the past several days. OBJECTIVE: Temperature 98.9, pulse 62, respiratory rate 16, blood pressure 101/56, saturating 96% on room air. Intake yesterday was 1.4 liters, weight in the bed scale today is not recorded. General: The patient is seen receiving her treatment, morbidly obese female, awake, alert and oriented in no acute distress. Extraocular muscles are intact. Tongue is moist. Jugular veins are a little bit difficult to assess secondary to body habitus. Heart sounds are regular. There is a systolic murmur. There is edema noted on the right lower extremity, but there is no significant edema in the left lower extremity. Lungs: Anterior auscultation only, was clear. There is no crackle or rale. Abdomen is obese, soft and nontender. Extremities: There is no cyanosis. There is a fistula on the left arm which is patent and in use. There is cellulitis on the right leg and there is tenderness and swelling present as well. Neurologic: She is awake, alert and at baseline mentation. LABORATORY DATA: Today show white count 5.6, hemoglobin 10.5, platelets 129. Sodium 136, potassium 5.2, bicarbonate 25, glucose 96, blood cultures done November 22 show no growth for 72 hours. There is no new imaging. INPATIENT MEDICATIONS: Her meropenem was stopped. She is on cefazolin 2 gm IV Thursday, Thursday, Thursday. Her remainder of medications is unchanged as compared to prior. PROBLEMS: 1. End-stage renal disease on hemoglobin on a Thursday, Thursday, Thursday schedule. The patient is being dialyzed today with a goal fluid removal of 4 liters if she can tolerate it from a hemodynamic point of view. Her electrolytes are acceptable. Her fistula was in good use. 2. Bacteremia and right leg cellulitis. Repeat blood cultures done on November 22 were negative times two sets. She did have an initial positive blood culture on November 21. Antibiotics managed as per infectious disease and note she is on cefazolin. She is afebrile and without leukocytosis. 3. Anemia of chronic renal failure. Hemoglobin is stable and at goal. Most recent hemoglobin on today's labs is 10.5. She continues on Aranesp for dialysis. 4. Hyperkalemia. It is mild and will improve with dialysis. 5. Secondary hyperparathyroidism of renal origin. She continues on PhosLo and Velphoro. 6. Chronic diastolic congestive heart failure. Volume status is principally regulated via hemodialysis. We are going to try and remove 4 liters today with her treatment if she can tolerate it. MTDD
--- NOTE | 2020-11-26 17:34 | IPNPDOC ---
Date Seen The patient was seen on 11/26/20. Progress Note After returning for HD, pt c/o n/v. plans: n/v: -postpone dc home -antiemetic -check kub -check lfts amylase lipase -if becomes febrile with worsening abd distention, check lactic acid and repeat ct abdpelvis VS, I&O, 24H, Fishbone Vital Signs/I&O Vital Signs Date Time Temp Pulse Resp B/P (MAP) Pulse Ox O2 Delivery O2 Flow Rate FiO2 11/26/20 14:00 99.3 69 17 113/61 (78) 99 Room Air 11/21/20 09:15 2.0 I&O- Last 24 Hours up to 6 AM 11/26/20 06:00 Intake Total 1440 ml Balance 1440 ml Laboratory Data 24H LABS Laboratory Tests 2 11/26/20 05:33: Procalcitonin 5.67 11/26/20 05:38: Immature Granulocyte % (Auto) 1.1, Neutrophils (%) (Auto) 71.0H, Lymphocytes (%) (Auto) 18.6L, Monocytes (%) (Auto) 8.6H, Eosinophils (%) (Auto) 0.5, Basophils (%) (Auto) 0.2, Neutrophils # (Auto) 3.9, Lymphocytes # (Auto) 1.0L, Monocytes # (Auto) 0.5, Eosinophils # (Auto) 0.0, Basophils # (Auto) 0.0, Nucleated Red Blood Cells % (auto) 0.0, Erythrocyte Sedimentation Rate 69H, Anion Gap 10, Glomerular Filtration Rate 4.8L, Calcium Level 8.7, Total Bilirubin 0.4, Aspartate Amino Transf (AST/SGOT) 10, Alanine Aminotransferase (ALT/SGPT) 14, Alkaline Phosphatase 176H, C-Reactive Protein, Quantitative 9.62H, Total Protein 5.9L, Albumin 2.4L, Albumin/Globulin Ratio 0.7L CBC/BMP Laboratory Tests 11/26/20 05:38 Microbiology Microbiology 11/22/20 Blood Culture - Preliminary, Resulted No Growth after 72 hours. All specime... 11/22/20 Blood Culture - Preliminary, Resulted No Growth after 72 hours. All specime... 11/21/20 Gastrointestinal Tract Panel (PCR) - Final, Complete 11/21/20 Blood Culture - Final, Complete NO GROWTH AFTER 5 DAYS 11/21/20 Blood Culture - Final, Complete Streptococcus Group G 11/21/20 Respiratory Virus Panel (PCR) ([facility]) - Final, Complete RICHA NÚÑEZ MD Nov 26, 2020 17:33
[2020-11-26] MEDS ORDERED: METOCLOPRAMIDE INJ 10MG/2ML VIAL (J2765 PER 1) IV ONE (17:50)
[2020-11-26] MEDS ORDERED: ceFAZolin SOD 2 GM in IV 1 EA IV SCH (18:00)
--- NOTE | 2020-11-26 18:57 | REPVR ---
PROCEDURE INFORMATION: Exam: XR Abdomen Exam date and time: 11/26/2020 5:57 PM Age: 50 years old Clinical indication: Fever and vomiting; Additional info: Vomiting abd distention TECHNIQUE: Imaging protocol: XR of the abdomen. Views: Frontal supine view of the abdomen. 1 View. Total images: 1 COMPARISON: CT ABD/PEL W/PO CONTRAST ONLY 11/21/2020. At the time of dictation, the images of the prior study are available, but the report is not. FINDINGS: Limitations: Large body habitus causes unavoidable image degradation. Gastrointestinal tract: Nonobstructive bowel gas pattern. Organs: Cholecystectomy surgical clips. Bones/joints: Moderate S shaped thoracolumbar scoliosis. The imaged osseous structures are grossly intact. Soft tissues: No obvious soft tissue masses or organomegaly. Other findings: No suspicious calcifications. IMPRESSION: No specific abnormality. Stable chronic changes. Electronically signed by: Vega Farias On 11/26/2020 18:57:14 PM
[2020-11-26] MEDS: GASTROGRAFIN SOLUTION 30ML PO SCH ×2 (19:18→19:49)
[2020-11-26] MEDS: MUPIROCIN 2% OINT 22 GM TUBE TOP SCH (19:57)
[2020-11-26] MEDS: OMEPRAZOLE 20 MG CAP PO SCH (19:58)
[2020-11-26] MEDS: PERCOCET 5MG/325MG TAB PO PRN (20:53)
--- NOTE | 2020-11-26 21:18 | REPVR ---
PROCEDURE INFORMATION: Exam: CT Abdomen And Pelvis Without Contrast Exam date and time: 11/26/2020 5:46 PM Age: 50 years old Clinical indication: Nausea and vomiting; Abdominal pain; Additional info: No iv contrast. Abd pain n/v with po contrast TECHNIQUE: Imaging protocol: Computed tomography of the abdomen and pelvis without contrast. Radiation optimization: All CT scans at this facility use at least one of these dose optimization techniques: automated exposure control; mA and/or kV adjustment per patient size (includes targeted exams where dose is matched to clinical indication); or iterative reconstruction. Other contrast: Oral, gastrografin; COMPARISON: CT ABD/PEL W/PO CONTRAST ONLY 11/21/2020 1:34 PM FINDINGS: Lungs: The lung bases are unchanged from the prior study with calcified granuloma in the posterior right costophrenic sulcus. Heart: Prominent calcification of mitral valve. Liver: Normal. No mass. Gallbladder and bile ducts: Status post cholecystectomy. Pancreas: Normal. No ductal dilation. Spleen: The spleen measures 16.7 cm. Adrenal glands: Normal. No mass. Kidneys and ureters: Prominent bilateral renal atrophy with renal cysts and calcifications which are redemonstrated from the prior study without change. Stomach and bowel: Mild stool throughout much of the colon. There is colonic diverticulosis without evidence of diverticulitis. Appendix: A normal appendix is seen. Intraperitoneal space: Unremarkable. No free air. No significant fluid collection. Vasculature: Unremarkable. No abdominal aortic aneurysm. Lymph nodes: Small periaortic retroperitoneal lymph nodes which are upper normal. Urinary bladder: Unremarkable as visualized. Reproductive: Unremarkable as visualized. Bones/joints: Unremarkable. No acute fracture. Soft tissues: Ventral wall hernia repair with mesh in the epigastric region which is unchanged. IMPRESSION: 1. There has been no change since 11/21/2020. No acute interval process is identified. 2. Status post cholecystectomy. 3. Mild splenomegaly. 4. Prominent bilateral renal atrophy. 5. Colonic diverticulosis without diverticulitis. 6. Status post epigastric ventral wall hernia repair with mesh. Electronically signed by: Farhan Aviles On 11/26/2020 21:18:32 PM
[2020-11-26 22:00] VITALS: BP 107/59
[2020-11-26 22:11] LABS: ALBUMIN 2.3 GM/DL (3.2-5.2); BILIRUBIN,TOTAL 0.5 MG/DL (0.2-1.0); CREATININE FOR GFR 5.73 MG/DL (0.55-1.30); GLOMERULAR FILTRATION RATE 8.3 (>51); MAGNESIUM LEVEL 2.1 MG/DL (1.8-2.4); POTASSIUM SERUM 4.8 MEQ/L (3.5-5.1); TOTAL PROTEIN 6.7 GM/DL (6.4-8.2)
[2020-11-26] MEDS ORDERED: NS 500 ML IV ONE (22:15)
[2020-11-27] MEDS: ceFAZolin SOD 2 GM in IV 1 EA IV SCH (00:09)
[2020-11-27] MEDS: ONDANSETRON 4MG/2ML VIAL IV SCH ×4 (00:46→17:20)
[2020-11-27 05:43] LABS: BASO % 0.2 % (0.0-1.0); EOS % 0.6 % (0.0-3.0); HEMATOCRIT 34.9 % (36.0-47.0); HEMOGLOBIN 10.7 g/dl (12.0-15.5); LYMPH % 21.6 % (24.0-44.0); MEAN CORPUSCULAR HEMOGLOBIN 29.3 pg (27.0-33.0); MEAN CORPUSCULAR HGB CONC 30.7 g/dl (32.0-36.5); MEAN CORPUSCULAR VOLUME 95.6 fl (80.0-96.0); MONO # 0.4 10^3/uL (0.0-0.8); MONO % 8.7 % (2.0-8.0); NEUTROPHILS # 3.1 10^3/uL (1.5-8.5); NEUTROPHILS % 67.6 % (36.0-66.0); PLATELET COUNT, AUTOMATED 170 10^3/uL (150-450); RED BLOOD COUNT 3.65 10^6/uL (4.00-5.40); WHITE BLOOD COUNT 4.6 10^3/uL (4.0-10.0)
[2020-11-27 06:00] VITALS: BP 111/56
[2020-11-27 06:13] LABS: ALBUMIN 2.3 GM/DL (3.2-5.2); BILIRUBIN,TOTAL 0.3 MG/DL (0.2-1.0); CALCIUM LEVEL 8.4 MG/DL (8.5-10.1); CREATININE FOR GFR 6.31 MG/DL (0.55-1.30); GLOMERULAR FILTRATION RATE 7.4 (>51); POTASSIUM SERUM 4.9 MEQ/L (3.5-5.1); TOTAL PROTEIN 5.7 GM/DL (6.4-8.2)
[2020-11-27] MEDS: MEGESTROL 40 MG TAB PO SCH ×2 (08:39→20:49)
[2020-11-27] MEDS: MEGESTROL ES SUSP 625MG 5ML ORAL SYRINGE PO SCH (08:39)
[2020-11-27] MEDS: SUCROFERRIC OXYHYDROXIDE 500MG CHEW TAB (VELPHORO) PO SCH ×3 (08:39→17:18)
[2020-11-27] MEDS: CALCIUM ACETATE 667MG GELCAP PO SCH ×3 (08:40→17:19)
[2020-11-27] MEDS: LACTOBACILLUS ACIDOPHILUS CAP (BACID) PO SCH ×4 (08:40→20:49)
[2020-11-27] MEDS: MUPIROCIN 2% OINT 22 GM TUBE TOP SCH ×2 (08:41→20:49)
[2020-11-27] MEDS: VANICREAM MOISTURIZING SKIN CREAM 113GM TUBE TOP SCH (08:41)
[2020-11-27] MEDS: ANALGESIC BALM CRM 3OZ TOP SCH ×4 (08:41→20:49)
[2020-11-27] MEDS: **NOTE PATIENT COMMENT** MISC XX SCH ×2 (08:41→20:50)
[2020-11-27 14:00] VITALS: BP 111/58
[2020-11-27] MEDS: HEPARIN SOD (PORCINE) 5000UNITS/ML 1ML VIAL/SYRINGE SQ SCH ×2 (14:30→21:10)
--- NOTE | 2020-11-27 14:59 | IPNPDOC ---
Text Note Date of Service The patient was seen on 11/27/20. NOTE SUBJECTIVE: Patient was seen at the bedside this morning. Complains of RLE pain and back pain. No sob. However she was in no acute distress breathing comfortably laying flat on the bed. OBJECTIVE: VITAL SIGNS: Temperature 99.7, pulse 66, respiratory rate 16, blood pressure 111/56,oxygen saturation 98% on room air. GENERAL: Awake, alert and oriented to person, place and time, answers questions appropriately. morbidly obese Neck - jugular veins difficult to assess secondary to adiposity of neck. LUNGS: Clear to auscultation. No wheezing or rales. HEART: S1, S2. Sinus rhythm. ABDOMEN: Soft, obese, nontender, nondistended. EXTREMITIES: Trace edema left lower extremities, right leg localized edema seen with erythema. with significant erythema along the posterior aspect of the right leg, including the foot. Right lower extremity looks red tender with some bullous 3- 4 lesions. Neuro - aao-x 4, no focal deficit dialysis access - left arm AVF patent w/ thrill ASSESSMENT AND PLAN: Patient is a 48-year-old female with a past medical history of MSSA bacteremia with endocarditis, septic pulmonary emboli in the brain without residual deficits, morbid obesity, anemia of chronic disease recently diagnosed with endometrial carcinoma with diastolic congestive heart failure secondary to chronic uncontrolled hypertension end-stage kidney disease on maintenance dialysis scheduled for Thursday and Thursday. Nephrology service was consulted on this patient to manage volume control on hemodialysis while inpatient. #1 ESRD on MWF HD schedule -4L of fluid removed w/ HD yesterday. Volume status is reasonable. She has localized edema in RLE. -AVF in good use and electrolytes stable. Next HD tomorrow w/ goal removal of 4L again. -Patient did receive 1 L of fluid overnight for mild lactic acidosisn - suggest to hold off on further IVF #2 diastolic congestive heart failure with preserved ejection fraction: -Patient's volume control has been optimal and controlled via HD - Localized edema RLE due to cellulitis and she is also going to have duplex to r/o DVT -Patient is on fluid restrictions. -Continue to monitor I's and O's. #3 anemia due to chronic renal failure: -Hemoglobin is stable at 10.7 considered to be within goal. -Patient receives IV venofer with hemodialysis and VELPHORO orally. #4 hyperkalemia: . -Resolved with dialysis #5 Bacteremia with right leg cellulitis: -Patient is being given cefazolin dialysis dosed. Managed as per Dr Buitrago. Pending duplex. #6 right leg swelling secondary to cellulitis versus DVT or abscess -Patient will be getting a right lower extremity Doppler to rule in or rule out DVT. - VS,Fishbone, I+O VS, Fishbone, I+O Laboratory Tests 11/26/20 21:16 11/27/20 05:26 Vital Signs Date Time Temp Pulse Resp B/P (MAP) Pulse Ox O2 Delivery O2 Flow Rate FiO2 11/27/20 06:00 99.7 66 16 111/56 (74) 98 Room Air 11/21/20 09:15 2.0 I&O- Last 24 Hours up to 6 AM 11/27/20 06:00 Intake Total 2450 ml Output Total 4000 ml Balance -1550 ml GME ATTESTATION GME ATTESTATION My faculty preceptor for this patient encounter was physically present during the encounter and was fully available. All aspects of the patient interview, examination, medical decision making process, and medical care plan development were reviewed and approved by the faculty preceptor. The faculty preceptor is aware and concurs with the plan as stated in the body of this note and will atte st to such by his/her cosignature. ATTENDING NOTE Pt seen and examined. RLE is swollen and cellulitic. Pending duplex. Otherwise volume status is reasonable. Next HD tomorrow - will try to remove 4KG again tomorrow. Herman Naylor MD Nov 27, 2020 14:59 PAT NEWMAN DO Nov 29, 2020 12:26
--- NOTE | 2020-11-27 18:34 | IPNPDOC ---
Text Note Date of Service The patient was seen on 11/27/20. NOTE Subjective: Patient complains of right leg pain with increased redness. No fe lester or chills. Objective: GENERAL APPEARANCE: NAD HEENT: no scleral icterus, no JVD, EOMI CARDIOVASCULAR: S1S2 LUNGS: CTA ABDOMEN: soft & not tender w palpation MUSCULOSKELETAL: no cyanosis, +2 swelling of right lower extremity, +1 swelling of left lower extremity INTEGUMENT: no generalized pallor NEUROLOGICAL: cranial nerve function from 2-12 intact, follows commands, speech not dysarthric Assessment and plan: This is a 51-year-old morbidly obese female with history of methicillin sensitiv e Streptococcus aureus (MSSA) endocarditis with septic emboli in 2019, end-stage renal disease on maintenance dialysis Thursday, Thursday, Thursday, diastolic heart failure secondary to hypertension, obstructive sleep apnea, obesity, endometrial cancer, anemia of chronic disease and chronic back pain and neuropathy, presented to the emergency room (ER) complaining of feeling sick to her stomach and fever of 102, was found to be septic secondary to arteriovenous (AV) fistula with group G Streptococcus bacteremia. Patient was found to have bilateral popliteal cysts evaluated by orthopedic surgeon with recommendations for no inpatient consultation and outpatient followup. Streptococcus G bacteremia continue with IV cefazolin for 14 days during dialysis, 2 grams/2 grams/[address] Malave as outpatient. Diarrhea. Resolved Bilateral popliteal cysts with worsening right lower extremity erythema and edema. Patient was already on antibiotics. Per , orthopedic surgeon Elevate the lower extremities, pain control. I will check Doppler DVT ultrasound given increased right distal extremity swelling End-stage renal disease Continue dialysis Nephrology team follows her History of diastolic heart failure. Compensated. Managed with dialysis. Obesity Body mass index (BMI) of 53, with probable sleep apnea. Obstructive sleep apnea (CHERYL) protocol. Chronic back pain. On Lidoderm patch. History of endometrial cancer. Obstructive sleep apnea (CHERYL). Continuous positive airway pressure (CPAP) VS,Fishbone, I+O VS, Fishbone, I+O Laboratory Tests 11/26/20 21:16 11/27/20 05:26 Vital Signs Date Time Temp Pulse Resp B/P (MAP) Pulse Ox O2 Delivery O2 Flow Rate FiO2 11/27/20 14:00 97.7 66 17 111/58 (75) 100 Room Air 11/21/20 09:15 2.0 I&O- Last 24 Hours up to 6 AM 11/27/20 06:00 Intake Total 2450 ml Output Total 4000 ml Balance -1550 ml SYLVIA TOVAR DO Nov 27, 2020 18:34
[2020-11-27 20:00] VITALS: BP 136/63
[2020-11-27] MEDS: OMEPRAZOLE 20 MG CAP PO SCH (20:49)
--- NOTE | 2020-11-27 21:06 | REPVR ---
PROCEDURE INFORMATION: Exam: US Duplex Right Lower Extremity Veins, Limited Exam date and time: 11/27/2020 8:23 PM Age: 50 years old Clinical indication: Edema, localized; Lower extremity, left; Additional info: Swollen right leg greater than left TECHNIQUE: Imaging protocol: Real-time Duplex ultrasound of the Right Lower Extremity with 2-D camp scale, color Doppler flow and spectral waveform analysis with image documentation. Limited exam was focused on the right lower extremity veins. COMPARISON: US PV-David 11/23/2020 8:01 PM FINDINGS: Right deep veins: Unremarkable. The common femoral, femoral, proximal profunda femoral and popliteal veins are patent without thrombus. Normal Doppler waveforms. Normal compressibility and/or augmentation response. Right superficial veins: Unremarkable. Saphenofemoral junction is patent without thrombus. Soft tissues: Moderate-sized popliteal cyst measuring 6 cm in length by 3 cm in thickness. Severe soft tissue swelling of the lower leg. IMPRESSION: No evidence of deep vein thrombosis. Electronically signed by: Michael Ayala On 11/27/2020 21:05:54 PM
--- NOTE | 2020-11-27 21:12 | IPN ---
INFECTIOUS DISEASE PROGRESS NOTE DATE: 11/27/2020 SUBJECTIVE: The patient was seen in follow up on right lower extremity cellulitis. She was admitted initially with fever with sepsis from group G streptococcus bacteremia. The patient later developed redness and worsening of pain in her right leg. The patient was probably the source of the bacteremia with delayed onset of manifestation of cellulitis and erysipelas. The patient has hardware in that right ankle. Today she states there are blisters and more swelling. She has remained afebrile. She is Cefazolin 2 grams with hemodialysis Thursday, Thursday, Thursday which was changed dosing in anticipation of her discharge but since she has remained in the hospital, I would rather she continues on daily dosing. Last white count 4.6, hemoglobin 10.7, hematocrit 34.9, platelet count 170, 67% neutrophils, 21% leukocytes, 8% monocytes. Sodium 138, potassium 4.9, chloride 105, bicarbonate 26, BUN 39, creatinine 6.31, glucose 109, lactic acid 2.7 on 11/26 with today 0.9, calcium 8.4, AST 17, ALT 14, alkaline phosphatase 216. Blood cultures two sets on 11/22 were no growth. OBJECTIVE: PHYSICAL EXAMINATION: VITAL SIGNS: Temperature is 97.7, pulse 66, respirations 17, blood pressure 111/58, 02 sat 100% on room air. HEART: Normal, S1, S2 with JAROCHO murmur /6. LUNGS: Clear. No rales, rhonchi or wheezes. ABDOMEN: Morbidly obese, soft, nontender. EXTREMITIES: Left leg with no edema. Right leg with +2 pitting edema with tenderness along the medial malleolus. She has surgical scars on both malleoli. There is redness extending from the ankle to the mid tam with three serosanguinous blisters on the bottom of the leg. There is no purulent discharge. IMPRESSION AND PLAN: 1. Right lower extremity cellulitis with Group G streptococcus bacteremia, on IV Cefazolin. The dose will be increased back to 2 grams every night until discharge. Due to worsening swelling, we will obtain a CT of the ankle to rule out abscess as a source of bacteremia. Dr. Boyd has also ordered an ultrasound to rule out deep vein thrombosis. 2. End-stage renal disease on dialysis Thursday, Thursday, Thursday. 3. Lower extremity edema and pain - The patient would benefit from compression stocking and I did order TubiGrips to be used. 4. Change IV Cefazolin to 2 grams daily. 5. Repeat CBC and CRP in the morning. MTDD
[2020-11-27] MEDS ORDERED: ISOVUE-370 76% 100ML VIAL As Ordered ONE (21:57)
[2020-11-27] MEDS ORDERED: ONDANSETRON 4 MG ORAL DISINTEGRATING TAB PO PRN (23:20)
--- NOTE | 2020-11-27 23:31 | IPNPDOC ---
Text Note Date of Service Significant event NOTE Patient with loss of IV access, difficult stick. Requested for IV placement team in a.m. Patient also refusing her antibiotics due to allergy despite previous tolerance. Will opt for p.o. Clinda given last sensitivity report and loss of IV access. Appreciate ID in a.m. for any further adjustment/patient discussion regarding risk/benefits of the IV antibiotic choice. VS,Fishbone, I+O VS, Fishbone, I+O Laboratory Tests 11/27/20 05:26 Vital Signs Date Time Temp Pulse Resp B/P (MAP) Pulse Ox O2 Delivery O2 Flow Rate FiO2 11/27/20 20:00 99.4 66 18 136/63 (87) 98 Room Air 11/21/20 09:15 2.0 I&O- Last 24 Hours up to 6 AM 11/27/20 06:00 Intake Total 2450 ml Output Total 4000 ml Balance -1550 ml JRAOD GAR NP Nov 27, 2020 23:31
[2020-11-28] MEDS: CLINDAMYCIN 150MG CAPSULE PO SCH ×5 (00:17→23:39)
[2020-11-28] MEDS: ONDANSETRON 4MG/2ML VIAL IV SCH ×5 (05:25→23:39)
[2020-11-28 06:00] VITALS: BP 117/58
[2020-11-28] MEDS: LACTOBACILLUS ACIDOPHILUS CAP (BACID) PO SCH ×4 (06:08→22:08)
[2020-11-28] MEDS: SUCROFERRIC OXYHYDROXIDE 500MG CHEW TAB (VELPHORO) PO SCH ×3 (06:09→18:56)
[2020-11-28] MEDS: MEGESTROL 40 MG TAB PO SCH ×2 (06:09→22:08)
[2020-11-28] MEDS: CALCIUM ACETATE 667MG GELCAP PO SCH ×3 (06:10→18:56)
[2020-11-28 06:11] LABS: BASO % 0.5 % (0.0-1.0); EOS % 0.7 % (0.0-3.0); HEMATOCRIT 33.6 % (36.0-47.0); HEMOGLOBIN 10.5 g/dl (12.0-15.5); LYMPH # 1.1 10^3/uL (1.5-5.0); MEAN CORPUSCULAR HEMOGLOBIN 29.7 pg (27.0-33.0); MEAN CORPUSCULAR HGB CONC 31.3 g/dl (32.0-36.5); MEAN CORPUSCULAR VOLUME 95.2 fl (80.0-96.0); MONO # 0.4 10^3/uL (0.0-0.8); MONO % 9.4 % (2.0-8.0); NEUTROPHILS # 2.7 10^3/uL (1.5-8.5); NEUTROPHILS % 62.6 % (36.0-66.0); PLATELET COUNT, AUTOMATED 201 10^3/uL (150-450); RED BLOOD COUNT 3.53 10^6/uL (4.00-5.40); WHITE BLOOD COUNT 4.4 10^3/uL (4.0-10.0)
[2020-11-28] MEDS: HEPARIN SOD (PORCINE) 5000UNITS/ML 1ML VIAL/SYRINGE SQ SCH ×3 (06:11→22:11)
[2020-11-28] MEDS: **NOTE PATIENT COMMENT** MISC XX SCH ×2 (06:24→21:00)
[2020-11-28 06:53] LABS: ALBUMIN 2.4 GM/DL (3.2-5.2); BILIRUBIN,TOTAL 0.4 MG/DL (0.2-1.0); C REACTIVE PROTEIN QUANTITATIV 7.58 MG/DL (0.00-0.30); CALCIUM LEVEL 9.3 MG/DL (8.5-10.1); CREATININE FOR GFR 8.15 MG/DL (0.55-1.30); GLOMERULAR FILTRATION RATE 5.5 (>51); POTASSIUM SERUM 5.6 MEQ/L (3.5-5.1); TOTAL PROTEIN 6.4 GM/DL (6.4-8.2)
[2020-11-28 07:01] LABS: ERYTHROCYTE SEDIMENTATION RATE 64 mm/hr (0-30)
[2020-11-28] MEDS ORDERED: LIDOCAINE 1% SDV 5ML VIAL SC PRN (07:40)
[2020-11-28] MEDS ORDERED: SODIUM CHLORIDE 0.9% 1000ML IV PRN (07:40)
[2020-11-28] MEDS: MUPIROCIN 2% OINT 22 GM TUBE TOP SCH ×2 (08:26→22:09)
[2020-11-28] MEDS: VANICREAM MOISTURIZING SKIN CREAM 113GM TUBE TOP SCH (08:26)
[2020-11-28] MEDS: ANALGESIC BALM CRM 3OZ TOP SCH ×4 (08:26→22:08)
--- NOTE | 2020-11-28 08:36 | REP ---
INDICATION: cellulitis and worse pain. COMPARISON: None. TECHNIQUE: The exam was not performed due to lack of good IV access. FINDINGS: Digital carbider view is obtained and shows some vascular calcification. IMPRESSION: Aborted exam. Lack of IV access. <Electronically signed by Elmer No > 11/28/20 [id number]
[2020-11-28 14:00] VITALS: BP 136/79
--- NOTE | 2020-11-28 17:51 | IPNPDOC ---
Text Note Date of Service The patient was seen on 11/28/20. NOTE SUBJECTIVE: Patient was seen in dialysis this morning. Patient was tearful be cause of severe left arm pain and back pain, she stated that she could not get comfortable. After the nurse helped her turning her position to the side and placing an ice pack on her left arm she was feeling a little better however still uncomfortable. Patient was left with 2 more hours of dialysis and said she could try and tolerate 2 more hours laying in bed. Patient was not having any shortness of breath while laying flat on bed. OBJECTIVE: VITAL SIGNS: Temperature 98.3, pulse 71, respiratory rate 16, blood pressure 136/79, saturating 100% on room air. GENERAL: Awake, alert and oriented to person, place and time, answers questions appropriately. HEENT: Normocephalic, atraumatic, PERRLA, EOMI neck veins difficult to assess due to body habitus. Moist mucous membranes. LUNGS: Clear to auscultation. No wheezing or rales. HEART: S1, S2. Sinus rhythm. ABDOMEN: Soft, obese, nontender, nondistended. EXTREMITIES: Trace edema left lower extremities, right leg localized edema abdi lester improved since yesterday seen with significant erythema along the posterior aspect of the right leg, including the foot. Right lower extremity looks red tender with some bullous 3- 4 lesions. ASSESSMENT AND PLAN: Patient is a 48-year-old female with a past medical history of MSSA bacteremia with endocarditis, septic pulmonary emboli in the brain without residual deficits, morbid obesity, anemia of chronic disease recently diagnosed with endometrial carcinoma with diastolic congestive heart failure secondary to chronic uncontrolled hypertension end-stage kidney disease on maintenance dialysis scheduled for Thursday and Thursday. Nephrology service was consulted on this patient to manage volume control on hemodialysis while inpatient. #1 End-stage kidney disease secondary to possibly uncontrolled hypertension on maintenance dialysis Thursday and Thursday: -Patient is due for her hemodialysis today and was receiving it as we saw her. -Patient has a functioning dialysis AV fistula on her left arm -Patient's volume control is optimal where she is able to lay flat breathe normally. -We are holding fluid as per fluid restrictions on this patient. -Patient's electrolytes are optimal. #2 diastolic congestive heart failure with preserved ejection fraction: -Patient's volume control has been optimal. However there is residual bilateral leg edema grade 2 right more than the left secondary to right-sided ongoing cellulitis. -Patient is on fluid restrictions. -Continue to monitor I's and O's. #3 anemia due to chronic renal failure: -Hemoglobin is stable at 10.7 considered to be within goal. -Patient receives IV iron 200 mcg with hemodialysis and VELPHORO orally. #4 hyperkalemia: . -Resolved with dialysis #5 Bacteremia with right leg cellulitis: -Patient is being given cefazolin post hemodialysis. -Dr. Escalera is on the case and recently ordered a CT of her right leg. -However the intervention could not be completed because of lack of IV access. -Primary team will facilitate further. #6 right leg swelling secondary to cellulitis : -Doppler ultrasound was unremarkable for DVT. -Bacteremia and right leg swelling most likely due to cellulitis of the right leg. -Swelling has gone down mildly than yesterday, however still red. VS,Fishbone, I+O VS, Fishbone, I+O Laboratory Tests 11/28/20 05:31 Vital Signs Date Time Temp Pulse Resp B/P (MAP) Pulse Ox O2 Delivery O2 Flow Rate FiO2 11/28/20 14:00 98.3 71 16 136/79 (98) 100 Room Air I&O- Last 24 Hours up to 6 AM 11/28/20 06:00 Intake Total 1360 ml Output Total 0 ml Balance 1360 ml GME ATTESTATION GME ATTESTATION My faculty preceptor for this patient encounter was physically present during the encounter and was fully available. All aspects of the patient interview, examination, medical decision making process, and medical care plan development were reviewed and approved by the faculty preceptor. The faculty preceptor is aware and concurs with the plan as stated in the body of this note and will attest to such by his/her cosignature. Herman Naylor MD Nov 28, 2020 17:51
[2020-11-28 21:00] VITALS: BP 115/59
[2020-11-28] MEDS: ceFAZolin SOD 2 GM in IV 1 EA IV SCH (21:00)
[2020-11-28] MEDS: PERCOCET 5MG/325MG TAB PO PRN (22:07)
[2020-11-28] MEDS: OMEPRAZOLE 20 MG CAP PO SCH (22:07)
[2020-11-29] MEDS: CLINDAMYCIN 150MG CAPSULE PO SCH (05:28)
[2020-11-29] MEDS: HEPARIN SOD (PORCINE) 5000UNITS/ML 1ML VIAL/SYRINGE SQ SCH ×2 (05:30→13:45)
[2020-11-29] MEDS: ONDANSETRON 4MG/2ML VIAL IV SCH (05:30)
[2020-11-29 06:00] VITALS: BP 117/60
[2020-11-29 06:38] LABS: BASO % 0.3 % (0.0-1.0); EOS % 0.8 % (0.0-3.0); HEMATOCRIT 33.4 % (36.0-47.0); HEMOGLOBIN 10.4 g/dl (12.0-15.5); LYMPH # 0.8 10^3/uL (1.5-5.0); LYMPH % 21.1 % (24.0-44.0); MEAN CORPUSCULAR HEMOGLOBIN 29.8 pg (27.0-33.0); MEAN CORPUSCULAR HGB CONC 31.1 g/dl (32.0-36.5); MEAN CORPUSCULAR VOLUME 95.7 fl (80.0-96.0); MONO # 0.5 10^3/uL (0.0-0.8); MONO % 12.1 % (2.0-8.0); NEUTROPHILS # 2.5 10^3/uL (1.5-8.5); NEUTROPHILS % 64.4 % (36.0-66.0); PLATELET COUNT, AUTOMATED 189 10^3/uL (150-450); RED BLOOD COUNT 3.49 10^6/uL (4.00-5.40); WHITE BLOOD COUNT 3.9 10^3/uL (4.0-10.0)
[2020-11-29 07:14] LABS: ALBUMIN 2.4 GM/DL (3.2-5.2); BILIRUBIN,TOTAL 0.5 MG/DL (0.2-1.0); CALCIUM LEVEL 9.2 MG/DL (8.5-10.1); CREATININE FOR GFR 5.77 MG/DL (0.55-1.30); GLOMERULAR FILTRATION RATE 8.2 (>51); POTASSIUM SERUM 5.2 MEQ/L (3.5-5.1)
[2020-11-29] MEDS ORDERED: ISOVUE-370 76% 100ML VIAL As Ordered ONE (09:21)
[2020-11-29] MEDS: MEGESTROL 40 MG TAB PO SCH (09:33)
[2020-11-29] MEDS: LACTOBACILLUS ACIDOPHILUS CAP (BACID) PO SCH ×2 (09:33→13:46)
[2020-11-29] MEDS: SUCROFERRIC OXYHYDROXIDE 500MG CHEW TAB (VELPHORO) PO SCH ×2 (09:35→13:46)
[2020-11-29] MEDS: CALCIUM ACETATE 667MG GELCAP PO SCH ×2 (09:35→13:46)
[2020-11-29] MEDS: ANALGESIC BALM CRM 3OZ TOP SCH ×2 (09:36→13:46)
[2020-11-29] MEDS: **NOTE PATIENT COMMENT** MISC XX SCH (09:36)
[2020-11-29] MEDS: MUPIROCIN 2% OINT 22 GM TUBE TOP SCH (09:36)
[2020-11-29] MEDS: VANICREAM MOISTURIZING SKIN CREAM 113GM TUBE TOP SCH (09:36)
--- NOTE | 2020-11-29 11:02 | REP ---
INDICATION: swelling and increased pain. COMPARISON: MRI 05/18/2017, right foot radiographs 10/31/2020. TECHNIQUE: CT right ankle performed following the intravenous administration of 100 cc of Isovue 370, sagittal and coronal reconstruction images performed. FINDINGS: There is an old healed fracture of the distal fibular shaft. A 5 mm calcification distal to the medial malleolus may represent an old avulsion fracture. I see no evidence of acute fracture or dislocation. Small erosions are seen of the medial and lateral malleoli. There is moderate narrowing of the talonavicular joint with moderate dorsal spurring. Multiple subcortical cysts are seen in the distal navicular bone. Subcortical cystic changes are also seen in the visualized medial and middle cuneiform bones. A small subcortical cyst is seen in the superior posterior talus laterally. Diffuse vascular calcifications are present. There is diffuse soft tissue edema. Venous varicosities are seen superficially in the distal calf medially. No abscess is seen. There is no evidence of acute cortical destruction or periosteal reaction, with no definite signs for acute osteomyelitis. IMPRESSION: There is evidence of old trauma and evidence for degenerative changes as discussed in detail above. There is diffuse soft tissue edema and possible cellulitis. No abscess is seen. There are no definite signs for acute osteomyelitis. <Electronically signed by Shashank Mack > 11/29/20 [id number]
[2020-11-29] MEDS ORDERED: SOD POLYSTYRENE SULFONATE SUSP 15 GM/60 ML UD PO ONE (13:00)
--- NOTE | 2020-11-29 13:46 | IPN ---
PROGRESS NOTE DATE: 11/29/2020 SUBJECTIVE: Anusha is seen and examined this morning sitting out of bed in the chair. She was dialyzed yesterday. We removed 4 liters of fluid. She was in pain during her dialysis treatment, but otherwise her dialysis was uneventful. She continues to have significant localized swelling of the right lower extremity. She had a CT of the ankle done with intravenous (IV) contrast today, and report is pending. She remains afebrile and hemodynamically stable and is on IV cefazolin. I note that clindamycin was stopped. Patient is concerned by the ongoing cellulitis appearance of the right lower extremity but otherwise has no complaints. Denies shortness of breath. VITAL SIGNS: Temperature 98.2, pulse 56, respiratory rate 16, blood pressure 117/60, saturating 98% on room air. Intake yesterday was not fully recorded. Dialysis yesterday removed 4 liters. Weight in the bed scale today is 130.8 kg. GENERAL: Patient was seen sitting in the chair, middle aged and obese female, awake, alert, oriented times three in no acute distress. Extraocular muscles are intact. Tongue is moist. Jugular veins could not be assessed secondary to severe neck obesity. HEART: Sounds regular, S1, S2. There is at least 2+ localized edema in the right lower extremity and trace edema in the left lower extremity. LUNGS: Clear to auscultation bilaterally. No crackle or rale. Breath sounds were, however, distant and diminished secondary to body habitus. ABDOMEN: Soft and very obese. EXTREMITIES: There is cellulitis of the right lower extremity, and there is erythema and edema as well. There are blisters noted. There is a fistula in the left arm, which aneurysmal and patent. NEUROLOGIC: She is oriented times three. No focal deficit. Interactive and conversational. Laboratory studies reveals sodium 134, potassium 5.2, bicarbonate 28, BUN 38, glucose 86, CRP 7.5. Hemoglobin 10.4. CT of the ankle with IV contrast was done today, and report is pending. INPATIENT MEDICATIONS: She continues on IV cefazolin. Her oral clindamycin, I note, was stopped. Remainder of medications is unchanged as compared to yesterday. PROBLEMS: 1. End-stage renal disease, on hemodialysis on a Thursday, Thursday, Thursday schedule. Patient was dialyzed yesterday. We removed 4 liters of fluid. Her next dialysis will be on Thursday. Again, we will try and remove 4 liters of fluid. Her edema appears to be localized to the right lower extremity and is secondary to cellulitis. Otherwise, her volume status is acceptable. She is mildly hyperkalemic today, and it will be addressed with dialysis tomorrow. 2. Hyperkalemia. It is mild. It is in the setting of chronic renal failure. She is on a renal diet. We will address her potassium with dialysis tomorrow as per her usual schedule. 3. Chronic diastolic congestive heart failure. Volume status is regulated via dialysis and acceptable at this time. Four liters were removed yesterday, and we will try to remove another 4 liters tomorrow. She is on an oral fluid restriction. 4. Anemia secondary to chronic renal failure. Goal hemoglobin is 10-11, and patient is stable at that range. 5. Right leg cellulitis. Clinically does not appear to have any improvement. Indeed she is having increased swelling. She had a CT of the ankle with IV contrast done today, and report is pending. She also did have bacteremia on earlier blood cultures. Dr. Buitrago is following. She is on IV cefazolin. Appreciate recommendations from infectious disease.
--- NOTE | 2020-11-29 16:08 | DS.PDOC ---
Discharge Summary General Date of Admission Nov 21, 2020 at 09:19 Date of Discharge 11/29/20 Discharge Summary I have not seen patient yesterday because she was not placed in my list by mistake. Addendum to discharge summary which was done previously by Dr. Lopez. Patient will be discharged today. I talked to Dr. Buitrago about CT ankle result which was negative for abscess. Doppler ultrasound of lower extremities was negative for DVT. She recommended to continue antibiotic treatment with cefazolin IV 2 g during dialysis and discharge patient PHYSICAL EXAMINATION ON DISCHARGE: GENERAL APPEARANCE: NAD HEENT: no scleral icterus, no JVD, EOMI CARDIOVASCULAR: S1S2 LUNGS: CTA ABDOMEN: soft & not tender w palpation MUSCULOSKELETAL: no cyanosis, +2 swelling of right lower extremity with some blisters, +1 swelling of left lower extremity INTEGUMENT: no generalized pallor NEUROLOGICAL: cranial nerve function from 2-12 intact, follows commands, speech not dysarthric IMAGING: TECHNIQUE: CT right ankle performed following the intravenous administration of 100 cc of Isovue 370, sagittal and coronal reconstruction images performed. FINDINGS: There is an old healed fracture of the distal fibular shaft. A 5 mm calcification distal to the medial malleolus may represent an old avulsion fracture. I see no evidence of acute fracture or dislocation. Small erosions are seen of the medial and lateral malleoli. There is moderate narrowing of the talonavicular joint with moderate dorsal spurring. Multiple subcortical cysts are seen in the distal navicular bone. Subcortical cystic changes are also seen in the visualized medial and middle cuneiform bones. A small subcortical cyst is seen in the superior posterior talus laterally. Diffuse vascular calcifications are present. There is diffuse soft tissue edema. Venous varicosities are seen superficially in the distal calf medially. No abscess is seen. There is no evidence of acute cortical destruction or periosteal reaction, with no definite signs for acute osteomyelitis. IMPRESSION: There is evidence of old trauma and evidence for degenerative changes as discussed in detail above. There is diffuse soft tissue edema and possible cellulitis. No abscess is seen. There are no definite signs for acute osteomyelitis. PROGNOSIS: Fair ACTIVITY: [As tolerated]. DIET: Renal DISCHARGE PLAN: Home DISCHARGE INSTRUCTIONS: Follow-up with die attacher, PCP and ID specialist DISCHARGE CONDITION: [Stable]. TIME SPENT ON DISCHARGE: 40 minutes. Vital Signs/I&Os Vital Signs Date Time Temp Pulse Resp B/P (MAP) Pulse Ox O2 Delivery O2 Flow Rate FiO2 11/29/20 06:00 98.2 56 16 117/60 (79) 98 Room Air I&O- Last 24 Hours up to 6 AM 11/29/20 06:00 Intake Total 250 ml Output Total 4000 ml Balance -3750 ml Laboratory Data Labs 24H Laboratory Tests 2 11/29/20 05:57: Immature Granulocyte % (Auto) 1.3, Neutrophils (%) (Auto) 64.4, Lymphocytes (%) (Auto) 21.1L, Monocytes (%) (Auto) 12.1H, Eosinophils (%) (Auto) 0.8, Basophils (%) (Auto) 0.3, Neutrophils # (Auto) 2.5, Lymphocytes # (Auto) 0.8L, Monocytes # (Auto) 0.5, Eosinophils # (Auto) 0.0, Basophils # (Auto) 0.0, Nucleated Red Blood Cells % (auto) 0.0, Anion Gap 5L, Glomerular Filtration Rate 8.2L, Calcium Level 9.2, Total Bilirubin 0.5, Aspartate Amino Transf (AST/SGOT) 10, Alanine Aminotransferase (ALT/SGPT) 7L, Alkaline Phosphatase 196H, Total Protein 6.0L, Albumin 2.4L, Albumin/Globulin Ratio 0.7L CBC/BMP Laboratory Tests 11/29/20 05:57 Microbiology Microbiology 11/22/20 Blood Culture - Final, Complete NO GROWTH AFTER 5 DAYS 11/22/20 Blood Culture - Final, Complete NO GROWTH AFTER 5 DAYS 11/21/20 Gastrointestinal Tract Panel (PCR) - Final, Complete 11/21/20 Blood Culture - Final, Complete NO GROWTH AFTER 5 DAYS 11/21/20 Blood Culture - Final, Complete Streptococcus Group G 11/21/20 Respiratory Virus Panel (PCR) (LOUIE) - Final, Complete Discharge Medications Scheduled Amlodipine Besylate (Amlodipine Besylate) 2.5 Mg Tablet, 2.5 MG PO QHS, (Reported) Atenolol (Atenolol) 25 Mg Tablet, 25 MG PO DAILY, (Reported) Calcium Acetate (Calcium Acetate) 667 Mg Capsule, 2,001 MG PO WM, (Reported) Cefazolin Sodium/Water (Cefazolin 2 G/20 ml-Water Syrg) 2 Gm/20 Ml Syringe, 2 GM IV 3XW Ergocalciferol (Vitamin D2) (Vitamin D2) 50,000 Units Cap, 50,000 UNITS PO QWEEK, (Reported) SUNDAYS Ferric Citrate (Auryxia) 210 Mg Tablet, 210 MG PO ASDIRECTED, (Reported) GIVEN AT DIALYSIS IF IRON IS LOW Folic Acid/Vit B Complex and C (Ynes-Betty Tablet) 0.8 Mg Tablet, 1 TAB PO DAILY, (Reported) Lidocaine/Prilocaine (Lidocaine-Prilocaine Cream) 2.5%/2.5% Cream..g., 1 DOSE TOP 3XW, (Reported) APPLIES TO PORT SITE PRIOR TO DIALYSIS ON THURSDAY, THURSDAY AND THURSDAY Megestrol Acetate (Megestrol Acetate) 40 Mg Tablet, 80 MG PO BID, (Reported) Omeprazole (Omeprazole) 20 Mg Cap, 20 MG PO QHS, (Reported) Sucroferric Oxyhydroxide (Velphoro) 500 Mg Tab.chew, 1,000 MG PO WM, (Reported) Scheduled PRN Acetaminophen (Tylenol Arthritis) 650 Mg Tablet.er, 650 MG PO Q8H PRN for PAIN LEVEL 1-4, (Reported) Albuterol Sulfate (Proair Hfa) 8.5 Gm Hfa.aer.ad, 2 PUFF INH Q4H PRN for SHORTNESS OF BREATH, (Reported) Allergies Coded Allergies: Cephalosporins (Verified Allergy, Mild, rash, 12/08/18) pt able to take cefazolin-pt getting 3g fridays and 2g m/w at dialysis NSAIDS (Non-Steroidal Anti-Inflamma (Verified Allergy, Mild, unknown, 11/21/20) cefazolin (Verified Allergy, Mild, rash, 11/21/20) cephalexin (Verified Allergy, Mild, rash, 11/21/20) ibuprofen (Verified Allergy, Mild, rash, 12/04/18) iron dextran complex (Verified Allergy, Mild, rash, 12/04/18) nafcillin (Verified Allergy, Mild, rash, 12/04/18) vancomycin (Verified Allergy, Mild, rash, 12/04/18) azelastine (Verified Allergy, Unknown, 12/04/18) povidone (Verified Allergy, Unknown, 12/04/18) SYLVIA TOVAR DO Nov 29, 2020 16:08
== END 2020-11-29 16:00 | disposition home or self-care (01) | DRG 871 ==
LOC: M ED 07:37 → EDBD 07:37 → M ED INP 09:19 → ENRESERV 10:57 → M MSPAV 11:33
PROVIDERS: ADMIT General Practice; ATTEND Internal Medicine
PROC: 5A1D70Z Performance of Urinary Filtration, Intermittent, Less than 6 Hours Per Day (ICD-10-PCS; principal; 2020-11-21)
DX: A40.1 Sepsis due to streptococcus, group B (principal); N18.6 End stage renal disease; I13.2 Hypertensive heart and chronic kidney disease with heart failure and with stage 5 chronic kidney disease, or end stage renal disease; I50.32 Chronic diastolic (congestive) heart failure; N25.81 Secondary hyperparathyroidism of renal origin; Z68.43 Body mass index [BMI] 50.0-59.9, adult; L03.115 Cellulitis of right lower limb; E66.01 Morbid (severe) obesity due to excess calories; G47.33 Obstructive sleep apnea (adult) (pediatric); E87.5 Hyperkalemia; D63.1 Anemia in chronic kidney disease; Z79.899 Other long term (current) drug therapy; Z85.42 Personal history of malignant neoplasm of other parts of uterus; F32.9 Major depressive disorder, single episode, unspecified; Z89.422 Acquired absence of other left toe(s); Z89.021 Acquired absence of right finger(s); F12.10 Cannabis abuse, uncomplicated; Z88.0 Allergy status to penicillin; Z88.6 Allergy status to analgesic agent; Z88.8 Allergy status to other drugs, medicaments and biological substances

== ENCOUNTER 2020-11-30 13:25 | Emergency (ER) | payer MEDICARE, MEDICAID ==
[~2020-11-30] VITALS: Ht 154.9 cm; Wt 127.0 kg
[~2020-11-30 13:25] MED LIST changes: +ACET650T61 PO; +CEFA2INJ4 IV; +ERGO500029 PO; +SODI15SS PO
[2020-11-30 15:07] LABS: BASO % 0.2 % (0.0-1.0); EOS % 0.4 % (0.0-3.0); HEMATOCRIT 35.1 % (36.0-47.0); LYMPH # 0.9 10^3/uL (1.5-5.0); LYMPH % 18.7 % (24.0-44.0); MEAN CORPUSCULAR HEMOGLOBIN 29.8 pg (27.0-33.0); MEAN CORPUSCULAR HGB CONC 31.3 g/dl (32.0-36.5); MEAN CORPUSCULAR VOLUME 95.1 fl (80.0-96.0); MONO # 0.6 10^3/uL (0.0-0.8); MONO % 12.4 % (2.0-8.0); NEUTROPHILS # 3.1 10^3/uL (1.5-8.5); NEUTROPHILS % 66.4 % (36.0-66.0); PLATELET COUNT, AUTOMATED 189 10^3/uL (150-450); RED BLOOD COUNT 3.69 10^6/uL (4.00-5.40); WHITE BLOOD COUNT 4.7 10^3/uL (4.0-10.0)
[2020-11-30 15:22] LABS: C REACTIVE PROTEIN QUANTITATIV 6.58 MG/DL (0.00-0.30); CALCIUM LEVEL 8.8 MG/DL (8.5-10.1); CREATININE FOR GFR 3.85 MG/DL (0.55-1.30); GLOMERULAR FILTRATION RATE 13.1 (>51); POTASSIUM SERUM 4.8 MEQ/L (3.5-5.1)
[2020-11-30] MEDS ORDERED: DALBAVANCIN 1,500 MG in D5W 250 ML IV ONE (16:00)
[2020-11-30 17:45] VITALS: BP 137/74
== END 2020-11-30 17:48 | disposition home or self-care (01) ==
LOC: M ED 13:25 → EDBD 13:25 → M ED 17:48
DX: L03.115 Cellulitis of right lower limb (principal); I11.0 Hypertensive heart disease with heart failure; I50.9 Heart failure, unspecified; G47.33 Obstructive sleep apnea (adult) (pediatric); N18.6 End stage renal disease; Z79.51 Long term (current) use of inhaled steroids; Z79.899 Other long term (current) drug therapy; Z88.1 Allergy status to other antibiotic agents; Z88.6 Allergy status to analgesic agent; Z88.8 Allergy status to other drugs, medicaments and biological substances
CPT/HCPCS: 80048; 85025; 86140; 96360; 99284; J0875

== ENCOUNTER 2020-12-25 20:49 | Emergency (ER) | payer MEDICARE, MEDICAID ==
[2020-12-26] MEDS ORDERED: MORPHINE 4 MG/ML 1ML VIAL/SYRINGE (J2270) IV ONE
--- NOTE | 2020-12-26 01:27 | REPVR ---
PROCEDURE INFORMATION: Exam: CT Thoracic Spine Without Contrast Exam date and time: 12/25/2020 11:56 PM Age: 50 years old Clinical indication: Injury or trauma; Fall; Blunt trauma (contusions or hematomas) TECHNIQUE: Imaging protocol: Computed tomography images of the thoracic spine without contrast. Radiation optimization: All CT scans at this facility use at least one of these dose optimization techniques: automated exposure control; mA and/or kV adjustment per patient size (includes targeted exams where dose is matched to clinical indication); or iterative reconstruction. COMPARISON: CT ABD/PEL W/PO CONTRAST ONLY 11/26/2020 8:37 PM FINDINGS: Vertebrae: Diffuse skeletal sclerosis, likely related to renal osteodystrophy. Prominent thoracic dextroscoliosis centered at T9. No subluxation on the sagittal images. No acute fracture. Discs/Spinal canal/Neural foramina: Advanced discogenic degenerative changes. Bulky osteophyte formation at multiple levels with ossification of the anterior longitudinal ligament in the lower thoracic spine. No central spinal stenosis. Soft tissues: Unremarkable. IMPRESSION: 1. No acute fracture or subluxation. 2. Prominent thoracic dextroscoliosis. Advanced degenerative spondylosis as above. 3. Generalized skeletal sclerosis suggesting renal osteodystrophy. Electronically signed by: Doug White On 12/26/2020 01:27:18 AM
--- NOTE | 2020-12-26 01:32 | REPVR ---
PROCEDURE INFORMATION: Exam: CT Lumbar Spine Without Contrast Exam date and time: 12/25/2020 11:56 PM Age: 50 years old Clinical indication: Injury or trauma; Fall; Blunt trauma (contusions or hematomas) TECHNIQUE: Imaging protocol: Computed tomography images of the lumbar spine without contrast. Radiation optimization: All CT scans at this facility use at least one of these dose optimization techniques: automated exposure control; mA and/or kV adjustment per patient size (includes targeted exams where dose is matched to clinical indication); or iterative reconstruction. COMPARISON: MRI-Spine, L.S. without con 11/27/2018 8:52 AM FINDINGS: Vertebrae: Diffuse skeletal sclerosis typical of renal osteodystrophy. Prominent thoracolumbar scoliosis is unchanged. No subluxation on the lateral view. No acute fracture. Discs/Spinal canal/Neural foramina: Bilateral pars interarticularis defects at L4. Broad-based posterior disc bulge and degenerative changes cause spinal stenosis at L4-L5. Advanced discogenic and facet degenerative changes. Multilevel neural foraminal stenosis. Sacrum/coccyx: Advanced SI joint DJD. Kidneys and ureters: Kidneys are atrophic. Soft tissues: Unremarkable. IMPRESSION: 1. Stable prominent thoracolumbar scoliosis. 2. No acute fracture or subluxation. 3. Bilateral pars defects at L4. Spinal stenosis at L4-L5 and multilevel foraminal stenosis. Electronically signed by: Doug White On 12/26/2020 01:32:21 AM
[2020-12-26 04:02] VITALS: BP 143/69
== END 2020-12-26 04:07 | disposition home or self-care (01) ==
LOC: M ED 20:49
DX: M54.50 Low back pain, unspecified (principal); M48.061 Spinal stenosis, lumbar region without neurogenic claudication; W01.0XXA Fall on same level from slipping, tripping and stumbling without subsequent striking against object, initial encounter; Y92.9 Unspecified place or not applicable; Y93.9 Activity, unspecified; Y99.9 Unspecified external cause status; I13.2 Hypertensive heart and chronic kidney disease with heart failure and with stage 5 chronic kidney disease, or end stage renal disease; G47.33 Obstructive sleep apnea (adult) (pediatric); Z86.711 Personal history of pulmonary embolism; E66.9 Obesity, unspecified; Z88.1 Allergy status to other antibiotic agents; Z88.2 Allergy status to sulfonamides; Z88.8 Allergy status to other drugs, medicaments and biological substances; Z79.899 Other long term (current) drug therapy
CPT/HCPCS: 72128; 72131; 96374; 99284; J2270

== ENCOUNTER 2020-12-29 12:44 | Emergency (ER) | payer MEDICARE, MEDICAID ==
[~2020-12-29] VITALS: Ht 152.4 cm; Wt 127.3 kg
[2020-12-29] MEDS ORDERED: COMBIVENT RESPIMAT 100-20MCG INHALER 4GM INH ONE (13:30)
--- NOTE | 2020-12-29 13:59 | REP ---
INDICATION: CHEST PAIN COMPARISON: 11/21/2020 TECHNIQUE: AP and lateral. FINDINGS: Evaluation is limited by technique and underpenetration. Stable cardiomegaly. No focal consolidation or effusion. No pneumothorax. The skeletal structures are intact and normal. IMPRESSION: No acute cardiopulmonary process. Cardiomegaly. <Electronically signed by Pedro Henderson > 12/29/20 [id number]
[2020-12-29 14:59] LABS: BASO % 0.4 % (0.0-1.0); EOS % 0.7 % (0.0-3.0); HEMATOCRIT 34.6 % (36.0-47.0); HEMOGLOBIN 10.7 g/dl (12.0-15.5); LYMPH # 0.9 10^3/uL (1.5-5.0); LYMPH % 19.3 % (24.0-44.0); MEAN CORPUSCULAR HEMOGLOBIN 28.4 pg (27.0-33.0); MEAN CORPUSCULAR HGB CONC 30.9 g/dl (32.0-36.5); MEAN CORPUSCULAR VOLUME 91.8 fl (80.0-96.0); MONO # 0.4 10^3/uL (0.0-0.8); MONO % 8.1 % (2.0-8.0); NEUTROPHILS # 3.3 10^3/uL (1.5-8.5); NEUTROPHILS % 71.3 % (36.0-66.0); PLATELET COUNT, AUTOMATED 163 10^3/uL (150-450); RED BLOOD COUNT 3.77 10^6/uL (4.00-5.40); WHITE BLOOD COUNT 4.6 10^3/uL (4.0-10.0)
[2020-12-29] MEDS ORDERED: IPRATROPIUM 0.5MG/ALBUTEROL 2.5MG INH SOL UD 3ML (DUONEB) NEB ONE (15:15)
[2020-12-29 15:29] LABS: ALBUMIN 3.2 GM/DL (3.2-5.2); ALT/SGPT 9 U/L (12-78); BILIRUBIN,DIRECT 0.1 MG/DL (0.0-0.2); BILIRUBIN,TOTAL 0.7 MG/DL (0.2-1.0); BLOOD UREA NITROGEN 21 MG/DL (7-18); CALCIUM LEVEL 8.3 MG/DL (8.5-10.1); CARBON DIOXIDE LEVEL 33 MEQ/L (21-32); CHLORIDE LEVEL 96 MEQ/L (98-107); CK-MB VALUE MASS < 1.0 NG/ML (<3.6); CPK CREATINE PHOSPHOKINASE 55 U/L (26-192); CREATININE FOR GFR 6.09 MG/DL (0.55-1.30); FREE T4 1.34 NG/DL (0.76-1.46); GLOMERULAR FILTRATION RATE 7.7 (>51); GLUCOSE, FASTING 79 MG/DL (70-100); LIPASE 53 U/L (73-393); MB/CK RELATIVE INDEX 1.82 (< OR =4); NT-PRO BNP 16298 PG/ML (<125); POTASSIUM SERUM 4.6 MEQ/L (3.5-5.1); SODIUM LEVEL 137 MEQ/L (136-145); TOTAL PROTEIN 7.8 GM/DL (6.4-8.2); TROPONIN I < 0.02 NG/ML (< 0.10)
[2020-12-29] MEDS ORDERED: MORPHINE 2 MG/ML 1ML VIAL (J2270) IV ONE (15:45)
[2020-12-29 19:36] LABS: CK-MB VALUE MASS < 1.0 NG/ML (<3.6); CPK CREATINE PHOSPHOKINASE 48 U/L (26-192); MB/CK RELATIVE INDEX 2.08 (< OR =4); TROPONIN I < 0.02 NG/ML (< 0.10)
--- NOTE | 2020-12-29 19:40 | ECGEPIP ---
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
--- NOTE | 2020-12-29 19:48 | ECGEPIP ---
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
[2020-12-29 22:27] VITALS: BP 180/90
== END 2020-12-29 22:28 | disposition home or self-care (01) ==
LOC: EDBD 12:44 → M ED 12:44
DX: R07.89 Other chest pain (principal); R06.02 Shortness of breath; R94.31 Abnormal electrocardiogram [ECG] [EKG]; I51.7 Cardiomegaly; I50.9 Heart failure, unspecified; G47.33 Obstructive sleep apnea (adult) (pediatric); Z86.711 Personal history of pulmonary embolism; G89.29 Other chronic pain; M54.50 Low back pain, unspecified; E66.9 Obesity, unspecified; I38 Endocarditis, valve unspecified; F32.9 Major depressive disorder, single episode, unspecified; Z88.1 Allergy status to other antibiotic agents; Z88.2 Allergy status to sulfonamides; Z88.6 Allergy status to analgesic agent; Z79.899 Other long term (current) drug therapy
CPT/HCPCS: 71046; 80048; 80076; 82550; 82553; 83690; 83880; 84439; 84443; 84484; 85025; 87798; 93005; 93041; 94640; 94760; 96374; 99285; J2270

== ENCOUNTER 2021-01-09 12:25 | Emergency (ER) | payer MEDICARE, MEDICAID ==
[~2021-01-09] VITALS: Ht 154.9 cm; Wt 127.3 kg
--- OUTSIDE RECORDS SUMMARY | 2021-01-09 12:31 | CCD ---
Author Author [facility] Organization [facility] Address Unknown Phone Unavailable Care Team Providers Care Switch House Operator Name Role Phone Marlene Buitrago Unavailable PROBLEMS Type Condition ICD9-CM Code [id number] Code Onset Dates Condition S tatus W/U Status Risk SNOMED Code Notes Problem Full thickness burn of back of left hand, subseq uent encounter T23.362D Active confirmed [id number] ALLERGIES No Known Allergies ENCOUNTERS from 1970 to 2020-12-06 Encounter Location Date Provider Diagnosis [address] [phone] [place] [address] 16 Nov, 2020 Marlene Buitrago IMMUNIZATIONS No Information SOCIAL HISTORY Tobacco Use: Social History Observation Description Date Details (start date - stop date) Never Smoker Sex Assigned At : Social History Observation Description Sex Assigned At Unknown Education: Question Answer Notes Level of Education: High School Language: Question Answer Notes Languages spoken: Kazakh Catholic: Question Answer Notes Catholic No protestant beliefs that would impact health care. Alcohol Screening: Question Answer Notes Did you have a drink containing alcohol in the past year? Ye s Points 2 Interpretation Negative How many drinks did you have on a typica l day when you were drinking in the past year? 3 or 4 (1 point) How often did you have a drink containing alcohol in t he past year? Monthly or less (1 point) Tobacco Use: Question Answer Notes Are you a: never smoker REASON FOR REFERRAL No Information VITAL SIGNS No information MEDICATIONS Medication SIG (Take, Route, Frequency, Duration) Notes Start Da te End Date Status Simvastatin 80 MG TAKE ONE TABLET BY MOUTH EVERY DAY Oral for 30 Active Omeprazole 20 MG TAKE ONE CAPSULE BY MOUTH EVERY DAY Oral for 30 Active PROCEDURES No Information RESULTS No Results REASON FOR VISIT No Show Informational Letter MEDICAL (GENERAL) HISTORY Type Description Date Medical History high cholesterol Medical History ESRD Medical History PVD Surgical History kidney operation 1978 Surgical History Right ankle 1995 Surgical History 1990 Surgical History 1993 Surgical History left knee operation 2009 Surgical History multiple fistula surgeries 1997 Surgical History tonsillectomy Surgical History right 4th finger amputation 2005 Surgical History left 5th toe amputation 2012 Hospitalization History diverticulitis 2018 Goals Section No Information Health Concerns No Information MEDICAL EQUIPMENT No Information MENTAL STATUS No Information FUNCTIONAL STATUS No Information ASSESSMENTS No Information PLAN OF TREATMENT No Information Insurance Providers Payer Name Payer Address Payer Phone Insured Name Patient Relati onship to Insured Coverage Start Date Coverage End Date MEDICARE Part A and B [address] [facility] [phone] [phone] NOR[place] SCHAEFFER self MEDICAID [employer] [address] [facility] [address] NOR[place] SCHAEFFER self
--- OUTSIDE RECORDS SUMMARY | 2021-01-09 12:31 | CCD ---
Author Author [facility] Address Unknown Phone Unavailable Care Team Providers Care Solidworks Drafter Name Role Phone CUNNINGHAM, RINKI Unavailable Unavailable CUNNINGHAM, RINKI Unavailable Unavailable CUNNINGHAM, RINKI Unavailable Unavailable CUNNINGHAM, RINKI Unavailable Unavailable CUNNINGHAM, RINKI Unavailable Unavailable CUNNINGHAM, RINKI Unavailable Unavailable CUNNINGHAM, RINKI Unavailable Unavailable CUNNINGHAM, RINKI Unavailable Unavailable CUNNINGHAM, RINKI Unavailable Unavailable CUNNINGHAM, RINKI Unavailable Unavailable CUNNINGHAM, RINKI Unavailable Unavailable CUNNINGHAM, RINKI Unavailable Unavailable CUNNINGHAM, RINKI Unavailable Unavailable CUNNINGHAM, RINKI Unavailable Unavailable CUNNINGHAM, RINKI Unavailable Unavailable CUNNINGHAM, RINKI Unavailable Unavailable CUNNINGHAM, RINKI Unavailable Unavailable CUNNINGHAM, RINKI Unavailable Unavailable CUNNINGHAM, RINKI Unavailable Unavailable CUNNINGHAM, RINKI Unavailable Unavailable CUNNINGHAM, RINKI Unavailable Unavailable CUNNINGHAM, RINKI Unavailable Unavailable CUNNINGHAM, RINKI Unavailable Unavailable CUNNINGHAM, RINKI Unavailable Unavailable CUNNINGHAM, RINKI Unavailable Unavailable CUNNINGHAM, RINKI Unavailable Unavailable CUNNINGHAM, RINKI Unavailable Unavailable CUNNINGHAM, RINKI Unavailable Unavailable CUNNINGHAM, RINKI Unavailable Unavailable CUNNINGHAM, RINKI Unavailable Unavailable CUNNINGHAM, RINKI Unavailable Unavailable CUNNINGHAM, RINKI Unavailable Unavailable CUNNINGHAM, RINKI Unavailable Unavailable CUNNINGHAM, RINKI Unavailable Unavailable CUNNINGHAM, RINKI Unavailable Unavailable CUNNINGHAM, RINKI Unavailable Unavailable CUNNINGHAM, RINKI Unavailable Unavailable CUNNINGHAM, RINKI Unavailable Unavailable CUNNINGHAM, RINKI Unavailable Unavailable CUNNINGHAM, RINKI Unavailable Unavailable CUNNINGHAM, RINKI Unavailable Unavailable CUNNINGHAM, RINKI Unavailable Unavailable CUNNINGHAM, RINKI Unavailable Unavailable CUNNINGHAM, RINKI Unavailable Unavailable CUNNINGHAM, RINKI Unavailable Unavailable CUNNINGHAM, RINKI Unavailable Unavailable CUNNINGHAM, RINKI Unavailable Unavailable CUNNINGHAM, RINKI Unavailable Unavailable CUNNINGHAM, RINKI Unavailable Unavailable CUNNINGHAM, RINKI Unavailable Unavailable CUNNINGHAM, RINKI Unavailable Unavailable CUNNINGHAM, RINKI Unavailable Unavailable CUNNINGHAM, RINKI Unavailable Unavailable CUNNINGHAM, RINKI Unavailable Unavailable CUNNINGHAM, RINKI Unavailable Unavailable CUNNINGHAM, RINKI Unavailable Unavailable CUNNINGHAM, RINKI Unavailable Unavailable CUNNINGHAM, RINKI Unavailable Unavailable CUNNINGHAM, RINKI Unavailable Unavailable CUNNINGHAM, RINKI Unavailable Unavailable CUNNINGHAM, RINKI Unavailable Unavailable CUNNINGHAM, RINKI Unavailable Unavailable CUNNINGHAM, RINKI Unavailable Unavailable CUNNINGHAM, RINKI Unavailable Unavailable CUNNINGHAM, RINKI Unavailable Unavailable CUNNINGHAM, RINKI Unavailable Unavailable CUNNINGHAM, RINKI Unavailable Unavailable CUNNINGHAM, RINKI Unavailable Unavailable CUNNINGHAM, RINKI Unavailable Unavailable CUNNINGHAM, RINKI Unavailable Unavailable CUNNINGHAM, RINKI Unavailable Unavailable CUNNINGHAM, RINKI Unavailable Unavailable Re-disclosure Warning The records that you are about to access may contain information from federally-assisted alcohol or drug abuse programs. If such information is present, then the following federally mandated warning applies: This information has been disclosed to you from records protected by federal confidentiality rules (42 CFR part 2). The federal rules prohibit you from making any further disclosure of this information unless further disclosure is expressly permitted by the written consent of the person to whom it pertains or as otherwise permitted by 42 CFR part 2. A general authorization for the release of medical or other information is NOT sufficient for this purpose. The Federal rules restrict any use of the information to criminally investigate or prosecute any alcohol or drug abuse patient.The records that you are about to access may contain highly sensitive health information, the redisclosure of which is protected by Article 27-F of the [facility] Public Health law. If you continue you may have access to information: Regarding HIV / AIDS; Provided by facilities licensed or operated by the [facility] Office of Mental Health; or Provided by the [facility] Office for People With Developmental Disabilities. If such information is present, then the following [facility] mandated warning applies: This information has been disclosed to you from confidential records which are protected by state law. State law prohibits you from making any further disclosure of this information without the specific written consent of the person to whom it pertains, or as otherwise permitted by law. Any unauthorized further disclosure in violation of state law may result in a fine or prison sentence or both. A general authorization for the release of medical or other information is NOT sufficient authorization for further disc losure. Family History Family Member Name Family Member Gender Family Member Status Date o f Status Description Data Source(s) Unknown Unknown Problem MEDENT ([facility] Unknown Male Problem MEDENT ([facility]) Encounters Encounter Providers Location Date Indications Data Source(s ) Unknown [id number] [facility], [facility] [id number] [facility]: EMMA CUNNINGHAM 02/09/2020 12:00:00 AM [facility] Outpatient Attender: EMMA CUNNINGHAM 01/30/2020 12:00:00 AM [facility] Outpatient 01/30/2020 12:00:00 AM [facility] Outpatient 01/12/2020 12:00:00 AM [facility] Outpatient Attender: EMMA CUNNINGHAM 01/12/2020 12:00:00 AM [facility] Outpatient Attender: EMMA CUNNINGHAM 12/26/2019 12:00:00 AM [facility] Outpatient 12/26/2019 12:00:00 AM [facility] Outpatient Attender: EMMA CUNNINGHAM 12/15/2019 12:00:00 AM [facility] Outpatient Referrer: EMMA CUNNINGHAM 12/08/2019 12:00:00 AM EDT [facility] Outpatient Attender: EMMA CUNNINGHAM [id number] 11/14/19 12:00:00 AM EDT - 11/25/2019 03:06:13 PM EDT Malignant neoplasm of endometrium [facility] Malignant neoplasm of endometrium Immunizations Vaccine Date Status Description Data Source(s) COVID-19 VACCINE Moderna 06/18/2020 12:00:00 AM EDT completed [facility] Vaccine Series Complete: YESThis Data wa s Submitted to [facility] Via [employer]. COVID-19 VACCINE Moderna 05/21/2020 12:00:00 AM EST completed [facility] Vaccine Series Complete: NOThis Data was Submitted to [facility] [employer]. Medications Medication Brand Name Start Date Product Form Dose Route Admi nistrative Instructions Pharmacy Instructions Status Indications Reaction Description Data Source(s) Clindamycin 150 MG Oral Capsule CLINDAMYCIN HCL 12/01/2020 12:00 :00 AM EDT capsule 21 TAKE ONE CAPSULE BY MOUTH THREE TIMES A DAY FOR 7 DAYS TAKE ONE CAPSULE BY MOUTH THREE TIMES A DAY FOR 7 DAYS SOLD: 12/05/2020 [facility] 100 mg 11/03/2020 12:00:00 AM EDT capsule 14 TAKE ONE CAPSULE BY MOUTH TWICE A DAY FOR SKIN INFECTION TAKE ONE CAPSULE BY MOUTH TWICE A DAY FO R SKIN INFECTION SOLD: 11/10/2020 [facility] Sulfamethoxazole 400 MG / Trimethoprim 80 MG Oral Tabl et 400-80 mg SULFAMETHOXAZOLE/TRIMETHOPRIM 10/31/2020 12:00:00 AM EDT tablet 14 TAKE ONE TABLET BY MOUTH TWICE A DAY FOR 7 DAYS TAKE ONE TABLET BY MOUTH TWICE A DAY FOR 7 DAYS SOLD: 11/01/2020 [facility] 20 mg 08/09/2020 12:00:00 AM EDT capsule,delayed release (DR/EC) 30 TAKE ONE CAPSULE BY MOUTH EVERY DAY TAKE ONE CAPSULE BY MOUTH EVERY DAY SOLD: 11/01/2020 [facility] 20 mg 08/09/2020 12:00:00 AM EDT capsule,delayed release (DR/EC) 30 TAKE ONE CAPSULE BY MOUTH EVERY DAY TAKE ONE CAPSULE BY MOUTH EVERY DAY SOLD: 08/16/2020 [facility] Amlodipine 2.5 MG Oral Tablet AMLODIPINE BESYLATE 06/26/2020 12: 00:00 AM EDT tablet 90 TAKE ONE TABLET BY MOUTH EVERY D AY TAKE ONE TABLET BY MOUTH EVERY DAY SOLD: 07/03/2020 [facility] 2.5 mg 06/26/2020 12:00:00 AM EDT tablet 90 TAKE ONE TABLET BY MOUTH EVERY DAY TAKE ONE TABLET BY MOUTH EVERY DAY SOLD: 11/01/2020 [facility] 1,250 mcg (50,000 unit) 04/12/2020 12:00:00 AM EST capsule 4 TAKE 1 CAPSULE BY MOUTH ONCE A WEEK Thursday TAKE 1 CAPSULE BY MOUTH ONCE A WEEK ON THURSDAY SOLD: 04/19/2020 [facility] 1,250 mcg (50,000 unit) 04/12/2020 12:00:00 AM EST capsule 4 TAKE 1 CAPSULE BY MOUTH ONCE A WEEK Thursday TAKE 1 CAPSULE BY MOUTH ONCE A WEEK ON THURSDAY SOLD: 11/01/2020 [facility] 2.5 mg 12/15/2019 12:00:00 AM EDT tablet 30 TAKE 1 TABLET BY MOUTH AT BEDTIME TAKE 1 TABLET BY MOUTH AT BEDTIME SOLD: 12/15/2019 [facility] 2.5 mg 12/15/2019 12:00:00 AM EDT tablet 30 TAKE 1 TABLET BY MOUTH AT BEDTIME TAKE 1 TABLET BY MOUTH AT BEDTIME SOLD: 01/31/2020 [facility] 40 mg 11/15/2019 12:00:00 AM EDT tablet 160 TAKE 2 TABLETS BY MOUTH TWICE DAILY TAKE 2 TABLETS BY MOUTH TWICE DAILY SOLD: 01/31/2020 [facility] 40 mg 11/15/2019 12:00:00 AM EDT tablet 160 TAKE 2 TABLETS BY MOUTH TWICE DAILY TAKE 2 TABLETS BY MOUTH TWICE DAILY SOLD: 11/17/2019 [facility] 40 mg 11/15/2019 12:00:00 AM EDT tablet 160 TAKE 2 TABLETS BY MOUTH TWICE DAILY TAKE 2 TABLETS BY MOUTH TWICE DAILY SOLD: 04/27/2020 [facility] Megestrol Acetate 40 MG Oral Tablet Mege strol Acetate 40 MG Oral Tablet (MEGACE) Megestrol Acetate 40 MG Oral Tablet (MEGACE) 11/14/2019 12:00:00 AM EDT 80 mg Oral active Endometrial carcinoma Take 2 t ablets by mouth Two Times Daily [facility] Endometrial carcinoma Megestrol Acetate 40 MG Oral Tablet megestrol (MEGACE) 40 MG tablet megestrol (MEGACE) 40 MG tablet 01/13/2019 12:00:00 AM EDT 80 mg Oral aborted Endometrial carcinoma Take 2 tablets by mouth Two Times [facility] Endometrial carcinoma Insurance Providers Payer name Policy type / Coverage type Policy ID Covered republican ID Covered republican's relationship to thakur Policy Thakur Plan Information Medicare Medicare Primary [id number]. [id number] Self [id number] Medicare Medicare Primary [id number] [id number]. [id number] Self [id number] Medicare Medicare Primary [id number] [id number]. [id number] Self [id number] Medicare Medicare Primary [id number] 2.0.1.811773.3.227. [id number] Self [id number] MEDICARE [id number] SP [id number] A MEDICARE A [id number] Self [id number] Medicare Medicare Primary [id number] [id number]. [id number] Self [id number] Medicare Medicare Primary [id number] 2.0.1.510868.3.227. [id number] Self [id number] Medicare Medicare Primary [id number] 2.0.1.422087.3.227. 99.936.05728.0 Self [id number] A Medicare Medicare Primary [id number] 2.0.1.259532.3.227. 99.936.27035.0 Self [id number] MEDICARE A [id number] Self [id number] MEDICARE [id number] Mariah [id number] A Medicare Medicare Primary [id number] Self MEDICARE [id number] SP [id number] Medicare Medicare Primary [id number] 2.0.1.300834.3.227. 99.936.83190.0 Self [id number] Medicare Medicare Primary [id number] 2.16.840.1.210754.3.227. 99.936.17405.0 Self [id number] Medicare Medicare Primary [id number] 2.16.840.1.744451.3.227. 99.936.14760.0 Self [id number] Medicare Medicare Primary [id number] 2.16.840.1.430738.3.227. 99.936.59277.0 Self [id number] Medicare Medicare Primary [id number] 2.16.840.1.401387.3.227. 99.936.41061.0 Self [id number] Medicare Medicare Primary [id number] 2.16840.1.691105.3.227. 99.936.06610.0 Self [id number] Medicare Medicare Primary [id number] 2.0.1.668339.3.227. 99.936.79882.0 Self [id number] Medicare P [id number] S [id number] A MEDICAID [id number] SP [id number] [place] 3 [id number] U Medicaid S [id number] S [id number] MEDICAID M [id number] Self [id number] Medicaid [place] Medigap Part B [id number] [id number]. 94533.0 Self [id number] [facility] MEDICARE [id number] Mariah [id number] MEDICAID [id number] Mariah [id number] Medicare P [id number] S [id number] A Medicaid S [id number] S [id number] [place] Primary [id number] Self [id number] [place] Primary [id number] [id number] Self [id number] MEDICAID [id number] SP [id number] Medicaid S [id number] S [id number] [place] [id number] SP [id number] U MEDICAID [id number] SP [id number] EMED[place] [id number] SP [id number] Medicaid S [id number] S [id number] Medicaid Medicaid [id number] [id number] S elf [id number] MEDICARE C [id number] S [id number] MEDICAID M [id number] S [id number] N[place] O [id number] S [id number] MEDICAID [id number] SP [id number] MEDICARE [id number] SP [id number] D74 Medicaid Medicaid [id number] [id number] S elf [id number] ANSI-Medicaid [id number] ANSI-Medicare Part B [id number] ANSI-Medicare Part B [id number] ANSI-Medicaid [id number] ANSI-Medicare Part B [id number] ANSI-Medicaid [id number] ANSI-Medicare Part B [id number] ANSI-Medicaid [id number] ANSI-Medicaid [id number] ANSI-Medicare Part B [id number] ANSI-Medicare Part B [id number] ANSI-Medicaid [id number] Medicaid Medicaid [id number] 2.16.840.1.254713.3.227.99.936.20719.0 S elf [id number] Medicaid Medicaid [id number] 2.16.840.1.393678.3.227.99.936.44295.0 S elf [id number] Medicaid Medicaid [id number] 2.16.840.1.841219.3.227.99.936.75675.0 S elf [id number] Medicaid Medicaid [id number] 2.16.840.1.737753.3.227.99.936.47482.0 S elf [id number] Medicaid Medicaid [id number] [id number] S [facility] [id number] Medicaid Medicaid [id number] 2.16.840.1.483087.3.227.99.936.17497.0 S [facility] [id number] Medicaid Medicaid [id number] 2.16.840.1.164130.3.227.99.936.72552.0 S [facility] [id number] MEDICARE C [id number] S [id number] A Medicaid Medicaid [id number]9.936.36494.0 S [facility] [id number] Medicare Dme Supplies Medigap Part B [id number] Self 0 [id number] Medicare Dme Supplies Medigap Part B [id number] Self 0 [id number] Medicaid Medicaid [id number] S [facility] [id number] Medicaid Medicaid [id number] [id number] S [facility] [id number] Medicaid Medicaid [id number] S [facility] [id number] Medicaid Medicaid [id number] S [facility] [id number] Medicaid Medicaid [id number] S [facility] [id number] Medicaid Medicaid 2 [id number] Self 2 1 SELF PAY 2 UNAVAILABLE 1 UNAVAILA BLE Problems, Conditions, and Diagnoses No Information Surgeries/Procedures No Information Results ID Date Data Source [id number] 12/29/2020 01:31:00 PM EDT [facility] Name Value Range Interpretation Code Description Data Jasmina rce(s) Supporting Document(s) SARS-CoV-2 (COVID 19) NEGATIVE - SARS-CoV-2 (COVID19) [facility] This lab was ordered by [facility] a nd reported by [facility]. ID Date Data Source [id number] 11/21/2020 08:02:00 AM EDT [facility] Name Value Range Interpretation Code Description Data Jasmina rce(s) Supporting Document(s) SARS-CoV-2 (COVID 19) NEGATIVE - SARS-CoV-2 (COVID19) [facility] This lab was ordered by [facility] a nd reported by [facility]. ID Date Data Source [id number] 10/31/2020 06:15:00 PM EDT [facility] Name Value Range Interpretation Code Description Data Jasmina rce(s) Supporting Document(s) SARS coronavirus 2 RNA [Presence] in Res piratory specimen by TYLER with probe detection NEGATIVE [facility] This lab was ordered by [facility] a nd reported by [facility]. ID Date Data Source [id number] 03/26/2020 11:18:00 PM EST [facility] Name Value Range Interpretation Code Description Data Jasmina rce(s) Supporting Document(s) SARS coronavirus 2 RNA [Presence] in Res piratory specimen by TYLER with probe detection [facility] This lab was ordered by [facility] a nd reported by [facility]. ID Date Data Source [id number] 11/16/2019 10:44:28 AM EDT [facility] Name Value Range Interpretation Code Description Data Jasmina rce(s) Supporting Document(s) Progress Note [facility] [id number] [facility] [file] [id number]== ID Date Data Source [id number] 11/16/2019 10:44:23 AM EDT [facility] Name Value Range Interpretation Code Description Data Jasmina rce(s) Supporting Document(s) Progress Note [facility] [id number] lbm [file] PARAPROFESSIONAL INTERPRETER/[id number] [file] [id number]== Procedure Social History Code Duration Value Status Description Data Source(s ) Alcohol intake 11/14/2019 12:00:00 AM EDT Current drinker of al cohol (finding) completed Current drinker of alcohol (finding) [facility] Tobacco use and exposure 11/14/2019 12:00:00 AM EDT Never used co mpleted Never used [facility] Smoking 11/14/2019 12:00:00 AM EDT Never smoker completed Never s [facility] Vital Signs ID Date Data Source [id number] 11/25/2019 03:06:43 PM EDT [facility] Name Value Range Interpretation Code Description Data Source(s) WEIGHT RECORDED 273.13 lb 273.13 lb [facility] Patient Treatment Plan of Care Planned Activity Planned Date Details Description Data Source (s) Megestrol Acetate 40 MG Oral Tablet 11/14/2019 12:00:00 AM [facility] Megestrol Acetate 40 MG Oral Tablet 01/13/2019 12:00:00 AM [facility]
--- NOTE | 2021-01-09 13:22 | REP ---
INDICATION: abdl pain. COMPARISON: 12/29/2020, 11/16/2020. TECHNIQUE: Single portable AP view of the chest was performed. FINDINGS: There is no acute infiltrate or pulmonary edema. Lungs are clear. The heart is mildly enlarged. The mediastinal silhouette is unremarkable. The visualized osseous structures are intact. IMPRESSION: No acute pulmonary disease.Mild cardiomegaly. <Electronically signed by Shashank Mack > 01/09/21 [id number]
[2021-01-09 13:32] LABS: BASO % 0.3 % (0.0-1.0); EOS # 0.1 10^3/uL (0.0-0.5); EOS % 1.7 % (0.0-3.0); HEMATOCRIT 38.6 % (36.0-47.0); HEMOGLOBIN 11.7 g/dl (12.0-15.5); LYMPH # 0.8 10^3/uL (1.5-5.0); LYMPH % 27.6 % (24.0-44.0); MEAN CORPUSCULAR HEMOGLOBIN 28.1 pg (27.0-33.0); MEAN CORPUSCULAR HGB CONC 30.3 g/dl (32.0-36.5); MEAN CORPUSCULAR VOLUME 92.6 fl (80.0-96.0); MONO # 0.3 10^3/uL (0.0-0.8); MONO % 10.1 % (2.0-8.0); NEUTROPHILS # 1.7 10^3/uL (1.5-8.5); PLATELET COUNT, AUTOMATED 170 10^3/uL (150-450); RED BLOOD COUNT 4.17 10^6/uL (4.00-5.40); WHITE BLOOD COUNT 2.9 10^3/uL (4.0-10.0)
[2021-01-09 13:43] LABS: INR 0.99; PROTHROMBIN TIME 13.5 SECONDS (12.7-14.5)
--- NOTE | 2021-01-09 13:44 | ECGEPIP ---
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
--- OUTSIDE RECORDS SUMMARY | 2021-01-09 13:46 | CCD ---
Author Author [facility] Address Unknown Phone Unavailable Care Team Providers Care Commutator Tester Name Role Phone CUNNINGHAM, RINKI Unavailable Unavailable [...] is protected by Article 27-F of the [facility] Public Health law. If you continue you may have access to information: Regarding HIV / AIDS; Provided by facilities licensed or operated by the [facility] Office of Mental Health; or Provided by the [facility] Office for People With Developmental Disabilities. If such information is present, then the following [facility] mandated warning applies: This information has [...] law may result in a fine or fpc sentence or both. A general authorization for the release of medical or other information is NOT sufficient authorization for further disc losure. Family History Family Member Name Family Member Gender Family Member Status Date o f Status Description Data Source(s) Unknown Unknown Problem [facility] ([facility] Unknown Male Problem [facility] ([facility]) Encounters Encounter Providers Location Date Indications Data Source(s ) Unknown [address] [facility], [facility] [address] [facility] Attender: EMMA CUNNINGHAM 02/09/2020 12:00:00 AM [facility] Outpatient Attender: EMMA CUNNINGHAM 01/30/2020 12:00:00 AM [facility] Outpatient 01/30/2020 12:00:00 AM [facility] Outpatient 01/12/2020 12:00:00 AM [facility] Outpatient Attender: EMMA CUNNINGHAM 01/12/2020 12:00:00 AM [facility] Outpatient Attender: EMMA CUNNINGHAM 12/26/2019 12:00:00 AM [facility] Outpatient 12/26/2019 12:00:00 AM [facility] Outpatient Attender: EMMA CUNNINGHAM 12/15/2019 12:00:00 AM [facility] Outpatient Referrer: EMMA CUNNINGHAM 12/08/2019 12:00:00 AM EDT [facility] Outpatient Attender: EMMA CUNNINGHAM [id number] 11/14/19 12:00:00 AM EDT - 11/25/2019 03:06:13 PM EDT Malignant neoplasm of endometrium [facility] Malignant neoplasm of endometrium Immunizations Vaccine Date Status Description Data Source(s) COVID-19 VACCINE Moderna 06/18/2020 12:00:00 AM EDT completed [facility] Vaccine Series Complete: YESThis Data wa s Submitted to [facility] Via [employer]. COVID-19 VACCINE Moderna 05/21/2020 12:00:00 AM EST completed [facility] Vaccine Series Complete: NOThis Data was Submitted to [facility] [employer]. Medications Medication Brand Name Start Date Product [...] t ablets by mouth Two Times Daily [facility] Endometrial carcinoma Megestrol Acetate 40 MG Oral Tablet megestrol (MEGACE) 40 MG tablet megestrol (MEGACE) 40 MG tablet 01/13/2019 12:00:00 AM EDT 80 mg Oral aborted Endometrial carcinoma Take 2 tablets by mouth Two Times [facility] Endometrial carcinoma Insurance Providers Payer name Policy type / Coverage type Policy ID Covered libertarian ID Covered libertarian's relationship to thakur Policy Thakur Plan Information Medicare Medicare Primary [id number] [id number]. [id number] Self [id number] Medicare Medicare Primary [id number] 2.0.1.476555.3.227. 99.936.18311.0 Self [id number] Medicare Medicare Primary [id number] 2.0.1.671699.3.227. 99.936.61504.0 Self [id number] Medicare Medicare Primary [id number] 2.0.1.672150.3.227. 99.936.14181.0 Self [id number] MEDICARE [id number] SP [id number] A MEDICARE A [id number] Self [id number] A Medicare Medicare Primary [id number] 2.0.1.586132.3.227. 99.936.37540.0 Self [id number] Medicare Medicare Primary [id number] 2.0.1.222090.3.227. 99.936.74712.0 Self [id number] Medicare Medicare Primary [id number] 2.0.1.742157.3.227. 99.936.59063.0 Self [id number] A Medicare Medicare Primary [id number] 2.0.1.201655.3.227. 99.936.11010.0 Self [id number] MEDICARE A [id number] Self [id number] MEDICARE [id number] Mariah [id number] A Medicare Medicare Primary [id number] Self MEDICARE [id number] SP [id number] Medicare Medicare Primary [id number] 2.0.1.440027.3.227. 99.936.76894.0 Self [id number] Medicare Medicare Primary [id number] 2.16.840.1.291112.3.227. 99.936.81237.0 Self [id number] Medicare Medicare Primary [id number] 2.16.840.1.504422.3.227. 99.936.81175.0 Self [id number] Medicare Medicare Primary [id number] 2.16.840.1.764591.3.227. 99.936.37807.0 Self [id number] Medicare Medicare Primary [id number] 2.16.840.1.864576.3.227. 99.936.84967.0 Self [id number] Medicare Medicare Primary [id number] 2.16840.1.357212.3.227. 99.936.80163.0 Self [id number] Medicare Medicare Primary [id number] 2.0.1.358019.3.227. 99.936.06783.0 Self [id number] Medicare P [id number] S [id number] A MEDICAID [id number] SP [id number] [place] 3 [id number] U Medicaid S [id number] S [id number] MEDICAID M [id number] Self [id number] Medicaid [place] Medigap Part B [id number] 2.0.1.060266.3.227.99.991. 27279.0 Self [id number] [facility] MEDICARE [id number] Amriah [id number] MEDICAID [id number] Mariah [id number] Medicare P [id number] S [id number] A Medicaid S [id number] S [id number] [place] [id number] 2.16840.1.412920.3.227.99.991.49797.0 Self 0 [id number] [place] Primary [id number] 2.840.1.329408.3.227.99.991.13710.0 Self 0 [id number] MEDICAID [id number] SP [id number] Medicaid S [id number] S [id number] [place] [id number] SP [id number] U MEDICAID [id number] SP [id number] EMEDNY [id number] SP [id number] Medicaid S [id number] S [id number] Medicaid Medicaid [id number] 2.16.840.1.759852.3.227.99.936.62344.0 S elf [id number] MEDICARE C [id number] S [id number] MEDICAID M [id number] S [id number] [place] O [id number] S [id number] MEDICAID [id number] SP [id number] MEDICARE [id number] SP [id number] D74 Medicaid Medicaid [id number] 2.16.840.1.156573.3.227.99.936.10329.0 S elf [id number] ANSI-Medicaid [id number] ANSI-Medicare Part B [id number] ANSI-Medicare Part B [id number] ANSI-Medicaid [id number] ANSI-Medicare Part B [id number] ANSI-Medicaid [id number] ANSI-Medicare Part B [id number] ANSI-Medicaid [id number] ANSI-Medicaid [id number] ANSI-Medicare Part B [id number] ANSI-Medicare Part B [id number] ANSI-Medicaid [id number] Medicaid Medicaid [id number] 2.16.840.1.551964.3.227.99.936.51592.0 S elf [id number] Medicaid Medicaid [id number] 2.16.840.1.343885.3.227.99.936.78759.0 S elf [id number] Medicaid Medicaid [id number] 2.16.840.1.514971.3.227.99.936.59872.0 S elf [id number] Medicaid Medicaid [id number] 2.16.840.1.716089.3.227.99.936.38101.0 S elf [id number] Medicaid Medicaid [id number] 2.16.840.1.361774.3.227.99.936.62848.0 S [facility] [id number] Medicaid Medicaid [id number] 2.16.840.1.024160.3.227.99.936.47290.0 S [facility] [id number] Medicaid Medicaid [id number] 2.16.840.1.024043.3.227.99.936.14336.0 S [facility] [id number] MEDICARE C [id number] S [id number] A Medicaid Medicaid [id number] 2.16.840.1.418542.3.227.99.936.90459.0 S [facility] [id number] Medicare Dme Supplies Medigap Part B [id number] 2.16.840.1.523790.3.227.99.991.13479.0 Self 0 [id number] Medicare Dme Supplies Medigap Part B [id number] 2.16.840.1.007058.3.227.99.991.08595.0 Self 0 [id number] Medicaid Medicaid [id number] 2.16.840.1.741087.3.227.99.936.16789.0 S [facility] [id number] Medicaid Medicaid [id number] 2.16.840.1.363273.3.227.99.936.50355.0 S [facility] [id number] Medicaid Medicaid [id number] 2.16.840.1.199188.3.227.99.936.37166.0 S [facility] [id number] Medicaid Medicaid [id number] 2.16.840.1.314775.3.227.99.936.19226.0 S [facility] [id number] Medicaid Medicaid [id number] 2.16.840.1.498132.3.227.99.936.02714.0 S [facility] [id number] Medicaid Medicaid 2 [id number] Self 2 1 SELF PAY 2 UNAVAILABLE 1 UNAVAILA BLE Problems, Conditions, and Diagnoses No Information Surgeries/Procedures No Information Results ID Date Data Source [id number] 12/29/2020 01:31:00 PM EDT [facility] Name Value Range Interpretation Code Description Data Jasmina rce(s) Supporting Document(s) SARS-CoV-2 (COVID 19) NEGATIVE - SARS-CoV-2 (COVID19) [facility] This lab was ordered by [facility] a nd reported by [facility]. ID Date Data Source [id number] 11/21/2020 08:02:00 AM EDT [facility] Name Value Range Interpretation Code Description Data Jasmina rce(s) Supporting Document(s) SARS-CoV-2 (COVID 19) NEGATIVE - SARS-CoV-2 (COVID19) [facility] This lab was ordered by [facility] a nd reported by [facility]. ID Date Data Source [id number] 10/31/2020 06:15:00 PM EDT [facility] Name Value Range Interpretation Code Description Data Jasmina rce(s) Supporting Document(s) SARS coronavirus 2 RNA [Presence] in Res piratory specimen by TYLER with probe detection NEGATIVE [facility] This lab was ordered by [facility] a nd reported by [facility]. ID Date Data Source [id number] 03/26/2020 11:18:00 PM EST [facility] Name Value Range Interpretation Code Description Data Jasmina rce(s) Supporting Document(s) SARS coronavirus 2 RNA [Presence] in Res piratory specimen by TYLER with probe detection [facility] This lab was ordered by [facility] a nd reported by [facility]. ID Date Data Source [id number] 11/16/2019 10:44:[address] [facility] Name Value Range Interpretation Code Description Data Jasmina rce(s) Supporting Document(s) Progress Note [facility] SGUJAq2gHdIWExRi00/RJZmvAAGps5VlSMqzMXo8IQdqDTWoW9OaURE0eW4aIYY2HSxLAbGrJdGnEJZ6 [facility] [file] [id number]+[id number]+[id number]0YNGLFD5PNSq== ID Date Data Source [id number] 11/16/2019 10:44:[address] [facility] Name Value Range Interpretation Code Description Data Jasmina rce(s) Supporting Document(s) Progress Note [facility] [id number]/TZEaxALVpp9HrDWszUOm4ADgcFVLbY2LkKHS5lD7yNLD7MSzRSjItYrAtAOA9 lbm [file] MANAGER OF ENGINEERING/8XJuycvLJBqcVKPWXWw1zYCWrPxEO+wSaejAJ9H [file] [id number]Im== Procedure Social History Code Duration Value Status Description Data Source(s ) Alcohol intake 11/14/2019 12:00:00 AM EDT Current drinker of al cohol (finding) completed Current drinker of alcohol (finding) [facility] Tobacco use and exposure 11/14/2019 12:00:00 AM EDT Never used co mpleted Never used [facility] Smoking 11/14/2019 12:00:00 AM EDT Never smoker completed Never s [facility] Vital Signs ID Date Data Source [id number] 11/25/2019 03:06:[address] [facility] Name Value Range Interpretation Code Description Data Source(s) WEIGHT RECORDED 273.13 lb 273.13 lb [facility] Patient Treatment Plan of Care Planned Activity Planned Date Details Description Data Source (s) Megestrol Acetate 40 MG Oral Tablet 11/14/2019 12:00:00 AM [facility] Megestrol Acetate 40 MG Oral Tablet 01/13/2019 12:00:00 AM [facility]
[2021-01-09 14:00] LABS: ALT/SGPT 12 U/L (12-78); BLOOD UREA NITROGEN 14 MG/DL (7-18); CALCIUM LEVEL 8.8 MG/DL (8.5-10.1); CARBON DIOXIDE LEVEL 32 MEQ/L (21-32); CHLORIDE LEVEL 100 MEQ/L (98-107); CREATININE FOR GFR 3.67 MG/DL (0.55-1.30); GLOMERULAR FILTRATION RATE 13.8 (>51); GLUCOSE, FASTING 91 MG/DL (70-100); SODIUM LEVEL 137 MEQ/L (136-145)
[2021-01-09 14:01] LABS: ALBUMIN 3.6 GM/DL (3.2-5.2); AMYLASE 35 U/L (25-115); BILIRUBIN,DIRECT 0.1 MG/DL (0.0-0.2); CK-MB VALUE MASS < 1.0 NG/ML (<3.6); CPK CREATINE PHOSPHOKINASE 63 U/L (26-192); LIPASE 117 U/L (73-393); MB/CK RELATIVE INDEX 1.59 (< OR =4); TOTAL PROTEIN 8.6 GM/DL (6.4-8.2); TROPONIN I < 0.02 NG/ML (< 0.10)
--- NOTE | 2021-01-09 14:14 | REP ---
INDICATION: hx entrometrial cancer; vag bleeding. COMPARISON: 11/04/2018 TECHNIQUE: Transvesical and transvaginal imaging FINDINGS: The uterus measures 9.5 x 4.4 x 6 cm. The parenchymal echo pattern is heterogenous but appears unchanged from the prior exam. On transabdominal scanning the endometrial echo complex appears unremarkable, however, an endovaginal scanning is difficult to evaluate since it has indistinct margins but approximately measures 8 mm in thickness. Neither ovary was visualized transvesical air transvaginally. The technologist has made note on the worksheet that the examination is extremely limited due to the patient's body habitus and an empty urinary bladder on trans abdominal scanning. All of the transvaginal images were obtainable. IMPRESSION: 1. Exam limitations as described above. 2. Measurements as described above <Electronically signed by Lloyd Bullock > 01/09/21 [id number]
[2021-01-09] MEDS ORDERED: MORPHINE 2 MG/ML 1ML VIAL (J2270) IV PRN (14:15)
--- NOTE | 2021-01-09 14:46 | REP ---
INDICATION: hx endometrial cancer; vag bleeding; lower abdl pain. COMPARISON: Multiple the latest 11/26/2020 also without contrast TECHNIQUE: Standard helical technique without contrast FINDINGS: The lung bases are unchanged. The liver, spleen, pancreas, adrenal glands, and kidneys are unchanged. There is splenomegaly status quo. There is marked renal atrophic change with calcifications status quo. There is mild hepatomegaly status quo. The abdominal aorta and para-aortic regions are unchanged. Multiple nonenlarged para-lymph nodes unnoticed status quo. The bowel loops and the mesenteries are unchanged. No mass or adenopathy has developed. There is no free fluid or free air. Postoperative changes are again seen along the anterior abdominal wall status quo. Bone window technique throughout the examination again shows diffuse increased density throughout the osseous structures status quo consistent with renal osteodystrophy. IMPRESSION: There is no evidence of acute disease. Chronic changes as described above. <Electronically signed by Lloyd Bullock > 01/09/21 [id number]
[2021-01-09 15:30] VITALS: BP 156/78
[2021-01-09] MEDS ORDERED: MEGE40TA PO (16:11)
== END 2021-01-09 16:25 | disposition home or self-care (01) ==
LOC: M ED 12:25
DX: N93.9 Abnormal uterine and vaginal bleeding, unspecified (principal); C55 Malignant neoplasm of uterus, part unspecified; R10.30 Lower abdominal pain, unspecified; I13.0 Hypertensive heart and chronic kidney disease with heart failure and stage 1 through stage 4 chronic kidney disease, or unspecified chronic kidney disease; I50.9 Heart failure, unspecified; G47.33 Obstructive sleep apnea (adult) (pediatric); Z86.711 Personal history of pulmonary embolism; E78.5 Hyperlipidemia, unspecified; G89.29 Other chronic pain; M54.50 Low back pain, unspecified; E66.9 Obesity, unspecified; F32.A Depression, unspecified; F17.200 Nicotine dependence, unspecified, uncomplicated; Z88.1 Allergy status to other antibiotic agents; Z88.6 Allergy status to analgesic agent; Z88.8 Allergy status to other drugs, medicaments and biological substances; Z79.899 Other long term (current) drug therapy
CPT/HCPCS: 36415; 71045; 74176; 76830; 76856; 80048; 80076; 82150; 82550; 82553; 83605; 83690; 84484; 85025; 85610; 85730; 86850; 86900; 86901; 87040; 93005; 93041; 96374; 99285; J2270

== ENCOUNTER 2021-04-19 11:44 | Emergency (ER) | payer MEDICARE, MEDICAID ==
[~2021-04-19] VITALS: Ht 154.9 cm; Wt 128.0 kg
[~2021-04-19 11:44] MED LIST changes: -LEVO500T3 PO; +LEVO500T4 PO
[2021-04-19] MEDS ORDERED: ACETAMINOPHEN *IV* 1,000 MG in IV 1 EA IV ONE (15:35)
[2021-04-19] MEDS ORDERED: fentaNYL 100 MCG/2 ML INJECTION IV ONE (15:35)
[2021-04-19] MEDS ORDERED: METOCLOPRAMIDE INJ 10MG/2ML VIAL (J2765 PER 1) IV ONE (15:35)
[2021-04-19] MEDS ORDERED: NS 1,000 ML IV ONE (15:35)
[2021-04-19] MEDS ORDERED: ISOVUE-370 76% 100ML VIAL As Ordered ONE (16:18)
[2021-04-19 16:59] LABS: RSV AMPLIFICATION NEGATIVE (NEGATIVE)
[2021-04-19 18:17] LABS: ALBUMIN 3.5 GM/DL (3.2-5.2); BILIRUBIN,DIRECT 0.2 MG/DL (0.0-0.2); BILIRUBIN,TOTAL 0.6 MG/DL (0.2-1.0); CREATININE FOR GFR 4.13 MG/DL (0.55-1.30); GLOMERULAR FILTRATION RATE 12.1 (>51); POTASSIUM SERUM 4.4 MEQ/L (3.5-5.1); TOTAL PROTEIN 6.9 GM/DL (6.4-8.2)
[2021-04-19 20:23] LABS: BASO % 0.5 % (0.0-1.0); EOS # 0.1 10^3/uL (0.0-0.5); EOS % 1.6 % (0.0-3.0); HEMATOCRIT 38.5 % (36.0-47.0); HEMOGLOBIN 11.8 g/dl (12.0-15.5); LYMPH # 0.8 10^3/uL (1.5-5.0); LYMPH % 21.7 % (24.0-44.0); MEAN CORPUSCULAR HEMOGLOBIN 28.4 pg (27.0-33.0); MEAN CORPUSCULAR HGB CONC 30.6 g/dl (32.0-36.5); MEAN CORPUSCULAR VOLUME 92.8 fl (80.0-96.0); MONO # 0.5 10^3/uL (0.0-0.8); MONO % 11.7 % (2.0-8.0); NEUTROPHILS # 2.5 10^3/uL (1.5-8.5); NEUTROPHILS % 64.2 % (36.0-66.0); PLATELET COUNT, AUTOMATED 136 10^3/uL (150-450); RED BLOOD COUNT 4.15 10^6/uL (4.00-5.40); WHITE BLOOD COUNT 3.8 10^3/uL (4.0-10.0)
[2021-04-19] MEDS ORDERED: ONDA4TAB6 PO (21:10)
[2021-04-19] MEDS ORDERED: ONDANSETRON 4 MG ORAL DISINTEGRATING TAB PO ONE (21:30)
[2021-04-19 21:49] VITALS: BP 108/74
== END 2021-04-19 21:53 | disposition home or self-care (01) ==
LOC: M ED 11:44
DX: R51.9 Headache, unspecified (principal); R11.2 Nausea with vomiting, unspecified; N18.6 End stage renal disease; I10 Essential (primary) hypertension; F41.9 Anxiety disorder, unspecified; K21.9 Gastro-esophageal reflux disease without esophagitis; J45.909 Unspecified asthma, uncomplicated; Z86.73 Personal history of transient ischemic attack (TIA), and cerebral infarction without residual deficits; F32.A Depression, unspecified; F17.200 Nicotine dependence, unspecified, uncomplicated; Z88.0 Allergy status to penicillin; Z88.1 Allergy status to other antibiotic agents; Z88.6 Allergy status to analgesic agent; Z79.899 Other long term (current) drug therapy
CPT/HCPCS: 36415; 70450; 70496; 70498; 80048; 80076; 83690; 85025; 87631; 96361; 96374; 99284; J2765; Q0162; Q9967

== ENCOUNTER 2021-08-02 12:00 | Inpatient (IN) | payer MEDICARE, MEDICAID ==
[~2021-08-02] VITALS: Ht 154.9 cm; Wt 135.4 kg
[~2021-08-02 12:00] MED LIST changes: -D31000TA2 PO; +ONDA4TAB6 PO; +VITA100093 PO
[2021-08-02] MEDS ORDERED: ACETAMINOPHEN TAB 650MG DOSE (2X325MG) PO ONE (12:30)
[2021-08-02] MEDS ORDERED: ONDANSETRON 4MG/2ML VIAL IV ONE (12:30)
[2021-08-02] MEDS ORDERED: ONDANSETRON 4MG ORAL DISINTEGRATING TAB PO ONE (13:05)
[2021-08-02 13:14] LABS: BASO % 0.4 % (0.0-1.0); EOS # 0.1 10^3/uL (0.0-0.5); EOS % 4.9 % (0.0-3.0); HEMATOCRIT 32.9 % (36.0-47.0); HEMOGLOBIN 10.7 g/dl (12.0-15.5); LYMPH # 0.7 10^3/uL (1.5-5.0); LYMPH % 26.9 % (24.0-44.0); MEAN CORPUSCULAR HEMOGLOBIN 30.7 pg (27.0-33.0); MEAN CORPUSCULAR HGB CONC 32.5 g/dl (32.0-36.5); MEAN CORPUSCULAR VOLUME 94.3 fl (80.0-96.0); MONO # 0.3 10^3/uL (0.0-0.8); MONO % 10.1 % (2.0-8.0); NEUTROPHILS # 1.6 10^3/uL (1.5-8.5); NEUTROPHILS % 57.7 % (36.0-66.0); PLATELET COUNT, AUTOMATED 110 10^3/uL (150-450); RED BLOOD COUNT 3.49 10^6/uL (4.00-5.40); WHITE BLOOD COUNT 2.7 10^3/uL (4.0-10.0)
[2021-08-02 13:32] LABS: ALBUMIN 3.3 GM/DL (3.2-5.2); BILIRUBIN,DIRECT 0.2 MG/DL (0.0-0.2); BILIRUBIN,TOTAL 0.5 MG/DL (0.2-1.0); CALCIUM LEVEL 9.2 MG/DL (8.5-10.1); CREATININE FOR GFR 2.82 MG/DL (0.55-1.30); GLOMERULAR FILTRATION RATE 18.7 (>51); POTASSIUM SERUM 3.7 MEQ/L (3.5-5.1); TOTAL PROTEIN 7.2 GM/DL (6.4-8.2)
[2021-08-02] MEDS ORDERED: CIPROFLOXACIN 500MG TABLET PO ONE (13:40)
[2021-08-02] MEDS ORDERED: metroNIDAZOLE (FLAGYL) 500MG TABLET PO ONE (13:40)
[2021-08-02] MEDS ORDERED: HOME MED LIST COMPLETE! XX SCH (15:30)
[2021-08-02] MEDS ORDERED: MAALOX 30 ML SUSP *UDC PO PRN (17:00)
[2021-08-02] MEDS ORDERED: ALBUTEROL 90 MCG/ACT 8GM HFA INHALER INH PRN (18:35)
[2021-08-02 19:00] VITALS: BP 130/58
[2021-08-02 20:00] VITALS: O2SAT 97
[2021-08-02] MEDS: HEPARIN SOD (PORCINE) 5000UNITS/ML 1ML VIAL/SYRINGE SC SCH (21:55)
[2021-08-02] MEDS: metroNIDAZOLE (FLAGYL) 500MG TABLET PO SCH (21:55)
[2021-08-02] MEDS: OMEPRAZOLE 20MG CAP PO SCH (21:55)
[2021-08-03] VITALS (8 sets, daily range): BP systolic 102–143; BP diastolic 54–66; O2SAT 98–100
[2021-08-03] MEDS ORDERED: CIPROFLOXACIN 500MG TABLET PO SCH (06:00)
[2021-08-03] MEDS: HEPARIN SOD (PORCINE) 5000UNITS/ML 1ML VIAL/SYRINGE SC SCH ×3 (06:06→22:05)
[2021-08-03] MEDS: metroNIDAZOLE (FLAGYL) 500MG TABLET PO SCH ×3 (06:07→22:05)
[2021-08-03] MEDS ORDERED: atenoloL 25 MG TAB PO SCH (09:00)
[2021-08-03 09:16] LABS: BASO % 0.3 % (0.0-1.0); EOS # 0.2 10^3/uL (0.0-0.5); EOS % 4.1 % (0.0-3.0); HEMATOCRIT 33.9 % (36.0-47.0); HEMOGLOBIN 10.3 g/dl (12.0-15.5); LYMPH # 0.7 10^3/uL (1.5-5.0); LYMPH % 19.2 % (24.0-44.0); MEAN CORPUSCULAR HEMOGLOBIN 29.6 pg (27.0-33.0); MEAN CORPUSCULAR HGB CONC 30.4 g/dl (32.0-36.5); MEAN CORPUSCULAR VOLUME 97.4 fl (80.0-96.0); MONO # 0.3 10^3/uL (0.0-0.8); MONO % 7.7 % (2.0-8.0); NEUTROPHILS # 2.5 10^3/uL (1.5-8.5); NEUTROPHILS % 68.7 % (36.0-66.0); PLATELET COUNT, AUTOMATED 110 10^3/uL (150-450); RED BLOOD COUNT 3.48 10^6/uL (4.00-5.40); WHITE BLOOD COUNT 3.7 10^3/uL (4.0-10.0)
[2021-08-03 09:41] LABS: ALBUMIN 3.3 GM/DL (3.2-5.2); BILIRUBIN,TOTAL 0.6 MG/DL (0.2-1.0); CALCIUM LEVEL 7.9 MG/DL (8.5-10.1); CREATININE FOR GFR 4.72 MG/DL (0.55-1.30); GLOMERULAR FILTRATION RATE 10.3 (>51); MAGNESIUM LEVEL 2.3 MG/DL (1.8-2.4); POTASSIUM SERUM 4.3 MEQ/L (3.5-5.1); TOTAL PROTEIN 7.5 GM/DL (6.4-8.2)
[2021-08-03] MEDS ORDERED: diphenhydrAMINE 50MG/ML VIAL (J1200) IV PRN (10:10)
[2021-08-03] MEDS ORDERED: methylPREDNISolone 125MG 2ML VIAL IV PRN (10:10)
[2021-08-03] MEDS ORDERED: ALBUTEROL SULFATE 2.5 MG/0.5 ML INH NEB SOLN INH PRN (10:10)
[2021-08-03] MEDS ORDERED: ALBUTEROL 90 MCG/ACT 8GM HFA INHALER INH PRN (10:10)
[2021-08-03] MEDS ORDERED: EPINEPHrine INJ 1 MG/ML 1ML AMP IM PRN (10:10)
[2021-08-03] MEDS: VITAMIN D 1,000 INTERNATIONAL UNITS TABLET PO SCH (10:12)
[2021-08-03] MEDS ORDERED: BEBTELOVIMAB 175MG 2ML VIAL (EUA) IV ONE (12:00)
[2021-08-03] MEDS: SUCROFERRIC OXYHYDROXIDE 500MG CHEW TAB (VELPHORO) PO SCH ×2 (12:13→17:11)
[2021-08-03] MEDS: CIPROFLOXACIN 250MG TAB PO SCH (17:11)
[2021-08-03] MEDS: OMEPRAZOLE 20MG CAP PO SCH (22:00)
[2021-08-04] MEDS: HEPARIN SOD (PORCINE) 5000UNITS/ML 1ML VIAL/SYRINGE SC SCH ×3 (05:20→21:48)
[2021-08-04] MEDS: metroNIDAZOLE (FLAGYL) 500MG TABLET PO SCH ×3 (05:20→21:48)
[2021-08-04] MEDS: CIPROFLOXACIN 250MG TAB PO SCH ×2 (05:20→17:24)
[2021-08-04 06:00] VITALS: BP 149/64
[2021-08-04] MEDS: VITAMIN D 1,000 INTERNATIONAL UNITS TABLET PO SCH (08:11)
[2021-08-04] MEDS: SUCROFERRIC OXYHYDROXIDE 500MG CHEW TAB (VELPHORO) PO SCH ×3 (08:11→17:24)
[2021-08-04] MEDS: METOPROLOL SUCC (TopROL XL) 50MG **XL** TAB PO SCH (08:12)
[2021-08-04 09:21] VITALS: O2SAT 100
[2021-08-04 10:01] LABS: BASO % 0.3 % (0.0-1.0); EOS # 0.1 10^3/uL (0.0-0.5); EOS % 4.2 % (0.0-3.0); HEMATOCRIT 33.1 % (36.0-47.0); HEMOGLOBIN 10.4 g/dl (12.0-15.5); LYMPH # 0.8 10^3/uL (1.5-5.0); LYMPH % 25.5 % (24.0-44.0); MEAN CORPUSCULAR HGB CONC 31.4 g/dl (32.0-36.5); MEAN CORPUSCULAR VOLUME 98.8 fl (80.0-96.0); MONO # 0.2 10^3/uL (0.0-0.8); MONO % 6.5 % (2.0-8.0); NEUTROPHILS % 63.2 % (36.0-66.0); PLATELET COUNT, AUTOMATED 117 10^3/uL (150-450); RED BLOOD COUNT 3.35 10^6/uL (4.00-5.40); WHITE BLOOD COUNT 3.1 10^3/uL (4.0-10.0)
[2021-08-04 10:29] LABS: ALBUMIN 3.5 GM/DL (3.2-5.2); BILIRUBIN,TOTAL 0.4 MG/DL (0.2-1.0); CALCIUM LEVEL 8.3 MG/DL (8.5-10.1); CREATININE FOR GFR 6.67 MG/DL (0.55-1.30); GLOMERULAR FILTRATION RATE 6.9 (>51); MAGNESIUM LEVEL 2.4 MG/DL (1.8-2.4); POTASSIUM SERUM 4.2 MEQ/L (3.5-5.1); TOTAL PROTEIN 7.3 GM/DL (6.4-8.2)
[2021-08-04 20:00] VITALS: BP 159/58
[2021-08-04] MEDS: OMEPRAZOLE 20MG CAP PO SCH (20:34)
[2021-08-04] MEDS: ACETAMINOPHEN TAB 650MG DOSE (2X325MG) PO PRN (20:35)
[2021-08-05 04:00] VITALS: BP 130/62
[2021-08-05] MEDS: CIPROFLOXACIN 250MG TAB PO SCH ×2 (05:41→17:10)
[2021-08-05] MEDS: HEPARIN SOD (PORCINE) 5000UNITS/ML 1ML VIAL/SYRINGE SC SCH ×3 (05:41→21:08)
[2021-08-05] MEDS: metroNIDAZOLE (FLAGYL) 500MG TABLET PO SCH ×3 (05:41→21:08)
[2021-08-05] MEDS ORDERED: LIDOCAINE 1% SDV 5ML VIAL SC PRN (06:00)
[2021-08-05] MEDS ORDERED: SODIUM CHLORIDE 0.9% 1000ML IV PRN (06:00)
[2021-08-05 06:11] LABS: BASO % 0.4 % (0.0-1.0); EOS # 0.1 10^3/uL (0.0-0.5); EOS % 3.7 % (0.0-3.0); HEMATOCRIT 31.1 % (36.0-47.0); HEMOGLOBIN 9.9 g/dl (12.0-15.5); LYMPH # 0.8 10^3/uL (1.5-5.0); MEAN CORPUSCULAR HEMOGLOBIN 30.2 pg (27.0-33.0); MEAN CORPUSCULAR HGB CONC 31.8 g/dl (32.0-36.5); MEAN CORPUSCULAR VOLUME 94.8 fl (80.0-96.0); MONO # 0.2 10^3/uL (0.0-0.8); MONO % 6.4 % (2.0-8.0); NEUTROPHILS # 1.6 10^3/uL (1.5-8.5); NEUTROPHILS % 59.1 % (36.0-66.0); PLATELET COUNT, AUTOMATED 122 10^3/uL (150-450); RED BLOOD COUNT 3.28 10^6/uL (4.00-5.40); WHITE BLOOD COUNT 2.7 10^3/uL (4.0-10.0)
[2021-08-05 06:35] LABS: ALBUMIN 3.1 GM/DL (3.2-5.2); BILIRUBIN,TOTAL 0.4 MG/DL (0.2-1.0); CALCIUM LEVEL 8.3 MG/DL (8.5-10.1); CREATININE FOR GFR 8.19 MG/DL (0.55-1.30); GLOMERULAR FILTRATION RATE 5.5 (>51); MAGNESIUM LEVEL 2.3 MG/DL (1.8-2.4); POTASSIUM SERUM 4.9 MEQ/L (3.5-5.1)
[2021-08-05] MEDS: VITAMIN D 1,000 INTERNATIONAL UNITS TABLET PO SCH (08:24)
[2021-08-05] MEDS: SUCROFERRIC OXYHYDROXIDE 500MG CHEW TAB (VELPHORO) PO SCH ×3 (08:24→17:10)
[2021-08-05] MEDS: METOPROLOL SUCC (TopROL XL) 50MG **XL** TAB PO SCH (08:25)
[2021-08-05] MEDS ORDERED: CEPACOL LOZENGE PO PRN (10:30)
[2021-08-05 21:05] VITALS: BP 143/63
[2021-08-05] MEDS: OMEPRAZOLE 20MG CAP PO SCH (21:08)
[2021-08-06 04:00] VITALS: BP 164/74
[2021-08-06] MEDS: CIPROFLOXACIN 250MG TAB PO SCH ×2 (05:15→18:40)
[2021-08-06] MEDS: metroNIDAZOLE (FLAGYL) 500MG TABLET PO SCH ×3 (05:15→21:30)
[2021-08-06] MEDS: VITAMIN D 1,000 INTERNATIONAL UNITS TABLET PO SCH (05:15)
[2021-08-06] MEDS: HEPARIN SOD (PORCINE) 5000UNITS/ML 1ML VIAL/SYRINGE SC SCH ×3 (05:16→21:30)
[2021-08-06] MEDS ORDERED: SODIUM CHLORIDE 0.9% 1000ML IV PRN (06:00)
[2021-08-06 07:21] LABS: BASO % 0.3 % (0.0-1.0); EOS # 0.1 10^3/uL (0.0-0.5); EOS % 2.3 % (0.0-3.0); HEMATOCRIT 32.7 % (36.0-47.0); HEMOGLOBIN 10.2 g/dl (12.0-15.5); LYMPH # 0.8 10^3/uL (1.5-5.0); LYMPH % 25.1 % (24.0-44.0); MEAN CORPUSCULAR HEMOGLOBIN 30.1 pg (27.0-33.0); MEAN CORPUSCULAR HGB CONC 31.2 g/dl (32.0-36.5); MEAN CORPUSCULAR VOLUME 96.5 fl (80.0-96.0); MONO # 0.2 10^3/uL (0.0-0.8); MONO % 6.7 % (2.0-8.0); NEUTROPHILS % 65.3 % (36.0-66.0); PLATELET COUNT, AUTOMATED 137 10^3/uL (150-450); RED BLOOD COUNT 3.39 10^6/uL (4.00-5.40)
[2021-08-06 07:56] LABS: ALBUMIN 3.3 GM/DL (3.2-5.2); BILIRUBIN,TOTAL 0.4 MG/DL (0.2-1.0); CALCIUM LEVEL 8.7 MG/DL (8.5-10.1); CREATININE FOR GFR 9.84 MG/DL (0.55-1.30); GLOMERULAR FILTRATION RATE 4.4 (>51); MAGNESIUM LEVEL 2.4 MG/DL (1.8-2.4); POTASSIUM SERUM 5.2 MEQ/L (3.5-5.1); TOTAL PROTEIN 7.4 GM/DL (6.4-8.2)
[2021-08-06] MEDS: SUCROFERRIC OXYHYDROXIDE 500MG CHEW TAB (VELPHORO) PO SCH ×3 (08:55→18:40)
[2021-08-06] MEDS: METOPROLOL SUCC (TopROL XL) 50MG **XL** TAB PO SCH (09:00)
[2021-08-06] MEDS: ACETAMINOPHEN TAB 650MG DOSE (2X325MG) PO PRN ×2 (16:13→21:30)
[2021-08-06 18:42] VITALS: BP 154/67
[2021-08-06 20:00] VITALS: BP 126/73
[2021-08-06 21:30] VITALS: BP 126/73
[2021-08-06] MEDS: OMEPRAZOLE 20MG CAP PO SCH (21:30)
[2021-08-07] MEDS: ACETAMINOPHEN TAB 650MG DOSE (2X325MG) PO PRN (05:36)
[2021-08-07] MEDS: metroNIDAZOLE (FLAGYL) 500MG TABLET PO SCH ×2 (05:37→13:02)
[2021-08-07] MEDS: HEPARIN SOD (PORCINE) 5000UNITS/ML 1ML VIAL/SYRINGE SC SCH ×2 (05:37→13:03)
[2021-08-07] MEDS: CIPROFLOXACIN 250MG TAB PO SCH ×2 (05:37→18:07)
[2021-08-07 06:00] VITALS: BP 143/63
[2021-08-07 06:47] LABS: EOS # 0.1 10^3/uL (0.0-0.5); HEMATOCRIT 34.2 % (36.0-47.0); HEMOGLOBIN 10.9 g/dl (12.0-15.5); LYMPH # 0.7 10^3/uL (1.5-5.0); MEAN CORPUSCULAR HEMOGLOBIN 30.4 pg (27.0-33.0); MEAN CORPUSCULAR HGB CONC 31.9 g/dl (32.0-36.5); MEAN CORPUSCULAR VOLUME 95.3 fl (80.0-96.0); MONO # 0.3 10^3/uL (0.0-0.8); MONO % 8.6 % (2.0-8.0); NEUTROPHILS % 66.4 % (36.0-66.0); PLATELET COUNT, AUTOMATED 125 10^3/uL (150-450); RED BLOOD COUNT 3.59 10^6/uL (4.00-5.40)
[2021-08-07 07:19] LABS: ALBUMIN 3.5 GM/DL (3.2-5.2); BILIRUBIN,TOTAL 0.6 MG/DL (0.2-1.0); CREATININE FOR GFR 6.15 MG/DL (0.55-1.30); GLOMERULAR FILTRATION RATE 7.6 (>51); MAGNESIUM LEVEL 2.1 MG/DL (1.8-2.4); POTASSIUM SERUM 4.5 MEQ/L (3.5-5.1); TOTAL PROTEIN 7.3 GM/DL (6.4-8.2)
[2021-08-07] MEDS: SUCROFERRIC OXYHYDROXIDE 500MG CHEW TAB (VELPHORO) PO SCH ×2 (09:13→13:02)
[2021-08-07] MEDS: METOPROLOL SUCC (TopROL XL) 50MG **XL** TAB PO SCH (09:13)
[2021-08-07] MEDS: VITAMIN D 1,000 INTERNATIONAL UNITS TABLET PO SCH (09:13)
[2021-08-07] MEDS ORDERED: CIPR-250 PO (10:53)
[2021-08-07] MEDS ORDERED: METR-265 PO (10:53)
[2021-08-07] MEDS ORDERED: METO1TAB7 PO (10:53)
== END 2021-08-07 18:00 | disposition home or self-care (01) | DRG 177 ==
LOC: M ED 12:00 → M ED INP 16:15 → M 4MAIN 19:00
PROVIDERS: ADMIT Family Medicine; ATTEND Internal Medicine
DX: U07.1 COVID-19 (principal); N18.6 End stage renal disease; I13.2 Hypertensive heart and chronic kidney disease with heart failure and with stage 5 chronic kidney disease, or end stage renal disease; Z68.43 Body mass index [BMI] 50.0-59.9, adult; I50.32 Chronic diastolic (congestive) heart failure; K57.32 Diverticulitis of large intestine without perforation or abscess without bleeding; D61.818 Other pancytopenia; I77.0 Arteriovenous fistula, acquired; E66.01 Morbid (severe) obesity due to excess calories; D64.9 Anemia, unspecified; E21.1 Secondary hyperparathyroidism, not elsewhere classified; G47.33 Obstructive sleep apnea (adult) (pediatric); K21.9 Gastro-esophageal reflux disease without esophagitis; Z91.19 Patient's noncompliance with other medical treatment and regimen; Z85.89 Personal history of malignant neoplasm of other organs and systems; F32.A Depression, unspecified; Z79.899 Other long term (current) drug therapy; Z88.6 Allergy status to analgesic agent; Z88.8 Allergy status to other drugs, medicaments and biological substances; Z89.021 Acquired absence of right finger(s); Z89.422 Acquired absence of other left toe(s)

== ENCOUNTER 2021-10-02 18:13 | Emergency (ER) | payer MEDICARE, MEDICAID ==
[~2021-10-02 18:13] MED LIST changes: +CIPR-250 PO; -MEGE40TA; -MEGE40TA PO; +MEGE40TA3; +MEGE40TA3 PO; +METO1TAB7 PO; +METR-265 PO
[2021-10-02 20:51] LABS: BASO % 0.3 % (0.0-1.0); EOS # 0.1 10^3/uL (0.0-0.5); EOS % 1.5 % (0.0-3.0); LYMPH # 0.7 10^3/uL (1.5-5.0); MEAN CORPUSCULAR HEMOGLOBIN 29.9 pg (27.0-33.0); MEAN CORPUSCULAR HGB CONC 31.4 g/dl (32.0-36.5); MEAN CORPUSCULAR VOLUME 95.1 fl (80.0-96.0); MONO # 0.3 10^3/uL (0.0-0.8); MONO % 8.2 % (2.0-8.0); NEUTROPHILS # 2.2 10^3/uL (1.5-8.5); NEUTROPHILS % 67.7 % (36.0-66.0); PLATELET COUNT, AUTOMATED 134 10^3/uL (150-450); RED BLOOD COUNT 3.68 10^6/uL (4.00-5.40); WHITE BLOOD COUNT 3.3 10^3/uL (4.0-10.0)
[2021-10-02] MEDS ORDERED: GI COCKTAIL 50ML BTL(HYOSCYAMINE/MAALOX/LIDOCAINE VISCOUS)(1:3:1) PO ONE (21:00)
[2021-10-02 21:05] LABS: CK-MB VALUE MASS < 1.0 NG/ML (<3.6); CPK CREATINE PHOSPHOKINASE 52 U/L (26-192); MB/CK RELATIVE INDEX 1.92 (< OR =4)
[2021-10-02 21:13] LABS: ALBUMIN 3.7 GM/DL (3.2-5.2); BILIRUBIN,DIRECT 0.2 MG/DL (0.0-0.2); BILIRUBIN,TOTAL 0.7 MG/DL (0.2-1.0); CALCIUM LEVEL 8.2 MG/DL (8.5-10.1); CREATININE FOR GFR 4.5 MG/DL (0.55-1.30); GLOMERULAR FILTRATION RATE 10.9 (>51); POTASSIUM SERUM 3.5 MEQ/L (3.5-5.1); THYROID STIMULATING HORMONE 1.61 uIU/ML (0.358-3.740); TOTAL PROTEIN 7.3 GM/DL (6.4-8.2)
[2021-10-02 22:12] LABS: RSV AMPLIFICATION NEGATIVE (NEGATIVE)
[2021-10-02 22:30] VITALS: BP 127/59
== END 2021-10-02 23:06 | disposition home or self-care (01) ==
LOC: M ED 18:13 → EDBD 18:13 → M ED 23:06
DX: R42 Dizziness and giddiness (principal); T50.3X5A Adverse effect of electrolytic, caloric and water-balance agents, initial encounter; Y92.89 Other specified places as the place of occurrence of the external cause; I10 Essential (primary) hypertension; N18.6 End stage renal disease; F32.A Depression, unspecified; G47.33 Obstructive sleep apnea (adult) (pediatric); Z99.2 Dependence on renal dialysis; E66.8 Other obesity; Z79.899 Other long term (current) drug therapy; Z88.1 Allergy status to other antibiotic agents; Z88.8 Allergy status to other drugs, medicaments and biological substances; F17.200 Nicotine dependence, unspecified, uncomplicated

== ENCOUNTER 2021-12-24 12:43 | Emergency (ER) | payer MEDICARE, MEDICAID ==
[~2021-12-24] VITALS: Ht 154.9 cm; Wt 133.6 kg
[~2021-12-24 12:43] MED LIST changes: +LEVO1TAB39 PO; -LEVO500T4 PO
[2021-12-24] MEDS ORDERED: METOCLOPRAMIDE INJ 10MG/2ML VIAL (J2765 PER 1) IV ONE (15:15)
[2021-12-24] MEDS ORDERED: ACETAMINOPHEN 500 MG TAB PO ONE (15:15)
[2021-12-24 16:46] LABS: BASO % 0.4 % (0.0-1.0); EOS % 0.7 % (0.0-3.0); HEMATOCRIT 31.9 % (36.0-47.0); HEMOGLOBIN 9.8 g/dl (12.0-15.5); LYMPH # 0.8 10^3/uL (1.5-5.0); LYMPH % 27.2 % (24.0-44.0); MEAN CORPUSCULAR HEMOGLOBIN 30.1 pg (27.0-33.0); MEAN CORPUSCULAR HGB CONC 30.7 g/dl (32.0-36.5); MEAN CORPUSCULAR VOLUME 97.9 fl (80.0-96.0); MONO # 0.2 10^3/uL (0.0-0.8); MONO % 6.8 % (2.0-8.0); NEUTROPHILS # 1.8 10^3/uL (1.5-8.5); NEUTROPHILS % 64.9 % (36.0-66.0); PLATELET COUNT, AUTOMATED 137 10^3/uL (150-450); RED BLOOD COUNT 3.26 10^6/uL (4.00-5.40); WHITE BLOOD COUNT 2.8 10^3/uL (4.0-10.0)
[2021-12-24 17:32] LABS: ERYTHROCYTE SEDIMENTATION RATE 63 mm/hr (0-30)
[2021-12-24] MEDS ORDERED: dexameTHASONE 20MG/5ML VIAL (J1100 PER 1MG) IV ONE (18:00)
[2021-12-24 18:15] VITALS: BP 143/65
== END 2021-12-24 18:35 | disposition home or self-care (01) ==
LOC: M ED 12:43
DX: R51.9 Headache, unspecified (principal); L97.519 Non-pressure chronic ulcer of other part of right foot with unspecified severity; I10 Essential (primary) hypertension; E78.5 Hyperlipidemia, unspecified; N18.6 End stage renal disease; Z86.73 Personal history of transient ischemic attack (TIA), and cerebral infarction without residual deficits; Z88.1 Allergy status to other antibiotic agents; Z88.6 Allergy status to analgesic agent; Z79.51 Long term (current) use of inhaled steroids; Z79.899 Other long term (current) drug therapy
CPT/HCPCS: 70450; 73630; 80047; 83605; 85025; 85652; 86140; 96374; 96375; 99284; J1100; J2765

== ENCOUNTER 2022-05-26 14:58 | Emergency (ER) | payer MEDICARE, MEDICAID ==
[~2022-05-26] VITALS: Ht 154.9 cm; Wt 131.8 kg
[~2022-05-26 14:58] MED LIST changes: -DOXY-350 PO; +DOXY-444 PO
[2022-05-26 16:42] LABS: BASO % 0.3 % (0.0-1.0); EOS # 0.1 10^3/uL (0.0-0.5); EOS % 3.8 % (0.0-3.0); HEMATOCRIT 37.1 % (36.0-47.0); HEMOGLOBIN 11.4 g/dl (12.0-15.5); LYMPH # 0.5 10^3/uL (1.5-5.0); LYMPH % 14.7 % (24.0-44.0); MEAN CORPUSCULAR HEMOGLOBIN 30.6 pg (27.0-33.0); MEAN CORPUSCULAR HGB CONC 30.7 g/dl (32.0-36.5); MEAN CORPUSCULAR VOLUME 99.7 fl (80.0-96.0); MONO # 0.2 10^3/uL (0.0-0.8); MONO % 7.1 % (2.0-8.0); NEUTROPHILS # 2.3 10^3/uL (1.5-8.5); NEUTROPHILS % 74.1 % (36.0-66.0); RED BLOOD COUNT 3.72 10^6/uL (4.00-5.40); WHITE BLOOD COUNT 3.1 10^3/uL (4.0-10.0)
[2022-05-26 17:04] LABS: ALBUMIN 3.6 G/DL (3.2-5.2); BILIRUBIN,DIRECT 0.1 MG/DL (<0.4); BILIRUBIN,TOTAL 0.3 MG/DL (0.3-1.2); CALCIUM LEVEL 7.9 MG/DL (8.5-10.1); CREATININE FOR GFR 3.73 MG/DL (0.55-1.30); GLOMERULAR FILTRATION RATE 13.5 (>51); POTASSIUM SERUM 4.1 MMOL/L (3.5-5.1); TOTAL PROTEIN 7.2 G/DL (5.7-8.2)
[2022-05-26 17:21] LABS: RSV AMPLIFICATION NEGATIVE (NEGATIVE)
[2022-05-26 17:42] LABS: PLATELET COUNT, AUTOMATED 112 10^3/uL (150-450)
[2022-05-26 18:16] VITALS: BP 172/72
== END 2022-05-26 19:20 | disposition home or self-care (01) ==
LOC: M ED 14:58 → EDBD 14:58 → M ED 19:20
DX: N18.6 End stage renal disease (principal); R53.83 Other fatigue; I44.4 Left anterior fascicular block; I45.10 Unspecified right bundle-branch block; I10 Essential (primary) hypertension; G43.909 Migraine, unspecified, not intractable, without status migrainosus; F12.10 Cannabis abuse, uncomplicated; Z86.73 Personal history of transient ischemic attack (TIA), and cerebral infarction without residual deficits; Z86.16 Personal history of COVID-19; Z79.52 Long term (current) use of systemic steroids; Z79.899 Other long term (current) drug therapy; Z88.6 Allergy status to analgesic agent; Z88.8 Allergy status to other drugs, medicaments and biological substances

== ENCOUNTER → 2022-06-17 | Outpatient (CLI) | payer MEDICARE, MEDICAID ==
[~2022-06-17] MED LIST changes: +HEPARIN 1,000UNITS/ML 10ML VIAL (FOR RADIOLOGY & DIALYSIS ONLY) As Ordered ONE; +ISOVUE-300 61% 100ML VIAL As Ordered ONE; +LIDOCAINE 1% MDV 20ML VIAL As Ordered ONE; +MIDAZOLAM INJ 2MG/2ML VIAL As Ordered ONE; +fentaNYL 100 MCG/2 ML INJECTION As Ordered ONE; +hydrALAZINE 20MG/ML 1ML VIAL As Ordered ONE
[2022-06-17 11:21] LABS: HEMATOCRIT 34.3 % (36.0-47.0); HEMOGLOBIN 10.6 g/dl (12.0-15.5); MEAN CORPUSCULAR HEMOGLOBIN 30.4 pg (27.0-33.0); MEAN CORPUSCULAR HGB CONC 30.9 g/dl (32.0-36.5); MEAN CORPUSCULAR VOLUME 98.3 fl (80.0-96.0); PLATELET COUNT, AUTOMATED 115 10^3/uL (150-450); RED BLOOD COUNT 3.49 10^6/uL (4.00-5.40)
[2022-06-17 11:33] LABS: PROTHROMBIN TIME 13.4 SECONDS (12.5-14.5)
[2022-06-17 11:46] LABS: CALCIUM LEVEL 8.8 MG/DL (8.5-10.1); CREATININE FOR GFR 5.89 MG/DL (0.55-1.30); POTASSIUM SERUM 4.8 MMOL/L (3.5-5.1)
== END ==
LOC: M IRPRO 09:39
PROVIDERS: ATTEND Surgery Vascular Surgery
DX: N18.6 End stage renal disease (principal); Z99.2 Dependence on renal dialysis
CPT/HCPCS: 36902; 80048; 85027; 85610; 86850; 86900; 86901; 87635; 99152; 99153; C1725; C1769; C1887; C1894; C2623; J0360; J2250; J3010; Q9967

== ENCOUNTER 2022-08-20 16:33 | Emergency (ER) | payer MEDICARE, MEDICAID ==
[~2022-08-20] VITALS: Ht 154.9 cm; Wt 123.3 kg
[~2022-08-20 16:33] MED LIST changes: -HEPARIN 1,000UNITS/ML 10ML VIAL (FOR RADIOLOGY & DIALYSIS ONLY) As Ordered ONE; -ISOVUE-300 61% 100ML VIAL As Ordered ONE; -LIDOCAINE 1% MDV 20ML VIAL As Ordered ONE; -MIDAZOLAM INJ 2MG/2ML VIAL As Ordered ONE; -fentaNYL 100 MCG/2 ML INJECTION As Ordered ONE; -hydrALAZINE 20MG/ML 1ML VIAL As Ordered ONE
[2022-08-20 16:35] VITALS: BP 148/65
== END 2022-08-20 18:06 | disposition left against medical advice (07) ==
LOC: M ED 16:33
DX: Z53.21 Procedure and treatment not carried out due to patient leaving prior to being seen by health care provider (principal)

== ENCOUNTER → 2022-09-04 | Outpatient (CLI) | payer MEDICARE, MEDICAID | LOC: M WHC 14:18 | PROVIDERS: ATTEND Nurse Practitioner Family | DX: Z12.31 Encounter for screening mammogram for malignant neoplasm of breast (principal) ==

== ENCOUNTER 2022-12-18 12:16 | Inpatient (IN) | payer MEDICARE, MEDICAID ==
[~2022-12-18] VITALS: Ht 154.9 cm; Wt 134.7 kg
[~2022-12-18 12:16] MED LIST changes: -LIDO1CRE42 TOP; +LIDO30CR18 TOP
[2022-12-18] MEDS ORDERED: methylPREDNISolone 125MG 2ML VIAL IV ONE (12:45)
[2022-12-18] MEDS: IPRATROPIUM 0.5MG/ALBUTEROL 2.5MG INH SOL UD 3ML (DUONEB) NEB PRN ×3 (12:51→16:38)
[2022-12-18 13:36] LABS: VENOUS BASE EXCESS 8.5 (-2.0-2.0); VENOUS HCO3 35.6 MMOL/L (23.0-27.0); VENOUS O2 SATURATION 54.8 % (60.0-80.0); VENOUS PARTIAL PRESSURE CO2 63.5 mmHg (38.0-50.0); VENOUS PARTIAL PRESSURE O2 30.1 mmHg (30.0-50.0); VENOUS PH 7.366 UNITS (7.330-7.430); VENOUS STANDARD HCO3 31.4 MMOL/L; VENOUS TOTAL CO2 37.5 MMOL/L (24.0-28.0)
[2022-12-18 13:55] LABS: ALBUMIN 3.7 G/DL (3.2-5.2); ALKALINE PHOSPHATASE 382 U/L (46-116); ALT/SGPT 10 U/L (7.0-40); AST/SGOT 12 U/L (<34); BILIRUBIN,DIRECT 0.3 MG/DL (<0.4); BILIRUBIN,TOTAL 0.8 MG/DL (0.3-1.2); BLOOD UREA NITROGEN 30 MG/DL (9-23); CALCIUM LEVEL 9.3 MG/DL (8.5-10.1); CARBON DIOXIDE LEVEL 35 MMOL/L (20-31); CHLORIDE LEVEL 103 MMOL/L (98-107); CK-MB VALUE MASS < 1.0 NG/ML (<3.6); CREATININE FOR GFR 4.86 MG/DL (0.55-1.30); GLOMERULAR FILTRATION RATE 9.9 (>51); GLUCOSE, FASTING 123 MG/DL (60-100); POTASSIUM SERUM 4.5 MMOL/L (3.5-5.1); SODIUM LEVEL 143 MMOL/L (136-145)
[2022-12-18 13:56] LABS: BASO % 0.4 % (0.0-1.0); EOS # 0.1 10^3/uL (0.0-0.5); EOS % 2.2 % (0.0-3.0); HEMATOCRIT 33.5 % (36.0-47.0); HEMOGLOBIN 10.3 g/dl (12.0-15.5); LYMPH # 0.4 10^3/uL (1.5-5.0); LYMPH % 15.3 % (24.0-44.0); MEAN CORPUSCULAR HEMOGLOBIN 30.7 pg (27.0-33.0); MEAN CORPUSCULAR HGB CONC 30.7 g/dl (32.0-36.5); MONO # 0.2 10^3/uL (0.0-0.8); MONO % 8.7 % (2.0-8.0); NEUTROPHILS % 73.4 % (36.0-66.0); PLATELET COUNT, AUTOMATED 113 10^3/uL (150-450); RED BLOOD COUNT 3.35 10^6/uL (4.00-5.40); WHITE BLOOD COUNT 2.8 10^3/uL (4.0-10.0)
[2022-12-18 14:17] LABS: CPK CREATINE PHOSPHOKINASE 38 U/L (34-145); MB/CK RELATIVE INDEX 2.63 (< OR =4)
[2022-12-18 15:23] LABS: CK-MB VALUE MASS < 1.0 NG/ML (<3.6)
[2022-12-18 15:24] LABS: CPK CREATINE PHOSPHOKINASE 32 U/L (34-145); MB/CK RELATIVE INDEX 3.12 (< OR =4)
[2022-12-18 16:00] VITALS: BP 163/85; TEMP 98.6; O2SAT 95
[2022-12-18] MEDS ORDERED: ALBUTEROL SULFATE 2.5MG/0.5ML INH NEB SOLN NEB PRN (16:35)
[2022-12-18] MEDS ORDERED: MED REC IN PROGRESS XX SCH (17:00)
[2022-12-18] MEDS ORDERED: AZITHROMYCIN INJ 500 MG, VIAL MATE ADAPTER 1 EACH in NS 250 ML IV SCH (17:00)
[2022-12-18 17:10] LABS: PROCALCITONIN 0.42 ng/ml
[2022-12-18] MEDS ORDERED: HOME MED LIST COMPLETE! XX SCH (18:15)
[2022-12-18 20:00] VITALS: BP 127/57; TEMP 98.6; O2SAT 93
[2022-12-18] MEDS ORDERED: IPRATROPIUM 0.5MG/ALBUTEROL 2.5MG INH SOL UD 3ML (DUONEB) NEB SCH (20:00)
[2022-12-18] MEDS: HEPARIN SOD (PORCINE) 5000UNITS/ML 1ML VIAL/SYRINGE SQ SCH (20:59)
[2022-12-18] MEDS: MAG SULF 1GM/100ML (MAG RUN) 1 GM in IV 1 EA IV SCH ×2 (20:59→22:03)
[2022-12-18 21:53] VITALS: O2SAT 93
[2022-12-19] VITALS (18 sets, daily range): BP systolic 111–142; BP diastolic 54–75; TEMP 96.6–98.4; O2SAT 94–100
[2022-12-19] MEDS ORDERED: LEVALBUTEROL 1.25MG 0.5ML CONCENTRATE NEB INH PRN (01:10)
[2022-12-19] MEDS ORDERED: METOPROLOL TART 50 MG TAB PO ONE (01:15)
[2022-12-19] MEDS ORDERED: methylPREDNISolone 125MG 2ML VIAL IV ONE (01:15)
[2022-12-19] MEDS ORDERED: dilTIAZem 25MG/5ML VIAL IV STA ×2 (01:23→02:12)
[2022-12-19] MEDS ORDERED: IPRATROPIUM 0.5MG/ALBUTEROL 2.5MG INH SOL UD 3ML (DUONEB) NEB PRN (01:40)
[2022-12-19] MEDS: IPRATROPIUM 0.5MG/ALBUTEROL 2.5MG INH SOL UD 3ML (DUONEB) NEB SCH ×6 (01:49→23:47)
[2022-12-19 05:53] LABS: HEMATOCRIT 29.1 % (36.0-47.0); HEMOGLOBIN 9.1 g/dl (12.0-15.5); MEAN CORPUSCULAR HEMOGLOBIN 30.5 pg (27.0-33.0); MEAN CORPUSCULAR HGB CONC 31.3 g/dl (32.0-36.5); MEAN CORPUSCULAR VOLUME 97.7 fl (80.0-96.0); PLATELET COUNT, AUTOMATED 101 10^3/uL (150-450); RED BLOOD COUNT 2.98 10^6/uL (4.00-5.40); WHITE BLOOD COUNT 2.3 10^3/uL (4.0-10.0)
[2022-12-19 06:18] LABS: CALCIUM LEVEL 9.1 MG/DL (8.5-10.1); CREATININE FOR GFR 6.02 MG/DL (0.55-1.30); GLOMERULAR FILTRATION RATE 7.7 (>51); POTASSIUM SERUM 4.4 MMOL/L (3.5-5.1)
[2022-12-19] MEDS ORDERED: LIDOCAINE 1% SDV 5ML VIAL SC PRN (06:25)
[2022-12-19] MEDS ORDERED: HEPARIN 1,000UNITS/ML 10ML VIAL (FOR RADIOLOGY & DIALYSIS ONLY) XX SCH (06:25)
[2022-12-19] MEDS ORDERED: HEPARIN 1,000UNITS/ML 10ML VIAL (FOR RADIOLOGY & DIALYSIS ONLY) IV PRN (06:25)
[2022-12-19] MEDS ORDERED: SODIUM CHLORIDE 0.9% 1000ML IV PRN (06:25)
[2022-12-19] MEDS: CALCIUM ACETATE 667MG GELCAP PO SCH ×3 (08:00→18:53)
[2022-12-19] MEDS: CINACALCET 30 MG TAB (SENSIPAR) PO SCH (08:02)
[2022-12-19] MEDS: HEPARIN SOD (PORCINE) 5000UNITS/ML 1ML VIAL/SYRINGE SQ SCH (08:02)
[2022-12-19] MEDS ORDERED: predniSONE 20 MG TAB PO SCH (09:00)
[2022-12-19] MEDS ORDERED: RIVAROXABAN 10MG TAB (XARELTO) PO SCH (09:00)
[2022-12-19] MEDS: methylPREDNISolone 125MG 2ML VIAL IV SCH (13:54)
[2022-12-19] MEDS: AZITHROMYCIN 250MG TABLET PO SCH (18:53)
[2022-12-19 19:45] LABS: INR 1.1; PROTHROMBIN TIME 13.8 SECONDS (12.5-14.5)
[2022-12-19 19:46] LABS: PARTIAL THROMBOPLASTIN TIME 22.6 SECONDS (24.8-34.2)
[2022-12-19] MEDS: guaiFENesin SYRUP 200MG 10ML UDC PO PRN (21:02)
[2022-12-19] MEDS: OMEPRAZOLE 20MG CAP PO SCH (21:02)
[2022-12-19] MEDS: APIXABAN 5 MG TAB (ELIQUIS) PO SCH (21:02)
[2022-12-20] VITALS (13 sets, daily range): BP systolic 102–124; BP diastolic 50–60; TEMP 96.5–98.1; O2SAT 90–99
[2022-12-20] MEDS: methylPREDNISolone 125MG 2ML VIAL IV SCH ×2 (00:10→12:05)
[2022-12-20] MEDS: IPRATROPIUM 0.5MG/ALBUTEROL 2.5MG INH SOL UD 3ML (DUONEB) NEB SCH ×6 (04:04→23:28)
[2022-12-20 06:59] LABS: HEMATOCRIT 30.7 % (36.0-47.0); HEMOGLOBIN 9.4 g/dl (12.0-15.5); LYMPH # 0.1 10^3/uL (1.5-5.0); LYMPH % 3.3 % (24.0-44.0); MEAN CORPUSCULAR HGB CONC 30.6 g/dl (32.0-36.5); MEAN CORPUSCULAR VOLUME 101.3 fl (80.0-96.0); MONO # 0.1 10^3/uL (0.0-0.8); MONO % 1.5 % (2.0-8.0); NEUTROPHILS # 3.2 10^3/uL (1.5-8.5); NEUTROPHILS % 94.6 % (36.0-66.0); PLATELET COUNT, AUTOMATED 116 10^3/uL (150-450); RED BLOOD COUNT 3.03 10^6/uL (4.00-5.40); WHITE BLOOD COUNT 3.4 10^3/uL (4.0-10.0)
[2022-12-20 07:15] LABS: CALCIUM LEVEL 8.8 MG/DL (8.5-10.1); CREATININE FOR GFR 4.25 MG/DL (0.55-1.30); GLOMERULAR FILTRATION RATE 11.6 (>51); POTASSIUM SERUM 4.9 MMOL/L (3.5-5.1)
[2022-12-20] MEDS: APIXABAN 5 MG TAB (ELIQUIS) PO SCH ×2 (08:37→21:16)
[2022-12-20] MEDS: CINACALCET 30 MG TAB (SENSIPAR) PO SCH (08:37)
[2022-12-20] MEDS: CALCIUM ACETATE 667MG GELCAP PO SCH ×3 (08:37→17:37)
[2022-12-20] MEDS: METOPROLOL SUCC (TopROL XL) 50MG **XL** TAB PO SCH (08:37)
[2022-12-20] MEDS ORDERED: ELIQ5TAB PO (13:01)
[2022-12-20 13:25] LABS: PHOSPHORUS LEVEL 4.2 MG/DL (2.5-4.9)
[2022-12-20] MEDS: CALCITRIOL 0.25 MCG CAP (S0169) PO SCH (13:28)
[2022-12-20] MEDS: AZITHROMYCIN 250MG TABLET PO SCH (16:11)
[2022-12-20] MEDS: guaiFENesin SYRUP 200MG 10ML UDC PO PRN (16:11)
[2022-12-20] MEDS: OMEPRAZOLE 20MG CAP PO SCH (21:17)
[2022-12-21] VITALS (12 sets, daily range): BP systolic 100–126; BP diastolic 55–64; TEMP 96.6–98.1; O2SAT 92–100
[2022-12-21] MEDS: IPRATROPIUM 0.5MG/ALBUTEROL 2.5MG INH SOL UD 3ML (DUONEB) NEB SCH ×6 (03:14→23:13)
[2022-12-21 08:49] LABS: HEMATOCRIT 33.3 % (36.0-47.0); HEMOGLOBIN 10.2 g/dl (12.0-15.5); LYMPH # 0.2 10^3/uL (1.5-5.0); LYMPH % 4.1 % (24.0-44.0); MEAN CORPUSCULAR HEMOGLOBIN 30.9 pg (27.0-33.0); MEAN CORPUSCULAR HGB CONC 30.6 g/dl (32.0-36.5); MEAN CORPUSCULAR VOLUME 100.9 fl (80.0-96.0); MONO # 0.2 10^3/uL (0.0-0.8); MONO % 5.2 % (2.0-8.0); NEUTROPHILS % 90.2 % (36.0-66.0); PLATELET COUNT, AUTOMATED 132 10^3/uL (150-450); WHITE BLOOD COUNT 4.4 10^3/uL (4.0-10.0)
[2022-12-21] MEDS: CINACALCET 30 MG TAB (SENSIPAR) PO SCH (09:01)
[2022-12-21] MEDS: APIXABAN 5 MG TAB (ELIQUIS) PO SCH ×2 (09:02→20:28)
[2022-12-21] MEDS: CALCIUM ACETATE 667MG GELCAP PO SCH ×3 (09:02→18:09)
[2022-12-21] MEDS: METOPROLOL SUCC (TopROL XL) 50MG **XL** TAB PO SCH (09:03)
[2022-12-21] MEDS: CALCITRIOL 0.25 MCG CAP (S0169) PO SCH (09:07)
[2022-12-21 09:08] LABS: CALCIUM LEVEL 8.2 MG/DL (8.5-10.1); CREATININE FOR GFR 5.97 MG/DL (0.55-1.30); GLOMERULAR FILTRATION RATE 7.8 (>51); POTASSIUM SERUM 4.9 MMOL/L (3.5-5.1)
[2022-12-21] MEDS ORDERED: methylPREDNISolone 125MG 2ML VIAL IV SCH (12:00)
[2022-12-21] MEDS: AZITHROMYCIN 250MG TABLET PO SCH (18:08)
[2022-12-21] MEDS: OMEPRAZOLE 20MG CAP PO SCH (20:29)
[2022-12-22] MEDS: IPRATROPIUM 0.5MG/ALBUTEROL 2.5MG INH SOL UD 3ML (DUONEB) NEB SCH ×7 (03:47→23:12)
[2022-12-22 04:00] VITALS: BP 107/51; TEMP 96.2; O2SAT 100
[2022-12-22 05:23] LABS: HEMATOCRIT 32.6 % (36.0-47.0); LYMPH # 0.2 10^3/uL (1.5-5.0); LYMPH % 4.8 % (24.0-44.0); MEAN CORPUSCULAR HGB CONC 30.7 g/dl (32.0-36.5); MEAN CORPUSCULAR VOLUME 100.9 fl (80.0-96.0); MONO # 0.3 10^3/uL (0.0-0.8); MONO % 6.5 % (2.0-8.0); NEUTROPHILS # 3.7 10^3/uL (1.5-8.5); NEUTROPHILS % 88.5 % (36.0-66.0); PLATELET COUNT, AUTOMATED 129 10^3/uL (150-450); RED BLOOD COUNT 3.23 10^6/uL (4.00-5.40); WHITE BLOOD COUNT 4.1 10^3/uL (4.0-10.0)
[2022-12-22 05:45] LABS: CALCIUM LEVEL 7.9 MG/DL (8.5-10.1); CREATININE FOR GFR 7.37 MG/DL (0.55-1.30); GLOMERULAR FILTRATION RATE 6.1 (>51); POTASSIUM SERUM 5.8 MMOL/L (3.5-5.1)
[2022-12-22] MEDS ORDERED: methylPREDNISolone 125MG 2ML VIAL IV SCH (06:00)
[2022-12-22] MEDS: CALCITRIOL 0.25 MCG CAP (S0169) PO SCH (06:26)
[2022-12-22] MEDS: CALCIUM ACETATE 667MG GELCAP PO SCH ×3 (06:26→17:45)
[2022-12-22] MEDS: CINACALCET 30 MG TAB (SENSIPAR) PO SCH (06:27)
[2022-12-22] MEDS: METOPROLOL SUCC (TopROL XL) 50MG **XL** TAB PO SCH (06:28)
[2022-12-22] MEDS: APIXABAN 5 MG TAB (ELIQUIS) PO SCH ×2 (06:28→20:37)
[2022-12-22] MEDS ORDERED: HEPARIN 1,000UNITS/ML 10ML VIAL (FOR RADIOLOGY & DIALYSIS ONLY) XX SCH (06:55)
[2022-12-22] MEDS ORDERED: HEPARIN 1,000UNITS/ML 10ML VIAL (FOR RADIOLOGY & DIALYSIS ONLY) IV PRN (06:55)
[2022-12-22] MEDS ORDERED: LIDOCAINE 1% SDV 5ML VIAL SC PRN (06:55)
[2022-12-22] MEDS ORDERED: SODIUM CHLORIDE 0.9% 1000ML IV PRN (06:55)
[2022-12-22 08:19] VITALS: BP 116/58; TEMP 97; O2SAT 91
[2022-12-22] MEDS ORDERED: ACETAMINOPHEN TAB 650MG DOSE (2X325MG) PO PRN (11:00)
[2022-12-22] MEDS: methylPREDNISolone 125MG 2ML VIAL IV SCH ×2 (14:06→20:38)
[2022-12-22 15:55] VITALS: BP 98/55; TEMP 97.3; O2SAT 93
[2022-12-22] MEDS: LIDOCAINE 5% (LIDODERM) PATCH TD SCH (16:28)
[2022-12-22] MEDS: DICLOFENAC EPOLAMINE 1.3% PATCH TOP SCH ×2 (16:28→20:38)
[2022-12-22] MEDS: DOCUSATE SODIUM 100MG CAPSULE PO SCH (16:29)
[2022-12-22] MEDS: AZITHROMYCIN 250MG TABLET PO SCH (17:45)
[2022-12-22 20:00] VITALS: BP 101/55; TEMP 96.3; O2SAT 97
[2022-12-22] MEDS: OMEPRAZOLE 20MG CAP PO SCH (20:37)
[2022-12-23] MEDS: IPRATROPIUM 0.5MG/ALBUTEROL 2.5MG INH SOL UD 3ML (DUONEB) NEB SCH ×6 (03:57→23:14)
[2022-12-23 04:00] VITALS: BP 111/55; TEMP 96.2; O2SAT 94
[2022-12-23] MEDS: methylPREDNISolone 125MG 2ML VIAL IV SCH ×2 (06:19→18:58)
[2022-12-23 06:43] LABS: HEMATOCRIT 31.5 % (36.0-47.0); HEMOGLOBIN 9.9 g/dl (12.0-15.5); LYMPH # 0.2 10^3/uL (1.5-5.0); LYMPH % 5.4 % (24.0-44.0); MEAN CORPUSCULAR HGB CONC 31.4 g/dl (32.0-36.5); MEAN CORPUSCULAR VOLUME 98.7 fl (80.0-96.0); MONO # 0.2 10^3/uL (0.0-0.8); MONO % 4.8 % (2.0-8.0); NEUTROPHILS # 2.8 10^3/uL (1.5-8.5); NEUTROPHILS % 88.8 % (36.0-66.0); PLATELET COUNT, AUTOMATED 115 10^3/uL (150-450); RED BLOOD COUNT 3.19 10^6/uL (4.00-5.40); WHITE BLOOD COUNT 3.2 10^3/uL (4.0-10.0)
[2022-12-23 07:08] LABS: CREATININE FOR GFR 5.23 MG/DL (0.55-1.30); GLOMERULAR FILTRATION RATE 9.1 (>51); POTASSIUM SERUM 5.4 MMOL/L (3.5-5.1)
[2022-12-23 07:19] VITALS: BP 111/56; TEMP 96.5; O2SAT 99
[2022-12-23] MEDS: DOCUSATE SODIUM 100MG CAPSULE PO SCH (09:00)
[2022-12-23] MEDS: METOPROLOL SUCC (TopROL XL) 50MG **XL** TAB PO SCH (09:00)
[2022-12-23] MEDS: DICLOFENAC EPOLAMINE 1.3% PATCH TOP SCH ×2 (09:09→20:46)
[2022-12-23] MEDS: CALCIUM ACETATE 667MG GELCAP PO SCH ×3 (09:09→18:58)
[2022-12-23] MEDS: LIDOCAINE 5% (LIDODERM) PATCH TD SCH (09:09)
[2022-12-23] MEDS: CINACALCET 30 MG TAB (SENSIPAR) PO SCH (09:10)
[2022-12-23] MEDS: APIXABAN 5 MG TAB (ELIQUIS) PO SCH ×2 (09:10→20:46)
[2022-12-23] MEDS: CALCITRIOL 0.25 MCG CAP (S0169) PO SCH (09:10)
[2022-12-23] MEDS ORDERED: PATIROMER SORBITEX CALCIUM 8.4 GM POWDER PACKET (VELTASSA) PO ONE (11:00)
[2022-12-23 15:25] VITALS: BP 126/57; TEMP 97.1; O2SAT 94
[2022-12-23 20:00] VITALS: BP 119/57; TEMP 97; O2SAT 97
[2022-12-23] MEDS: OMEPRAZOLE 20MG CAP PO SCH (20:46)
[2022-12-24] MEDS: IPRATROPIUM 0.5MG/ALBUTEROL 2.5MG INH SOL UD 3ML (DUONEB) NEB SCH ×6 (03:08→23:27)
[2022-12-24 04:00] VITALS: BP 117/57; TEMP 97; O2SAT 99
[2022-12-24] MEDS: methylPREDNISolone 125MG 2ML VIAL IV SCH (05:47)
[2022-12-24] MEDS ORDERED: LIDOCAINE 1% SDV 5ML VIAL SC PRN (06:20)
[2022-12-24] MEDS ORDERED: DARBEPOETIN 100MCG/0.5ML *DIALYSIS* SYRINGE IV SCH (06:20)
[2022-12-24] MEDS ORDERED: SODIUM CHLORIDE 0.9% 1000ML IV PRN (06:20)
[2022-12-24] MEDS ORDERED: HEPARIN 1,000UNITS/ML 10ML VIAL (FOR RADIOLOGY & DIALYSIS ONLY) IV PRN (06:20)
[2022-12-24] MEDS ORDERED: HEPARIN 1,000UNITS/ML 10ML VIAL (FOR RADIOLOGY & DIALYSIS ONLY) XX SCH (06:20)
[2022-12-24 06:35] LABS: HEMATOCRIT 32.3 % (36.0-47.0); HEMOGLOBIN 10.3 g/dl (12.0-15.5); LYMPH # 0.2 10^3/uL (1.5-5.0); LYMPH % 4.1 % (24.0-44.0); MEAN CORPUSCULAR HEMOGLOBIN 31.3 pg (27.0-33.0); MEAN CORPUSCULAR HGB CONC 31.9 g/dl (32.0-36.5); MEAN CORPUSCULAR VOLUME 98.2 fl (80.0-96.0); MONO # 0.2 10^3/uL (0.0-0.8); PLATELET COUNT, AUTOMATED 135 10^3/uL (150-450); RED BLOOD COUNT 3.29 10^6/uL (4.00-5.40); WHITE BLOOD COUNT 4.4 10^3/uL (4.0-10.0)
[2022-12-24 07:19] LABS: CALCIUM LEVEL 7.8 MG/DL (8.5-10.1); CREATININE FOR GFR 6.64 MG/DL (0.55-1.30); GLOMERULAR FILTRATION RATE 6.9 (>51); POTASSIUM SERUM 5.1 MMOL/L (3.5-5.1)
[2022-12-24 07:27] VITALS: BP 140/62; TEMP 96.7; O2SAT 98
[2022-12-24] MEDS: CALCIUM ACETATE 667MG GELCAP PO SCH ×3 (08:00→17:11)
[2022-12-24] MEDS: DOCUSATE SODIUM 100MG CAPSULE PO SCH (13:26)
[2022-12-24] MEDS: CINACALCET 30 MG TAB (SENSIPAR) PO SCH (13:26)
[2022-12-24] MEDS: APIXABAN 5 MG TAB (ELIQUIS) PO SCH ×2 (13:26→20:21)
[2022-12-24] MEDS: DICLOFENAC EPOLAMINE 1.3% PATCH TOP SCH ×2 (13:26→20:22)
[2022-12-24] MEDS: METOPROLOL SUCC (TopROL XL) 50MG **XL** TAB PO SCH (13:29)
[2022-12-24] MEDS: LIDOCAINE 5% (LIDODERM) PATCH TD SCH (13:30)
[2022-12-24] MEDS: CALCITRIOL 0.25 MCG CAP (S0169) PO SCH (13:32)
[2022-12-24 13:40] VITALS: BP 146/65; TEMP 98.1; O2SAT 96
[2022-12-24 19:43] VITALS: BP 116/59; TEMP 97.8; O2SAT 95
[2022-12-24] MEDS: OMEPRAZOLE 20MG CAP PO SCH (20:21)
[2022-12-25] MEDS: IPRATROPIUM 0.5MG/ALBUTEROL 2.5MG INH SOL UD 3ML (DUONEB) NEB SCH ×5 (03:35→21:44)
[2022-12-25 06:10] VITALS: BP 78/43; TEMP 97.1; O2SAT 96
[2022-12-25 06:19] VITALS: BP_SYST 82
[2022-12-25 06:37] VITALS: BP 102/52
[2022-12-25 07:22] LABS: BASO % 0.2 % (0.0-1.0); HEMATOCRIT 33.6 % (36.0-47.0); HEMOGLOBIN 10.5 g/dl (12.0-15.5); LYMPH # 0.8 10^3/uL (1.5-5.0); LYMPH % 16.4 % (24.0-44.0); MEAN CORPUSCULAR HEMOGLOBIN 30.6 pg (27.0-33.0); MEAN CORPUSCULAR HGB CONC 31.3 g/dl (32.0-36.5); MONO # 0.5 10^3/uL (0.0-0.8); MONO % 11.2 % (2.0-8.0); NEUTROPHILS # 3.4 10^3/uL (1.5-8.5); NEUTROPHILS % 71.4 % (36.0-66.0); PLATELET COUNT, AUTOMATED 134 10^3/uL (150-450); RED BLOOD COUNT 3.43 10^6/uL (4.00-5.40); WHITE BLOOD COUNT 4.8 10^3/uL (4.0-10.0)
[2022-12-25 07:54] LABS: CALCIUM LEVEL 7.6 MG/DL (8.5-10.1); CREATININE FOR GFR 4.49 MG/DL (0.55-1.30); GLOMERULAR FILTRATION RATE 10.9 (>51); POTASSIUM SERUM 4.2 MMOL/L (3.5-5.1)
[2022-12-25] MEDS: METOPROLOL SUCC (TopROL XL) 50MG **XL** TAB PO SCH (09:00)
[2022-12-25] MEDS: DOCUSATE SODIUM 100MG CAPSULE PO SCH (09:03)
[2022-12-25] MEDS: APIXABAN 5 MG TAB (ELIQUIS) PO SCH ×2 (09:03→21:16)
[2022-12-25] MEDS: predniSONE 20 MG TAB PO SCH (09:03)
[2022-12-25] MEDS: CALCIUM ACETATE 667MG GELCAP PO SCH ×3 (09:04→17:07)
[2022-12-25] MEDS: DICLOFENAC EPOLAMINE 1.3% PATCH TOP SCH ×2 (09:04→21:16)
[2022-12-25] MEDS: CALCITRIOL 0.25 MCG CAP (S0169) PO SCH (09:04)
[2022-12-25] MEDS: CINACALCET 30 MG TAB (SENSIPAR) PO SCH (09:04)
[2022-12-25] MEDS: LIDOCAINE 5% (LIDODERM) PATCH TD SCH (09:05)
[2022-12-25] MEDS ORDERED: PRED20TA PO (11:33)
[2022-12-25 14:00] VITALS: BP 115/47; TEMP 97.8; O2SAT 95
[2022-12-25] MEDS: OMEPRAZOLE 20MG CAP PO SCH (21:16)
[2022-12-25 22:00] VITALS: BP 114/51; TEMP 97.7; O2SAT 94
[2022-12-26] MEDS: IPRATROPIUM 0.5MG/ALBUTEROL 2.5MG INH SOL UD 3ML (DUONEB) NEB SCH ×4 (04:00→12:19)
[2022-12-26 06:00] VITALS: BP 101/50; TEMP 97.5; O2SAT 97
[2022-12-26] MEDS: DICLOFENAC EPOLAMINE 1.3% PATCH TOP SCH (06:13)
[2022-12-26] MEDS: CALCITRIOL 0.25 MCG CAP (S0169) PO SCH (06:14)
[2022-12-26] MEDS: LIDOCAINE 5% (LIDODERM) PATCH TD SCH (06:14)
[2022-12-26 06:15] VITALS: BP 101/50
[2022-12-26] MEDS: APIXABAN 5 MG TAB (ELIQUIS) PO SCH (06:15)
[2022-12-26] MEDS: METOPROLOL SUCC (TopROL XL) 50MG **XL** TAB PO SCH (06:15)
[2022-12-26] MEDS: CINACALCET 30 MG TAB (SENSIPAR) PO SCH (06:15)
[2022-12-26] MEDS: predniSONE 20 MG TAB PO SCH (06:15)
[2022-12-26] MEDS: CALCIUM ACETATE 667MG GELCAP PO SCH ×2 (06:16→12:47)
[2022-12-26] MEDS: DOCUSATE SODIUM 100MG CAPSULE PO SCH (06:16)
[2022-12-26] MEDS ORDERED: LIDOCAINE 1% SDV 5ML VIAL SC PRN (07:00)
[2022-12-26] MEDS ORDERED: SODIUM CHLORIDE 0.9% 1000ML IV PRN (07:00)
[2022-12-26] MEDS ORDERED: HEPARIN 1,000UNITS/ML 10ML VIAL (FOR RADIOLOGY & DIALYSIS ONLY) XX SCH (07:00)
[2022-12-26] MEDS ORDERED: HEPARIN 1,000UNITS/ML 10ML VIAL (FOR RADIOLOGY & DIALYSIS ONLY) IV PRN (07:00)
[2022-12-26] MEDS ORDERED: METO1TAB7 PO (14:11)
[2022-12-26] MEDS ORDERED: OMEP1CAP73 PO (14:11)
[2022-12-26] MEDS ORDERED: VELP5CHW PO (14:11)
[2022-12-26] MEDS ORDERED: ERGO500029 PO (14:11)
[2022-12-26] MEDS ORDERED: AMLO25TA PO (14:11)
[2022-12-26] MEDS ORDERED: ACET650T61 PO (14:11)
== END 2022-12-26 15:18 | disposition home or self-care (01) | DRG 189 ==
LOC: M ED 12:16 → M ED INP 12:17 → M MSPAV 18:19 → M PCU 12-19 01:27 → OBSVTOIN 12-19 11:17 → M MS4PR 12-24 11:17
PROVIDERS: ADMIT Internal Medicine; ATTEND Student in an Organized Health Care Education/Training Program
DX: J96.01 Acute respiratory failure with hypoxia (principal); I21.A1 Myocardial infarction type 2; I50.31 Acute diastolic (congestive) heart failure; N18.6 End stage renal disease; I13.2 Hypertensive heart and chronic kidney disease with heart failure and with stage 5 chronic kidney disease, or end stage renal disease; J44.1 Chronic obstructive pulmonary disease with (acute) exacerbation; D61.818 Other pancytopenia; J45.901 Unspecified asthma with (acute) exacerbation; E87.4 Mixed disorder of acid-base balance; I27.20 Pulmonary hypertension, unspecified; E66.01 Morbid (severe) obesity due to excess calories; K21.9 Gastro-esophageal reflux disease without esophagitis; Z99.2 Dependence on renal dialysis; B34.8 Other viral infections of unspecified site; E87.5 Hyperkalemia; I48.91 Unspecified atrial fibrillation; G47.33 Obstructive sleep apnea (adult) (pediatric); Z88.8 Allergy status to other drugs, medicaments and biological substances; Z88.6 Allergy status to analgesic agent; Z79.899 Other long term (current) drug therapy; D63.1 Anemia in chronic kidney disease; K59.00 Constipation, unspecified